=== PATIENT | male | born 1945 | race Caucasian/White ===

== ENCOUNTER 2016-06-27 02:49 | Inpatient (IN) ==
[2016-06-20 13:36] LABS: URINE MICRO REVIEW NEEDED? NO; URINE SOURCE CLEAN CATCH
[2016-06-20 13:40] LABS: MANUAL DIFF NEEDED? NO
[2016-06-20 13:48] LABS: BILIRUBIN URINE NEGATIVE (NEGATIVE); BLOOD URINE NEGATIVE (NEGATIVE); COLOR YELLOW; GLUCOSE URINE NEGATIVE (NEGATIVE); LEUKOCYTES URINE NEGATIVE (NEGATIVE); NITRITE URINE NEGATIVE (NEGATIVE); PROTEIN URINE NEGATIVE (NEGATIVE); SP GRAVITY URINE 1.008; TURBIDITY URINE CLEAR (CLEAR); UR EPITHELIAL CELLS <10 /HPF (<10); URINE BACTERIA NEGATIVE /HPF; URINE RBC <10 /HPF (<10); URINE WBC <10 /HPF (<10); UROBILINOGEN URINE NORMAL (NORMAL)
[2016-06-20 13:50] LABS: BASO% 0.4 % (0.0-0.8); EOS# 0.19 X1000 (0.0-0.7); EOS% 2.8 % (0.0-10.0); HEMATOCRIT 36.8 % (42.0-52.0); HEMOGLOBIN 12.2 g/dL (14.0-18.0); LYMPH# 1.73 X1000 (1.2-3.4); LYMPH% 25.7 % (20.5-51.1); MCH 31.7 PG (27-31); MCHC 33.2 g/dL (33-37); MCV 95.6 FL (81-99); MONO# 0.58 X1000 (0.11-0.59); MONO% 8.6 % (1.7-9.3); MPV 10.4 FL (7.4-10.4); NEUT% 62.5 % (42.2-75.2); PLT 164 X1000 (130-400); RBC 3.85 XMIL (4.7-6.1)
--- NOTE | 2016-06-20 13:54 | EKG Report ---
Test Performed on : 06/20/2016 1:25:03 PM Test Reason : PAT Blood Pressure : / mmHG Vent. Rate : 066 BPM Atrial Rate : 066 BPM P-R Int : 204 ms QRS Dur : 102 ms QT Int : 398 ms P-R-T Axes : 032 -24 012 degrees QTc Int : 417 ms Normal sinus rhythm. Normal ECG When compared with ECG of 07-MAR-2007 19:16, No significant change was found Confirmed by Vladimir BARR, Dain Frank ([id number]) on 06/22/2016 9:32:30 PM
[2016-06-20 14:02] LABS: INR 1.06; PROTIME 11.2 Seconds (9.2-11.7)
[2016-06-20 14:07] LABS: CALCIUM 9.2 mg/dL (8.8-10.2); POTASSIUM 4.9 mmol/L (3.5-5.1)
[2016-06-27] MEDS ORDERED: COLACE ONE (07:12)
[2016-06-27] MEDS ORDERED: PEPCID ONE (07:12)
[2016-06-27] MEDS ORDERED: REGLAN ONE (07:12)
[2016-06-27] MEDS ORDERED: CELEBREX ONE (07:13)
[2016-06-27] MEDS ORDERED: LR 1,000 ML ONE (07:13)
[2016-06-27] MEDS ORDERED: KEFZOL 2 GM/D5W 2 GM/50 ML IVPB ONE (07:14)
[2016-06-27] MEDS ORDERED: DIPRIVAN 1% 500 MG/50 ML BOTTLE ONE (07:27)
[2016-06-27] MEDS: LYRICA ONE ×2 (07:34→07:41)
--- NOTE | 2016-06-27 07:39 | HISTORY AND PHYSICAL ---
CHIEF COMPLAINT: Right knee pain. HISTORY OF PRESENT ILLNESS: Mr. Santiago is a 71-year-old, white male who has experienced progressive right knee pain for some time. His pain is worse with weightbearing and activity. Radiographic evaluation of the knee reveals findings consistent with advanced degenerative joint disease. Despite conservative therapy, he still has a significant reduction in his ability to conduct his normal daily activities, and he will be admitted at this time for right total knee arthroplasty. PRIMARY CARE PROVIDER: James Chen MD. ALLERGIES: No known drug allergies. PAST MEDICAL HISTORY: 1. Osteoarthritis. 2. Noninsulin-dependent diabetes mellitus. 3. Hypertension. 4. History of colon cancer. 5. Carotid artery disease. 6. Insomnia. 7. Peripheral neuropathy. PAST SURGICAL HISTORY: 1. Colon resection. 2. Appendectomy. 3. Bilateral carotid endarterectomies. 4. Vasectomy. 5. Right arm reconstruction secondary to trauma, 4 operations. SOCIAL HISTORY: The patient is . He is a remote smoker. CURRENT MEDICATIONS: 1. Aspirin, enteric coated 1 tablet by mouth daily. 2. Melatonin 3 mg 1 tablet by mouth at bedtime. 3. Fish oil 1000 mg daily. 4. Iron supplement 65 mg by mouth daily. 5. Vitamin B12 1000 mcg by mouth daily. 6. Multivitamin 1 tablet daily. 7. Lasix 40 mg by mouth daily. 8. Hytrin 5 mg by mouth in the morning. 9. Toprol-XL 100 mg by mouth twice daily. 10. Losartan 50 mg by mouth daily. 11. Glipizide/metformin combination 5/500, one tablet by mouth twice daily. REVIEW OF SYSTEMS: HEENT: The patient has a history of carotid artery disease having underwent bilateral carotid endarterectomies. He has no residual focal neurological deficits. Denies any recent interval health change. Cardiac: The patient has a longstanding history of hypertension. He reports a history of mitral valve prolapse. Denies any coronary artery disease or valvular heart disease. No chest pain, pressure, or other anginal equivalents. Pulmonary: The patient is a nonsmoker with no lung disease. Gastrointestinal: The patient has a history of colon cancer, status post resection. Denies any weight loss or weight gain. Genitourinary: No recent kidney or bladder infection or dysfunction. Neurological: He is treated for a peripheral neuropathy secondary to his diabetes. Musculoskeletal: He is here today for management of his osteoarthritic right knee. Other: He is treated for peripheral edema. PHYSICAL EXAMINATION: GENERAL: The patient is resting comfortably in bed. He is articulate. He has family at his bedside. He is able to answer all questions. HEENT: Head is normocephalic and atraumatic. Pupils are equal, round, react to light. Nares are patent. Throat without exudate. NECK: Supple. HEART: Regular rate and rhythm. No murmurs, gallops, or rubs. LUNGS: Clear to auscultation bilaterally. ABDOMEN: Round. Bowel sounds are present. It is nontender. GENITOURINARY: Not examined. NEUROLOGICAL: He discerns soft touch in the affected extremity. Motor function is grossly intact. MUSCULOSKELETAL: Right knee, no deformity or edema is noted. He has good peripheral pulse. IMPRESSION: Degenerative joint disease of the right knee. PLAN: Right total knee arthroplasty. The risks and benefits of surgery were explained to the patient including the risk of anesthesia, , bleeding, infection, damage to tendons, ligaments, nerves, blood vessels, the possibility of blood clots and other imponderables were discussed with the patient and he wishes to proceed with operative management at this time. Dictated by KHAI Barth for Pepe Rose MD cc: KHAI Barth MD
[2016-06-27] MEDS ORDERED: VANCOMYCIN ONE (08:07)
[2016-06-27] MEDS ORDERED: CYKLOKAPRON 1,000 MG/NS 1,000 MG/100 ML IVPB ONE ×2 (08:07→08:08)
[2016-06-27] MEDS ORDERED: MARCAINE 0.25% PF/EPI 1:200,000 ONE (08:07)
[2016-06-27] MEDS ORDERED: SODIUM CHLORIDE 0.9% ONE (08:07)
[2016-06-27] MEDS ORDERED: TORADOL ONE (08:07)
[2016-06-27] MEDS ORDERED: EXPAREL 1.3% ONE (08:08)
[2016-06-27] MEDS ORDERED: NEOSPORIN G.U. IRRIGANT ONE (08:08)
[2016-06-27] MEDS ORDERED: CLAVE SECONDARY SET 11953 ONE ×2 (08:08→12:59)
[2016-06-27] MEDS ORDERED: DURAMORPH ONE (08:44)
[2016-06-27] MEDS ORDERED: COZAAR PO SCH (09:00)
[2016-06-27] MEDS ORDERED: LASIX PO SCH (09:00)
[2016-06-27 09:50] LABS: URINE SOURCE CATH
[2016-06-27 10:10] LABS: BILIRUBIN URINE NEGATIVE (NEGATIVE); BLOOD URINE NEGATIVE (NEGATIVE); COLOR YELLOW; GLUCOSE URINE NEGATIVE (NEGATIVE); LEUKOCYTES URINE NEGATIVE (NEGATIVE); NITRITE URINE NEGATIVE (NEGATIVE); PROTEIN URINE TRACE mg/dL (NEGATIVE); SP GRAVITY URINE 1.018; TURBIDITY URINE CLEAR (CLEAR); UROBILINOGEN URINE NORMAL (NORMAL)
[2016-06-27 10:11] LABS: URINE MICRO REVIEW NEEDED? YES
[2016-06-27 10:15] LABS: UR EPITHELIAL CELLS <10 /HPF (<10); URINE BACTERIA NEGATIVE /HPF; URINE RBC <10 /HPF (<10); URINE WBC <10 /HPF (<10)
[2016-06-27 11:20] LABS: URINE CASTS NONE SEEN; URINE CRYSTALS NONE SEEN; URINE SMALL ROUND CELLS NONE SEEN
[2016-06-27] MEDS ORDERED: VERSED ONE (11:54)
[2016-06-27] MEDS ORDERED: FENTANYL ONE (11:54)
[2016-06-27] MEDS ORDERED: NS 1,000 ML ONE (12:08)
[2016-06-27] MEDS ORDERED: LR 3,000 ML ONE (12:59)
[2016-06-27] MEDS ORDERED: ANESTHESIA PB SET 88 IN 5742 ONE (12:59)
[2016-06-27] MEDS ORDERED: MORPHINE IV PRN (13:57)
[2016-06-27] MEDS ORDERED: MILK OF MAGNESIA PO PRN (14:00)
--- NOTE | 2016-06-27 15:43 | Diag Imaging Result Document ---
PROCEDURE NAME: KNEE 1-2 VIEWS-RIGHT - 06/27/2016 RIGHT KNEE 2 VIEWS: FINDINGS: There has been orthopaedic replacement of the right knee. There is good alignment to the femoral and tibial components. There are anterior skin akanksha with a superior surgical drain. No fracture. No dislocation. IMPRESSION: Recently orthopaedically replaced right knee.
[2016-06-27] MEDS: TOPROL XL PO SCH ×3 (15:50→20:30)
[2016-06-27] MEDS: HYTRIN PO SCH (15:51)
[2016-06-27] MEDS: GLUCOTROL PO SCH ×2 (15:51→20:23)
[2016-06-27] MEDS: FERROUS SULFATE PO SCH (15:52)
[2016-06-27] MEDS: NS 1,000 ML IV SCH (15:56)
[2016-06-27] MEDS: TYLENOL PO SCH ×2 (15:56→20:24)
--- NOTE | 2016-06-27 15:59 | OPERATIVE NOTE ---
PROCEDURE DATE: 06/27/2016 PREOPERATIVE DIAGNOSIS: Degenerative osteoarthritis of the right knee. POSTOPERATIVE DIAGNOSIS: Degenerative osteoarthritis of the right knee. PROCEDURES: Right total knee arthroplasty with a DePuy Attune size 9 posterior stabilized femur, a 10 mm tibial base plate, a 5 mm rotating platform tibial insert, and a 41 mm medialized anatomic patella. SURGEON: Pepe Rose MD. CIRCUS TRAINER: DANIELLA Rene. SECOND REFERENCE DATA EXPERT: Patricio Kennedy RN. ANESTHESIA: Spinal. IV FLUIDS: 2400 mL lactated Ringer. ESTIMATED BLOOD LOSS: 50 mL. TOURNIQUET TIME: 110 minutes at 350 mmHg. COMPLICATIONS: None. INDICATION: The patient is a pleasant 71-year-old male who has a long history of pain and discomfort of his right knee. Continues to have pain and discomfort despite appropriate nonoperative treatment. X-rays reveal significant degenerative arthritis and recommendation to proceed with right total knee arthroplasty was offered. Risks and benefits of surgery were explained, including the risks of anesthesia, , bleeding, infection, failure to relieve pain, postoperative stiffness, nerve injury, blood clots, and other imponderables. All questions answered. Patient and family wish to proceed with surgery. DETAILS OF THE OPERATION: The patient was taken to the operating room and placed supine on the operating table. Once adequate anesthesia was obtained, the patient's right lower extremity was subsequently prepped and draped in the usual sterile fashion. Esmarch was used to exsanguinate the right lower extremity. The tourniquet was inflated to 350 mmHg. A standard anterior incision was made with a skin knife. Medial and lateral skin envelopes were developed. Standard medial parapatellar arthrotomy was then performed. Patella fat pad was excised. Retractors were then placed. A starting reamer was then passed approximately 1 cm anterior to the PCL insertion. This was followed by an intramedullary guide with the distal femoral cutting block pinned in position. The distal femoral cut was then performed in standard fashion. A sizing block was placed and measured to size 6. The patient had some tightness with retraction of the patella. Therefore, resection of the patella was then conducted. A protective disk was then placed. Retractors were repositioned. A cutting block was placed on the distal femur. Anterior, posterior, and chamfer cuts were then made. Attention then turned the proximal tibia where further resection of the ACL and PCL was performed. Using the extramedullary guide, the proximal tibia was resected in standard fashion and good alignment confirmed with the alignment ciro. The medial and lateral meniscus was excised. A curved osteotome was used to remove the posterior osteophytes off the distal femur. A spacer block was placed and had good soft tissue balance in both flexion and extension. Attention was then turned to the proximal tibia where a size 10 appeared to be the correct size. The tibial baseplate was pinned in position. This was followed by a central reamer and a fin punch. A box cutting guide was then placed on the distal femur. A box cut was then performed. A size 9 posterior stabilized femur was placed in position. Two lug holes were drilled. A trial tibial insert was then placed and had good soft tissue balancing. The patella was everted and a size 41 appeared to be the correct size. Holes were drilled. A 41 mm medialized anatomic patella was then placed in had some mild translation; therefore, a lateral release was performed. Had good patellofemoral tracking at that point. The components were then removed. Copious irrigation then performed with antibiotic pulsatile lavage while vancomycin was mixed with cement on the back table. Sequential cementing was then performed, first with the tibial tray and excess cement removed with a [place], followed by the femoral component and excess cement was removed with a [place], followed by a trial tibial insert in full extension and axial loading was maintained while cement cured. The patella cemented in standard fashion. Patella clamp was placed. While the cement was curing, Exparel was placed in deep soft tissue as well as subcutaneous tissue. After the cement had finally cured, peripheral cement was removed with a small osteotome. A size 5 mm tibial insert good soft tissue balance in both flexion and extension. The trial component was then removed and Exparel was placed in the deep posterior capsule. The wound was copiously irrigated with antibiotic pulsatile lavage. A 5 mm rotating platform tibial insert was then placed. Had good soft tissue balance and good patellofemoral tracking and good range of motion. A 1/8 Hemovac drain was placed and was not sewn in. Copious irrigation was then performed once again with antibiotic pulsatile lavage. Number 1 Vicryl was used to repair the arthrotomy, followed by 2-0 Vicryl to repair the subcutaneous tissue, and skin akanksha. Adaptic, sterile 4 x 4, Webril, cryo unit, and Jakob wrap were applied to the left lower extremity. The patient tolerated the procedure well with no complications. Transferred to the recovery room in stable condition. cc: Pepe Rose MD MTDD
[2016-06-27] MEDS: OXY IR PO PRN ×3 (16:03→20:22)
[2016-06-27] MEDS: KEFZOL 2 GM/D5W 2 GM/50 ML IVPB IV SCH (17:51)
[2016-06-27] MEDS: PERIDEX MT SCH (20:22)
[2016-06-27] MEDS: COLACE PO SCH (20:22)
[2016-06-27] MEDS: MELATONIN PO SCH (20:25)
[2016-06-27] MEDS ORDERED: GLUCOPHAGE PO SCH (21:00)
[2016-06-28] MEDS: TYLENOL PO SCH ×4 (01:28→21:24)
[2016-06-28] MEDS: KEFZOL 2 GM/D5W 2 GM/50 ML IVPB IV SCH (01:28)
[2016-06-28] MEDS: NS 1,000 ML IV SCH ×3 (01:29→21:23)
[2016-06-28] MEDS: ZOFRAN PO PRN (02:52)
[2016-06-28 06:24] LABS: HEMATOCRIT 28.2 % (42.0-52.0)
[2016-06-28 06:35] LABS: CALCIUM 7.9 mg/dL (8.8-10.2); POTASSIUM 5.1 mmol/L (3.5-5.1)
[2016-06-28] MEDS: XARELTO PO SCH (07:04)
[2016-06-28] MEDS: OXY IR PO PRN ×4 (07:04→21:23)
[2016-06-28] MEDS ORDERED: DECADRON IV ONE (09:00)
[2016-06-28] MEDS: COLACE PO SCH ×2 (09:08→21:24)
[2016-06-28] MEDS: TOPROL XL PO SCH ×2 (09:09→21:23)
[2016-06-28] MEDS: FERROUS SULFATE PO SCH (09:09)
[2016-06-28] MEDS: HYTRIN PO SCH (09:09)
[2016-06-28] MEDS: GLUCOTROL PO SCH ×2 (09:09→21:23)
[2016-06-28] MEDS: PEPCID PO SCH (09:10)
[2016-06-28] MEDS: PERIDEX MT SCH ×2 (09:10→21:24)
[2016-06-28 10:47] LABS: UR CREAT RANDOM 211.8 mg/dL (14-26)
--- NOTE | 2016-06-28 11:23 | PROGRESS NOTE ---
DATE: 06/28/2016 SUBJECTIVE: The patient is a 71-year-old male, who is 1 day status post right total knee arthroplasty. The patient is currently resting comfortably. He has no complaints. OBJECTIVE: On physical exam, the patient's right knee has dressing intact. Calf is soft. Is able to plantar flex and dorsiflex his ankle. He is neurovascularly distally. LABORATORY DATA: His hemoglobin is 9.0 and hematocrit is 27. His creatinine is 3.3, up from 1.5. IMPRESSION: 1. Status post right total knee arthroplasty. 2. Acute blood loss anemia. 3. Acute on chronic renal insufficiency. PLAN: At this point, we will change his dressing and discontinue his drain. We will continue mobilize with physical therapy. The patient has been followed, seen, and treated per Dr. Villalobos and will discuss further with him with regards to his renal insufficiency. cc: Pepe Rose MD
--- NOTE | 2016-06-28 13:05 | Diag Imaging Result Document ---
PROCEDURE NAME: US RENAL 2 (RETROPER) COMPLETE - 06/28/2016 RENAL ULTRASOUND: COMPARISON: 05/23/2016. FINDINGS: There appears to be a miniscule right renal cyst measuring up to 1.3 cm. The kidneys are grossly normal in echotexture, otherwise. No discrete solid mass or hydronephrosis is identified. The right kidney measures 11 cm and the left kidney measures 12.2 cm in the greatest longitudinal axes. The right renal cortex measures up to 1 cm and the left renal cortex measures up to 1.1 cm in thickness. The urinary bladder is almost completely nondistended. It is grossly unremarkable, otherwise. IMPRESSION: Small right renal cyst. Essentially unremarkable, otherwise.
--- NOTE | 2016-06-28 15:57 | CONSULTATION ---
DATE OF CONSULTATION: 06/28/2016 REASON FOR ADMISSION: Right knee pain with a right total knee arthroplasty. REASON FOR CONSULT: Acute kidney injury on CKD, stage 3B. CONSULTING PHYSICIAN: Dr. Rose. HISTORY OF PRESENT ILLNESS: Mr. Santiago is a 71-year-old, white male who is actually known to our services, who was seen in our office on 06/05/2016 with a baseline creatinine of 1.87 up from 1.5 a year ago. Patient had a scheduled arthroplasty with Dr. Rose yesterday. Patient had been doing well status post surgery. He had IV fluids infusing during his hospitalization, but according to his , he had not hydrated well prior to his surgery. Patient had continued to take his metformin, his Lasix and his Cozaar prior to his hospitalization. Patient now has an elevated creatinine of 3.3, which is up from his baseline in our office approximately 3 weeks ago of 1.87. He is making adequate urine. He has just had his Fermin catheter removed. He denies chest pain. No increased work of breathing. No increased swelling except for this right knee, which is completely wrapped and trace. He denies any nausea, vomiting. No fever or chills. No diarrhea. PAST MEDICAL HISTORY: Positive for chronic kidney disease, stage 3B with a baseline creatinine of 1.87. Last seen in our office on 06/05. He has insulin-dependent diabetes mellitus type 2, hypertension, history of colon cancer. Carotid artery disease, insomnia, peripheral neuropathy and osteoarthritis. PAST SURGICAL HISTORY: Recent right total knee arthroplasty on 06/27/2016. Colon resection, appendectomy, bilateral carotid endarterectomy, vasectomy, right arm reconstruction secondary to trauma with 4 operations. SOCIAL HISTORY: He is . He is a previous smoker. He denies any tobacco , alcohol use. He has family who are attentive to his care. FAMILY HISTORY: Noncontributory. Positive for heart disease. No kidney disease. CURRENT ALLERGIES: Listed as no known drug allergies. HOME MEDICATIONS: Listed as aspirin, melatonin, fish oil, iron supplement, vitamin B12, multivitamins, Lasix, Hytrin, Toprol-XL, losartan, glipizide, metformin. REVIEW OF SYSTEMS: Times 10 with pertinent positives listed above in the HPI. His most recent vital signs are temperature 99.3, blood pressure 123/52, heart rate 84, respirations are 20. He remains on room air. Last recorded saturation 95%. He has had 6021 in. He has had 780 out per Fermin catheter, which has been removed and he is now voiding. LABS: This a.m., sodium 135, potassium 5.1, chloride 98, CO2 of 23, BUN 53, creatinine 3.3 with a glucose of 133. Anion gap 14, calcium 7.9. White count previously at 6.73 and a platelet count of 164. Hemoglobin today is 9 and a hematocrit of 28.2, which is down from 12.2 and 36.8. His ProTime prior to surgery was 11.2, with an INR of 1.06 and a PTT of 28.7. PHYSICAL EXAMINATION: General: This is a 71-year-old, white male. He is in no acute distress. Skin: Warm and dry. HEENT: Normocephalic, atraumatic. Conjunctiva is pink. He has ANGELA. Mucous membranes moist. Neck: Supple. Trachea midline. No JVD. Cardiovascular: Regular rate and rhythm. He is without murmur or gallop. Lungs: Clear to auscultation anteriorly. Equal excursion on room air. Abdomen: Round, soft, nontender. Positive bowel sounds. Genitourinary: Not inspected. Patient has Fermin catheter removed. He is currently voiding. Integumentary: No rashes or lesions noted. Extremities: He has a dressing to the entire right leg. He has ice circulating through this at this time. He has edema trace pretibial to the left. No clubbing or cyanosis. Neurological: Alert and oriented x3. ASSESSMENT AND PLAN: 1. Acute kidney injury on chronic kidney disease, stage 3B. The patient has an elevated creatinine secondary to possible dehydration and nephrotoxic medications. At this time, his metformin has been stopped. His Lasix has been stopped and his Cozaar has been stopped. We have checked a FENa score which is 0.22% indicating the patient is behind in his fluids. We have a renal ultrasound that is currently ordered and pending. We will change his IV fluids to normal saline at 100 mL an hour to be continuous. 2. Electrolytes, this is stable. 3. Acid-base balance, this is stable. 4. Anemia. This has dropped status post surgery with Dr. Rose following. I would like to thank you for allowing us to follow with this patient. Seen, data reviewed, discussed with Tita Torres on 06/28/16. I agree with the above assessment and plan of care. rg Dictated by DANIELLA Watson for Iglesia Villalobos MD cc: DANIELLA Watson MD [facility], MD [facility] MEDICAL CENTERJoselin
[2016-06-28] MEDS: MELATONIN PO SCH (21:23)
[2016-06-29] MEDS: TYLENOL PO SCH ×3 (01:08→14:18)
[2016-06-29] MEDS: OXY IR PO PRN ×2 (01:08→06:14)
[2016-06-29] MEDS: XARELTO PO SCH (05:21)
[2016-06-29] MEDS: NS 1,000 ML IV SCH (05:21)
[2016-06-29 06:11] LABS: HEMATOCRIT 27.1 % (42.0-52.0)
--- NOTE | 2016-06-29 06:37 | PROGRESS NOTE ---
DATE: 06/29/2016 SUBJECTIVE: The patient is a pleasant 71-year-old male who is two days status-post right total knee arthroplasty. The patient is currently resting comfortably. He has some expected discomfort with his right knee. He did sustain an acute kidney injury on chronic kidney disease with elevation of his creatinine to 3.[address] Villalobos was consulted and his IV fluids were adjusted to normal saline at 100 mL/hr. OBJECTIVE: On physical exam of the patient's right knee his wound looks good. There are no signs or symptoms of infection. His calf is soft. He is neurovascularly intact distally. He has active dorsiflexion and plantar flexion. His labs are pending. IMPRESSION: Postoperative day #2 status-post right total knee arthroplasty. PLAN: At this point we will await his lab work and recommendations from Dr. Villalobos. He will continue with his physical therapy with full weightbearing of the right lower extremity. Pathology Manager have been consulted for home physical therapy. cc: Pepe Rose MD
[2016-06-29 06:50] LABS: ALBUMIN 3.4 g/dL (3.5-5.0); POTASSIUM 5.4 mmol/L (3.5-5.1)
[2016-06-29] MEDS: COLACE PO SCH (09:09)
[2016-06-29] MEDS: HYTRIN PO SCH (09:09)
[2016-06-29] MEDS: GLUCOTROL PO SCH (09:10)
[2016-06-29] MEDS: PEPCID PO SCH (09:10)
[2016-06-29] MEDS: TOPROL XL PO SCH (09:11)
[2016-06-29] MEDS: PERIDEX MT SCH (09:11)
[2016-06-29] MEDS: FERROUS SULFATE PO SCH (09:11)
[2016-06-29] MEDS: ZOFRAN PO PRN (11:14)
[2016-06-29 15:45] VITALS: BP 135/64
--- NOTE | 2016-06-29 17:02 | DISCHARGE SUMMARY ---
ADMISSION DATE: 06/27/2016 DISCHARGE DATE: 06/29/2016 SUBJECTIVE: Patient is sitting up in a chair. He states that he has been ambulatory. He states he believes he will go home later on today. OBJECTIVE: Vital Signs: Temperature 98.4 degrees, pulse 70, respiratory rate 16, blood pressure 156/71. Intake 2.7 L. Output 1.5 L. PHYSICAL EXAMINATION: General: This is an elderly gentleman resting in a chair , in no acute distress. HEENT: Normocephalic, atraumatic. Oral mucosa is moist. Neck: Supple. No JVD. Cardiovascular: Regular rate and rhythm. Pulmonary: He has equal excursion, clear bilaterally. Abdomen: Soft, positive bowel sounds. Genitourinary: Not inspected. Extremities: He has akanksha noted to the right knee that are clean, dry and intact. Trace pretibial edema to the left. No clubbing or cyanosis. Integumentary: Skin is warm and dry otherwise. LAB DATA: Hemoglobin 9.0, sodium 130, potassium 5.4, CO2 21, BUN 56, creatinine 2.7, baseline creatinine 1.5-1.8. ASSESSMENT AND PLAN: 1. Acute on chronic kidney disease with improvement in his creatinine overnight after adding some fluids back. Patient is eating and drinking well. Urine output has picked up nicely. He has had some nausea secondary to pain medicine. We have stopped his IV fluids. If he is discharged today, he will need to have follow-up labs in our office next Saturday. Follow up from hospitalization 2 weeks after that. 2. Electrolytes, acid-base balance. These are acceptable. 3. Anemia. He did undergo arthroplasty. Expected. 4. Fluid volume. He does not appear overloaded. Seen, data reviewed, discussed with Nelda Horton on 06/29/16. I agree with the above assessment and plan of care. rg Dictated by DANIELLA Gautam for Iglesia Villalobos MD cc: MD Pepe Brandon MD MTDD
== END 2016-06-29 16:18 | disposition home health service (06) ==
LOC: SURHOLD 02:49 → 4N 10:41
PROVIDERS: ADMIT Orthopaedic Surgery Adult Reconstructive Orthopaedic Surgery; ATTEND Orthopaedic Surgery Adult Reconstructive Orthopaedic Surgery

== ENCOUNTER 2016-07-07 22:02 | Inpatient (IN) ==
--- NOTE | 2016-07-07 23:46 | PROVIDER DOCUMENTATION ---
This chart was entered by Gio Fink Scribe, acting as scribe for Syeda Ch PA. HPI-Musculoskeletal Pain/Inj - GENERAL Chief Complaint: Extremity Pain Stated Complaint: POST OP COMPLAINT Time Seen by Provider: 07/07/16 23:00 Source: patient - HX OF PRESENT ILLNESS-MUSKULOSKELTAL Nature of Presenting Problem: Pt is a 71 yom who presents to ER with CC of bilateral elbow pain and denies injury. Pt reports that he had R knee arthroplasty performed by Dr. Roe. Pt presents tonight with 24 hours of bilateral elbow pain, claiming that his R elbow was red/swollen earlier but has since resolved. Pt denies pain in shoulder , wrist, or digits and reports that he has been using a walker to reduce weight bearing on his RLE. Severity in ED: mild, moderate Onset/Duration: 24 hours ago Timing: still present Any recent injury?: Yes Locality of Occurance: Home Similar Symptoms Previously?: No Recently seen or treated by another doctor?: Yes - UPPER EXTREMITY PAIN/INJURY Extremities Pain Location: elbow: bilateral Context / Method of Injury: denies: assault, burn, direct blow, fell, incised, motor vehicle accident, sports injury, twisted Associated Symptoms: reports: other (painful/stiff). denies: muscle spasms, numbness in upper ext, sensory/motor loss, tingling in upper ext, weakness in upper ext Review of Systems - Adult - REVIEW OF SYSTEMS - ADULT Constitutional: denies: chills, fever, fatique, night sweats, weight gain, weight loss Eyes: reports: no symptoms reported Ears, Nose, Mouth & Throat: reports: no symptoms reported Cardiovascular: reports: no symptoms reported Respiratory: reports: no symptoms reported Gastrointestinal: denies: abdominal pain, hematemesis, constipation, diarrhea, difficulty swallowing, frequent heartburn, nausea, poor appetite, rectal bleeding, vomiting Genitourinary: reports: no symptoms reported Musculoskeletal: reports: joint pain, muscle aches. denies: bone pain, back pain, frequent leg cramps, joint swelling, muscle weakness, neck pain Integumentary: reports: no symptoms reported Neurological: reports: no symptoms reported Psychiatric: reports: no symptoms reported Endocrine: reports: no symptoms reported Hematologic/Lymphatic: reports: no symptoms reported Allergic/Immunologic: reports: no symptoms reported All Other Systems: Reviewed and Negative Past History - Adult - PAST MEDICAL HISTORY-ADULT Review of Records: reports: Nursing Assessment Review, Medications Reviewed Cardiovascular: reports: cardiac disease, HTN, heart valve problem Endocrine/Immune: reports: Diabetes - PRIOR SURGERIES/PROCEDURES Surgical/Procedure History: reports: bowel surgery, other (carotid endarectomy) - IMMUNIZATION STATUS Childhood Immunizations: See Nurse Assessment Flu Vaccine: See Nurse Assessment Physical Exam-Injury Related - Physical Exam-Injury Related Initial Vital Signs Reviewed: Yes General Appearance: appears well, alert, mild distress. negative: no apparent distress Eyes: PERRL/EOMI, pink conjunctivae, fundi clear, no AV nicking Head, Ears, Nose, Mouth & Throat: normocephalic/atraumatic, moist mucous membranes, normal ENT inspection, TMs normal, pharynx normal. negative: pharyngeal erythema, tonsillar exudate, TM abnormal Neck: non-tender, full range of motion, supple, normal inspection. negative: decresed ROM, ecchymosis, limited range of motion Respiratory: chest non-tender, lungs clear, normal breath sounds, no pleuratic chest pain, no respiratory distress, no accessory muscle use. negative: respiratory distress, wheezing Cardiovascular: normal peripheral pulses, regular rate, rhythm. negative: bradycardia, tachycardia, irregularly irregular Abdominal Exam: normal bowel sounds, non tender, soft, no organomegaly, no pulsatile mass. negative: abnormal bowel sounds, distended, tenderness Back Exam: normal inspection, no CVA tenderness, no vertebral tenderness. negative: CVA tenderness, decreased range of motion, ecchymosis, muscle spasm, swelling, vertebral tenderness Extremity: normal inspection, no pedal edema, no calf tenderness, normal capillary refill, tenderness (bilateral elbows), other (significant stiffness in R elbow; Equal motor strength bilaterally in upper extremities). negative: normal range of motion, non-tender, normal gait, deformity, erythema, inflammation, swelling Integumentary: normal color, warm/dry. negative: diaphoresis, ecchymosis, erythema, swelling, tenderness, warm, abrasion, contusion(s), laceration Neurologic: key carrier II-XII nml as tested, grossly normal, no motor/sensory deficits . negative: facial droop, focal weakness, motor weakness, sensory deficit Psych/Mental Status: normal mood/affect, normal thought content, normal thought process, oriented x 3 Progress - PLAN OF CARE/RESULTS Progress/Plan/Lab Results: Vital Signs - 8 hr 07/07/16 22:11 Temperature 98.9 F Pulse Rate 102 H Respiratory Rate 16 Blood Pressure 122/45 O2 Sat by Pulse Oximetry 94 L Laboratory Results - last 24 hr 07/07/16 07/07/16 07/07/16 23:51 23:51 23:51 WBC 12.15 H RBC 2.88 L Hgb 9.0 L Hct 27.9 L MCV 96.9 MCH 31.3 H MCHC 32.3 L RDW Std Deviation 12.8 Plt Count 261 MPV 10.0 Immature Gran % (Auto) 0.9 H Neut % (Auto) 80.7 H Lymph % (Auto) 9.1 L [place] % (Auto) 8.9 Eos % (Auto) 0.2 Baso % (Auto) 0.2 Immature Gran # (Auto) 0.11 H Neut # (Auto) 9.80 H Lymph # (Auto) 1.11 L [place] # (Auto) 1.08 H Eos # (Auto) 0.03 Baso # (Auto) 0.02 Sodium 136 Potassium 5.3 H Chloride 96 L Carbon Dioxide 25 Anion Gap 15 BUN 41 H Creatinine 2.0 H Estimated GFR/1.73 m2 33 BUN/Creatinine Ratio 21 Glucose 140 H Calculated Osmolality 284 Calcium 8.9 Total Bilirubin 0.63 AST 15 ALT 12 Alkaline Phosphatase 52 Total Protein 6.8 Albumin 3.2 L Globulin 3.6 Albumin/Globulin Ratio 0.9 Urine Source CLEAN CATCH Urine Color YELLOW Urine Turbidity CLEAR Urine pH 5.5 Ur Specific [place] 1.011 Urine Protein TRACE A Ur Glucose (Stick) NEGATIVE Ur Ketones (Stick) NEGATIVE Urine Blood NEGATIVE Urine Nitrite NEGATIVE Urine Bilirubin NEGATIVE Urobilinogen Dipstick NORMAL Urine Leukocytes NEGATIVE Urine WBC (Auto) <10 Urine RBC (Auto) <10 U Epithel Cells (Auto) <10 Urine Bacteria (Auto) NEGATIVE Orders Category Date Time Status Saline Loc NOW Care 07/07/16 23:24 Active CHEST-PORTABLE [RAD] Stat Exams 07/08/16 00:36 Taken BLOOD CULTURE [BLDCUL] Stat Lab 07/08/16 00:02 Results CBC WITH ELECTRONIC DIFF [HEME] Stat Lab 07/08/16 00:02 Completed COMPREHENSIVE METABOLIC PANEL [CHEM] Stat Lab 07/08/16 00:02 Completed UA NIMS W/REFLEX CULT [URINALYSIS] Stat Lab 07/08/16 00:02 Completed WOUND CULTURE INC GRAM STAIN [RM] Routine Lab 07/08/16 00:40 Ordered Lidocaine 1% Pf [Xylocaine-Mpf 1%] 5 ml Med 07/08/16 00:45 Discontinued .ROUTE As Directed Lidocaine 1% [Xylocaine 1%] Med 07/08/16 00:44 Discontinued 20 ml INJ NOW ONE Morphine Med 07/08/16 00:00 Discontinued 2 mg IV NOW ONE Ondansetron [Zofran] Med 07/08/16 00:00 Discontinued 4 mg IV NOW ONE Vancomycin 1 gm/Ns Med 07/08/16 00:51 Active 1 gm in [address] Clemons to bedside, septic Olecranon bursitis, start on Vancomycin with admission Result Diagrams: 07/07/16 23:51 07/07/16 23:51 - CONSULTS/PCP/HOSPITALIST Notification #1 *Consult/PCP/Hospitalist*: Dr. Morrissey, hospitalist Time Discussed: 00:59 Reason/Comments: setic olecranon bursitis of the right elbow Consult Disposition: Admit Procedures - ARTHROCENTESIS Right Elbow Time-Out Verification Completed?: Yes Prepped with: Kit Utilized Anesthetic: 1%, Lidocaine/Xylocaine Volume of Anesthetic (ml's): 2 Drained Volume Amount (ml's): 2 Fluid Description: Other (crystalline deposits, cloudy white) Procedure Comment: perfomred by Dr. Clemons Departure - Departure Time of Disposition Decision: 00:52 DIAGNOSIS: Septic olecranon bursitis of right elbow Gout Qualifiers: Gout site: elbow Gout etiology: unspecified cause Laterality: right Chronicity : acute Qualified Code(s): M10.9 - Gout, unspecified Disposition: ADMITTED INPATIENT 09 Certified Medical Emergency: Emergent Condition: Stable Referrals and Follow-Ups: James Chen MD [Primary Care Provider] - - Critical Care Note This patient required my direct personal management.: No Attestation - Physician/ RENETTA Attestation Patient care was provided by Advanced Practice Provider:: Yes Advanced Practice Provider:: Syeda Ch Advanced Practice Provider documentation review:: The Mid-level provider documentation, treatment plan and medical decision making was reviewed by the physician who agrees with all treatment and medical decision making by the MLP. The physician spent face to face time with patient:: Yes Advanced Practice Provider documentation review:: The physician spent face to face time with this patient and agrees with all MLP documentation, treatment, and medical decision making by the MLP. See provider notes for further information. This chart was documented by the indicated scribe, (Gio Fink Scribe) and accurately reflects the services I performed and decisions made by , Syeda Ch PA, as attested by the provider's signature.
[2016-07-08] MEDS ORDERED: ZOFRAN IV ONE
[2016-07-08] MEDS ORDERED: MORPHINE IV ONE
[2016-07-08 00:10] LABS: MANUAL DIFF NEEDED? NO; URINE CULTURE NEEDED? NO; URINE MICRO REVIEW NEEDED? NO; URINE SOURCE CLEAN CATCH
[2016-07-08 00:13] LABS: BASO% 0.2 % (0.0-0.8); EOS# 0.03 X1000 (0.0-0.7); EOS% 0.2 % (0.0-10.0); HEMATOCRIT 27.9 % (42.0-52.0); IMM GRAN# 0.11 X1000 (0.0-0.04); IMM GRAN% 0.9 % (0.0-0.5); LYMPH# 1.11 X1000 (1.2-3.4); LYMPH% 9.1 % (20.5-51.1); MCH 31.3 PG (27-31); MCHC 32.3 g/dL (33-37); MCV 96.9 FL (81-99); MONO# 1.08 X1000 (0.11-0.59); MONO% 8.9 % (1.7-9.3); NEUT% 80.7 % (42.2-75.2); PLT 261 X1000 (130-400); RBC 2.88 XMIL (4.7-6.1)
[2016-07-08 00:14] LABS: BILIRUBIN URINE NEGATIVE (NEGATIVE); BLOOD URINE NEGATIVE (NEGATIVE); COLOR YELLOW; GLUCOSE URINE NEGATIVE (NEGATIVE); LEUKOCYTES URINE NEGATIVE (NEGATIVE); NITRITE URINE NEGATIVE (NEGATIVE); PH URINE 5.5; PROTEIN URINE TRACE mg/dL (NEGATIVE); SP GRAVITY URINE 1.011; TURBIDITY URINE CLEAR (CLEAR); UR EPITHELIAL CELLS <10 /HPF (<10); URINE BACTERIA NEGATIVE /HPF; URINE RBC <10 /HPF (<10); URINE WBC <10 /HPF (<10); UROBILINOGEN URINE NORMAL (NORMAL)
[2016-07-08 00:39] LABS: ALBUMIN 3.2 g/dL (3.5-5.0); CALCIUM 8.9 mg/dL (8.8-10.2); POTASSIUM 5.3 mmol/L (3.5-5.1); TOTAL BILIRUBIN 0.63 mg/dL (0.20-1.00); TOTAL PROTEIN 6.8 g/dL (6.3-8.3)
[2016-07-08] MEDS ORDERED: XYLOCAINE 1% INJ ONE (00:44)
[2016-07-08] MEDS ORDERED: XYLOCAINE-MPF 1% 5 ML ONE (00:45)
[2016-07-08] MEDS ORDERED: VANCOMYCIN 1 GM/NS 1 GM/250 ML IVPB IV ONE (00:51)
--- NOTE | 2016-07-08 03:12 | HISTORY AND PHYSICAL ---
CHIEF COMPLAINT: Bilateral elbow swelling. HISTORY OF PRESENTING ILLNESS: A 71-year-old male with a history of hypertension, diabetes mellitus type 2, chronic kidney disease who underwent recently a right total knee replacement. Presented to the emergency department complaining of pain and swelling in bilateral elbows. The patient complained that the right elbow was actually more swollen than the other one but both seemed to hurt. He was evaluated by ER physician who did an I and D of the right elbow and it was suspicious for possible olecranon bursitis. Due to these presenting symptoms and the fact that the patient was febrile, it was thought that he would need hospitalization for further management. At the time of my examination, he had denied any headache, nausea, vomiting, diarrhea, chest pain, shortness of breath, hemoptysis, or any weight changes but complained of having fevers and unable to move his right elbow and states both elbows were painful. PAST MEDICAL HISTORY: Includes hypertension, diabetes mellitus type 2, anemia, chronic kidney disease, colon cancer. PAST SURGICAL HISTORY: Right total knee replacement, left arm surgery, bilateral carotid endarterectomy, and vasectomy. ALLERGIES: No known drug allergies. CURRENT MEDICATIONS: Listed in the MAR. SOCIAL HISTORY: He denies any history of smoking. Admits to social alcohol use in the past. Denies illicit drug use. FAMILY HISTORY: Positive for coronary disease. REVIEW OF SYSTEMS: Twelve point review of systems as listed as in the HPI. Other systems negative. PHYSICAL EXAMINATION: GENERAL: Cooperative, friendly male. He is resting comfortably now. VITAL SIGNS: Temperature 98.9 degrees, pulse 102, respirations 16, blood pressure 122/45. HEENT: Atraumatic, normocephalic. Extraocular movements intact. PERRLA. NECK: Supple. CHEST: Clear to auscultation. CARDIOVASCULAR: Regular rate and rhythm. ABDOMEN: Soft, obese, positive bowel sounds. EXTREMITIES: Right elbow swollen and tender. There is a moderate amount of warmth. : No bladder distention. SKIN: Warm and good pallor. LABORATORIES AND STUDIES: WBCs 12.15, hemoglobin 9, hematocrit 27.9, platelets 261,000. Sodium 136, potassium 5.3, chloride 96, CO2 is 25, BUN is 41, creatinine is 2, glucose 140. ASSESSMENT: A 71-year-old male with a history of hypertension, diabetes mellitus type 2, and chronic kidney disease who recently underwent a right total knee replacement, who presented to the emergency department with complaint of bilateral elbow pain, greater in his right elbow. He was evaluated in the emergency room and the right elbow was moderately tender. Apparently, this was drained by the emergency room physician. His symptoms are consistent with septic olecranon bursitis. He will need hospitalization for further management. 1. Septic olecranon bursitis, right elbow. 2. Diabetes mellitus type 2. 3. Hypertension. 4. Chronic kidney disease. PLAN: 1. We will admit patient to the medical floor with telemetry. 2. We will start patient on IV antibiotics. 3. We will monitor blood pressure closely. Resume antihypertensive agent. 4. We will put patient on sliding scale insulin regimen and monitor blood glucose. 5. We will monitor renal function. 6. We will continue patient on his DVT prophylaxis that he had post surgery. 7. We will continue to follow and reassess. cc: Neal Morrissey MD
[2016-07-08] MEDS ORDERED: VANCOMYCIN IV PER PHARMACY MISC SCH (03:38)
[2016-07-08] MEDS ORDERED: VANCOMYCIN 1,250 MG in NS 250 ML IV ONE (04:00)
[2016-07-08] MEDS: NS 1,000 ML IV SCH ×2 (04:20→23:23)
[2016-07-08] MEDS: ROCEPHIN 1 GM/NS 1 GM/50 ML IVPB IV SCH (04:21)
[2016-07-08] MEDS: MORPHINE IV PRN ×2 (05:42→09:33)
[2016-07-08] MEDS: HUMULIN R SUBQ SCH ×4 (06:10→23:25)
--- NOTE | 2016-07-08 08:02 | Diag Imaging Result Document ---
PROCEDURE NAME: CHEST-PORTABLE - 07/08/2016 PORTABLE CHEST: COMPARISON: Compared to 01/26/2010. FINDINGS: The lungs are expanded. The heart is mildly prominent. The vessels are not distended. No pneumonia. No pleural effusions identified. IMPRESSION: Cardiomegaly.
[2016-07-08] MEDS: VITAMIN B-12 PO SCH (08:35)
[2016-07-08] MEDS: VITAMIN C PO SCH ×2 (08:35→20:04)
[2016-07-08] MEDS: FISH OIL CONCENTRATE PO SCH (08:36)
[2016-07-08] MEDS: FERROUS SULFATE PO SCH (08:36)
[2016-07-08] MEDS: COZAAR PO SCH (08:36)
[2016-07-08] MEDS: TOPROL XL PO SCH ×2 (08:36→20:03)
[2016-07-08] MEDS: LYRICA PO SCH ×2 (08:36→20:03)
[2016-07-08] MEDS: HYTRIN PO SCH (08:36)
[2016-07-08] MEDS ORDERED: LASIX PO SCH (09:00)
--- NOTE | 2016-07-08 10:55 | Diag Imaging Result Document ---
PROCEDURE NAME: ELBOW COMPLETE LEFT - 07/08/2016 LEFT ELBOW THREE VIEWS: FINDINGS: The lateral view is not taken at 90 degrees. However, the anterior and posterior fat pads are slightly distended. Tiny olecranon bone spur. No dislocation. No fracture identified. IMPRESSION: Distended anterior and posterior fat pads which may indicate an occult fracture.
--- NOTE | 2016-07-08 10:57 | Diag Imaging Result Document ---
PROCEDURE NAME: ELBOW COMPLETE RIGHT - 07/08/2016 RIGHT ELBOW THREE VIEWS: FINDINGS: The lateral view is not taken at 90 degrees. There is bone spurring about the elbow. No dislocation. Questionable deformity to the radial head. IMPRESSION: No arthritic changes about the elbow with a questionable radial head fracture.
[2016-07-08] MEDS ORDERED: COLCRYS PO ONE (12:39)
--- NOTE | 2016-07-08 13:13 | PROGRESS NOTE ---
DATE: 07/08/2016 SUBJECTIVE: Mr. Santiago is 71-year-old male who was admitted yesterday because of pain and swelling to the left elbow associated with high temperatures at home. Of note, Mr. Santiago just had right knee surgery done just almost [address] Rose. OBJECTIVE: Vital signs: Blood pressure is 120/45, pulse of 83, respirations 20 , temperature 97.8 degrees. General: Mr. Santiago is a 71-year-old male. He was in bed, in mild painful distress. HEENT: Mucosa is pink and moist. Anicteric. Acyanotic. Neck: Supple. Chest: Clear. Cardiovascular: Regular rate and rhythm. No murmurs. No rubs. No gallops. Abdomen: Soft, distended, but nontender. Bowel sounds are present. Extremities: About 1+ pedal edema. Musculoskeletal: There is a fresh surgical scar on the right knee with surgical clips. Both elbows are minimally swollen; the right is more than the left. The right elbow also has some fluctuant material and it is slightly warm. LABORATORY DATA: From yesterday WBC was 12.15, hemoglobin is 9.0, platelet count of 261,000. Sodium is 136, potassium is 5.3, chloride is 96, bicarb is 26. Microbiology: Gram stain of the fluid from the right elbow shows 4+ white blood cells. ASSESSMENT: 1. Septic right olecranon bursitis. 2. Bilateral elbow arthralgia likely, to rule out underlying uric acid abnormality. We are still pending the fluid analysis from the right aspiration. 3. Hypertension, stable. 4. Diabetes mellitus, controlled. 5. Chronic kidney disease, noted. 6. Morbid obesity. 7. Recent right knee total arthroplasty. GENERAL PLAN: We are going to continue with the current antibiotics. I also did order cell counts on the fluid that was extracted in the ER since none was done. We will continue with the current antibiotics. Patient has already been evaluated by orthopedics and there is a plan to take him to the OR to open up the joint for drainage. cc: MD REINALDO Oro
[2016-07-08] MEDS: ZOFRAN IV PRN ×2 (13:44→20:03)
[2016-07-08] MEDS: DILAUDID IV PRN ×3 (13:44→20:03)
--- NOTE | 2016-07-08 16:17 | CONSULTATION ---
DATE OF CONSULTATION: 07/08/2016 CHIEF COMPLAINT: Bilateral elbow pain. HISTORY OF PRESENT ILLNESS: Kian Santiago is a 71-year-old male who underwent a total knee arthroplasty last Saturday, a week and half ago. He was doing well until this past Saturday when he began having elbow pain with swelling and erythema both his elbows, worse on the right. He presented to the ER last night, was diagnosed with infected olecranon bursa as well as possible septic elbows. His elbow was drained and then he was admitted with IV antibiotics and I was asked to see in orthopedic consultation. PAST MEDICAL HISTORY, PAST SURGICAL HISTORY, MEDICINES, ALLERGIES: See admission history and physical. PHYSICAL EXAMINATION: Reveals a well-developed, well-nourished male. He is alert, oriented, and cooperative exam. He has excruciating pain with any motion of his left elbow, his right elbow was painful with motion as well. He has obvious swollen olecranon bursa on the right. The left elbow looks fairly benign except for his excruciating pain. Both arms are neurovascular intact. LABORATORY VALUES: Reveal a white count of 12,000 with a left shift. Cultures are pending. His urinalysis is normal. His gram stain showed white cells but no bacteria were seen. IMPRESSION: Bilateral elbow pain with possible septic arthritis and a septic olecranon bursitis on the right. PLAN: Today after a long discussion with him concerning this, I think the best course of action is likely I and D of both elbows. I am concerned he may have actual septic elbow, we need to wash out his actual elbow joint. I have discussed with him the risks, benefits, and alternatives of this including but not limited to bleeding, nerve damage, infection, risk from anesthesia, continued elbow pain up to and including loss of limb, life, and other imponderables. He voices understanding. All questions were answered. No guarantees were given. He requested to proceed as planned. We will plan on doing that in the morning as he has already eaten today. cc: Michael Lr MD
[2016-07-08] MEDS: ASPIRIN EC PO SCH (20:03)
[2016-07-08] MEDS: MELATONIN PO SCH (20:04)
[2016-07-09] MEDS: ZOFRAN IV PRN ×2 (00:06→04:26)
[2016-07-09] MEDS: DILAUDID IV PRN ×2 (00:06→04:26)
[2016-07-09] MEDS: ROCEPHIN 1 GM/NS 1 GM/50 ML IVPB IV SCH (04:22)
[2016-07-09] MEDS: HUMULIN R SUBQ SCH ×4 (06:27→21:20)
[2016-07-09 06:31] LABS: MANUAL DIFF NEEDED? NO
[2016-07-09 06:43] LABS: BASO% 0.1 % (0.0-0.8); EOS# 0.01 X1000 (0.0-0.7); EOS% 0.1 % (0.0-10.0); HEMATOCRIT 24.8 % (42.0-52.0); IMM GRAN% 0.7 % (0.0-0.5); LYMPH# 1.63 X1000 (1.2-3.4); LYMPH% 11.7 % (20.5-51.1); MCHC 32.3 g/dL (33-37); MCV 96.1 FL (81-99); MONO# 1.45 X1000 (0.11-0.59); MONO% 10.4 % (1.7-9.3); PLT 278 X1000 (130-400); RBC 2.58 XMIL (4.7-6.1)
[2016-07-09 07:24] LABS: FERRITIN 536 ng/mL (30-400)
[2016-07-09 08:34] LABS: ALBUMIN 2.9 g/dL (3.5-5.0); CALCIUM 8.3 mg/dL (8.8-10.2); POTASSIUM 4.9 mmol/L (3.5-5.1); TOTAL BILIRUBIN 0.37 mg/dL (0.20-1.00); TOTAL PROTEIN 5.7 g/dL (6.3-8.3)
[2016-07-09] MEDS ORDERED: NEOSPORIN G.U. IRRIGANT ONE (10:53)
[2016-07-09] MEDS ORDERED: CLAVE SECONDARY SET 11953 ONE (10:53)
[2016-07-09] MEDS ORDERED: VANCOMYCIN 2,000 MG in NS 500 ML IV SCH (11:00)
[2016-07-09] MEDS ORDERED: NS 1,000 ML IV SCH (13:00)
[2016-07-09] MEDS: MORPHINE ONE ×5 (13:02→15:27)
[2016-07-09] MEDS ORDERED: XYLOCAINE-MPF 2% ONE (13:06)
[2016-07-09] MEDS ORDERED: EPHEDRINE ONE (13:06)
[2016-07-09] MEDS ORDERED: LR 1,000 ML ONE (13:07)
[2016-07-09] MEDS ORDERED: PIGGYBACK SET 7393 ONE (13:07)
[2016-07-09] MEDS ORDERED: ANESTHESIA PB SET 88 IN 5742 ONE (13:07)
[2016-07-09] MEDS ORDERED: EXTENSION SET 32 IN 4522 ONE (13:07)
[2016-07-09] MEDS ORDERED: MORPHINE PCA ONE (13:16)
[2016-07-09] MEDS ORDERED: FENTANYL ONE (13:34)
[2016-07-09] MEDS ORDERED: DIPRIVAN 1% ONE (13:34)
[2016-07-09] MEDS ORDERED: NARCAN 0.4 MG in LR 1,000 ML IV PRN (13:40)
[2016-07-09] MEDS ORDERED: ZOFRAN IV PRN (13:40)
[2016-07-09] MEDS ORDERED: NARCAN IV PRN (13:40)
[2016-07-09] MEDS: NS 1,000 ML IV SCH ×2 (14:50→18:27)
--- NOTE | 2016-07-09 14:56 | OPERATIVE NOTE ---
PROCEDURE DATE: 07/09/2016 PREOPERATIVE DIAGNOSIS: Bilateral elbow septic joints with right infected olecranon bursa. POSTOPERATIVE DIAGNOSIS: Bilateral elbow septic joints with right infected olecranon bursa. PROCEDURES PERFORMED: 1. Incision, drainage, and irrigation of bilateral elbows. 2. Incision, drainage, and debridement of right olecranon bursa as well as irrigation. SURGEON: Michael Lr MD DIRECTOR DIGITAL MARKETING: Jimi. ANESTHESIA: General. COMPLICATIONS: None. BLOOD LOSS: Minimal. DRAINS: Hemovac x2. DESCRIPTION OF PROCEDURE: The patient was brought to the operating suite and placed in supine position. After successful administration of general anesthesia, a well-padded tourniquet was placed on both proximal arms and both arms were prepped and draped in the usual sterile fashion. Beginning with the left elbow, which had significant effusion on the preoperative x-rays, an incision was made overlying the lateral broach to the elbow joints. It was dissected sharply through the skin and bluntly down to the joint. Purulent material was returned. This was sent for cultures. The joint was copiously irrigated with normal saline containing irrigant. A drain was placed into the joint and exiting distally. The fascia was closed with 0 Vicryl. The skin edge was approximated with interrupted nylon. A sterile dressing was applied. Attention was then directed to the right elbow. Similarly, the right elbow was aspirated as there was no significant fluid shown on x-ray; however, it was shown to be purulent material as well. This was sent to Pathology. A longitudinal incision was made and dissected bluntly down to the joint. The joint was copiously irrigated. A drain was placed in the joint, exiting distally, and then the fascia was closed with 0 Vicryl. The skin was closed with nylon. Attention was then directed to the olecranon bursa. A longitudinal incision was made overlying the bursa. It was dissected sharply. There was purulent material. This was sent for cultures. The bursa was resected. He had a chalky material in the bursa, consistent with gouty tophi. This was debrided back to clean tissue; however it involved the triceps tendon and we could not debride it completely without taking down the tendon. The wound was then copiously irrigated. The skin edges were approximated with interrupted nylon sutures. A sterile dressing was applied. The patient tolerated the procedure well without complication. At the end of the procedure, all counts were correct x2. The patient was transported to the recovery room in stable condition. cc: Michael Lr MD
--- NOTE | 2016-07-09 15:46 | PROGRESS NOTE ---
DATE: 07/09/2016 SUBJECTIVE: Today Mr. Santiago refers to be doing a little better. He was actually just waiting for his surgery to start. He said he has continued to have some pin in both elbows. OBJECTIVE: Vital signs: Blood pressure was 122/48, pulse of 73, respirations 18, temperature 99.5 degrees. General: Mr. Santiago is a 71-year-old male. He was in bed. Not seemingly distress. HEENT: Mucosa is pink and moist. Anicteric. Acyanotic. Neck: Supple. Chest: Clear. No crepitations. No rhonchi. Cardiovascular: Regular rate and rhythm. No murmurs. No rubs. No gallops. Abdomen: Soft, nontender. Distended. Bowel sounds were present. Extremities: There is 1+ pedal edema. Musculoskeletal: There is tenderness in both elbows, more on the right than the left. The right also has some fluctuation. The right knee has a fresh surgical scar with clips. LABORATORY DATA: WBC is 13.90, hemoglobin is 8.0, platelet count of 278,000. Chemistry is reviewed. Creatinine went up to 2.4. Total iron is 19%, saturation is 14, ferritin is 536. The fluid crystal is positive for monosodium urate gout as per pathologist. ASSESSMENT: 1. Septic right olecranon bursitis. 2. Bilateral elbow arthralgia. The fluid is consistent with gout so I think this is a gout flare with superimposed infection. 3. Hypertension, stable. 4. Diabetes mellitus. We will continue to control this. 5. Acute on chronic kidney disease. Will continue with gentle hydration and make sure that we avoid using any nephrotoxic drugs. 6. Recent right knee total arthroplasty, noted. PLAN: So in general Mr. aSntiago is pending surgery today. The pathology report on the fluid is positive for monosodium urate which is consistent with gout. Will continue with colchicine 0.6 mg b.i.d. Will continue with the current antibiotics and give further recommendations during the hospital course. cc: Travis Carvajal MD
[2016-07-09] MEDS: FISH OIL CONCENTRATE PO SCH (16:42)
[2016-07-09] MEDS: FERROUS SULFATE PO SCH (16:42)
[2016-07-09] MEDS: COZAAR PO SCH (16:42)
[2016-07-09] MEDS: LYRICA PO SCH ×2 (16:43→21:20)
[2016-07-09] MEDS: HYTRIN PO SCH (16:43)
[2016-07-09] MEDS: TOPROL XL PO SCH ×2 (16:44→21:23)
[2016-07-09] MEDS: VITAMIN C PO SCH ×2 (16:45→21:23)
[2016-07-09] MEDS: VITAMIN B-12 PO SCH (16:45)
[2016-07-09 17:36] LABS: UR CREAT RANDOM 99.4 mg/dL (14-26)
[2016-07-09] MEDS ORDERED: AYR NASAL SPRAY NAS PRN (17:41)
--- NOTE | 2016-07-09 18:53 | CONSULTATION ---
DATE OF CONSULTATION: 07/09/2016 CONCLUSION: The patient is status post surgery on both elbows. It appears that he may have gout involving both elbows and/or an associated infection. The whitish thick fluid from the elbows has in it crystals consistent with gout. RECOMMENDATIONS: I have discontinued vancomycin because the patient reports she has decreased hearing and I think it would be reasonable to leave him on Rocephin for now, and see what, if anything, grows from the cultures. Also, I think it would be better to stop the patient's vancomycin because his creatinine is elevated. DISCUSSION: The patient, approximately 4 days ago, had the sudden onset of bilateral elbow swelling, erythema, pain, and fever. He has had both elbows operated on by Dr. Lr and all he describes seeing purulent fluid, as well as some thick white fluid that may well be due to gout. Thus, all the Gram stain show white cells but no bacteria, and one of the cultures from the elbow is negative. The patient also has recently had a right total knee arthroplasty. The knee looks really good. The incision is intact. There is no erythema. LABORATORY VALUES: The patient's CBC shows a white count of 13,900, hemoglobin 8, and platelet count 278,000. Creatinine is 2.4. The GFR is 27. Uric acid level was 10. Liver function studies were normal. Urinalysis was negative for white cells and bacteria. The patient's fluid was reviewed by the pathologist who saw polarizable crystals with properties characteristic of gout. PAST MEDICAL HISTORY/REVIEW OF SYSTEMS: Eyes and Ears: The patient has decreased hearing, but his vision is good. Neck: No stiffness. Respiratory: No cough or shortness of breath. Cardiac: No chest pain or palpitations. Gastrointestinal: No nausea, vomiting , or diarrhea. Endocrine: Patient has diabetes but not thyroid disease. Bones, joints, and muscles: See present illness. Neurologic: No seizures. No motor sensory loss. Integument: No rashes. The remainder the patient's review of systems was completed and was negative. PREVIOUS HOSPITALIZATIONS/OPERATIONS: He has had a partial colectomy for colon cancer. Bilateral carotid endarterectomies. Recently a right total knee arthroplasty. He has also had a vasectomy and surgery on his left arm due to trauma. MEDICAL DISEASES: Positive for osteoarthritis, diabetes mellitus, hypertension , carotid artery disease, cancer, and now gout. INFECTIOUS DISEASE HISTORY: Negative for pneumonia and urinary tract infection. FAMILY HISTORY: Positive for diabetes mellitus, hypertension, and cancer. SOCIAL HISTORY[place] He stopped smoking cigarettes and drinking alcoholic beverages years ago. He is . He lives with his daughter. They have a cat as a pet. ALLERGIES: Patient's chart lists no known allergies. HOME MEDICATIONS: Includes the following: Hytrin, Lyrica, fish oil ill, minerals, vitamins, Toprol, melatonin, losartan, iron, glipizide/metformin, furosemide, vitamin B12 , aspirin, and ascorbic acid. PHYSICAL EXAMINATION: Vital Signs: Temperature is 100 degrees, pulse 93, respirations 14, blood pressure 137/69. General: This is an obese, elderly male who, is in no acute distress. He weighs 275 pounds. HEENT: He was missing many of his teeth and the teeth he did have appeared to have caries. He can hear my spoken words. He can see near objects. Neck: No meningismus. Thorax: The patient has an increased AP diameter of the chest. Lungs: Clear to auscultation. Cardiovascular: Regular heart rate. There was bilateral leg edema. Abdomen: Soft and nontender. Extremities: The patient has dressings around both elbows. The dressings are intact. The patient's right knee incision is intact. The akanksha are still present. There is no erythema or drainage. Neurologic: Patient is alert. He can move his extremities. There is no tremor. His sensation is intact to touch. His memory, as regarding his medical history , is slightly diminished. Thank you for the consult. cc: Brennan Dotson MD [facility]
[2016-07-09] MEDS ORDERED: BLISTEX MEDICATED BERRY LIP BALM TOP PRN (19:16)
[2016-07-09] MEDS ORDERED: COLCRYS PO SCH (21:00)
[2016-07-09] MEDS: ASPIRIN EC PO SCH (21:22)
[2016-07-09] MEDS: MELATONIN PO SCH (21:22)
[2016-07-09] MEDS: MORPHINE PCA IV PRN (23:17)
[2016-07-10] MEDS: ROCEPHIN 1 GM/NS 1 GM/50 ML IVPB IV SCH (04:25)
[2016-07-10] MEDS: HUMULIN R SUBQ SCH ×4 (06:40→23:44)
--- NOTE | 2016-07-10 08:35 | PROGRESS NOTE ---
DATE: 07/09/2016 SUBJECTIVE: Kian Santiago is a 71-year-old male who is postoperative day 1 from an irrigation and debridement of bilateral elbows and right olecranon bursa. He states his pain is much improved, although he still has pain with any motion of his elbows. He is complaining primarily of swelling of his hands. He has had no drainage from his drains. OBJECTIVE: He is a well-developed, well-nourished male. He is alert, oriented , and cooperative with the exam. His vital signs are stable. He is afebrile. His body fluid analysis revealed birefringent crystals consistent with gout. His cultures of his elbow and olecranon bursa are pending. His Gram stain showed white cells but no bacteria. ASSESSMENT: Postoperative day 1 from a bilateral elbow irrigation and debridement. PLAN: We will await the cultures. In the meantime, will continue on his prophylactic antibiotics. He will be continued to follow up by Dr. Dotson. Appreciate Dr. Dotson's input. I think he will likely need 6 weeks of antibiotics regardless since he has a fresh total knee arthroplasty. cc: Michael Lr MD [facility]
--- NOTE | 2016-07-10 09:24 | PROGRESS NOTE ---
DATE: 07/10/2016 PRESENT ILLNESS: The patient is status post surgery on his elbows for gout and possible infection. MEDICATIONS: The patient is receiving Rocephin. PHYSICAL EXAMINATION: Vital Signs: Temperature is 99.2 degrees, pulse 83, respirations 18, blood pressure 104/48. General: This is an obese, elderly male. He is in no acute distress. Extremities: He has dressings around both elbows. When I asked him to move his arms and try to bend his elbows, he was very limited what he could do but he did not seem to be in any great pain. Lungs: Clear to auscultation. Cardiovascular: Regular heart rate. Abdomen: Soft and nontender. LAB AND X-RAY: The exudate coming from the bursa has been identified as being due to gout by the presence of gouty crystals in the fluid. There is no other new laboratory data on the joints. The cultures taken from the joints and bursa are pending. ASSESSMENT AND PLAN: For right now, we are going to go ahead and add keep Rocephin going, pending culture results. Dr. Carvajal is following the patient and will be managing the patient's newest diagnosed gout. Dr. Carvajal will be treating the patient for gout. COMORBIDITIES: Include the following: The patient has osteoarthritis, diabetes mellitus, and now has been diagnosed as having gout. cc: Brennan Dotson MD
[2016-07-10] MEDS: NS 1,000 ML IV SCH ×2 (09:39→22:46)
[2016-07-10] MEDS: VITAMIN B-12 PO SCH (09:40)
[2016-07-10] MEDS: COLCRYS PO SCH (09:40)
[2016-07-10] MEDS: HYTRIN PO SCH (09:40)
[2016-07-10] MEDS: FERROUS SULFATE PO SCH (09:40)
[2016-07-10] MEDS: VITAMIN C PO SCH ×2 (09:40→20:46)
[2016-07-10] MEDS: FISH OIL CONCENTRATE PO SCH (09:40)
[2016-07-10] MEDS: TOPROL XL PO SCH ×2 (09:40→20:47)
[2016-07-10] MEDS: LYRICA PO SCH ×2 (09:40→20:50)
[2016-07-10] MEDS: COZAAR PO SCH (09:40)
[2016-07-10] MEDS: MORPHINE PCA IV PRN (15:58)
--- NOTE | 2016-07-10 16:55 | PROGRESS NOTE ---
DATE: 07/10/2016 SUBJECTIVE: Today Mr. Santiago refers to be doing a lot better. The right elbow feels a whole lot better. He is able to move them. The patient is status post bilateral elbow intervention by Dr. Lr. OBJECTIVE: Vital signs: Blood pressure is 110/48, pulse 89, respirations 20, temperature 99.4 degrees. General exam: Mr. Santiago is a 89-year-old, male. He was in bed and did not seem to be in any distress. HEENT: Mucosa is pink and moist. Anicteric. Acyanotic. Neck: Supple. Chest: Clear. Cardiovascular: Regular rate and rhythm. Abdomen: Soft. Extremities: 1+ pedal edema. Musculoskeletal: Both elbows have been wrapped up in sterile dressings. CONTRACTOR BROOMCORN THRESHING: Patient is alert and oriented x4. LABORATORY DATA: None for today. CULTURES: The cultures so far have all been no growth. ASSESSMENT: 1. Septic right olecranon bursitis. The patient is status post bilateral elbow exploration by Dr. Lr. 2. Bilateral elbow arthritis secondary to gout flare. The patient was initially dosed with therapeutic dose of colchicine. It is over 12 hours now. Will start him on prophylactic doses of colchicine for the gout. The patient is also on losartan, which is an antihypertensive with uricosuric property, and will also help with the control of the uric acid. 3. Hypertension is controlled on losartan. 4. Diabetes mellitus, stable. 5. Acute on chronic kidney disease. We will repeat the renal functions tomorrow and follow up on that. 6. Recent right knee total arthroplasty noted. Today Mr. Santiago continues to feel a little better. We are going to continue with the colchicine 0.6 mg daily for prophylaxis. He has already been given a therapeutic dose for the flare. Will continue with the current antibiotic as per Dr. Dotson. So far the cultures from the surgical site have been negative. We will repeat his lab work tomorrow . we anticipate Mr. Santiago being discharged pretty soon. cc: Travis Carvajal MD [facility]
[2016-07-10] MEDS: ASPIRIN EC PO SCH (20:46)
[2016-07-10] MEDS: MELATONIN PO SCH (20:47)
[2016-07-11] MEDS: ROCEPHIN 1 GM/NS 1 GM/50 ML IVPB IV SCH (03:49)
[2016-07-11] MEDS: HUMULIN R SUBQ SCH ×4 (06:21→21:40)
[2016-07-11 06:54] LABS: MANUAL DIFF NEEDED? NO
[2016-07-11 07:12] LABS: BASO% 0.2 % (0.0-0.8); CALCIUM 7.7 mg/dL (8.8-10.2); EOS% 1.1 % (0.0-10.0); HEMATOCRIT 23.2 % (42.0-52.0); IMM GRAN# 0.06 X1000 (0.0-0.04); IMM GRAN% 0.7 % (0.0-0.5); LYMPH# 1.42 X1000 (1.2-3.4); LYMPH% 16.1 % (20.5-51.1); MCH 29.8 PG (27-31); MCHC 30.2 g/dL (33-37); MCV 98.7 FL (81-99); MONO# 0.94 X1000 (0.11-0.59); MONO% 10.7 % (1.7-9.3); MPV 9.9 FL (7.4-10.4); NEUT% 71.2 % (42.2-75.2); PLT 271 X1000 (130-400); POTASSIUM 4.9 mmol/L (3.5-5.1); RBC 2.35 XMIL (4.7-6.1)
[2016-07-11] MEDS: VITAMIN B-12 PO SCH (09:31)
[2016-07-11] MEDS: LYRICA PO SCH ×2 (09:31→21:42)
[2016-07-11] MEDS: COLCRYS PO SCH (09:31)
[2016-07-11] MEDS: HYTRIN PO SCH ×2 (09:32→09:48)
[2016-07-11] MEDS: FISH OIL CONCENTRATE PO SCH (09:32)
[2016-07-11] MEDS: VITAMIN C PO SCH ×2 (09:32→21:42)
[2016-07-11] MEDS: COZAAR PO SCH ×2 (09:32→09:47)
[2016-07-11] MEDS: FERROUS SULFATE PO SCH (09:32)
[2016-07-11] MEDS: TOPROL XL PO SCH ×3 (09:32→21:42)
[2016-07-11] MEDS: MORPHINE PCA IV PRN (10:10)
--- NOTE | 2016-07-11 13:36 | PROGRESS NOTE ---
DATE: 07/11/2016 SUBJECTIVE: Kian Santiago is a 71-year-old male who is postoperative day 2 from I D of bilateral elbows and his right olecranon bursa. He states they are much improved today. He has a good range of motion with minimal pain of his right elbow. His left elbow is improving as well, although not as well as the right. OBJECTIVE: Vital signs: Stable. He is afebrile. Laboratory: His white count is Michael with normal. His cultures have failed to grow anything so far and the preliminary results are negative for all of his cultures. ASSESSMENT: Bilateral septic elbows and right septic olecranon bursa with gout as well. PLAN: I think we should continue to work on range of motion of his elbows and physical therapy. He may need to go to rehab for a while as he is not mobile yet. May also need to consider treatment of his gout with allopurinol or Uloric. We will continue his IV antibiotics. I have discussed this with Dr. Dotson. I think the best course of action even if the cultures are negative given the fact that he has had a recent total knee arthroplasty, is 6 weeks of IV antibiotics. Dr. Dotson is going to arrange that. cc: Michael Lr MD
[2016-07-11] MEDS: NORCO-5 PO PRN ×2 (15:48→23:09)
--- NOTE | 2016-07-11 16:10 | PROGRESS NOTE ---
DATE: 07/11/2016 SUBJECTIVE: Today, Mr. Santiago refers to be doing a lot better. He continues to have this pain in both elbows. OBJECTIVE: Vital Signs: Blood pressure is 113/58, pulse of 94, respirations 18, temperature is 98.9 degrees. General: Mr. Santiago is a 71-year-old male. He is in bed, not in any obvious distress. HEENT: Mucosa is pink and moist. Anicteric. Acyanotic. Neck is supple. Chest: Good air entry bilaterally. Few bibasilar crepitations. Cardiovascular: Regular rate and rhythm. No murmurs. No rubs. No gallops. Abdomen: Soft, nontender. Extremities: 1+ pedal edema. Patient does have significant tenderness to mobilization of the left elbow. The right elbow is fine. Both elbows are in sterile dressing. LABORATORY DATA: WBC is 8.80, hemoglobin is 7.0, platelet count is 271,000. Chemistry is reviewed. Creatinine is 2.4, BUN is 60. ASSESSMENT: 1. Septic right olecranon bursitis. 2. Bilateral elbow arthritis secondary to gout flare. 3. Hypertension, currently controlled on losartan. 4. Diabetes mellitus. 5. Dttue-vd-rtswlzk kidney disease. 6. Recent right knee total arthroplasty. I think for now Mr. Santiago continues to be gradually stable. We are going to continue the current antibiotics and follow further recommendations from orthopedics and ID. In terms of the patient's gout flare, we will continue using colchicine to control symptoms while we gradually introduce an antihyperuricemic agent into the regimen. For now, we will use a very low-dose allopurinol and the colchicine every other day. I think in the long run Mr. Santiago will probably need to go to rehab. We will be pending further recommendations from ID and Orthopedics. cc: Travis Carvajal MD
[2016-07-11] MEDS: NS 1,000 ML IV SCH (19:04)
[2016-07-11] MEDS: ASPIRIN EC PO SCH (21:42)
[2016-07-11] MEDS: MELATONIN PO SCH (21:42)
[2016-07-12] MEDS: HUMULIN R SUBQ SCH ×4 (06:49→20:39)
[2016-07-12 06:55] LABS: MANUAL DIFF NEEDED? NO
[2016-07-12 07:12] LABS: BASO% 0.3 % (0.0-0.8); EOS# 0.27 X1000 (0.0-0.7); EOS% 3.4 % (0.0-10.0); IMM GRAN# 0.05 X1000 (0.0-0.04); IMM GRAN% 0.6 % (0.0-0.5); LYMPH% 15.3 % (20.5-51.1); MCH 29.9 PG (27-31); MCHC 30.4 g/dL (33-37); MCV 98.3 FL (81-99); MONO# 0.88 X1000 (0.11-0.59); MONO% 11.2 % (1.7-9.3); MPV 10.1 FL (7.4-10.4); NEUT% 69.2 % (42.2-75.2); PLT 288 X1000 (130-400); RBC 2.34 XMIL (4.7-6.1)
[2016-07-12 07:24] LABS: CALCIUM 7.6 mg/dL (8.8-10.2); POTASSIUM 5.1 mmol/L (3.5-5.1)
[2016-07-12] MEDS: LYRICA PO SCH ×2 (10:03→20:38)
[2016-07-12] MEDS: TOPROL XL PO SCH ×2 (10:03→20:39)
[2016-07-12] MEDS: ZYLOPRIM PO SCH (10:03)
[2016-07-12] MEDS: HYTRIN PO SCH (10:03)
[2016-07-12] MEDS: COZAAR PO SCH (10:03)
[2016-07-12] MEDS: FERROUS SULFATE PO SCH (10:03)
[2016-07-12] MEDS: FISH OIL CONCENTRATE PO SCH (10:03)
[2016-07-12] MEDS: VITAMIN C PO SCH ×2 (10:03→20:39)
[2016-07-12] MEDS: CUBICIN (FOR INPATIENT USE) 750 MG in NS 100 ML IV SCH (10:04)
[2016-07-12] MEDS: VITAMIN B-12 PO SCH (10:04)
[2016-07-12] MEDS: NORCO-5 PO PRN ×3 (10:10→22:49)
[2016-07-12] MEDS: NS 1,000 ML IV SCH (10:10)
[2016-07-12] MEDS: ROCEPHIN 2 GM/NS 2 GM/50 ML IVPB IV SCH (10:23)
--- NOTE | 2016-07-12 13:32 | CONSULTATION ---
DATE OF CONSULTATION: 07/12/2016 REASON FOR CONSULTATION: Basilio catheter placement. HISTORY OF PRESENT ILLNESS: This is a 71-year-old male with bilateral olecranon infection requiring long-term antibiotics. This is felt to be due to gout. PAST MEDICAL HISTORY: Osteoarthritis, diabetes, hypertension, carotid artery disease, colon cancer. PAST SURGICAL HISTORY: Right knee replacement, bilateral carotid endarterectomies, partial colectomy for colon cancer, vasectomy, recent incision, drainage, and debridement of both elbows. ALLERGIES: No known drug allergies. CURRENT MEDICATIONS: [place], Zyloprim, vitamin C, aspirin, Rocephin, Colcrys, vitamin B12, daptomycin, ferrous sulfate, Cozaar, melatonin, Toprol, Zofran, Lyrica, Hytrin. FAMILY HISTORY: Reviewed and noncontributory. SOCIAL HISTORY: Negative for tobacco. He does drink alcohol socially. No illicit drug use. REVIEW OF SYSTEMS: Ten systems reviewed and negative except as noted above. PHYSICAL EXAMINATION: Vital Signs: Temperature 98.4 degrees, pulse 74, respirations 16, blood pressure 97/45, O2 saturation 90%. General: Well-developed, well-nourished male, in no distress, who looks his stated age. HEENT: Normocephalic, atraumatic. Extraocular muscles intact. Pupils equal, round, reactive to light. Sclerae anicteric. Neck: Supple. No thyromegaly. Bilateral carotid incisions are well healed. Skin: Warm and dry. No rash. Musculoskeletal: Moves all extremities but somewhat limited by the infections in his elbows and recent right knee replacement. CV: Regular rate and rhythm. Respiratory: Bilateral equal breath sounds. No work of breathing. Gastrointestinal: Soft, obese, nontender. No mass or hernia appreciated. LABORATORY: White blood cell count 7.8, hemoglobin 7, hematocrit 23, platelet count 288,000. BUN 62, creatinine 2.2, glucose 173, sodium 134. ASSESSMENT AND PLAN: This is a 71-year-old male with bilateral olecranon bursa infections requiring long-term antibiotics. He has acute on chronic kidney disease, diabetes, hypertension, among other medical comorbidities. We are planning placement of a tunneled Basilio catheter tomorrow. I discussed the risks and benefits with him including bleeding, infection, catheter malfunction, pneumothorax, and other imponderables. He understands and agrees to proceed. cc: Xavier Dong MD
[2016-07-12 15:09] LABS: ALBUMIN 2.5 g/dL (3.5-5.0); POTASSIUM 4.9 mmol/L (3.5-5.1); TOTAL BILIRUBIN 0.21 mg/dL (0.20-1.00)
--- NOTE | 2016-07-12 15:53 | PROGRESS NOTE ---
DATE: 07/12/2016 SUBJECTIVE: Today, Mr. Santiago refers to be doing a whole lot better. He was able to even raise up his hands in the air. OBJECTIVE: Vital Signs: Blood pressure is 99/47, pulse of 72, respirations 16, temperature 98.2 degrees. Patient is saturating about 93% on room air. General: Mr. Santiago is a 71-year-old male. He is in bed, not seemingly distressed. HEENT: Mucosa is pink and moist. Anicteric. Acyanotic. Neck is supple. Chest: Good air entry bilateral. There is a few bibasilar crepitations. Cardiovascular: Regular rate and rhythm. No murmurs. No rubs. No gallops. Abdomen is soft, distended, but nontender. Bowel sounds are present. Extremities: 2+ pedal edema. FURNITURE DUSTER: The patient is alert and oriented x4. Both elbows are in a sterile dressing, but the patient is now able to lift up his arms against gravity and able to even bend the elbows. LABORATORY DATA: CBC is reviewed. Hemoglobin is still 7.0. We will continue to hold off on any transfusion. Chemistry is reviewed. Sodium is 130, potassium is 4.9, chloride is 97, bicarb is 21. BUN is 58 and creatinine is down to 1.9 which is improving. ASSESSMENT: 1. Septic right olecranon bursitis. So far, cultures have been negative. The patient is going to be needing antibiotics for long time because he also has a knee arthroplasty. 2. Bilateral elbow arthritis secondary to gout flare. The patient is on colchicine for short- term and allopurinol for long-term prophylaxis. 3. Hypertension, controlled. 4. Diabetes mellitus. 5. Sgkgd-vy-twjgedi kidney disease. We will continue with the gentle hydration. The creatinine seems to be improving. 6. Recent right knee total arthroplasty noted. 7. Morbid obesity. So, in general, I think Mr. Santiago is doing a lot better. We are going to continue with gentle hydration. We will continue with good pain control. My understanding is that the patient will have a Basilio catheter for long-term antibiotic use. Hopefully, that will be done tomorrow by Dr. Dong, and then we will plan his discharge to a snf tomorrow. billet worker is also working on that. The patient's hemoglobin and hematocrit has been 7.0 two days in a row. We will hold off on transfusion until it is less than 7 or it is symptomatic or there is obvious bleeding. cc: Travis Carvajal MD [facility]
--- NOTE | 2016-07-12 16:17 | PROGRESS NOTE ---
DATE: 07/12/2016 PRESENT ILLNESS: The patient is status post surgery on his elbows for gout and possible septic arthritis. MEDICATIONS: Patient is receiving Rocephin. PHYSICAL EXAMINATION: Vital Signs: Temperature is 98.2 degrees, pulse 76, respirations 16, blood pressure 99/47. General: This is an obese, elderly male. He is in no acute distress. Lungs: Clear to auscultation. Cardiovascular: Regular heart rate. Abdomen: Soft and nontender. Extremities: Both arms have dressings around the elbow. The dressings are intact. LAB AND X-RAY: There is no new x-ray. The lab for today shows CBC with a white count of 7860, hemoglobin 7, platelet count 288,000. Creatinine is 1.9. GFR is 35. Liver function studies are normal. All cultures from the elbows are negative. ASSESSMENT AND PLAN: For now, I have switched the patient to the following antibiotics, daptomycin 750 mg IV every 48 hours and Rocephin 2 g IV every 24 hours. COMORBIDITY: He is elderly and he has osteoarthritis, diabetes mellitus and now gout. cc: Brennan Dotson MD
[2016-07-12] MEDS: ASPIRIN EC PO SCH (20:38)
[2016-07-12] MEDS: MELATONIN PO SCH (20:39)
[2016-07-13] MEDS: NS 1,000 ML IV SCH ×2 (01:21→21:58)
[2016-07-13 06:29] LABS: MANUAL DIFF NEEDED? NO
[2016-07-13 06:41] LABS: BASO% 0.5 % (0.0-0.8); EOS# 0.24 X1000 (0.0-0.7); EOS% 4.2 % (0.0-10.0); HEMATOCRIT 23.6 % (42.0-52.0); HEMOGLOBIN 7.3 g/dL (14.0-18.0); IMM GRAN# 0.04 X1000 (0.0-0.04); IMM GRAN% 0.7 % (0.0-0.5); LYMPH# 1.21 X1000 (1.2-3.4); MCH 30.3 PG (27-31); MCHC 30.9 g/dL (33-37); MCV 97.9 FL (81-99); MONO# 0.67 X1000 (0.11-0.59); MONO% 11.6 % (1.7-9.3); MPV 9.6 FL (7.4-10.4); PLT 273 X1000 (130-400); RBC 2.41 XMIL (4.7-6.1)
[2016-07-13] MEDS: HUMULIN R SUBQ SCH ×4 (06:50→22:02)
[2016-07-13 07:03] LABS: ALBUMIN 2.5 g/dL (3.5-5.0); TOTAL BILIRUBIN 0.22 mg/dL (0.20-1.00); TOTAL PROTEIN 5.7 g/dL (6.3-8.3)
[2016-07-13] MEDS: ROCEPHIN 2 GM/NS 2 GM/50 ML IVPB IV SCH (11:39)
[2016-07-13] MEDS: TOPROL XL PO SCH ×2 (11:39→22:01)
[2016-07-13] MEDS ORDERED: NS 250 ML ONE (13:43)
[2016-07-13] MEDS ORDERED: XYLOCAINE 1%/EPI 1:100,000 ONE (13:43)
[2016-07-13] MEDS ORDERED: SODIUM CHLORIDE 0.9% 10 ML ONE (13:43)
[2016-07-13] MEDS ORDERED: DIPRIVAN 1% ONE (15:31)
--- NOTE | 2016-07-13 15:42 | OPERATIVE NOTE ---
PROCEDURE DATE: 07/13/2016 DATE OF PROCEDURE: 07/13/2016. PREOPERATIVE DIAGNOSES: Bilateral olecranon bursa infections. POSTOPERATIVE DIAGNOSIS: Bilateral olecranon bursa infections. PROCEDURE: Insertion of tunneled central venous Basilio type catheter with fluoroscopic and ultrasound guidance. SURGEON: Xavier Dong MD. ANESTHESIA: General. ESTIMATED BLOOD LOSS: 5 mL. COMPLICATIONS: None apparent. FINDINGS: The right internal jugular vein was visualized with the Site-Rite ultrasound. It was compressible and patent. There was no thrombus. The wire and subsequently the catheter was found to be in the right atrium with fluoroscopy. The tip was positioned to the superior vena cava- right atrial junction. TECHNIQUE: He was brought to the operating room and placed supine on the table. General anesthesia was induced. He was prepped and draped in the usual sterile fashion. Total of 0.25% Marcaine with epinephrine was used to anesthetize our incisions. An incision was made over the right internal jugular vein which was visualized with the Site-Rite ultrasound. The vein was accessed with a needle with 1 stick under ultrasound guidance. The wire passed through the needle into the vein easily and was confirmed to be in the right atrium with fluoroscopy. An incision was made below the right clavicle and the catheter was tunneled subcutaneously from the lower incision out through the neck incision. The sheath and dilator were passed over the wire. The wire and dilator were removed. The catheter was passed into the sheath. The sheath was removed. The catheter was positioned to the appropriate junction with fluoroscopy. A 3-0 nylon was placed at the exit site and tied around the catheter. The neck incision was closed with a subcuticular 4- 0 Biosyn and Steri-Strips. There were no apparent complications. He was transferred to the recovery room in stable condition where a chest x-ray was ordered. cc: Xavier Dong MD
--- NOTE | 2016-07-13 16:04 | Diag Imaging Result Document ---
PROCEDURE NAME: CHEST-PORTABLE - 07/13/2016 PORTABLE CHEST AT 1525 HOURS: FINDINGS: Compared with 07/08/2016. There has been interval insertion of right internal jugular central venous catheter. The tip of the catheter is partially obscured by artifacts but appears to be located approximately at the cavoatrial junction. There is no evidence of pneumothorax. There is subsegmental atelectasis at the lung bases. There is stable mild cardiomegaly. IMPRESSION: 1. Tip of central venous catheter partially obscured by artifacts but apparently located at approximately the cavoatrial junction. 2. No pneumothorax. 3. Mild atelectasis at lung bases.
[2016-07-13] MEDS ORDERED: XYLOCAINE-MPF 2% ONE (16:06)
--- NOTE | 2016-07-13 17:22 | PROGRESS NOTE ---
DATE: 07/13/2016 PRESENT ILLNESS: The patient is status post debridement of both elbows and the olecranon bursa for gouty arthritis with superimposed septic arthritis. MEDICATIONS: The patient is receiving daptomycin and Rocephin. PHYSICAL EXAMINATION: Vital Signs: Temperature is 98 degrees, pulse 85, respirations 18, blood pressure 120/70. Generally: This is an obese, elderly male. He is in no acute distress. Lungs: Clear to auscultation. Cardiovascular: Regular heart rate. Extremities: Both elbows have large dressings on. The dressings are intact. Chest: The patient has a Basilio catheter in place on the right side. The Basilio site is not swollen or red. LAB AND X-RAY: The CBC today shows a white count of 5770, hemoglobin 7.3 and platelet count 273,000. All cultures from the elbows remain negative. Chest x-ray shows bibasilar atelectasis. The creatinine is down to 1.7 with a GFR of 40. ASSESSMENT AND PLAN: The patient has gouty arthritis with a septic arthritis. The plan now is to continue daptomycin and Rocephin. The only change I am going to make in the antibiotics is I am going to make daptomycin being given the 750 mg IV dose every 24 hours because of the patient's improvement in the creatinine. The Rocephin also will continue to be given every 24 hours. I requested that the patient see me in the office in 3 weeks. COMORBIDITIES: Include being elderly, osteoarthritis, diabetes mellitus and now gout. cc: Brennan Dotson MD [facility]
[2016-07-13] MEDS: FISH OIL CONCENTRATE PO SCH (17:33)
[2016-07-13] MEDS: HYTRIN PO SCH (17:33)
[2016-07-13] MEDS: COLCRYS PO SCH (17:34)
[2016-07-13] MEDS: VITAMIN B-12 PO SCH (17:34)
[2016-07-13] MEDS: FERROUS SULFATE PO SCH (17:34)
[2016-07-13] MEDS: VITAMIN C PO SCH ×2 (17:34→22:01)
[2016-07-13] MEDS: ZYLOPRIM PO SCH (17:34)
[2016-07-13] MEDS: COZAAR PO SCH (17:35)
[2016-07-13] MEDS: LYRICA PO SCH ×2 (17:35→22:01)
--- NOTE | 2016-07-13 17:36 | PROGRESS NOTE ---
DATE: 07/13/2016 PRESENT ILLNESS: The patient is being treated for bilateral septic elbows superimposed on gouty arthritis. MEDICATIONS: The patient is receiving a combination of daptomycin and Rocephin. PHYSICAL EXAMINATION: Vital Signs: Temperature is 98.0 degrees, pulse 85, respirations 18, blood pressure 120/70. Generally: This is an obese elderly male who is in no acute distress at this time. Lungs: Clear to auscultation. Cardiovascular: Regular heart rate. Chest: Patient has a Basilio catheter in place on the right side. The catheter site is not bleeding or swollen. Abdomen: Soft and nontender. Extremities: Both elbows have large dressings around them. The dressings are intact. LABORATORY: The patient's creatinine is 1.7, with a GFR of 40. And Rocephin. ASSESSMENT AND PLAN: Plan is to continue treatment of both septic elbows with the combination of Rocephin and daptomycin. Since the patient's creatinine is improving, I will increase the dose of daptomycin to every 24 hours. I am going to go ahead and order a CPK for Saturday to look for any muscle problem secondary to daptomycin. The patient is going to a rehab facility. I requested the patient to see me in the office in 3 weeks. COMORBIDITIES: Include the following: Osteoarthritis, diabetes mellitus, gout , and the patient is elderly. cc: Brennan Dotson MD [facility]
--- NOTE | 2016-07-13 17:58 | PROGRESS NOTE ---
DATE: 07/13/2016 SUBJECTIVE: Today, Mr. Santiago refers to be doing a whole lot better. He is just waiting to get the rehab bed. OBJECTIVE: Vital signs: Blood pressure is 124/76, pulse of 88, respiration is 18, temperature 97.7. General: Mr. Santiago is a 71-year-old male. He is in bed, no distress. HEENT: Mucosa is pink and moist. Anicteric. Acyanotic. Neck: Supple. Chest: Good air entry bilateral. No crepitations. No rhonchi. Cardiovascular: Regular rate and rhythm. Abdomen: Soft, nontender. Extremities: About 1 to 2+ pedal edema. FREIGHT MANAGER: Patient is alert and oriented x4. No focal neurological deficit. Musculoskeletal: Both elbows are wrapped up in sterile dressing. LABORATORY DATA: Hemoglobin is 7.3. The rest of the cell lines are normal. Chemistry normal except for creatinine which is 1.7, is down from 1.9. ASSESSMENT: 1. Septic right olecranon bursitis. Status post incision and drainage, cultures negative. 2. Bilateral elbow arthritis secondary to gouty flare. The pathology report actually is consistent with gout. Patient is on colchicine and on allopurinol. 3. Hypertension controlled on losartan. 4. Diabetes mellitus. 5. Acute on chronic kidney disease. Patient continues on gentle hydration. Creatinine continues to improve. 6. Recent right knee total arthroplasty noted. 7. Morbid obesity. So, Mr. Santiago today got his port late this afternoon. I spoke with Dr. Dotson. He now has patient on daptomycin and Rocephin. I spoke extensively with the social workers. Patient was accepted to [facility] rehab today. However, the antibiotics and all the necessary arrangements apparently have not been completed yet. Patient is still here in the hospital. Will be pending further recommendation from the social work to know when we can discharge the patient safely to the rehab. cc: Travis Carvajal MD
[2016-07-13] MEDS: CUBICIN (FOR INPATIENT USE) 750 MG in NS 100 ML IV SCH (21:58)
[2016-07-13] MEDS: ASPIRIN EC PO SCH (22:01)
[2016-07-13] MEDS: MELATONIN PO SCH (22:01)
[2016-07-13] MEDS: NORCO-5 PO PRN (22:01)
[2016-07-14] MEDS: NORCO-5 PO PRN ×3 (06:10→21:54)
[2016-07-14] MEDS: HUMULIN R SUBQ SCH ×4 (06:17→21:55)
[2016-07-14 06:33] LABS: MANUAL DIFF NEEDED? NO
[2016-07-14 06:41] LABS: BASO% 0.4 % (0.0-0.8); EOS# 0.24 X1000 (0.0-0.7); EOS% 3.5 % (0.0-10.0); HEMATOCRIT 24.8 % (42.0-52.0); HEMOGLOBIN 7.6 g/dL (14.0-18.0); IMM GRAN# 0.06 X1000 (0.0-0.04); IMM GRAN% 0.9 % (0.0-0.5); LYMPH# 1.36 X1000 (1.2-3.4); MCH 29.8 PG (27-31); MCHC 30.6 g/dL (33-37); MCV 97.3 FL (81-99); MONO# 0.69 X1000 (0.11-0.59); MONO% 10.2 % (1.7-9.3); MPV 9.4 FL (7.4-10.4); PLT 334 X1000 (130-400); RBC 2.55 XMIL (4.7-6.1)
[2016-07-14 07:04] LABS: CALCIUM 8.4 mg/dL (8.8-10.2); MAGNESIUM 1.9 mg/dL (1.5-2.7); POTASSIUM 5.1 mmol/L (3.5-5.1); URIC ACID 9.7 mg/dL (3.4-7.0)
[2016-07-14] MEDS: ROCEPHIN 2 GM/NS 2 GM/50 ML IVPB IV SCH (08:00)
[2016-07-14] MEDS: ZYLOPRIM PO SCH (08:40)
[2016-07-14] MEDS: CUBICIN (FOR INPATIENT USE) 750 MG in NS 100 ML IV SCH ×2 (08:40→18:15)
[2016-07-14] MEDS: COZAAR PO SCH (08:40)
[2016-07-14] MEDS: HYTRIN PO SCH (08:40)
[2016-07-14] MEDS: FERROUS SULFATE PO SCH (08:40)
[2016-07-14] MEDS: VITAMIN B-12 PO SCH (08:40)
[2016-07-14] MEDS: LYRICA PO SCH ×2 (08:40→21:55)
[2016-07-14] MEDS: VITAMIN C PO SCH ×2 (08:40→21:55)
[2016-07-14] MEDS: FISH OIL CONCENTRATE PO SCH (08:40)
[2016-07-14] MEDS: TOPROL XL PO SCH ×2 (08:40→21:55)
[2016-07-14] MEDS: NS 1,000 ML IV SCH ×2 (10:55→14:04)
--- NOTE | 2016-07-14 15:35 | PROGRESS NOTE ---
DATE: 07/14/2016 Today Mr. Santiago refers to be doing a whole lot better. The pains in the elbows have improved but he still has some puffiness of swelling in the upper extremities. GENERAL EXAM: Vitals: Blood pressure is 118/67, pulse of 72, respirations 20, temperature 97.9 degrees. General: Mr. Santiago is a 71-year-old male. He is in bed, not in any distress. HEENT: Mucosa is pink and moist. Anicteric. Acyanotic. Neck: Supple. Chest: Was clear. Cardiovascular: Regular rate and rhythm. There are no murmurs, no rubs, no gallops. Abdomen: Distended but nontender. Extremities: About 1 to 2+ pedal edema. BRICK OR BLOCK MAKER: Patient is alert and oriented x4. Musculoskeletal: Patient has both elbows wrapped up in sterile dressing. LABORATORY DATA: WBC 6.79, hemoglobin is 7.6, platelet count of 334,000. Chemistry is reviewed. Sodium is 142, potassium is 5.1, chloride is 108, bicarb is 23, creatinine is down to 1.3. BUN is 37. ASSESSMENT: 1. Septic right olecranon bursitis status post I and D. Cultures negative. 2. Bilateral elbow arthritis secondary to gout flare. The patient will continue with Colchicine and allopurinol. 3. Hypertension is controlled on losartan. 4. Diabetes mellitus controlled. 5. Acute on chronic kidney disease. Creatinine has improved. I think 1.3 is probably patient's baseline. We will therefore discontinue the IV fluids since he seems to have some fluid overload. 6. Recent right knee total arthroplasty noted. 7. Morbid obesity noted. So in general I think Mr. Santiago is doing a whole lot better. Antibiotic has been changed to Rocephin and daptomycin. We are still pending social services analyst arrangement for rehab for Mr. Santiago. We will discontinue the IV fluids. Encourage the patient to walk some more to get some of the excess fluid off. cc: Travis Carvajal MD
[2016-07-14] MEDS: ASPIRIN EC PO SCH (21:54)
[2016-07-14] MEDS: MELATONIN PO SCH (21:55)
[2016-07-15] MEDS: NS 1,000 ML IV SCH (00:20)
[2016-07-15] MEDS: HUMULIN R SUBQ SCH ×4 (06:29→21:45)
[2016-07-15 07:23] LABS: MANUAL DIFF NEEDED? NO
[2016-07-15 07:58] LABS: AGAP 7; BUN 27 mg/dL (8-22); CALCIUM 8.7 mg/dL (8.8-10.2); CHLORIDE 110 mmol/L (98-107); COSMO 290; POTASSIUM 5.1 mmol/L (3.5-5.1); SODIUM 142 mmol/L (136-145); TCO2 25 mmol/L (25-35)
[2016-07-15 08:04] LABS: BASO% 0.6 % (0.0-0.8); EOS# 0.25 X1000 (0.0-0.7); EOS% 3.7 % (0.0-10.0); HEMATOCRIT 25.5 % (42.0-52.0); HEMOGLOBIN 7.8 g/dL (14.0-18.0); IMM GRAN# 0.04 X1000 (0.0-0.04); IMM GRAN% 0.6 % (0.0-0.5); LYMPH# 1.54 X1000 (1.2-3.4); LYMPH% 22.6 % (20.5-51.1); MCH 29.9 PG (27-31); MCHC 30.6 g/dL (33-37); MCV 97.7 FL (81-99); MONO# 0.61 X1000 (0.11-0.59); MONO% 8.9 % (1.7-9.3); MPV 9.7 FL (7.4-10.4); NEUT% 63.6 % (42.2-75.2); PLT 338 X1000 (130-400); RBC 2.61 XMIL (4.7-6.1)
[2016-07-15] MEDS: VITAMIN B-12 PO SCH (10:07)
[2016-07-15] MEDS: TOPROL XL PO SCH ×2 (10:07→21:44)
[2016-07-15] MEDS: VITAMIN C PO SCH ×2 (10:07→21:44)
[2016-07-15] MEDS: COZAAR PO SCH (10:07)
[2016-07-15] MEDS: ZYLOPRIM PO SCH (10:07)
[2016-07-15] MEDS: FERROUS SULFATE PO SCH (10:07)
[2016-07-15] MEDS: ROCEPHIN 2 GM/NS 2 GM/50 ML IVPB IV SCH (10:07)
[2016-07-15] MEDS: LYRICA PO SCH ×2 (10:08→21:45)
[2016-07-15] MEDS: HYTRIN PO SCH (10:08)
[2016-07-15] MEDS: COLCRYS PO SCH (10:08)
[2016-07-15] MEDS: FISH OIL CONCENTRATE PO SCH (10:08)
[2016-07-15] MEDS: NORCO-5 PO PRN ×2 (10:10→21:44)
[2016-07-15] MEDS ORDERED: LASIX IV ONE (11:05)
--- NOTE | 2016-07-15 16:39 | PROGRESS NOTE ---
DATE: 07/15/2016 SUBJECTIVE: Today, Mr. Santiago refers to be doing a lot better. I actually saw him. He was coming from a PT session. OBJECTIVE: Vital signs: Blood pressure is 116/65, pulse of 81, respirations 20, temperature is 98.6 degrees. General Examination: Mr. Santiago is a 71-year-old male. He was sitting up in the chair, in no distress. HEENT: Mucosa is pink and moist. Anicteric. Acyanotic. Neck: Supple. Chest: Air entry is bilaterally reduced. There is diffuse posterior coarse crackling. Cardiovascular: Regular rate and rhythm. Abdomen: Soft, distended. No organomegaly. Extremities: About 2+ pedal edema. Both elbows were in sterile dressing. LABORATORY DATA: WBC 6.82, hemoglobin is 7.8 and platelet count is 338,000. Chemistry is reviewed. Creatinine is down to 1.0. Has normalized. Glucose is fine. ASSESSMENT: 1. Septic right olecranon bursitis, status post incision and drainage culture negative. 2. Bilateral elbow gout flare. The patient is on colchicine and on allopurinol, doing a lot better. 3. Hypertension, controlled on losartan. 4. Diabetes mellitus, controlled. 5. Acute on chronic kidney disease. Creatinine today is 1.0. 6. Fluid overload. Seems like the patient was over-hydrated. IV fluids have been discontinued. We will give him a dose of Lasix to help with some of the fluid to come off. 7. Recent right knee total arthroplasty. Sutures have been removed. 8. Morbid obesity. Noted. In general, Mr. Santiago is doing a whole lot better. I think he has fluid overload from over hydration. IV fluids has been discontinued. We will give him a dose of Lasix. We will continue with the current antibiotics. Hopefully, we will be able to discharge the patient to rehab tomorrow. cc: Travis Carvajal MD
[2016-07-15] MEDS: CUBICIN (FOR INPATIENT USE) 750 MG in NS 100 ML IV SCH (18:11)
[2016-07-15] MEDS: ASPIRIN EC PO SCH (21:45)
[2016-07-15] MEDS: MELATONIN PO SCH (21:45)
[2016-07-16] MEDS: HUMULIN R SUBQ SCH ×4 (06:00→21:48)
[2016-07-16 07:02] LABS: MANUAL DIFF NEEDED? NO
[2016-07-16 07:10] LABS: BASO% 0.6 % (0.0-0.8); EOS# 0.28 X1000 (0.0-0.7); EOS% 4.1 % (0.0-10.0); HEMATOCRIT 24.6 % (42.0-52.0); HEMOGLOBIN 7.6 g/dL (14.0-18.0); IMM GRAN# 0.04 X1000 (0.0-0.04); IMM GRAN% 0.6 % (0.0-0.5); LYMPH# 1.53 X1000 (1.2-3.4); LYMPH% 22.2 % (20.5-51.1); MCH 29.9 PG (27-31); MCHC 30.9 g/dL (33-37); MCV 96.9 FL (81-99); MONO# 0.62 X1000 (0.11-0.59); MPV 9.5 FL (7.4-10.4); NEUT% 63.5 % (42.2-75.2); PLT 327 X1000 (130-400); RBC 2.54 XMIL (4.7-6.1)
[2016-07-16 07:36] LABS: AGAP 9; ALBUMIN 2.7 g/dL (3.5-5.0); ALKALINE PHOSPHATASE 69 U/L (32-122); BUN 21 mg/dL (8-22); CALCIUM 8.6 mg/dL (8.8-10.2); CHLORIDE 107 mmol/L (98-107); COSMO 286; GOT 16 U/L (10-34); GPT 15 U/L (10-44); POTASSIUM 4.7 mmol/L (3.5-5.1); SODIUM 141 mmol/L (136-145); TCO2 25 mmol/L (25-35); TOTAL BILIRUBIN 0.31 mg/dL (0.20-1.00); TOTAL PROTEIN 5.9 g/dL (6.3-8.3)
[2016-07-16] MEDS: ZOFRAN IV PRN (08:24)
[2016-07-16] MEDS: VITAMIN B-12 PO SCH (09:27)
[2016-07-16] MEDS: TOPROL XL PO SCH ×2 (09:27→20:29)
[2016-07-16] MEDS: VITAMIN C PO SCH ×2 (09:27→20:28)
[2016-07-16] MEDS: LYRICA PO SCH ×2 (09:27→20:28)
[2016-07-16] MEDS: ZYLOPRIM PO SCH (09:27)
[2016-07-16] MEDS: FISH OIL CONCENTRATE PO SCH (09:29)
[2016-07-16] MEDS: FERROUS SULFATE PO SCH (09:29)
[2016-07-16] MEDS: HYTRIN PO SCH (09:29)
[2016-07-16] MEDS: ROCEPHIN 2 GM/NS 2 GM/50 ML IVPB IV SCH (09:29)
[2016-07-16] MEDS: COZAAR PO SCH (09:29)
[2016-07-16] MEDS: CUBICIN (FOR INPATIENT USE) 750 MG in NS 100 ML IV SCH (18:39)
[2016-07-16] MEDS: MELATONIN PO SCH (20:28)
[2016-07-16] MEDS: ASPIRIN EC PO SCH (20:28)
--- NOTE | 2016-07-16 20:30 | PROGRESS NOTE ---
DATE: 07/16/2016 PRESENT ILLNESS: The patient has gout. He also has a secondary infection to both elbows complicating the patient's gout. The is status post debridement of the elbows and olecranon bursa. MEDICATIONS: The patient is on a combination of daptomycin and Rocephin. PHYSICAL EXAMINATION: Vital Signs: Temperature is 98.2 degrees, pulse 78, respirations 19, blood pressure 124/74. General: This is an obese, elderly male. He is in no acute distress. Lungs: Clear to auscultation. Cardiovascular: Regular heart rate. Abdomen: Soft and nontender. Extremities: Both arms have dressings around them covering the elbows. Chest: The patient has a Basilio catheter in place. The Basilio site is not erythematous or draining. Neck: Patient has an internal jugular catheter in place. The site is not erythematous or swollen. LAB AND X-RAY: The CBC for today shows a white count of 6900, hemoglobin 7.6 and platelet count 327,000. Creatinine is 1.1. GFR is greater than 60. CPK is 26. All the cultures obtained at surgery remain negative. ASSESSMENT AND PLAN: The patient has septic elbow arthritis. The plan is to get the patient to a rehab and continue his antibiotics in the rehab and then continue his antibiotics at home after he is discharged from the rehab. Alternatively, he may just go home and do all of his rehab at home and get his antibiotics. COMORBIDITIES: Include being elderly, osteoarthritis, diabetes mellitus, gout and obesity. cc: Brennan Dotson MD
--- NOTE | 2016-07-16 21:24 | PROGRESS NOTE ---
DATE: 07/16/2016 SUBJECTIVE: Today Mr. Santiago refers to be doing a lot better. Pain in the elbows has improved. OBJECTIVE: Vital signs: Blood pressure is 124/74, pulse of 78, respirations 19, temperature 98.2. General: Mr. Santiago is a 71-year-old, male. He is in bed, in no distress. HEENT: Mucus is pink and moist. Anicteric. Acyanotic. Neck: Supple. Chest: Clear. Good air entry bilateral. Cardiovascular: Regular rate and rhythm. Abdomen: Soft, distended, but nontender. Extremities: 2+ pedal edema. Elbows were still in sterile dressing. LABORATORY DATA: WBC 6.9, hemoglobin 7.6, platelet count of 327,000. Chemistry is reviewed, completely unremarkable. ASSESSMENT: 1. Septic right olecranon bursitis status post incision and drainage. Cultures are negative. Patient is currently on Rocephin and daptomycin. 2. Bilateral elbow gout flare. Patient is on colchicine for about a week and will continue with allopurinol for prophylaxis. 3. Hypertension. This is controlled on losartan. 4. Diabetes mellitus controlled. 5. Acute on chronic kidney disease. Creatinine is now stabilized. 6. Fluid overload likely from overhydration. We will continue using Lasix for fluid control. 7. Recent right knee total arthroplasty. Sutures have been removed. 8. Morbid obesity noted. PLAN: In general, Mr. Santiago is stable. He has been in the hospital for 9 days. He initially presented because of elbow swelling and we thought he it was septic. Dr. Lr did I and D. Cultures have been negative. However the pathology report is consistent with gout flare. Patient is currently on colchicine which will be for just about 2 weeks and will continue with allopurinol for prophylaxis. We have been having some issues having adequate disposition for the patient. I spoke with the patient and the . The referred that it is going to be very hard for her to take care of him at home which is because of his weight. He would, therefore, need to be in some fci facility or rehabilitation at least for the time being. Monie from [facility] has evaluated the patient and we are pending further recommendations. I understand because patient is on daptomycin all the local rehabilitation centers herein in [place] will not take him. Once availability at [facility] is confirmed, patient can be discharged. cc: Travis Carvajal MD
[2016-07-17] MEDS: ZOFRAN IV PRN (01:51)
[2016-07-17] MEDS: HUMULIN R SUBQ SCH ×4 (06:28→21:52)
--- NOTE | 2016-07-17 08:28 | PROGRESS NOTE ---
DATE: 07/17/2016 SUBJECTIVE: Kian Santiago is a 71-year-old male who is postoperative day 8 from an I and D of his bilateral elbows and his right olecranon bursa. He states they are much improved today. He has good range of motion with minimal pain of his right and left elbow. OBJECTIVE: Vital Signs: Stable. He is afebrile. Laboratory: His white count is within normal limits. ASSESSMENT: Bilateral septic elbows and right septic olecranon bursa with gout. PLAN: We plan to continue working on range of motion of his elbows with physical therapy. He can be discharged to rehab whenever he is medically stable. Dictated by KHAI Diaz for Michael Lr MD cc: KHAI Diaz MD
[2016-07-17] MEDS: LYRICA PO SCH ×2 (09:10→20:24)
[2016-07-17] MEDS: VITAMIN B-12 PO SCH (09:10)
[2016-07-17] MEDS: COLCRYS PO SCH (09:10)
[2016-07-17] MEDS: ROCEPHIN 2 GM/NS 2 GM/50 ML IVPB IV SCH (09:10)
[2016-07-17] MEDS: COZAAR PO SCH (09:11)
[2016-07-17] MEDS: ZYLOPRIM PO SCH (09:11)
[2016-07-17] MEDS: VITAMIN C PO SCH ×2 (09:11→20:24)
[2016-07-17] MEDS: FERROUS SULFATE PO SCH (09:11)
[2016-07-17] MEDS: FISH OIL CONCENTRATE PO SCH (09:11)
[2016-07-17] MEDS: LASIX PO SCH (09:11)
[2016-07-17] MEDS: TOPROL XL PO SCH ×2 (09:11→20:24)
[2016-07-17] MEDS: HYTRIN PO SCH (09:11)
[2016-07-17] MEDS: NORCO-5 PO PRN ×2 (09:13→21:52)
--- NOTE | 2016-07-17 16:52 | PROGRESS NOTE ---
DATE: 07/17/2016 Mr. Santiago was admitted on 07/08/2016, bilateral elbow swelling in a 71-year-old with a history of hypertension, diabetes mellitus type 2, chronic kidney disease. He underwent recently a right total knee replacement. Presented to the emergency department complaining of pain, swelling of bilateral elbows. The patient was complaining the right elbow was actually more swollen than the other one but both seemed to hurt. Evaluated in emergency room, I and D of the right elbow and it was suspicious for possible olecranon bursitis due to presenting symptoms. He ended up having bilateral olecranon bursitis and treated aggressively with debridement and antibiotic. He is improving. He remains afebrile. It going to take several more weeks of antibiotic. Cultures were negative. He is currently on Rocephin and daptomycin. Bilateral elbow gout flare as well. The patient is on colchicine for about a week and then will continue allopurinol prophylaxis. Diabetes, blood sugars have been followed and controlled. History of chronic kidney disease. Fluid overload likely from over hydration and they did give him some Lasix to cut that down. He feels better. He is eating better. EXAM: Today temp 98.2 degrees, pulse 88, respirations 19. Blood pressure 130/73.HEENT: Pupils were equal and round. CVP less than 6 cm. Lungs: Clear in all lung gaston. Cardiovascular: Regular rhythm and rate without murmur or S3. Abdomen: Soft. Skin: Warm and dry. Urine output 2400 mL. LAB: White count 6900 from yesterday, hematocrit 24 and stable, platelet count 327,000. Blood sugar is 137, 155, 142. Chemistries from yesterday creatinine 1.1. Sodium 141, potassium 4.7, chloride 107, bicarb 25, BUN 21. ASSESSMENT AND PLAN: 1. Septic right olecranon bursitis status post incision and drainage. Cultures negative. Patient to continue Rocephin and daptomycin and treating the right side as well. 2. Bilateral elbow acute gouty flare. Continue colchicine and will continue on allopurinol for prophylaxis to keep his uric acid level. 3. Hypertension. Blood pressure controlled on losartan. 4. Diabetes mellitus type 2. Blood sugars under good control. 5. Acute on chronic kidney disease which has stabilized. 6. Fluid overload which is improved. 7. Status post right total knee arthroplasty, healing. 8. Morbid obesity. Aware. Any of these have had the patient in the hospital for 10 days. Initially presented with elbow swelling thought to be septic. Dr. Lr did an I and D. Cultures were negative however the pathology report consistent with gouty flare. Patient is currently on colchicine for about 2 weeks and then continue allopurinol for prophylaxis. Been having some issues, having adequate disposition for the patient. Trying to get into [facility] but he was denied by his insurance company and has requested I do a peer to peer review which I have agreed to do so we will see. He cannot lift his utensils to feed him. He is not ambulating well because of his recent total knee arthroplasty and I think he would benefit from rehab. He is also on antibiotics that are quite expensive so he is not eligible at some of the other rehab facilities. cc: Lonnie Encarnacion MD
--- NOTE | 2016-07-17 17:21 | PROGRESS NOTE ---
DATE: 07/17/2016 PRESENT ILLNESS: Patient has bilateral septic elbow arthritides superimposed on gout. Alternatively the gout could have been a complication of the septic arthritis in the elbows. MEDICATIONS: The patient is on a combination of daptomycin and Rocephin. PHYSICAL EXAMINATION: Vital Signs: Temperature is 98.2 degrees, pulse 88, respirations 18, blood pressure 130/73. General: This is an obese, elderly male. He is in no acute distress. Lungs: Clear to auscultation. Cardiovascular: Regular heart rate. Abdomen: Soft and nontender. Extremities: Both arms are swollen with edema. I was able to passively move the elbow without pain. There is no drainage coming from either incision. LAB AND X-RAY: There is no new lab or x-ray for today. ASSESSMENT AND PLAN: The patient has septic elbows. The plan is to continue daptomycin and Rocephin while he is in rehabilitation and then when he gets out, [employer] will coal picker his antibiotics. Our plan is to treat him for 6 weeks with both daptomycin and Rocephin. COMORBIDITIES: Being elderly, osteoarthritis, diabetes mellitus, obesity, and gout. cc: Brennan Dotson MD
[2016-07-17] MEDS: CUBICIN (FOR INPATIENT USE) 750 MG in NS 100 ML IV SCH (18:45)
[2016-07-17] MEDS: MELATONIN PO SCH (20:24)
[2016-07-17] MEDS: ASPIRIN EC PO SCH (20:24)
[2016-07-18] MEDS: HUMULIN R SUBQ SCH ×4 (06:08→22:13)
[2016-07-18] MEDS: VITAMIN C PO SCH ×2 (09:00→22:09)
[2016-07-18] MEDS: VITAMIN B-12 PO SCH (09:00)
[2016-07-18] MEDS: ZYLOPRIM PO SCH (09:00)
[2016-07-18] MEDS: HYTRIN PO SCH (09:01)
[2016-07-18] MEDS: TOPROL XL PO SCH ×2 (09:01→22:08)
[2016-07-18] MEDS: COZAAR PO SCH (09:01)
[2016-07-18] MEDS: FERROUS SULFATE PO SCH (09:01)
[2016-07-18] MEDS: ROCEPHIN 2 GM/NS 2 GM/50 ML IVPB IV SCH (09:01)
[2016-07-18] MEDS: LASIX PO SCH (09:01)
[2016-07-18] MEDS: FISH OIL CONCENTRATE PO SCH (09:01)
[2016-07-18] MEDS: LYRICA PO SCH ×2 (09:01→22:13)
--- NOTE | 2016-07-18 16:58 | PROGRESS NOTE ---
DATE: 07/18/2016 PRESENT ILLNESS: Patient has bilateral septic elbows and gouty bursitis. MEDICATIONS: The patient is on a combination of daptomycin and Rocephin. This is the fifth day of both daptomycin and Rocephin. PHYSICAL EXAMINATION: Vital Signs: Temperature is 98.3 degrees, pulse 80, respirations 18, blood pressure 134/58. General: This is an obese, elderly male. He is in no acute distress. Lungs: Clear to auscultation. Cardiovascular: Regular heart rate. Abdomen: Soft and nontender. Extremities: I examined both arms and they are edematous, but the incision on both elbows is intact and not draining. LAB AND X-RAY: There is no new lab or x-ray today. ASSESSMENT AND PLAN: Patient has septic elbow arthritis. The plan is to continue daptomycin and Rocephin for a total period of 6 weeks. The patient has already had 5 days of treatment with both the antibiotics. The patient will be treated for a total of 6 weeks with both the antibiotics. Thus far, he has had 5 days of treatment with both of them. COMORBIDITIES: The patient's comorbidities include being elderly, osteoarthritis, diabetes mellitus, obesity and gout. cc: Brennan Dotson MD
--- NOTE | 2016-07-18 18:02 | PROGRESS NOTE ---
DATE: 07/18/2016 SUBJECTIVE: Mr. Santiago is feeling better. His arms are doing a little better. I got a call for peer review for [employer] [facility] and they said he did not meet criteria, felt he was too functional and wanted us to choose some different antibiotics. At any rate, declined for him to go to [facility]. They wanted us to check on other healthcare facilities and see if we could change our antibiotics. I have had discussions with Dr. Dotson and we are going to continue for total 6 weeks of antibiotics using daptomycin. Will continue physical therapy and probably arrange for him to have home health. OBJECTIVE: Vital Signs: Temperature 98.7, pulse 76, respirations 20, blood pressure 138/90. Lungs: Are clear in all lung gaston. Cardiovascular: Exam regular rhythm and rate without murmur or S3. Abdomen: Soft. Skin: Warm and dry. : Urine output good, 1400 mL. LAB: White count 6900, hematocrit 24, platelet count 327,000. Chemistries: Blood sugar 164, 143, and 218. ASSESSMENT AND PLAN: Patient comorbidities include: 1. Bilateral septic elbows with gouty bursitis as well. Committed to 6 weeks of antibiotics using daptomycin and Rocephin. Cultures had been negative. 2. General nutrition. He is doing good with good p.o. intake. 3. He has recently had a right total knee arthroplasty and that is improving. Continue physical therapy. 4. Diabetes mellitus type 2. Blood sugars under good control. 5. Acute on chronic kidney disease. Renal functions improved. Aware of chronic kidney disease. Review of his orders. I do not see any changes on Hytrin. He has benign prostatic hypertrophy. He is on Hytrin 5 mg p.o. q.a.m., ceftriaxone 2 g IV q.24 hours. Lyrica 75 mg b.i.d., omega-3 fatty acids 1000 mg a day. Metoprolol succinate 100 mg b.i.d., melatonin 3 mg p.o. at bedtime, Cozaar 50 mg a day. Hydrocodone 5 mg q.6 hours, Lasix 40 mg a day. Ferrous sulfate 325 mg a day. Daptomycin 750 mg IV q.24 hours. Cyanocobalamin 1000 mcg p.o. daily, colchicine 0.6 mg q.48 hours, aspirin 162 mg at bedtime, ascorbic acid 500 mg b.i.d., Zyloprim 50 mg daily. cc: Lonnie Encarnacion MD
[2016-07-18] MEDS: CUBICIN (FOR INPATIENT USE) 750 MG in NS 100 ML IV SCH (19:01)
[2016-07-18] MEDS: ASPIRIN EC PO SCH (22:09)
[2016-07-18] MEDS: NORCO-5 PO PRN (22:09)
[2016-07-18] MEDS: MELATONIN PO SCH (22:10)
[2016-07-19] MEDS: HUMULIN R SUBQ SCH ×4 (07:08→21:22)
[2016-07-19] MEDS: NORCO-5 PO PRN ×2 (08:58→21:21)
[2016-07-19] MEDS: FERROUS SULFATE PO SCH (08:59)
[2016-07-19] MEDS: COZAAR PO SCH (08:59)
[2016-07-19] MEDS: VITAMIN C PO SCH ×2 (08:59→21:21)
[2016-07-19] MEDS: FISH OIL CONCENTRATE PO SCH (08:59)
[2016-07-19] MEDS: VITAMIN B-12 PO SCH (08:59)
[2016-07-19] MEDS: COLCRYS PO SCH (09:00)
[2016-07-19] MEDS: TOPROL XL PO SCH ×2 (09:00→21:21)
[2016-07-19] MEDS: ROCEPHIN 2 GM/NS 2 GM/50 ML IVPB IV SCH (09:00)
[2016-07-19] MEDS: HYTRIN PO SCH (09:00)
[2016-07-19] MEDS: LASIX PO SCH (09:00)
[2016-07-19] MEDS: ZYLOPRIM PO SCH (09:00)
[2016-07-19] MEDS: LYRICA PO SCH ×2 (09:11→21:21)
--- NOTE | 2016-07-19 13:26 | PROGRESS NOTE ---
DATE: 07/19/2016 SUBJECTIVE: Kian Santiago is a 71-year-old male, who is postoperative day 10 from an I and D of his bilateral elbows and his right olecranon bursa. He states they are very much improved. He has good range of motion of both elbows. OBJECTIVE: Vital Signs: Stable. He is afebrile. Incisions are clean, dry, and intact without sign of infection. ASSESSMENT: Bilateral septic elbows and right septic olecranon bursa with gout. PLAN: We will remove his sutures today, and he is able to go home with home health when he is discharged. We ask that he follow up with Dr. Lr in 2 weeks. Dictated by KHAI Diaz for Michael Lr MD cc: KHAI Diaz MD
--- NOTE | 2016-07-19 17:36 | PROGRESS NOTE ---
DATE: 07/19/2016 PRESENT ILLNESS: The patient has bilateral septic elbow arthritis. MEDICATIONS: The patient has received a week's worth of daptomycin and Rocephin. PHYSICAL EXAMINATION: Vital Signs: Temperature is 98.5 degrees, pulse 78, respiration is 18, blood pressure 122/61. General: The patient is elderly and obese. He is in no acute distress. Lungs: Clear to auscultation. Cardiovascular: Regular heart rate. Abdomen: Soft and nontender. Extremities: Both elbow incisions are intact. There is no drainage. Movement of the elbows does not cause the patient to have pain. The patient's right knee incision also is healing well. Chest: The patient has a Basilio catheter in place. The catheter site is not swollen or red. LAB AND X-RAY: The patient did not have any laboratory studies or radiographic studies done today. ASSESSMENT AND PLAN: The patient has bilateral septic elbow arthritis. I plan to continue daptomycin and Rocephin for 5 more weeks to complete a 6 week treatment course. I have requested that the patient see me in my office in 3 weeks. COMORBIDITIES: The patient's comorbidities include being elderly, osteoarthritis, diabetes mellitus, gout, and obesity. cc: Brennan Dotson MD
--- NOTE | 2016-07-19 17:46 | PROGRESS NOTE ---
DATE: 07/19/2016 SUBJECTIVE: Mr. Santiago is feeling better. More mobility in his arms. He is eating well. He is ambulating some with assistance. OBJECTIVE: Vital signs: Remains afebrile, temperature 98.5 degrees, pulse 78, respirations 18, blood pressure 122/61, CVP less than 6 cm. Lungs: Clear in all lung gaston. Cardiovascular: Regular rhythm and rate without murmur or S3. Good urine output. LABORATORY: Reviewed. White count 6900, hematocrit 24, platelet count 327,000, blood sugars 155, 173, 160. ASSESSMENT/PLAN: 1. Bilateral septic elbows, right septic olecranon bursa with gout. Continue present antibiotics. He will need a total of 6 weeks of antibiotics. 2. Gouty arthritis. Gouty bursitis as well. 3. Diabetes mellitus type 2. Sugars under good control. 4. Acute on chronic kidney disease. Renal function improving. We will check his basic metabolic profile again in the morning. 5. Anemia. Hematocrit 24, hemoglobin 7.6. 6. Review of orders: I do not know that I see anything to change. He does have benign prostatic hypertrophy as well. He is on ceftriaxone 2 g IV q.24 hours, he is on daptomycin 750 mg IV q.24 hours. He did not get approved by [facility] for going to [facility]. His antibiotics are too expensive for any of the rehab centers around here. We will see if we can set him up as an outpatient to come back and get his antibiotics, continue his rehab here. Social Service involved. cc: Lonnie Encarnacion MD
[2016-07-19] MEDS: CUBICIN (FOR INPATIENT USE) 750 MG in NS 100 ML IV SCH (18:28)
[2016-07-19] MEDS: ASPIRIN EC PO SCH (21:21)
[2016-07-19] MEDS: MELATONIN PO SCH (21:21)
[2016-07-20] MEDS: HUMULIN R SUBQ SCH ×2 (06:16→12:20)
[2016-07-20 07:40] LABS: HEMATOCRIT 24.6 % (42.0-52.0); HEMOGLOBIN 7.5 g/dL (14.0-18.0); MCH 30.2 PG (27-31); MCHC 30.5 g/dL (33-37); MCV 99.2 FL (81-99); MPV 9.9 FL (7.4-10.4); RBC 2.48 XMIL (4.7-6.1)
[2016-07-20 07:48] VITALS: BP 107/69
[2016-07-20 07:57] LABS: CALCIUM 8.5 mg/dL (8.8-10.2); MAGNESIUM 1.2 mg/dL (1.5-2.7); POTASSIUM 4.2 mmol/L (3.5-5.1)
[2016-07-20] MEDS: VITAMIN C PO SCH (08:41)
[2016-07-20] MEDS: VITAMIN B-12 PO SCH (08:42)
[2016-07-20] MEDS: FISH OIL CONCENTRATE PO SCH (08:42)
[2016-07-20] MEDS: TOPROL XL PO SCH (08:42)
[2016-07-20] MEDS: COZAAR PO SCH (08:42)
[2016-07-20] MEDS: ZYLOPRIM PO SCH (08:43)
[2016-07-20] MEDS: HYTRIN PO SCH (08:45)
[2016-07-20] MEDS: FERROUS SULFATE PO SCH (08:45)
[2016-07-20] MEDS: ROCEPHIN 2 GM/NS 2 GM/50 ML IVPB IV SCH (08:46)
[2016-07-20] MEDS: NORCO-5 PO PRN (09:15)
[2016-07-20] MEDS: LASIX PO SCH (09:15)
[2016-07-20] MEDS ORDERED: MAGNESIUM SULFATE 2 GM/S.W.I. 2 GM/50 ML IVPB IV ONE (10:57)
[2016-07-20] MEDS: LYRICA PO SCH (12:20)
--- NOTE | 2016-08-04 15:48 | DISCHARGE SUMMARY ---
ADMISSION DATE: 07/07/2016 DISCHARGE DATE: 07/20/2016 FINAL DISCHARGE DIAGNOSES: 1. Bilateral septic elbows. 2. Bilateral olecranon bursitis. 3. Gout flare. 4. Diabetes mellitus, type 2. 5. Morbid obesity. 6. Acute kidney injury on chronic kidney disease. 7. Anemia. CONSULTATIONS REQUESTED DURING THIS HOSPITAL STAY: 1. Orthopedic consultation with Dr. Lr. 2. General Surgery consultation with Dr. Garcia. 3. Infectious Disease consultation with Dr. Brennan Dotson. PROCEDURES PERFORMED DURING THIS HOSPITAL STAY: 1. Irrigation and drainage of bilateral elbows. 2. Incision, drainage, and debridement of the right olecranon bursa. 3. Insertion of a tunneled central venous Basilio catheter. HOSPITAL COURSE: Mr. Santiago is a 71-year-old male with a history of multiple medical problems, who presented to the ER with a chief complaint of bilateral elbow swelling and erythema. The patient was admitted to the hospitalist service. Cultures were obtained. Orthopedic Surgery was consulted. The patient was started on antibiotics and ID was consulted for further assistance. The patient was taken to the OR on 07/09/2016, at which time the patient underwent incision, drainage, and irrigation of both elbows. He also had incision, drainage, and debridement of the right olecranon bursa. Cultures from the wounds on both elbows ultimately were noted to be negative. It was also thought that the patient was suffering from gout, so treatment for gout was initiated. The patient was also noted to be in acute kidney injury. Fluids were initiated. The patient does have chronic kidney disease. Slowly, over the course of the hospitalization, the infection and the inflammation in the patient's elbows improved with antibiotic and gout therapy. It was then decided that the patient would benefit from a Basilio catheter placement for IV antibiotic administration and IV access in general. General Surgery was consulted. On 07/13/2016, a Basilio catheter was placed. Arrangements were made by Dr. Dotson for the patient to continue on IV antibiotics for 5 weeks, to complete a 6-week treatment course. The patient will also follow up with Dr. Dotson in 3 weeks' time. DISCHARGE MEDICATIONS: 1. Allopurinol 100 mg p.o. daily. 2. Rocephin 2 g IV daily x5 weeks. 3. Daptomycin 750 mg IV daily x5 weeks. 4. Dunmore 5/325, 1 tab oral every 6 hours p.r.n. for pain. 5. Colchicine 0.6 mg p.o. every 48 hours x5 days. 6. Fish oil 1000 mg p.o. daily. 7. Aspirin 162 mg p.o. at bedtime. 8. Vitamin C 2 tablets oral twice a day. 9. Hytrin 5 mg p.o. every morning. 10. Iron 65 mg p.o. daily. 11. Lasix 40 mg p.o. daily. 12. Metoprolol ER 100 mg p.o. twice a day. 13. Losartan 50 mg p.o. daily. 14. Glipizide/metformin 1 tab oral twice a day. 15. Lyrica 75 mg p.o. twice a day. DISCHARGE DIET: An 1800 ADA diet, low-sodium diet. ACTIVITY: As tolerated. FOLLOWUP INSTRUCTIONS: The patient will need to follow up with Dr. Brennan Dotson in 3 weeks. cc: Jhoana Harding MD
== END 2016-07-20 17:25 | disposition home health service (06) ==
LOC: ED 22:02 → SUATTDRO 22:03 → 3N 07-08 03:20 → SUATTDRO 07-08 03:20
PROVIDERS: ATTEND Internal Medicine

== ENCOUNTER 2016-07-31 13:10 | Inpatient (IN) ==
--- NOTE | 2016-07-31 14:25 | Diag Imaging Result Doc PS360 ---
EXAM: CHEST-1 VIEW HISTORY: SOB TECHNIQUE: Upright portable COMPARISON: 07/13/2016 FINDINGS: No change in the right jugular line. The heart remains enlarged. There are bilateral infiltrates or pulmonary edema which is more pronounced than on the prior exam. No pleural effusions identified. IMPRESSION: Interval worsening. Electronically signed by Skyler Anderson 07/31/2016 2:23 PM
[2016-07-31 14:45] LABS: MANUAL DIFF NEEDED? NO
[2016-07-31 15:01] LABS: BASO% 0.2 % (0.0-0.8); EOS# 0.25 X1000 (0.0-0.7); EOS% 2.3 % (0.0-10.0); HEMATOCRIT 23.5 % (42.0-52.0); HEMOGLOBIN 7.3 g/dL (14.0-18.0); IMM GRAN# 0.02 X1000 (0.0-0.04); IMM GRAN% 0.2 % (0.0-0.5); LYMPH# 1.17 X1000 (1.2-3.4); LYMPH% 10.9 % (20.5-51.1); MCH 29.6 PG (27-31); MCHC 31.1 g/dL (33-37); MCV 95.1 FL (81-99); MONO# 1.05 X1000 (0.11-0.59); MONO% 9.7 % (1.7-9.3); MPV 10.7 FL (7.4-10.4); NEUT% 76.7 % (42.2-75.2); PLT 156 X1000 (130-400); RBC 2.47 XMIL (4.7-6.1)
[2016-07-31 15:09] LABS: ALBUMIN 2.9 g/dL (3.5-5.0); CALCIUM 8.2 mg/dL (8.8-10.2); POTASSIUM 4.4 mmol/L (3.5-5.1); TOTAL BILIRUBIN 0.24 mg/dL (0.20-1.00); TOTAL PROTEIN 6.7 g/dL (6.3-8.3)
[2016-07-31] MEDS ORDERED: LOVENOX 1 MG/KG SUBQ ONE (15:21)
--- NOTE | 2016-07-31 15:30 | PROVIDER DOCUMENTATION ---
This chart was entered by An Sanchez Scribe, acting as scribe for Shiva Dixon MD. HPI-Respiratory General - General Chief Complaint: Shortness of Breath Stated Complaint: sob Time Seen by Provider: 07/31/16 13:46 Source: patient Allergies/Adverse Reactions: Patient Allergies Allergy/AdvReac Type Severity Reaction Status Date / Time No Known Allergies Allergy Verified 07/07/16 22:58 Home Medications: Home Medication List Medication Instructions Recorded Confirmed Last Taken Type Ascorbic Acid [Vitamin C] 2 tab PO BID 07/22/14 07/31/16 07/31/16 08:00 History Aspirin [Aspirin EC] 162 mg PO QHS 07/22/14 07/31/16 07/30/16 20:00 History [place]-3 Fatty Acids [Fish Oil] 1,000 mg PO DAILY 07/22/14 07/31/16 07/31/16 08: 00 History Terazosin [Hytrin] 5 mg PO QAM 07/22/14 07/31/16 07/31/16 08:00 History Cyanocobalamin (Vitamin B-12) 1,000 mcg PO DAILY 06/20/16 07/31/16 07/31/16 08: 00 History [Vitamin B-12] Furosemide 40 mg PO DAILY 06/20/16 07/31/16 07/31/16 08:00 History Glipizide/Metformin HCl 1 each PO BID 06/20/16 07/31/16 07/31/16 08:00 History [Glipizide-Metformin 5-500 mg] Iron 65 mg PO DAILY 06/20/16 07/31/16 07/31/16 08:00 History Losartan Potassium 50 mg PO DAILY 06/20/16 07/31/16 07/31/16 08:00 History Melatonin/Pyridoxine [Melatonin 3 1 each PO HS 06/20/16 07/31/16 07/30/16 20:00 History mg Tablet] Metoprolol Succinate E.r. [Toprol 100 mg PO BID 06/20/16 07/31/16 07/31/16 08: 00 History Xl] Multivit-Minerals/FA/Lycopene [One 1 each PO DAILY 06/20/16 07/31/16 07/31/16 08 :00 History Daily For Men Tablet] Pregabalin [Lyrica] 75 mg PO BID 06/27/16 07/31/16 07/31/16 08:00 History Allopurinol [Zyloprim] 100 mg PO DAILY #30 tablet 07/20/16 07/31/16 07/31/16 08: 00 Rx CefTRIAXONE 2 GM/NS [Rocephin 2 2 gm IV DAILY #1 ivpb 07/20/16 07/31/16 08:00 Rx gm/Ns] Colchicine [Colcrys] 0.6 mg PO Q48H tablet 07/20/16 07/31/16 Unknown Rx Daptomycin [Cubicin Rf] 750 mg IV DAILY #1 vial 07/20/16 07/31/16 07/31/16 08: 00 Rx Hydrocodone/APAP 5 mg/325 mg 1 each PO Q6H PRN PRN #0 tablet 07/20/16 07/31/16 Unknown Rx [[place]-5] - History of Present Illness-Resp Nature of Presenting Problem: PT is a 71 yom who came to the ED with a cc of SOB. Pt reports he had right knee surgery on June 27 and ever since has been sick in and out of the hospital. Pt reports he has been sob since Saturday and is coughing and has chest pain from coughing. Pt reports the SOB is worsened with movement. Quality of Pain: reports: tightness Severity in ED: reports: mild Onset/Duration: reports: 3 days ago Timing: reports: still present Exposure: reports: unknown cause Cough Quality/Degree: reports: mild Modifying Factors: improves with: exertion Associated Symptoms: reports: chest pain/soreness, shortness of breath Similar Symptoms Previously?: Yes Recently seen or treated by another doctor?: Yes Review of Systems - Adult - REVIEW OF SYSTEMS - ADULT Constitutional: denies: chills, fever Eyes: reports: no symptoms reported Ears, Nose, Mouth & Throat: reports: no symptoms reported Cardiovascular: denies: chest pain, heart murmur Respiratory: reports: cough, shortness of breath, wheezing. denies: dyspnea on exertion, hemoptysis, pleurisy Gastrointestinal: reports: no symptoms reported Genitourinary: reports: no symptoms reported Musculoskeletal: reports: no symptoms reported Integumentary: reports: no symptoms reported Neurological: reports: no symptoms reported Psychiatric: reports: no symptoms reported Endocrine: denies: increased hunger, increased thirst Hematologic/Lymphatic: reports: no symptoms reported Allergic/Immunologic: reports: no symptoms reported All Other Systems: Reviewed and Negative Past History - Adult - PAST MEDICAL HISTORY-ADULT Review of Records: reports: Medications Reviewed Major Childhood Illnesses: reports: denies history Cardiovascular: reports: cardiac disease, HTN, heart valve problem Respiratory: reports: denies history Gastrointestinal: reports: denies history Obstetrical/Gynecological: reports: denies history Genitourinary: reports: denies history Musculoskeletal: reports: denies history Neurological: reports: denies history Endocrine/Immune: reports: Diabetes Other Conditions: reports: denies history - PRIOR SURGERIES/PROCEDURES Surgical/Procedure History: reports: bowel surgery, other (carotid endarectomy) - IMMUNIZATION STATUS Childhood Immunizations: See Nurse Assessment Flu Vaccine: See Nurse Assessment - FAMILY HISTORY Family History: reviewed, not pertinent Physical Exam-General - PHYSICAL EXAM-ADULT Initial Vital Signs Reviewed: Yes - CONSTITUTIONAL General Appearance: appears well, alert, mild distress - EYES Eyes: PERRL/EOMI - HEAD, EARS, NOSE, MOUTH & THROAT HENMT: normocephalic/atraumatic - NECK Neck: non-tender - RESPIRATORY Respiratory: crackles - CARDIOVASCULAR Cardiovascular: normal peripheral pulses, regular rate, rhythm - GASTROINTESTINAL (ABDOMEN) Abdominal Exam: non tender, soft - MUSCULOSKELETAL Back Exam: normal inspection, no CVA tenderness Extremity: pedal edema (4+), other (right knee healing incision) - SKIN Integumentary: normal color, normal turgor - NEUROLOGIC Neurologic: grossly normal - PSYCHIATRIC Psych/Mental Status: normal mood/affect, normal thought content, normal thought process, oriented x 3 Progress - PLAN OF CARE/RESULTS Progress/Plan/Lab Results: Vital Signs - 8 hr 07/31/16 13:16 Temperature 98.1 F Pulse Rate 92 H Respiratory Rate 20 Blood Pressure 102/56 O2 Sat by Pulse Oximetry 88 L Laboratory Results - last 24 hr 07/31/16 07/31/16 07/31/16 14:31 14:31 14:31 WBC 10.77 RBC 2.47 L Hgb 7.3 L Hct 23.5 L MCV 95.1 MCH 29.6 MCHC 31.1 L RDW Std Deviation 14.3 Plt Count 156 MPV 10.7 H Immature Gran % (Auto) 0.2 Neut % (Auto) 76.7 H Lymph % (Auto) 10.9 L [place] % (Auto) 9.7 H Eos % (Auto) 2.3 Baso % (Auto) 0.2 Immature Gran # (Auto) 0.02 Neut # (Auto) 8.26 H Lymph # (Auto) 1.17 L [place] # (Auto) 1.05 H Eos # (Auto) 0.25 Baso # (Auto) 0.02 D-Dimer 3.49 H Sodium 134 L Potassium 4.4 Chloride 96 L Carbon Dioxide 24 L Anion Gap 14 BUN 42 H Creatinine 2.7 H Estimated GFR/1.73 m2 23 BUN/Creatinine Ratio 16 Glucose 137 H Calculated Osmolality 281 Calcium 8.2 L Total Bilirubin 0.24 AST 12 ALT 8 L Alkaline Phosphatase 56 Gyj-I-Xbthezfnrau Pept Total Protein 6.7 Albumin 2.9 L Globulin 3.8 Albumin/Globulin Ratio 0.8 07/31/16 14:31 WBC RBC Hgb Hct MCV MCH MCHC RDW Std Deviation Plt Count MPV Immature Gran % (Auto) Neut % (Auto) Lymph % (Auto) [place] % (Auto) Eos % (Auto) Baso % (Auto) Immature Gran # (Auto) Neut # (Auto) Lymph # (Auto) [place] # (Auto) Eos # (Auto) Baso # (Auto) D-Dimer Sodium Potassium Chloride Carbon Dioxide Anion Gap BUN Creatinine Estimated GFR/1.73 m2 BUN/Creatinine Ratio Glucose Calculated Osmolality Calcium Total Bilirubin AST ALT Alkaline Phosphatase Fcr-A-Npeeigflpqj Pept 2373 H Total Protein Albumin Globulin Albumin/Globulin Ratio Orders Category Date Time Status CHEST-1 VIEW [RAD] Stat Exams 07/31/16 14:08 Completed CBC WITH DIFF [HEME] Stat Lab 07/31/16 14:31 Completed COMPREHENSIVE METABOLIC PANEL [CHEM] Stat Lab 07/31/16 14:31 Completed D-DIMER [CHEM] Stat Lab 07/31/16 14:31 Completed PRO B-NATRIURETIC PEPTIDE Stat Lab 07/31/16 14:31 Completed Enoxaparin 1 mg/kg [Lovenox 1 mg/kg] Med 07/31/16 15:21 Once 1 each SUBQ NOW ONE EKG [EKG] Stat Ther 07/31/16 13:18 Ordered EKG [EKG] Stat Ther 07/31/16 14:08 Ordered Result Diagrams: 07/31/16 14:31 05/23/17 14:31 - EKG 1 Time of EKG reading by physician:: 13:24 EKG Read and Signed by:: Madison Herrera EKG Interpretation (*Must complete 3 of following elements*): Normal Rate: 88 Rhythm: NSR - XRAY 1 XRAY Study: Chest Impression: Abnormal XRAY Interpretation: interval worsening - CONSULTS/PCP/HOSPITALIST Notification #1 *Consult/PCP/Hospitalist*: Encarnacion Time Discussed: 15:24 Consult Disposition: Will see in ED, Admit Departure - Departure Time of Disposition Decision: 15:24 DIAGNOSIS: Chronic anemia, Elevated d-dimer Congestive cardiac failure Qualifiers: Congestive heart failure type: unspecified congestive heart failure type Congestive heart failure chronicity: unspecified congestive heart failure chronicity Qualified Code(s): I50.9 - Heart failure, unspecified Acute renal failure (ARF) Qualifiers: Acute renal failure type: unspecified Qualified Code(s): N17.9 - Acute kidney failure, unspecified Disposition: ADMITTED INPATIENT 09 Certified Medical Emergency: Emergent Condition: Fair Referrals and Follow-Ups: James Chen MD [Primary Care Provider] - - Critical Care Note This patient required my direct & personal management of CC.: No This chart was documented by the indicated scribe, (An Sanchez Scribe) and accurately reflects the services I performed and decisions made by me, Shiva Dixon MD, as attested by the provider's signature.
[2016-07-31] MEDS ORDERED: LOVENOX SUBQ ONE ×2 (15:45)
--- NOTE | 2016-07-31 16:47 | HISTORY AND PHYSICAL ---
HISTORY OF PRESENT ILLNESS: This is a 71-year-old who was discharged from the hospital on 07/20/2016. He was admitted last on 07/08/2016. On 07/08/2016 he presented with bilateral elbow swelling. He has a history of hypertension, diabetes mellitus type 2, chronic kidney disease. He underwent recent right total knee replacement. Presented to the emergency room complaining of pain and swelling in bilateral elbows. The patient complained the right elbow was actually more swollen than the left one. He ended up having debridement of both of them and put on some antibiotics. He was allowed to go home. After insurance declined paying for any rehab. He was on antibiotics and he has done fairly well. Then a couple days ago he started having a little more cough, a little bit of fever, and increased sputum, and O2 saturations went down, so he was sent to the emergency room. His primary care doctor is Dr. James Chen. PAST MEDICAL HISTORY: 1. Hypertension. 2. Diabetes mellitus type 2. 3. Anemia. 4. Chronic kidney disease. 5. Colon cancer. PAST SURGICAL HISTORY: Right total knee replacement, left arm surgery, bilateral carotid endarterectomy, vasectomy. He had his right total knee replacement only I think maybe going on six weeks ago, maybe a little longer. ALLERGIES: No known drug allergies. CURRENT MEDICATIONS: To review, he is on allopurinol 100 mg a day, ascorbic acid 2 tablets b.i.d., aspirin 162 mg at bedtime. He takes ceftriaxone 2 g IV daily, colchicine 0.4 mg q.48 hours, cyanocobalamin which is vitamin B12 1000 mcg daily, daptomycin 750 mg daily, furosemide 40 mg a day, glipizide metformin 1 b.i.d., [place] 5 mg q.6, iron 65 mg a day, losartan 50 mg a day, melatonin, pyridoxine 3 mg daily, metoprolol succinate ER 100 mg b.i.d., multivitamin 1 daily, omega-3 fatty acids 1000 mg daily, Lyrica 75 mg b.i.d., terazosin 5 mg p.o. at bedtime. SOCIAL HISTORY: Denies tobacco. He does drink social alcohol. No illicit drugs. FAMILY HISTORY: Positive for coronary artery disease. REVIEW OF SYSTEMS: He has been getting stronger. He is eating more. Breathing has been doing well. He remained afebrile until a couple of days ago. Bowels are moving. No gross hematuria or dysuria. PHYSICAL EXAMINATION: VITAL SIGNS: Temp is 98.1 degrees, pulse 94, respirations 17, blood pressure 115/51. Weight 255 pounds. O2 saturation is 94%. Height is 6 feet. HEENT: Pupils are equal and round. NECK: CVP less than 6 cm. LUNGS: Clear in all lung [place]. CARDIOVASCULAR: Regular rate without murmur or S3. ABDOMEN: Soft. SKIN: Warm and dry. EXTREMITIES: He has no significant pitting edema. Right anterior knee total arthroplasty surgical scar appears to be good. His elbows appear to be doing well. LAB: White count 10,770, hematocrit 23, platelet count 156,000. Sodium 134, potassium 4.4, chloride 96, bicarb 24, BUN 42, creatinine 2.7. Blood sugar 137. ProBNP was 2,373. D-dimer was 3.49. Chest x-ray: Interval worsening. No change in the right jugular line. There are bilateral infiltrates, pulmonary edema more pronounced than prior exam. No pleural effusions. ASSESSMENT AND PLAN: 1. Fever and increased dyspnea. Suspect bilateral basilar pneumonia. Will treat him and put him in the hospital. We are going to check noninvasive venous studies of his legs. The right was clear. The left 1 is pending at this time. His D-dimer was elevated but I do not see any evidence to suggest PTE at this point. 2. Bilateral elbow infection. He seems to be getting better from that standpoint. 3. Diabetes mellitus, aware. Will check pattern sugars. Put him on sliding scale. 4. Hypertension. 5. History of gouty arthritis. In part of his elbow the inflammation was gouty tophi. cc: Lonnie Encarnacion MD
[2016-07-31] MEDS: COLCRYS PO SCH (18:07)
[2016-07-31] MEDS: NS 1,000 ML IV SCH (18:07)
[2016-07-31] MEDS: LYRICA PO SCH (20:50)
[2016-07-31] MEDS: GLUCOTROL PO SCH (20:50)
[2016-07-31] MEDS: TOPROL XL PO SCH (20:50)
[2016-07-31] MEDS: VITAMIN C PO SCH (20:50)
[2016-07-31] MEDS: GLUCOPHAGE PO SCH (20:50)
[2016-07-31] MEDS: ASPIRIN EC PO SCH (20:50)
[2016-07-31] MEDS: MELATONIN PO SCH (20:50)
[2016-08-01] MEDS: NORCO-5 PO PRN ×2 (01:09→23:03)
[2016-08-01 04:57] LABS: MANUAL DIFF NEEDED? NO
[2016-08-01 05:24] LABS: ALBUMIN 2.7 g/dL (3.5-5.0); CALCIUM 8.3 mg/dL (8.8-10.2); POTASSIUM 4.2 mmol/L (3.5-5.1); TOTAL BILIRUBIN 0.3 mg/dL (0.20-1.00); TOTAL PROTEIN 6.5 g/dL (6.3-8.3)
[2016-08-01 05:27] LABS: BASO% 0.2 % (0.0-0.8); EOS# 0.38 X1000 (0.0-0.7); EOS% 4.2 % (0.0-10.0); HEMATOCRIT 21.9 % (42.0-52.0); HEMOGLOBIN 6.8 g/dL (14.0-18.0); IMM GRAN# 0.03 X1000 (0.0-0.04); IMM GRAN% 0.3 % (0.0-0.5); LYMPH# 1.17 X1000 (1.2-3.4); MCH 29.4 PG (27-31); MCHC 31.1 g/dL (33-37); MCV 94.8 FL (81-99); MONO# 0.97 X1000 (0.11-0.59); MONO% 10.8 % (1.7-9.3); MPV 10.6 FL (7.4-10.4); NEUT% 71.5 % (42.2-75.2); PLT 162 X1000 (130-400); RBC 2.31 XMIL (4.7-6.1)
--- NOTE | 2016-08-01 05:33 | EKG Report ---
Test Performed on : 07/31/2016 1:24:42 PM Test Reason : shortness of breath Blood Pressure : / mmHG Vent. Rate : 088 BPM Atrial Rate : 088 BPM P-R Int : 178 ms QRS Dur : 096 ms QT Int : 360 ms P-R-T Axes : 047 -06 000 degrees QTc Int : 435 ms Normal sinus rhythm. Normal ECG When compared with ECG of 20-JUN-2016 13:25, No significant change was found Unconfirmed Result
[2016-08-01] MEDS: NS 1,000 ML IV SCH ×2 (06:24→23:32)
--- NOTE | 2016-08-01 06:59 | PROGRESS NOTE ---
DATE: 08/01/2016 SUBJECTIVE: Sleeping comfortably, breathing comfortably. OBJECTIVE: Vital Signs: Temperature 98.2 degrees, pulse 80, respirations 14, blood pressure 111/76. HEENT: Pupils are equal, round. Neck: CVP less than 6 cm. Lungs: Clear in all lung gaston. Cardiovascular: Regular rhythm and rate, without murmur or S3. Abdomen: Soft. Skin: Warm and dry. LABORATORY STUDIES: Good urine output of 2200. Blood sugar 137, 121, 119, 139. Blood work from this morning: Sodium 139, potassium 4.2, chloride 101, bicarbonate 24, BUN 43, creatinine 2.3, which has come down from 2.7 yesterday. White count 9010, hematocrit 21, platelet count 162,000. ASSESSMENT AND PLAN: 1. Shortness of breath. Bilateral atelectasis is suggested on x-ray, possible infiltrate. This could be pulmonary edema. 2. Anemia, appears to be normocytic. I will give him 2 units of packed red blood cells. 3. Acute kidney injury. Creatinine has come down a little bit with some fluid. 4. Bilateral olecranon bursitis with cellulitis, status post debridement. He has been on long- term antibiotics with ceftriaxone 2 g IV q.24 hours and daptomycin 750 mg IV q.24 hours. We will continue this. 5. Diabetes mellitus type 2. Continue to follow sugars, which look good. 6. History of gouty arthritis. Gouty tophi involved in his olecranon bursa. 7. Left deep venous thrombosis, on Lovenox 1 mg/kg subcutaneous q.12 hours. I will give him 2 units of blood today. Review his orders. I do not see any change otherwise. cc: Lonnie Encarnacion MD
--- NOTE | 2016-08-01 07:29 | Diag Imaging Result Doc PS360 ---
EXAM: CHEST-PORTABLE INDICATION: Pneumonia TECHNIQUE: One view COMPARISON: 07/31/2016 FINDINGS: Bilateral infiltrates throughout both lungs with a mid and lower lung zone predominance likely representing edema +/- pneumonia are stable. No new consolidations are appreciated. Cardiac silhouette is stable. IMPRESSION: Stable chest. Electronically signed by Randall Nelson 08/01/2016 7:26 AM
[2016-08-01] MEDS: ROCEPHIN 2 GM/NS 2 GM/50 ML IVPB IV SCH (07:51)
[2016-08-01] MEDS: CUBICIN (FOR INPATIENT USE) 750 MG in NS 100 ML IV SCH (08:48)
[2016-08-01] MEDS ORDERED: CEFTRIAXONE IV SCH (09:00)
[2016-08-01] MEDS ORDERED: CUBICIN IV SCH (09:00)
[2016-08-01] MEDS ORDERED: NS IV SCH (09:00)
[2016-08-01] MEDS: FERROUS SULFATE PO SCH (09:43)
[2016-08-01] MEDS: LASIX PO SCH (09:43)
[2016-08-01] MEDS: THERA M PLUS PO SCH (09:44)
[2016-08-01] MEDS: VITAMIN B-12 PO SCH (09:44)
[2016-08-01] MEDS: VITAMIN C PO SCH ×2 (09:44→20:14)
[2016-08-01] MEDS: LYRICA PO SCH ×2 (09:44→20:13)
[2016-08-01] MEDS: FISH OIL CONCENTRATE PO SCH (09:44)
[2016-08-01] MEDS: ZYLOPRIM PO SCH (09:44)
[2016-08-01] MEDS: GLUCOPHAGE PO SCH ×2 (09:45→20:14)
[2016-08-01] MEDS: GLUCOTROL PO SCH ×2 (09:45→20:13)
[2016-08-01] MEDS: TYLENOL PO PRN ×2 (12:32→18:00)
[2016-08-01] MEDS: COZAAR PO SCH (16:44)
[2016-08-01] MEDS: HYTRIN PO SCH (16:44)
[2016-08-01] MEDS: TOPROL XL PO SCH ×2 (16:44→20:14)
[2016-08-01] MEDS: ALBUTEROL NEB INH PRN ×3 (18:09→22:24)
[2016-08-01] MEDS: ASPIRIN EC PO SCH (20:13)
[2016-08-01] MEDS: MELATONIN PO SCH (20:13)
[2016-08-02] MEDS: ALBUTEROL NEB INH PRN ×6 (03:55→23:12)
[2016-08-02] MEDS: ROCEPHIN 2 GM/NS 2 GM/50 ML IVPB IV SCH (07:48)
--- NOTE | 2016-08-02 07:58 | PROGRESS NOTE ---
DATE: 08/02/2016 SUBJECTIVE: Mr. Santiago feels much better. His breathing is better. He received 2 units of blood yesterday. Still has a little bit of cough. Says the breathing treatments are helping him. PHYSICAL EXAMINATION: Vital Signs: Temperature 98.6 degrees, pulse 96, respirations 28, blood pressure 145/46. CVP less than 6 cm. Lungs: Clear in all lung gaston. Cardiovascular Examination: Regular rhythm and rate without murmur or S3. Abdomen: Soft. Skin: Warm and dry. Is and Os: Good urine output, over 4 L. LAB: Reviewed lab from yesterday. We will check another CBC and electrolytes in the morning. Serum creatinine is 2.3. In looking back at his creatinines, I think his baseline is 1 so I still think we have some renal insufficiency. Hopefully, that is going to improve. Chest x-ray from yesterday, stable chest, bilateral infiltrates throughout both lungs with the mid and lower lung zone prominent, likely represents edema so I am going to give him some Lasix feel like he has got bilateral lower lobe pneumonia. ASSESSMENT AND PLAN: 1. Shortness of breath. Bilateral atelectasis, pulmonary edema, and probable infiltrates. Continue antibiotic. We will diurese him. Continue his present antibiotics. 2. Bilateral olecranon suppurative bursitis with debridement. His elbows have healed very nicely. 3. Acute kidney injury. Suspect creatinine will improve. 4. Anemia, normocytic. Got 2 units of blood. 5. Diabetes mellitus type 2. Sugar is under good control. 6. History gouty arthritis. 7. He had right knee total knee arthroplasty. The knee looks good. Will begin physical therapy. Note his bowels are moving well. See if we can get him up and get a little bit of strength. cc: Lonnie Encarnacion MD
[2016-08-02] MEDS: FISH OIL CONCENTRATE PO SCH (08:00)
[2016-08-02] MEDS: GLUCOPHAGE PO SCH ×2 (08:00→20:31)
[2016-08-02] MEDS: VITAMIN B-12 PO SCH (08:00)
[2016-08-02] MEDS: ZYLOPRIM PO SCH (08:01)
[2016-08-02] MEDS: TOPROL XL PO SCH ×2 (08:01→20:31)
[2016-08-02] MEDS: THERA M PLUS PO SCH (08:01)
[2016-08-02] MEDS: HYTRIN PO SCH (08:01)
[2016-08-02] MEDS: GLUCOTROL PO SCH ×2 (08:01→20:31)
[2016-08-02] MEDS: COZAAR PO SCH (08:02)
[2016-08-02] MEDS: VITAMIN C PO SCH ×2 (08:02→20:30)
[2016-08-02] MEDS: LASIX PO SCH (08:02)
[2016-08-02] MEDS: NS 1,000 ML IV SCH (08:03)
[2016-08-02] MEDS: FERROUS SULFATE PO SCH (08:03)
[2016-08-02] MEDS: LYRICA PO SCH ×2 (08:03→20:31)
[2016-08-02] MEDS: LASIX IV SCH ×2 (08:48→19:50)
[2016-08-02] MEDS: CUBICIN (FOR INPATIENT USE) 750 MG in NS 100 ML IV SCH (08:48)
[2016-08-02] MEDS: ADVAIR 250/50 DISKUS INH SCH ×2 (11:27→19:27)
[2016-08-02] MEDS: NORCO-5 PO PRN ×2 (12:11→23:35)
[2016-08-02] MEDS: COLCRYS PO SCH (16:52)
[2016-08-02] MEDS ORDERED: LASIX IV ONE (17:47)
[2016-08-02 18:06] LABS: ALLEN TEST YES; BE -3.1 mmoll (-3.0-3.0); BLOOD TYPE ARTERIAL; DRAW SITE R RADIAL; O2(CT) 11.7 mL/dL (15.0-23.0); PCO2(98.6) 43 mmHg (35-45); PO2(98.6) 55 mmHg (60-100); SAMPLE BLOOD; SAO2 92.4 % (95.0-100.0); THB 9.3 g/dL (11.5-17.4); pH(98.6) 7.33 (7.35-7.45)
[2016-08-02 18:09] LABS: MODALITY CANNULA
--- NOTE | 2016-08-02 20:07 | Extremity Venous Study ---
PROCEDURE NAME: Venous U/S Bilateral Legs - 07/31/2016 TEST: Lower extremity venous duplex study. REFERRING PHYSICIAN: Lnonie Encarnacion MD READING PHYSICIAN: Xavier Dong MD SUSTAINABLE LANDSCAPE ARCHITECT: Hernando INDICATION: Leg pain and swelling as well as elevated D-dimer and shortness of breath. FINDINGS: The right common femoral, deep femoral, superficial femoral, greater saphenous, popliteal, posterior tibial, and peroneal veins were imaged 1st. They are compressible and patent with forward flow. No thrombus is appreciated. The left common femoral, deep femoral, superficial femoral, greater saphenous, popliteal, and posterior tibial veins were imaged next. All are compressible with forward flow. No thrombus is appreciated. However, there is incompressibility and thrombus in the left peroneal vein. INTERPRETATION: Acute deep vein thrombosis of the left peroneal vein. cc: Xavier Dong MD
[2016-08-02] MEDS: ASPIRIN EC PO SCH (20:30)
[2016-08-02] MEDS: MELATONIN PO SCH (20:37)
--- NOTE | 2016-08-02 21:31 | Diag Imaging Result Doc PS360 ---
EXAM: CHEST-PORTABLE - 08/02/2016 HISTORY: shortness of breath TECHNIQUE: Portable chest 1815 COMPARISON: 08/01/2016 FINDINGS: There are bilateral infiltrates which appear stable on the right and mildly increased on the left. There is no pneumothorax identified. There is stable mild cardiomegaly. Central venous catheter remains in place. IMPRESSION: Bilateral infiltrates which appears stable on the right and mildly increased on the left. These may relate to pulmonary edema and/or pneumonia. Electronically signed by Dave Madison 08/02/2016 9:29 PM
--- NOTE | 2016-08-03 05:12 | EKG Report ---
Test Performed on : 08/02/2016 6:30:32 PM Test Reason : shortness of breath Blood Pressure : / mmHG Vent. Rate : 114 BPM Atrial Rate : 114 BPM P-R Int : 178 ms QRS Dur : 090 ms QT Int : 322 ms P-R-T Axes : 040 007 -04 degrees QTc Int : 443 ms Sinus tachycardia. Inferior infarct , age undetermined Abnormal ECG When compared with ECG of 31-JUL-2016 13:24, No significant change was found Confirmed by Jesse Fajardo MD ([id number]) on 08/03/2016 7:58:21 AM
[2016-08-03 05:18] LABS: MANUAL DIFF NEEDED? NO
[2016-08-03 05:35] LABS: BASO% 0.3 % (0.0-0.8); EOS# 0.19 X1000 (0.0-0.7); EOS% 1.8 % (0.0-10.0); HEMATOCRIT 26.7 % (42.0-52.0); HEMOGLOBIN 8.5 g/dL (14.0-18.0); IMM GRAN# 0.04 X1000 (0.0-0.04); IMM GRAN% 0.4 % (0.0-0.5); LYMPH# 0.79 X1000 (1.2-3.4); LYMPH% 7.3 % (20.5-51.1); MCH 29.8 PG (27-31); MCHC 31.8 g/dL (33-37); MCV 93.7 FL (81-99); MONO# 0.99 X1000 (0.11-0.59); MONO% 9.1 % (1.7-9.3); MPV 10.9 FL (7.4-10.4); NEUT% 81.1 % (42.2-75.2); PLT 184 X1000 (130-400); RBC 2.85 XMIL (4.7-6.1)
[2016-08-03] MEDS: NS 1,000 ML IV SCH (06:03)
[2016-08-03] MEDS: LASIX IV SCH ×2 (06:03→17:14)
[2016-08-03] MEDS: ALBUTEROL NEB INH PRN ×6 (06:05→23:35)
[2016-08-03 06:07] LABS: MAGNESIUM 1.3 mg/dL (1.5-2.7); POTASSIUM 4.9 mmol/L (3.5-5.1)
[2016-08-03] MEDS: ADVAIR 250/50 DISKUS INH SCH ×2 (07:20→19:32)
[2016-08-03] MEDS: ROCEPHIN 2 GM/NS 2 GM/50 ML IVPB IV SCH (08:44)
[2016-08-03] MEDS ORDERED: NS 1,000 ML IV SCH (08:55)
[2016-08-03] MEDS: VITAMIN B-12 PO SCH (09:38)
[2016-08-03] MEDS: VITAMIN C PO SCH ×2 (09:38→21:04)
[2016-08-03] MEDS: NORCO-5 PO PRN ×2 (09:39→17:14)
[2016-08-03] MEDS: HYTRIN PO SCH (09:39)
[2016-08-03] MEDS: GLUCOPHAGE PO SCH ×2 (09:40→21:04)
[2016-08-03] MEDS: LYRICA PO SCH ×2 (09:40→21:04)
[2016-08-03] MEDS: ZYLOPRIM PO SCH (09:40)
[2016-08-03] MEDS: FISH OIL CONCENTRATE PO SCH (09:40)
[2016-08-03] MEDS: COZAAR PO SCH (09:40)
[2016-08-03] MEDS: TOPROL XL PO SCH ×2 (09:41→21:04)
[2016-08-03] MEDS: THERA M PLUS PO SCH (09:41)
[2016-08-03] MEDS: FERROUS SULFATE PO SCH (09:41)
[2016-08-03] MEDS: GLUCOTROL PO SCH ×2 (09:42→21:04)
[2016-08-03] MEDS: CUBICIN (FOR INPATIENT USE) 750 MG in NS 100 ML IV SCH (09:42)
--- NOTE | 2016-08-03 09:43 | PROGRESS NOTE ---
DATE: 08/03/2016 SUBJECTIVE: He had more trouble breathing yesterday afternoon. We de give him some Lasix and increased his breathing treatment. He feels little better this morning, but still a little harder to breathe, a little more dyspnea even at rest. OBJECTIVE: Vital Signs: Temperature 98 degrees, pulse 107, respirations 20, blood pressure 121/54. The pupils are equal, round. Weight 260 pounds. Lungs: Clear in all lung gaston. Cardiovascular: Regular rhythm and rate without murmur or S3. Abdomen: Soft. Skin: Warm and dry. Genitourinary: Urine output 3 L. DIAGNOSTIC DATA: White count 10,840, hematocrit 26, platelet count a 184,000. Sodium 140, potassium 4.9, chloride 100, BUN 41, creatinine 1.8. Blood sugars 146, 151, 161. Serum creatinine is coming down. We do need to diurese him. Tomorrow, we will turn down the fluids and I will go up on his Lasix 80 mg IV q.12 hours. ASSESSMENT AND PLAN: 1. Shortness of breath. 2. Bilateral atelectasis. 3. Pulmonary edema. We will increase his Lasix and turn down the fluid. We will continue antibiotic. His chest x-ray from yesterday, bilateral infiltrates which appears stable on the right. Mildly increased on the left. Probably related to pulmonary edema. 4. Bilateral olecranon suppurative bursitis status post debridement. This is healing well. 5. Acute kidney injury. Suspect most prerenal. Appears to be improving. 6. Anemia. Normocytic, stable. 7. Diabetes mellitus type 2. Looks good. 8. History of gouty arthritis. 9. History of right knee total angioplasty. Continue physical therapy. 10. Reviewed orders. I am going to decrease the fluids and keep vein open and increase the Lasix to 80 mg q.12 hours. cc: Lonnie Encarnacion MD
[2016-08-03] MEDS: MELATONIN PO SCH (21:04)
[2016-08-03] MEDS: ASPIRIN EC PO SCH (21:04)
[2016-08-03] MEDS: TYLENOL PO PRN (23:26)
[2016-08-04 05:23] LABS: CALCIUM 7.1 mg/dL (8.8-10.2); MAGNESIUM 1.2 mg/dL (1.5-2.7); POTASSIUM 4.2 mmol/L (3.5-5.1)
[2016-08-04] MEDS: LASIX IV SCH ×2 (05:52→17:29)
--- NOTE | 2016-08-04 07:12 | Diag Imaging Result Doc PS360 ---
CHEST-PORTABLE - 08/04/2016 INDICATION: pulmonary edema TECHNIQUE: COMPARISON: 08/02/2016 FINDINGS: Stable right central line. Stable diffuse bilateral mixed infiltrates. Stable cardiomegaly. IMPRESSION: No significant change from prior. Electronically signed by Luis Eduardo Villalta 08/04/2016 7:09 AM
[2016-08-04] MEDS: ALBUTEROL NEB INH PRN ×5 (07:20→23:05)
[2016-08-04] MEDS: ADVAIR 250/50 DISKUS INH SCH ×2 (07:20→19:17)
[2016-08-04] MEDS: GLUCOPHAGE PO SCH ×2 (08:46→21:03)
[2016-08-04] MEDS: VITAMIN B-12 PO SCH (08:46)
[2016-08-04] MEDS: THERA M PLUS PO SCH (08:46)
[2016-08-04] MEDS: FERROUS SULFATE PO SCH (08:46)
[2016-08-04] MEDS: GLUCOTROL PO SCH ×2 (08:46→21:03)
[2016-08-04] MEDS: ZYLOPRIM PO SCH (08:46)
[2016-08-04] MEDS: FISH OIL CONCENTRATE PO SCH (08:46)
[2016-08-04] MEDS: HYTRIN PO SCH (08:46)
[2016-08-04] MEDS: LYRICA PO SCH ×2 (08:46→21:03)
[2016-08-04] MEDS: COZAAR PO SCH (08:46)
[2016-08-04] MEDS: VITAMIN C PO SCH ×2 (08:46→21:03)
[2016-08-04] MEDS: ROCEPHIN 2 GM/NS 2 GM/50 ML IVPB IV SCH (08:46)
[2016-08-04] MEDS: TOPROL XL PO SCH ×2 (08:47→21:03)
--- NOTE | 2016-08-04 08:47 | PROGRESS NOTE ---
DATE: 08/04/2016 SUBJECTIVE: He did not have a good night. About 9 o'clock, he got a little more restless and sat up in the chair. He states that he thinks his breathing is a little better. He does not look labored breathing. OBJECTIVE: Vital signs: Temp 98.3. He did have more fever, though. I think his temp got up to 102.3, 101.4. Pulse in the 90s, respirations 20, blood pressure 108/65. Neck: CVP was less than 6 cm. Lungs: Clear anterolateral. Cardiovascular: Regular rate and rhythm without murmur or S3. Abdomen: Soft. No increased edema. STUDIES: We did a chest x-ray this morning. No significant change, stable. Right central line, stable diffuse bilateral mixed infiltrates. ASSESSMENT: 1. I think we have bilateral atelectasis, bilateral basilar pneumonia. Continue to treat. I am going to add an antibiotic. He is already on ceftriaxone and daptomycin 750 mg daily and ceftriaxone is 2 g daily. I am going to add Zosyn to the regimen to cover more gram-negative and anaerobic coverage. Encouraged deep breathing, incentive spirometry. Continue his bronchodilators. We are also going to continue to diurese him, and he is on Lasix 80 mg q.12 h. We will make sure he is getting Lovenox 1 mg/kg subcutaneous q.12 h. because of his left deep venous thrombosis. 2. Left deep venous thrombosis. Make sure he on Lovenox. 3. Diabetes mellitus type 2. Continue to watch patterned sugars. Sugars are running between 156 and 224, so fairly good range. 4. Magnesium was 1.2, so we will supplement that. Overall, I think we are making progress, and continue physical therapy, continue to try to get him on the chair. cc: Lonnie Ecnarnacion MD
[2016-08-04] MEDS ORDERED: MAGNESIUM SULFATE 2 GM/S.W.I. 2 GM/50 ML IVPB IV ONE (09:00)
[2016-08-04] MEDS: LOVENOX SUBQ SCH ×2 (09:05→21:03)
[2016-08-04] MEDS: CUBICIN (FOR INPATIENT USE) 750 MG in NS 100 ML IV SCH (09:06)
[2016-08-04] MEDS: MAG-OX PO SCH ×2 (09:10→21:03)
[2016-08-04] MEDS: ZOSYN 3.375 GM/NS 3.375 GM/50 ML IVPB IV SCH ×3 (09:11→21:03)
[2016-08-04] MEDS: COLCRYS PO SCH (17:29)
[2016-08-04] MEDS: MELATONIN PO SCH (21:03)
[2016-08-04] MEDS: ASPIRIN EC PO SCH (21:03)
[2016-08-04] MEDS: NORCO-5 PO PRN (21:04)
[2016-08-05] MEDS: ZOSYN 3.375 GM/NS 3.375 GM/50 ML IVPB IV SCH ×2 (03:44→09:53)
[2016-08-05] MEDS: ALBUTEROL NEB INH PRN ×6 (04:06→22:51)
[2016-08-05 04:46] LABS: MANUAL DIFF NEEDED? NO
[2016-08-05 04:54] LABS: BASO% 0.4 % (0.0-0.8); EOS# 0.19 X1000 (0.0-0.7); EOS% 1.8 % (0.0-10.0); HEMATOCRIT 26.3 % (42.0-52.0); HEMOGLOBIN 8.1 g/dL (14.0-18.0); IMM GRAN# 0.08 X1000 (0.0-0.04); IMM GRAN% 0.8 % (0.0-0.5); LYMPH# 0.83 X1000 (1.2-3.4); LYMPH% 7.8 % (20.5-51.1); MCH 28.6 PG (27-31); MCHC 30.8 g/dL (33-37); MCV 92.9 FL (81-99); MONO# 0.76 X1000 (0.11-0.59); MONO% 7.2 % (1.7-9.3); MPV 10.8 FL (7.4-10.4); PLT 242 X1000 (130-400); RBC 2.83 XMIL (4.7-6.1)
[2016-08-05 05:10] LABS: CALCIUM 8.6 mg/dL (8.8-10.2); POTASSIUM 4.7 mmol/L (3.5-5.1)
[2016-08-05] MEDS: LASIX IV SCH (05:48)
--- NOTE | 2016-08-05 06:30 | Diag Imaging Result Doc PS360 ---
EXAM: CHEST-PORTABLE HISTORY: pneumonia TECHNIQUE: Portable AP COMPARISON: 08/04/2016 FINDINGS: No change in the right-sided catheter. Poor inspiratory effort. There are dense bilateral infiltrates. These appear slightly more pronounced in the mid right lung demonstrated on the prior study. Questionable small effusions. IMPRESSION: Mild interval worsening Electronically signed by Skyler Anderson 08/05/2016 6:27 AM
[2016-08-05] MEDS: ADVAIR 250/50 DISKUS INH SCH ×2 (07:50→18:59)
--- NOTE | 2016-08-05 09:08 | PROGRESS NOTE ---
DATE: 08/05/2016 HISTORY: I had put him on some BiPAP last night. He feels like his breathing is worse. When we take him off the BiPAP, even for a for short time, his O2 saturations drop. PHYSICAL EXAMINATION: Vital Signs: He is afebrile. Temperature 98.4 degrees, pulse 96, respirations 20, blood pressure 127/45. HEENT: Pupils are equal and round. Lungs: Clear anterolateral to auscultation. abdomen: Is soft. Skin: Is warm and dry. Extremities: Trace pitting edema. His elbow is unremarkable. No redness or inflammation. Is and Os: Urine output was about 900 mL. LAB: From this morning, white count 10,580, hematocrit 26, platelet count 242,000. Chemistry: Sodium 139, potassium 4.7, chloride 99, bicarb 27, BUN 68, creatinine 2.4. Blood sugars 189, 196, 154, 171. Chest x-ray from this morning, mild interval worsening. No change in the right catheter. Had poor inspiratory effort. There are dense bilateral infiltrates, appear slightly more pronounced in the mid right lung, demonstrated prior study. Questionable small effusions. ASSESSMENT AND PLAN: 1. Bilateral atelectasis, bilateral infiltrates seem to be getting worse, bibasilar pneumonia and some pleural fluid as well. As renal creatinine has gone up, I think we are going to have to go back up on fluids. I am going to ask pulmonary and cardiology to help get involved at present time. I had added antibiotic yesterday, Zosyn. Presently, he is on ceftriaxone 2 g intravenous every 24 hours. He is on daptomycin. I added Zosyn. I am going to ask pulmonary and cardiology to help. He is on BiPAP. His breathing seems to be getting worse. 2. Acute kidney injury. Serum creatinine is going up. I think we need to go back up on his fluids. The problem is, I am worried about some pulmonary edema as well. 3. He is status post bilateral olecranon bursitis with debridement and being treated with 6 weeks of antibiotics, daptomycin and ceftriaxone. 4. Diabetes mellitus type 2. Sugar is under good control. 5. Hypertension. 6. Gouty arthritis. 7. He had a deep venous thrombosis found in the left leg and he is on Lovenox. He is on 1 mg/kg subcutaneous every 12 hours. cc: Lonnie Encarnacion MD
[2016-08-05] MEDS: NS 1,000 ML IV SCH (09:53)
[2016-08-05] MEDS: LOVENOX SUBQ SCH (09:53)
[2016-08-05] MEDS: ROCEPHIN 2 GM/NS 2 GM/50 ML IVPB IV SCH (09:53)
--- NOTE | 2016-08-05 10:04 | Diag Imaging Result Doc PS360 ---
EXAM: CT THORAX W/O CONTRAST HISTORY: pneumonia TECHNIQUE: Dose reduction protocol COMPARISON: None. FINDINGS: Trace pleural fluid bilaterally. The heart is enlarged. Moderate atherosclerotic calcifications. No aneurysmal dilatation to the aorta. There are small mediastinal lymph nodes. Multifocal dense bilateral infiltrates are present within the lungs. Small calcified pleural plaques bilaterally. There is a calcified granuloma anteriorly in the right lung and laterally. IMPRESSION: 1.Multifocal dense bilateral infiltrates 2.Mild cardiomegaly 3.Small calcified pleural plaques which may be due to prior asbestos exposure Electronically signed by Skyler Anderson 08/05/2016 10:02 AM
[2016-08-05] MEDS: CUBICIN (FOR INPATIENT USE) 750 MG in NS 100 ML IV SCH (11:00)
[2016-08-05] MEDS: AZACTAM 1 GM in NS 50 ML IV SCH ×2 (14:59→22:30)
[2016-08-05] MEDS: COZAAR PO SCH ×2 (14:59→15:52)
[2016-08-05] MEDS: VITAMIN B-12 PO SCH (15:00)
[2016-08-05] MEDS: ZYLOPRIM PO SCH (15:00)
[2016-08-05] MEDS: VITAMIN C PO SCH ×2 (15:00→20:27)
[2016-08-05] MEDS: THERA M PLUS PO SCH (15:01)
[2016-08-05] MEDS: FISH OIL CONCENTRATE PO SCH (15:01)
[2016-08-05] MEDS: GLUCOPHAGE PO SCH ×3 (15:01→20:26)
[2016-08-05] MEDS: FERROUS SULFATE PO SCH (15:01)
[2016-08-05] MEDS: LYRICA PO SCH ×2 (15:02→20:27)
[2016-08-05] MEDS: MAG-OX PO SCH ×2 (15:02→20:27)
--- NOTE | 2016-08-05 15:12 | PROGRESS NOTE ---
DATE: 08/05/2016 PRESENT ILLNESS: The patient was receiving IV antibiotics at home for bilateral septic elbow arthritis. He is admitted to the hospital now. He appears to have a bilateral pneumonia as well. MEDICATIONS: The patient is on a combination of daptomycin and Rocephin. The patient has already had 24 days of treatment for his septic elbow arthritis. PHYSICAL EXAMINATION: Vital Signs: Temperature is 98.2 degrees, pulse 90, respirations 22, blood pressure 131/52. General: This is an ill-appearing, elderly male. He appears to be slightly dyspneic even at rest. Lungs: Bibasilar rales. Cardiovascular: Heart rate was regular. Abdomen: Soft and nontender. Extremities: Both elbows have healed very well. There is no erythema. The incisions are all intact. There is no drainage and there is no swelling. Also movement of the elbows does not cause the patient to have pain. The patient recently had his right knee replaced and that incision also looks good. Thorax: Patient has a Basilio catheter in place. LAB AND X-RAY: The patient's CT scan of the chest shows bilateral infiltrates. CBC shows a white count of 10,580, hemoglobin 8.1, and platelet count 242,000. Creatinine is 2.4. GFR is 27. ASSESSMENT AND PLAN: The patient has bilateral septic elbow arthritis. He will need 18 more days of treatment with antibiotics. I have switched the patient from daptomycin and Rocephin to ceftaroline and aztreonam. I also discontinued the Zosyn that Dr. Encarnacion ordered earlier. The patient's comorbidities include he is elderly, he has osteoarthritis, diabetes mellitus, gout, obesity, and possibly a component of congestive heart failure. cc: Brennan Dotson MD
[2016-08-05] MEDS: TEFLARO 600 MG in NS 250 ML IV SCH (15:50)
[2016-08-05] MEDS: HYTRIN PO SCH (15:51)
[2016-08-05] MEDS: GLUCOTROL PO SCH ×2 (15:51→20:27)
[2016-08-05] MEDS: TOPROL XL PO SCH ×2 (15:54→20:27)
--- NOTE | 2016-08-05 18:25 | CONSULTATION ---
DATE OF CONSULTATION: 08/05/2016 IMPRESSION: 1. Progressive prerenal azotemia. In reviewing recent intake and output, it does not appear that much diuresis took place. There is some suggestion of elevated central venous pressure and the patient appears to likely have obstructive sleep apnea. Consider the possibility of volume overload and acute right heart failure with prerenal azotemia on the basis of reduced right ventricular performance. 2. Respiratory failure, probably multifactorial. Suspect underlying obstructive sleep apnea. Bibasilar infiltrates demonstrated felt to either represent dense atelectasis or possible bilateral pneumonia. 3. Chronic kidney disease, with acute deterioration. 4. Recent bilateral olecranon bursitis probably related to gout, but possible infection suspected as well. This has improved. 5. Status post right knee replacement last month. 6. Deep venous thrombosis. Patient on anticoagulation with Lovenox. 7. Hypertension. 8. Type 2 diabetes mellitus. RECOMMENDATIONS: 1. Continue BiPAP support. 2. Review echo and if indeed the findings are compatible with acute right heart failure, initiate diuresis. 3. Dose Lovenox according to renal function. Probably need to reduce dose to once daily pending further improvement in renal function. HISTORY: This is a 71-year-old, white male with past history of obesity, hypertension, type 2 diabetes mellitus and chronic kidney disease who is status post right knee replacement about a month ago and had subsequent bilateral olecranon bursitis probably due to gout, was admitted with fatigue, low-grade temperature elevation and dyspnea symptoms. There is no chest pain. His daughter indicates that at times when he has been in the hospital, he would not be taking very deep breaths and oxygen saturation would reduce, but then improved if he was encouraged to take deep breaths. He has history of prominent snoring and suspected obstructive sleep apnea, although this diagnosis has never been made. He is edematous. Since admission efforts to diurese were made with parenteral Lasix, however, he does not appear to have diuresed very much when input and output was reviewed. He developed worsening edema and decline in renal function as evidenced by further elevation in BUN and creatinine. He has had no chest pain. PAST MEDICAL HISTORY: 1. Hypertension. 2. Type 2 diabetes mellitus. 3. Atherosclerotic vascular disease with bilateral carotid endarterectomies. 4. Anemia. 5. Chronic kidney disease. 6. History of colon cancer. 7. History of bilateral olecranon bursitis due to gout. Infectious etiology not suspected, but apparently not confirmed. PAST SURGICAL HISTORY: Right total knee replacement left arm surgery, bilateral carotid endarterectomy, and vasectomy. ALLERGIES: No known drug allergies. MEDICATIONS: Prior to admission as listed. SOCIAL HISTORY: He does not smoke or use alcohol. FAMILY HISTORY: Positive for coronary artery disease. REVIEW OF SYSTEMS: Pulmonary: Noteworthy for recent dyspnea symptoms and tendency for prominent snoring. Gastrointestinal: Negative. Constitutional: Noteworthy for fatigue, but otherwise negative. The remainder of review of systems negative/noncontributory with 14 total systems reviewed. PHYSICAL EXAMINATION: General: Reveals an obese, older, white male on BiPAP in no distress, but with increased respiratory rate. Vital Signs: As recorded include blood pressure 131/52, heart rate 90 and regular. Respiratory rate 22. Oxygen saturation 95% on BiPAP with 50% oxygen. HEENT: Extraocular movements intact. Mucous membranes are moist. Neck: Supple. There appears to be elevated central venous pressure with jugular venous pressure at least 12. There is an external jugular vein on the right side that is sclerosed due to previous IV. Chest: Auscultation of the chest reveals diminished breath sounds at bases bilaterally. Cardiac: Reveals a regular rate and rhythm without appreciable murmur or gallop. Abdomen: Soft, nontender. Extremities: Demonstrate 2+ pretibial edema. Neurologic: Neurologic exam reveals him to be alert, fully oriented. Speech is fluent. Moves all 4 extremities equally well. Skin: Warm and dry. Psychiatric: Reveals mood to be appropriate. DIAGNOSTICS: ECG demonstrates sinus tachycardia. cc: Braulio Dillard MD
[2016-08-05] MEDS: MELATONIN PO SCH (20:27)
[2016-08-05] MEDS: ASPIRIN EC PO SCH (20:27)
[2016-08-05] MEDS: NORCO-5 PO PRN (22:30)
[2016-08-06] MEDS: NS 1,000 ML IV SCH ×2 (02:52→17:45)
[2016-08-06] MEDS: TEFLARO 600 MG in NS 250 ML IV SCH ×2 (02:52→15:07)
[2016-08-06] MEDS: ALBUTEROL NEB INH PRN (03:52)
[2016-08-06] MEDS: AZACTAM 1 GM in NS 50 ML IV SCH ×4 (05:18→21:19)
[2016-08-06 05:39] LABS: MANUAL DIFF NEEDED? NO
[2016-08-06] MEDS ORDERED: NS NEB INH SCH (05:45)
[2016-08-06 05:48] LABS: BASO% 0.2 % (0.0-0.8); EOS# 0.23 X1000 (0.0-0.7); HEMATOCRIT 26.1 % (42.0-52.0); HEMOGLOBIN 8.1 g/dL (14.0-18.0); IMM GRAN# 0.14 X1000 (0.0-0.04); IMM GRAN% 1.2 % (0.0-0.5); LYMPH# 0.67 X1000 (1.2-3.4); LYMPH% 5.7 % (20.5-51.1); MCH 28.8 PG (27-31); MCV 92.9 FL (81-99); MONO# 0.82 X1000 (0.11-0.59); NEUT% 83.9 % (42.2-75.2); PLT 257 X1000 (130-400); RBC 2.81 XMIL (4.7-6.1)
[2016-08-06 06:02] LABS: IRON SATURATION 12 %; TIBC 85 ug/dL; TOTAL IRON 10 ug/dL (53-167); UNBOUND IRON 75 ug/dL (112-346)
[2016-08-06 06:28] LABS: FERRITIN 1123 ng/mL (30-400)
--- NOTE | 2016-08-06 06:46 | PROGRESS NOTE ---
DATE: 08/06/2016 PRESENT ILLNESS: The patient is being treated for septic elbow arthritis. He also has a bilateral pneumonia. MEDICATIONS: The patient had been on daptomycin and Rocephin. I went ahead yesterday and changed him to ceftaroline and aztreonam in order to cover not only his elbow arthritis, but pneumonia as well. The patient has had now 25 days of treatment for his septic elbow arthritis. I plan to treat him for a total of 6 weeks, which would be 42 days. He already he now has 25, so therefore, he will have 17 days left of treatment. PHYSICAL EXAMINATION: Vital Signs: Temperature is 98.6 degrees, pulse 94, respirations 18, blood pressure 117/44. General: This is an ill-appearing elderly male. He is in no acute distress. He is sleeping in a recliner and has his BiPAP mask on. Lungs: Clear to auscultation. Cardiovascular: Irregular heart rate. Chest: The patient has a Basilio catheter in place. The site is not erythematous or swollen. Abdomen: Soft and nontender. Bones/Joints/Muscles: The incisions over both elbows and the right knee incision are all intact. There is no swelling or erythema. LABORATORY AND X-RAY: There is no new x-ray. The blood culture is negative. Sputum grew normal juana. The patient's CBC shows a white count of 11,700, hemoglobin 8.1, and platelet count 257,000. Creatinine is 2.4. GFR is 27. ASSESSMENT AND PLAN: I plan to continue the patient's antibiotics as mentioned above for 17 more days to complete treatment for his elbow arthritis and also for his pneumonia. COMORBIDITIES: Include osteoarthritis, diabetes mellitus, gout, and being elderly, as well as congestive heart failure. cc: Brennan Dotson MD
[2016-08-06 07:10] LABS: CALCIUM 8.2 mg/dL (8.8-10.2); MAGNESIUM 2.2 mg/dL (1.5-2.7); POTASSIUM 4.8 mmol/L (3.5-5.1)
[2016-08-06 07:22] LABS: ALBUMIN 2.3 g/dL (3.5-5.0)
[2016-08-06] MEDS: ADVAIR 250/50 DISKUS INH SCH ×2 (07:40→19:43)
[2016-08-06] MEDS: XOPENEX NEB INH SCH ×5 (07:40→23:40)
--- NOTE | 2016-08-06 09:02 | PROGRESS NOTE ---
DATE: 08/06/2016 SUBJECTIVE: Mr. Santiago is maybe breathing a little better. Feels like he has got a little better air exchange. OBJECTIVE: Vital Signs: He has remained afebrile. Temperature 98.3 degrees, pulse 99, respirations 20, blood pressure 123/42. General: He is sleeping in the lounge chair, has his BiPAP on. BiPAP with 60% FiO2. Lungs are clear anterolateral. Can hear lung sounds in the lower lungs. Cardiovascular: Regular rhythm and rate without murmur or S3. Abdomen: Soft. Skin is warm and dry. Urine output is 2100 mL. LABORATORY DATA: Lab reviewed from yesterday is unremarkable. ASSESSMENT AND PLAN: 1. Bilateral basilar pneumonia. I have changed up his antibiotics. I appreciated all the help. He will continue his bronchodilators. We have changed his antibiotics so that he is on ceftaroline 600 mg intravenously every 12 hours, and aztreonam 1 gram every 8 hours. 2. Both elbows look good. He has bilateral olecranon bursitis that had debridement several weeks ago, and on long-term antibiotics for that as well. 3. Diabetes mellitus type 2. Sugar is under good control. 4. Recent right total knee arthroplasty is healing well. Will restart his physical therapy when he is able. 5. Left deep venous thrombosis. He is on Lovenox 1 mg/kg subcutaneously every 12 hours. We are giving him fluids at 75 mL an hour. Note, his creatinine had bumped up. I am going to check it again tomorrow. I have restarted his fluids and stopped his Lasix. I think this is mainly a problem with pneumonia. cc: Lonnie Encarnacion MD
[2016-08-06] MEDS: THERA M PLUS PO SCH (09:37)
[2016-08-06] MEDS: FERROUS SULFATE PO SCH (09:37)
[2016-08-06] MEDS: FISH OIL CONCENTRATE PO SCH (09:37)
[2016-08-06] MEDS: NORCO-5 PO PRN (09:38)
[2016-08-06] MEDS: GLUCOTROL PO SCH ×2 (09:38→20:45)
[2016-08-06] MEDS: ZYLOPRIM PO SCH (09:38)
[2016-08-06] MEDS: HYTRIN PO SCH (09:39)
[2016-08-06] MEDS: TOPROL XL PO SCH ×2 (09:39→20:45)
[2016-08-06] MEDS: LYRICA PO SCH ×2 (09:39→20:45)
[2016-08-06] MEDS: MAG-OX PO SCH ×2 (09:40→20:46)
[2016-08-06] MEDS: VITAMIN C PO SCH ×2 (09:40→20:46)
[2016-08-06] MEDS: LOVENOX SUBQ SCH (09:41)
--- NOTE | 2016-08-06 10:21 | ECHO REPORT ---
ORDER DATE: 08/05/2016 MEASUREMENTS: Left ventricular end-diastolic diameter 5.1, end-systolic diameter 3.2, posterior wall thickness 1.3, septal thickness 1.4, left atrium 4.1, aortic root 3.3. SUMMARY: 1. Fair quality study. 2. Aortic valve is trileaflet and sclerotic with adequate aortic valve opening evident on 2- dimensional images. Peak gradient across the aortic valve is 22 mmHg, with a mean gradient of 12 mmHg, suggesting minimal aortic stenosis. Pfrg-[id number] mitral annular calcification is demonstrated. There is mild mitral regurgitation. Tricuspid and pulmonic valves are without structural abnormality, with mild tricuspid regurgitation and trace pulmonic insufficiency. The estimated systolic PA pressure by Doppler is 60 to 65 mmHg. The aortic root is normal in size. 3. Normal left ventricular chamber size with mild concentric left hypertrophy suggested. Estimated left ventricular ejection fraction is approximately 65%. No regional wall motion abnormalities are evident. Doppler suggests grade 1 left ventricular diastolic dysfunction. Left atrium is borderline enlarged. Right ventricle appears mildly enlarged, with borderline reduced right ventricular systolic function. Right atrium is normal in size. 4. No pericardial effusion. 5. Appearance of inferior vena cava suggests elevated central venous pressure. CONCLUSIONS: 1. Minimal aortic stenosis. 2. Zwhg-su-lafpaaro mitral annular calcification with mild mitral regurgitation. 3. Mild tricuspid regurgitation with [id number] pulmonary hypertension by Doppler. 4. Mild concentric left ventricular hypertrophy with estimated left ventricular ejection fraction of 65%. 5. Mild right ventricular enlargement with borderline reduced right ventricular systolic function. 6. Elevated central venous pressure is suggested. cc: MD Lonnie Honeycutt MD
[2016-08-06] MEDS ORDERED: LASIX IV ONE ×3 (13:14→20:00)
[2016-08-06] MEDS ORDERED: LASIX IV SCH (13:15)
--- NOTE | 2016-08-06 13:57 | PROGRESS NOTE ---
DATE: 08/06/2016 SUBJECTIVE: The patient continues on BiPAP. He denies chest discomfort or dyspnea. OBJECTIVE: Vital Signs: Blood pressure 102/50, heart rate 74 and regular. Neck: Jugular venous distention appears to be present. Chest: Auscultation of the chest reveals diminished breath sounds at the bases bilaterally. Cardiac: Exam reveals distant heart sounds and regular rate and rhythm without appreciable murmur or gallop. Extremities: There is mild lower extremity edema. DIAGNOSTIC DATA: Echocardiography indicates normal left ventricular systolic function. There is mild mitral regurgitation. There is mild tricuspid regurgitation with moderate to severe pulmonary hypertension evident. Inferior vena cava's appearance suggests elevated central venous pressure. The right ventricle is mildly enlarged with borderline reduced right ventricular systolic function. IMPRESSION: 1. Acute on chronic right-sided congestive heart failure. 2. I strongly suspect obstructive sleep apnea and hypoventilation tendency. 3. Acute renal dysfunction. I suspect this is related to lower cardiac performance in setting of exacerbation of chronic right heart failure. 4. Type 2 diabetes mellitus. 5. Hypertension. RECOMMENDATION: 1. Diurese with intravenous Lasix. 2. Continue BiPAP. cc: Braulio Dillard MD
[2016-08-06] MEDS: ASPIRIN EC PO SCH (20:44)
[2016-08-06] MEDS: LASIX IV SCH (20:45)
[2016-08-06] MEDS: MELATONIN PO SCH (20:45)
[2016-08-07] MEDS: XOPENEX NEB INH SCH ×6 (03:41→22:51)
[2016-08-07] MEDS: TEFLARO 600 MG in NS 250 ML IV SCH ×2 (03:52→15:11)
[2016-08-07] MEDS: NORCO-5 PO PRN ×2 (04:53→22:03)
[2016-08-07 05:23] LABS: MANUAL DIFF NEEDED? NO
[2016-08-07 05:55] LABS: BASO% 0.1 % (0.0-0.8); EOS# 0.28 X1000 (0.0-0.7); EOS% 2.5 % (0.0-10.0); HEMATOCRIT 26.1 % (42.0-52.0); IMM GRAN# 0.12 X1000 (0.0-0.04); IMM GRAN% 1.1 % (0.0-0.5); LYMPH# 0.65 X1000 (1.2-3.4); LYMPH% 5.8 % (20.5-51.1); MCH 28.5 PG (27-31); MCHC 30.7 g/dL (33-37); MCV 92.9 FL (81-99); MONO# 0.67 X1000 (0.11-0.59); MPV 11.2 FL (7.4-10.4); NEUT% 84.5 % (42.2-75.2); PLT 262 X1000 (130-400); RBC 2.81 XMIL (4.7-6.1)
[2016-08-07 06:12] LABS: ALBUMIN 2.2 g/dL (3.5-5.0); CALCIUM 8.1 mg/dL (8.8-10.2); POTASSIUM 5.1 mmol/L (3.5-5.1)
--- NOTE | 2016-08-07 06:27 | PROGRESS NOTE ---
DATE: 08/07/2016 PRESENT ILLNESS: The patient currently is being treated for bilateral septic elbow arthritis, as well as a bilateral pneumonia. MEDICATIONS: The patient is currently on a combination of ceftaroline and aztreonam. This was started on the 05 of August. Therefore, the patient has 2 days of antibiotic treatment with it. In addition, the patient has 26 days of treatment for his bilateral septic elbow arthritis. PHYSICAL EXAMINATION: Vital Signs: Temperature is 98.5 degrees, pulse 87, respirations 21, blood pressure 122/44. General: This is a slightly lethargic obese elderly male. He is in no acute distress at this time. Cardiovascular: Heart rate is regular. Lungs: There were a few scattered rhonchi bilaterally. Abdomen: Soft and nontender. The patient's incisions over the right knee and both elbows are closed and not red or draining. Chest: There is an increased AP diameter. In addition, in the right side of the chest, the patient has a Basilio catheter, which is not swollen or erythematous. LABORATORY STUDIES AND X-RAYS: The patient's sputum is growing normal juana. Blood cultures are negative. Echocardiogram showed no vegetation. As of yet today, there is no lab for today that is back now. There also is no new x-ray for today. ASSESSMENT AND PLAN: The plan is to continue with the patient's antibiotics, namely ceftaroline and aztreonam. This is day 2 of using the antibiotics for the pneumonia, and also for the patient's septic joints. The patient's comorbidities include he is elderly. He also has osteoarthritis, diabetes mellitus, gout, and possibly a component of congestive heart failure. cc: Brennan Dotson MD
[2016-08-07] MEDS: AZACTAM 1 GM in NS 50 ML IV SCH ×3 (06:34→23:07)
--- NOTE | 2016-08-07 07:11 | PROGRESS NOTE ---
DATE: 08/07/2016 ADDENDUM: X-RAYS AND LABORATORY: The patient's laboratory studies are back now[place] [address], hemoglobin 8 and platelet count 262,000. The patient's creatinine is 3.5, the GFR is 17. The glucose is 163. cc: Brennan Dotson MD
--- NOTE | 2016-08-07 07:25 | Diag Imaging Result Doc PS360 ---
EXAM: CHEST-PORTABLE HISTORY: dyspnea TECHNIQUE: AP portable erect dated 08/07/2016 at 0600 COMMENT: There is alveolar opacity bilaterally. This may be slightly improved particularly over the left base since the previous study of 08/05/2016. IMPRESSION: Slightly improved pulmonary edema and/or pneumonia. Electronically signed by Mynor Freedman 08/07/2016 7:22 AM
[2016-08-07] MEDS: ADVAIR 250/50 DISKUS INH SCH (07:54)
[2016-08-07] MEDS ORDERED: ZAROXOLYN PO ONE (08:35)
[2016-08-07] MEDS: LASIX IV SCH ×3 (08:38→16:46)
[2016-08-07] MEDS: LOVENOX SUBQ SCH ×2 (08:39→11:45)
[2016-08-07] MEDS: TOPROL XL PO SCH ×2 (08:39→22:03)
[2016-08-07] MEDS: ZYLOPRIM PO SCH (08:39)
[2016-08-07] MEDS: HYTRIN PO SCH (08:39)
[2016-08-07] MEDS: LYRICA PO SCH ×2 (08:39→22:05)
[2016-08-07] MEDS: GLUCOTROL PO SCH (08:39)
--- NOTE | 2016-08-07 08:53 | PROGRESS NOTE ---
DATE: 08/07/2016 CARDIOLOGY FOLLOWUP NOTE/SUBJECTIVE: The patient continues on BiPAP and denies dyspnea or chest discomfort. Despite intravenous Lasix over the last 24 hours, he has not diuresed at all. OBJECTIVE: Vital Signs: Blood pressure 101/44, heart rate 84, oxygen saturation 96% on BiPAP. Neck: Jugular distention is evident. Chest: Auscultation of the chest reveals diminished breath sounds at the bases. Cardiac Exam: Reveals a regular rate and rhythm without appreciable murmur or gallop. Extremities: Demonstrate 2+ pretibial edema. LAB DATA: BUN 101 and creatinine 3.5, both which have increased. IMPRESSION: 1. Acute on chronic right-sided congestive heart failure. 2. Strongly suspect significant obstructive sleep apnea and hypoventilation tendency. 3. Acute renal dysfunction. This is very likely in large part due to lower cardiac performance in setting of exacerbation of chronic right heart failure. 4. Type 2 diabetes mellitus. 5. Obesity. 6. Hypertension. RECOMMENDATIONS: 1. Augment intravenous Lasix dose. 2. Give dose of metolazone. 3. Continue BiPAP. 4. Fermin catheter. cc: Braulio Dillard MD
[2016-08-07] MEDS: FERROUS SULFATE PO SCH (09:09)
[2016-08-07] MEDS: FISH OIL CONCENTRATE PO SCH (09:09)
[2016-08-07] MEDS: VITAMIN C PO SCH ×2 (09:10→22:55)
[2016-08-07] MEDS: MAG-OX PO SCH ×2 (09:10→22:03)
[2016-08-07] MEDS: THERA M PLUS PO SCH (09:10)
[2016-08-07 11:51] LABS: URINE CULTURE NEEDED? NO; URINE SOURCE CATH
[2016-08-07 11:53] LABS: BILIRUBIN URINE NEGATIVE (NEGATIVE); BLOOD URINE NEGATIVE (NEGATIVE); COLOR YELLOW; GLUCOSE URINE NEGATIVE (NEGATIVE); LEUKOCYTES URINE NEGATIVE (NEGATIVE); NITRITE URINE NEGATIVE (NEGATIVE); PROTEIN URINE TRACE mg/dL (NEGATIVE); SP GRAVITY URINE 1.017; TURBIDITY URINE CLEAR (CLEAR); UROBILINOGEN URINE NORMAL (NORMAL)
[2016-08-07 11:55] LABS: URINE MICRO REVIEW NEEDED? YES
[2016-08-07 12:05] LABS: UR EPITHELIAL CELLS <10 /HPF (<10); URINE BACTERIA NEGATIVE /HPF; URINE RBC <10 /HPF (<10); URINE WBC <10 /HPF (<10)
[2016-08-07 12:19] LABS: URINE CASTS NONE SEEN; URINE CRYSTALS NONE SEEN; URINE SMALL ROUND CELLS NONE SEEN
--- NOTE | 2016-08-07 13:59 | PROGRESS NOTE ---
DATE: 08/07/2016 SUBJECTIVE: Today Mr. Santiago refers to be doing just slightly better. Continues to have some significant shortness of breath, and the patient is actually on BiPAP. OBJECTIVE: Vital signs: Blood pressure is 101/44, pulse of 85, respiration is 28, and temperature is 98.7. The patient was saturating over 90% on the BiPAP. General: Mr. aSntiago is a 71-year-old male. He is in bed. He was actually in a recliner under the BiPAP. HEENT: Mucosa was pink and moist. Anicteric. Acyanotic. Neck: Supple. Chest: Air entry is bilaterally reduced. There is diffuse bilateral coarse crepitations in both lung gaston. Cardiovascular: Regular rate and rhythm. Abdomen: Soft, nontender. Extremities: About 2+ pedal edema bilaterally. The right side is worse than the left. LABORATORY DATA: WBC is 11.26, hemoglobin is 8.0, platelet count of 262. Chemistry is reviewed. Significant creatinine is up to 3.1. BUN is up to 101. DIAGNOSTIC DATA: 1. A chest x-ray this morning shows slightly improved pulmonary edema and/or pneumonia. 2. Echocardiogram which was done on the shows ejection fraction of 60% with mild right ventricular enlargement and reduced right ventricular systolic function. ASSESSMENT: 1. Acute hypoxemic respiratory failure. 2. Multifocal pneumonia. 3. Mild diastolic dysfunction. 4. Concentric cardiomyopathy. 5. Sleep apnea. 6. Obesity hypoventilation syndrome. 7. Right heart failure (cor pulmonale likely due to underlying lung disease). 8. Sleep apnea, obstructive hypoventilation syndrome, which has been exacerbated by the acute pneumonia. 9. Worsening renal function. PLAN: I think patient has been getting too much of the Lasix. The creatinine is getting worse in the face of excessive diuresis. Patient depends a lot on the preload because he has a right heart failure, and I think by giving him doses of Lasix we actually are compromising the cardiac output. I do not see a lot of pulmonary edema or massive pleural effusions even on the CT scan that was done on 08/05/2016. So, I would be extremely cautious with the use of the diuretic and even now that is compromising the renal function. Cardiology is on board and will defer any recommendations with regards to them. If by tomorrow patient's creatinine continues to worsen, I would have a conversation with cardiology so that we can discontinue the diuretics. For now I will continue with the antibiotics, the BiPAP and have a low threshold to transfer the patient to the unit if he continues to have significant hypoxemia. cc: Travis Carvajal MD [facility]
[2016-08-07] MEDS: MELATONIN PO SCH (22:04)
[2016-08-07] MEDS: ASPIRIN EC PO SCH (22:05)
[2016-08-08] MEDS: LASIX IV SCH (01:03)
[2016-08-08] MEDS: XOPENEX NEB INH SCH ×2 (02:51→07:50)
[2016-08-08] MEDS: TEFLARO 600 MG in NS 250 ML IV SCH (03:23)
[2016-08-08] MEDS: ADVAIR 250/50 DISKUS INH SCH ×3 (03:50→19:15)
[2016-08-08 05:05] LABS: MANUAL DIFF NEEDED? NO
[2016-08-08 05:24] LABS: BASO% 0.2 % (0.0-0.8); EOS# 0.27 X1000 (0.0-0.7); EOS% 2.2 % (0.0-10.0); HEMATOCRIT 26.5 % (42.0-52.0); HEMOGLOBIN 8.4 g/dL (14.0-18.0); IMM GRAN# 0.14 X1000 (0.0-0.04); IMM GRAN% 1.2 % (0.0-0.5); LYMPH# 0.64 X1000 (1.2-3.4); LYMPH% 5.3 % (20.5-51.1); MCH 29.2 PG (27-31); MCHC 31.7 g/dL (33-37); MONO# 0.74 X1000 (0.11-0.59); MONO% 6.1 % (1.7-9.3); MPV 11.4 FL (7.4-10.4); PLT 265 X1000 (130-400); RBC 2.88 XMIL (4.7-6.1)
[2016-08-08] MEDS: AZACTAM 1 GM in NS 50 ML IV SCH (05:33)
[2016-08-08 05:59] LABS: ALBUMIN 2.1 g/dL (3.5-5.0); CALCIUM 7.9 mg/dL (8.8-10.2); POTASSIUM 5.3 mmol/L (3.5-5.1)
--- NOTE | 2016-08-08 06:25 | Diag Imaging Result Doc PS360 ---
EXAM: CHEST-PORTABLE HISTORY: dyspnea TECHNIQUE: Portable AP COMPARISON: 08/07/2016 FINDINGS: There are dense bilateral infiltrates. The heart remains enlarged. There are small pleural effusions. No change in the right-sided catheter. IMPRESSION: No interval improvement. Electronically signed by Skyler Anderson 08/08/2016 6:23 AM
--- NOTE | 2016-08-08 07:06 | PROGRESS NOTE ---
DATE: 08/08/2016 PRESENT ILLNESS: The patient has a bilateral pneumonia as well as having congestive heart failure with bilateral pulmonary venous congestion and small effusions. The patient has bilateral elbow septic arthritis. Both incisions are intact and the elbows are not swollen. The patient recently had a right total knee arthroplasty. That incision is intact and there is less swelling and no erythema of the knee. MEDICATIONS: This is day 3 of treatment. We are treating the patient with a combination of intravenous ceftaroline and aztreonam. The patient altogether now has had 27 days of treatment for his septic elbow arthritis. PHYSICAL EXAM: See dictation done later this morning. LAB AND X-RAY: The patient's CBC shows a white count of 12,120, hemoglobin 8.4 and platelet count 265,000. Creatinine is 3.8, GFR is 16. Blood cultures thus far are sterile. Sputum grew normal juana. Chest x-ray shows bilateral infiltrates with effusions. ASSESSMENT AND PLAN: I am going to continue the patient's current antibiotics, namely ceftaroline and aztreonam for the patient's pneumonia of the bilateral lung infiltrates. As regard to the septic elbow, the patient has 28 days of treatment for his septic elbow arthritis; therefore, he has 14 days left which would be 2 weeks. COMORBIDITIES: Include he is elderly. He has diabetes mellitus and congestive heart failure. The patient also has osteoarthritis. cc: Brennan Dotson MD [facility]
[2016-08-08] MEDS: FERROUS SULFATE PO SCH (08:33)
[2016-08-08] MEDS: HYTRIN PO SCH (08:33)
[2016-08-08] MEDS: LYRICA PO SCH ×2 (08:33→21:09)
[2016-08-08] MEDS: ZYLOPRIM PO SCH (08:33)
[2016-08-08] MEDS: TOPROL XL PO SCH ×2 (08:34→21:09)
[2016-08-08] MEDS: FISH OIL CONCENTRATE PO SCH (08:34)
[2016-08-08] MEDS: NORCO-5 PO PRN (08:34)
[2016-08-08] MEDS: VITAMIN C PO SCH (08:35)
[2016-08-08] MEDS: THERA M PLUS PO SCH (08:35)
[2016-08-08] MEDS: MAG-OX PO SCH (08:35)
--- NOTE | 2016-08-08 08:35 | PROGRESS NOTE ---
DATE: 08/08/2016 ADDENDUM: PHYSICAL EXAMINATION: Vital Signs: Temperature is 97.6 degrees, pulse 78, respirations 22, blood pressure 117/45. Patient's weight is listed as 260 pounds. General: This is an obese, elderly male. He is sitting in a recliner chair and he has a BiPAP mask on intermittently. During the exam, he coughed. Lungs: Clear to auscultation. Cardiovascular: Heart rate was regular. Abdomen: Soft and nontender. Thorax: Patient has a Basilio catheter on the right side. The site is not erythematous or swollen. Bones/Joints/Muscles: Both elbow incisions and incision on the patient's right knee are intact. There is no erythema or swelling. Neurologic: The patient was slightly lethargic. He answered questions. He moved his extremities to request but he was very weak. cc: Brennan Dotson MD
[2016-08-08] MEDS ORDERED: NS 500 ML ONE (10:45)
[2016-08-08 11:01] LABS: ALLEN TEST YES; BE -5.6 mmoll (-3.0-3.0); BLOOD TYPE ARTERIAL; DRAW SITE R RADIAL; METHB 0.7 % (0.0-1.5); O2(CT) 14.9 mL/dL (15.0-23.0); PCO2(98.6) 48 mmHg (35-45); PO2(98.6) 71 mmHg (60-100); SAMPLE BLOOD; SRATE 10 BPM; THB 11.3 g/dL (11.5-17.4); pH(98.6) 7.26 (7.35-7.45)
[2016-08-08 11:03] LABS: MODALITY BI PAP
--- NOTE | 2016-08-08 11:16 | PROGRESS NOTE ---
DATE: 08/08/2016 SUBJECTIVE: Patient somewhat weaker today. He denies shortness of breath or chest pain. OBJECTIVE: Vital Signs: Blood pressure 114/41, heart rate 98 and regular. Oxygen saturation 92% on BiPAP at 80%. Is and Os reflect modest diuresis overnight. Neck: Neck veins difficult to assess but appear distended. Chest: Auscultation of the chest reveals diminished breath sounds at the bases bilaterally. Cardiac Examination: Reveals distant heart sounds and a regular rate and rhythm without appreciable murmur or gallop. Extremities: Demonstrate 1 to 2+ pretibial edema. Laboratory Data: BUN 117, creatinine 3.8, potassium 5.3. Hematocrit. 26.5, white blood cell count 12.2. Review of chest x-ray reveals dense bilateral infiltrates and small pleural effusions. IMPRESSION: 1. Respiratory failure. 2. Bilateral pneumonia. 3. Acute on chronic right-sided congestive heart failure. 4. Acute renal dysfunction. Suspect this may be in part due to prerenal/cardiorenal cause due to exacerbation of chronic right heart failure. 5. Type 2 diabetes mellitus. 6. Obesity. 7. Hypertension. 8. Likely obstructive sleep apnea. RECOMMENDATIONS: 1. Given progressive decline, favor moving patient to intensive care unit for close observation and aggressive care. 2. Check CVP while in intensive care unit and pursue diuresis as indicated. 3. Pulmonary medicine consult. 4. Continue BiPAP. 5. Consider renal consult. cc: Braulio Dillard MD
--- NOTE | 2016-08-08 11:54 | PROGRESS NOTE ---
DATE: 08/08/2016 SUBJECTIVE: The patient is having difficulty breathing and will transfer to the unit this morning. He is on BiPAP. He feels better and answers questions appropriately. Family was kept up to date. No fever. No chills. No nausea, vomiting, or diarrhea. OBJECTIVE: Vital signs: Blood pressure 115/47, pulse of 79, respirations 25, temperature 97.3 degrees, sat of 94% on BiPAP 100% FiO2. General appearance: Obese white male, in moderate distress. HEENT: Poor dentition and anicteric. Clear conjunctivae. Neck: Is supple. No JVD. No bruit. Cardiovascular: S1, S2. Normal rate and rhythm. No murmur, rubs, or gallops. Pulmonary: Mild crackles bilaterally. GI: Soft, nontender, nondistended. Normoactive bowel sounds. Musculoskeletal: About 1+ pitting edema. LABORATORY: His sodium 143, potassium 5.3, chloride 101, bicarb 21, BUN 117, creatinine 3.8, glucose of 150. ASSESSMENT AND PLAN: This is a 71-year-old white male, admitted to the hospital for cellulitis and acute respiratory failure secondary to multifocal pneumonia. 1. Acute respiratory failure secondary to pneumonia and hypoxemia. Transfer the patient to the ICU. Put him on a BiPAP. ABG was checked, pH: 7.26. Oxygen is better than what it was. The patient appears to be comfortable. We will get Pulmonology to see the patient but we will not intubate at this time. 2. Acute renal failure. Multifactorial. We will hold his Lasix. Will probably change early given change of fluid back. We will recheck his renal function tomorrow. 3. Questionable congestive heart failure. The patient has an EF of 65%. No mention of diastolic dysfunction. 4. History of gout. Keep the patient on allopurinol. 5. We will adjust his antibiotics for renal dosing, 6. Hypomagnesemia. Will continue magnesium oxide. 7. Peripheral neuropathy due to diabetes. Continue Lyrica. 8. Benign prostatic hypertrophy. Continue Hytrin. Critical care in this patient 35 minutes.
[2016-08-08] MEDS ORDERED: DIPRIVAN 1% 1,000 MG/100 ML BOTTLE ONE (12:13)
[2016-08-08] MEDS ORDERED: QUELICIN ONE (12:14)
[2016-08-08] MEDS: 1/2 NS 1,000 ML IV ONE ×2 (12:51→12:57)
[2016-08-08] MEDS: AZACTAM 0.5 GM in NS 50 ML IV SCH ×2 (12:51→21:05)
[2016-08-08] MEDS: ATIVAN IV PRN (12:52)
[2016-08-08] MEDS: LOVENOX SUBQ SCH (12:54)
[2016-08-08] MEDS: PROTONIX IV SCH (12:54)
[2016-08-08] MEDS: SODIUM CHLORIDE 0.9% INJ SCH (12:54)
[2016-08-08] MEDS ORDERED: 1/2 NS 1,000 ML IV ONE (13:00)
[2016-08-08] MEDS ORDERED: THIAMINE 100 MG, FOLIC ACID 1 MG, M.V.I.-12 10 ML, MAGNESIUM SULFATE 1 GM, POTASSIUM CH... IV SCH ×6 (13:00)
--- NOTE | 2016-08-08 13:06 | Diag Imaging Result Doc PS360 ---
EXAM: CHEST-PORTABLE HISTORY: ett placement and ng placement TECHNIQUE: Supine portable COMPARISON: Compared to study performed earlier FINDINGS: Interval placement of an endotracheal tube. This is in good position with tip located 4 cm above the heena. Interval placement of a nasogastric tube which overlies the esophagus and dominant. Dense bilateral infiltrates remain. IMPRESSION: Endotracheal and nasogastric tubes in good position Electronically signed by Skyler Anderson 08/08/2016 1:04 PM
[2016-08-08] MEDS: FENTANYL IV PRN (13:07)
[2016-08-08] MEDS: FENTANYL 1,000 MICROGM in NS 80 ML IV SCH (13:39)
[2016-08-08] MEDS: NIMBEX 80 MG in NS 160 ML IV SCH ×2 (13:39→18:38)
[2016-08-08] MEDS: DUONEB (A & A) INH SCH ×3 (15:42→23:10)
[2016-08-08] MEDS: TEFLARO 300 MG in NS 250 ML IV SCH (16:39)
[2016-08-08] MEDS: NEO-SYNEPHRINE 50 MG in NS 250 ML IV SCH ×3 (16:39→21:33)
[2016-08-08] MEDS: DOPAMINE 400 MG/D5W 400 MG/500 ML IV.SOLN IV SCH ×2 (16:50→22:40)
[2016-08-08] MEDS ORDERED: MISC. PHARMACY COMMUNICATION SCH (18:15)
[2016-08-08] MEDS ORDERED: VANCOMYCIN 1 GM/NS 1 GM/250 ML IVPB IV ONE (18:22)
[2016-08-08] MEDS: SOLU-CORTEF IV SCH (18:27)
[2016-08-08] MEDS: VITAMIN C IV SCH (18:30)
[2016-08-08] MEDS: THIAMINE 200 MG in NS 50 ML IV SCH (18:30)
[2016-08-08] MEDS: NS IV SCH (18:30)
[2016-08-08] MEDS: ASPIRIN EC PO SCH (21:08)
[2016-08-08] MEDS: MELATONIN PO SCH (21:09)
[2016-08-08] MEDS: HUMALOG SUBQ SCH (22:40)
[2016-08-09] MEDS: NEO-SYNEPHRINE 50 MG in NS 250 ML IV SCH ×2 (00:03→02:29)
[2016-08-09] MEDS: SOLU-CORTEF IV SCH ×4 (00:05→17:28)
[2016-08-09] MEDS: NS IV SCH ×4 (00:06→18:42)
[2016-08-09] MEDS: VITAMIN C IV SCH ×4 (00:06→18:42)
--- NOTE | 2016-08-09 00:56 | CONSULTATION ---
DATE OF CONSULTATION: 08/08/2016 REQUESTING PHYSICIAN: Dr. Dillard. REASON FOR CONSULTATION: Respiratory failure. HISTORY OF PRESENT ILLNESS: Mr. Santiago is a 71-year-old white male with prior tobacco history (nonsmoker since 1986), diabetes mellitus, peripheral vascular disease, chronic renal insufficiency, who underwent a right total knee replacement 06/27/2016. This was complicated by mild [id number] renal insufficiency, but he recovered. The patient was admitted to the hospital 07/07/2016 with inflammation in both olecranons. The patient was diagnosed with possible olecranon bursitis, and underwent. Incision and drainage and irrigation of both elbows, along with incision, drainage, and debridement of the right olecranon bursa. Purulent material was identified, along with chalky material in the bursa, consistent with a gouty tophi. 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 All cultures from the right and left elbow were negative, and Gram stain revealed no significant bacteria. The patient was treated for possible concomitant gout and septic arthritis by Dr. Brennan Dotson, and was discharged, following a Basilio catheter placement, on Rocephin and daptomycin. The patient returned to the emergency room 07/31/2016 with new or more prominent bilateral infiltrates, predominantly in the bases. He was initiated on diuretics, without improvement in infiltrates. CT scan of the thorax was performed 08/05/2016, which revealed mild cardiomegaly, small calcified plaques, possibly related to prior asbestos exposure, with multifocal dense bilateral infiltrates. Echocardiogram was performed, which revealed mild LVH, with an excellent ejection fraction, moderate pulmonary hypertension, with a PA pressure of 60. Venous Doppler was also performed 07/31/2016, which revealed deep vein thrombosis in the left peroneal vein, but all the remaining deep veins were patent. The patient's pulmonary status continued to decline, and he has been on BiPAP since 08/04/2016. The patient was not maintained oxygen saturation on BiPAP today, and was transferred to the intensive care unit. Pulmonary consultation was requested. The patient was failing BiPAP, and therefore the patient was intubated by Anesthesia at my request. He has continued to be difficult oxygenate, and is now on a sedative and a paralytic. His blood pressure remains low, despite volume resuscitation. He is currently on dopamine and Zhang-Synephrine. PAST MEDICAL HISTORY: 1. Recent right total knee arthroplasty, as per above. 2. Status post bilateral irrigation of both elbows, with resection of the right olecranon bursa for gout, as per above. 3. Treatment for possible septic arthritis, as per above. All cultures and Gram stains were negative. 4. Chronic renal insufficiency. 5. Diabetes mellitus. 6. Peripheral vascular disease, status post carotid endarterectomy. 7. History of left forearm fracture, requiring 4 separate surgeries. 8. Remote history of colon cancer. 9. Remote history of stroke, without deficits. 10. History of peptic ulcer disease. 11. Obesity. 12. Status post vasectomy. SOCIAL HISTORY: Prior tobacco use. Alcohol use not known. FAMILY HISTORY: Noncontributory to current presentation. REVIEW OF SYSTEMS: Cannot be performed. PHYSICAL EXAMINATION: General: Reveals an obese white male, currently on mechanical ventilation, vasopressors, and sedation. Vital Signs: Oxygen saturation 91%. Blood pressure 88/47. Respiratory rate 18. Oxygen saturation 90. HEENT: Pupils are equal. No icteric sclera. Oropharynx is dry. Neck: Supple. Chest: Reveals diffuse bilateral crackles. Cardiac: Distant heart sounds. Normal S1, normal S2. Abdomen: Soft, with diminished bowel sounds. Extremities: Slightly cold to the touch. Neurologic: Cannot be performed while on paralytic. LABORATORY STUDIES: Chest x-ray reveals endotracheal tube and nasogastric tube in good position. He has diffuse bilateral infiltrates. White blood count this morning 12.12, hemoglobin 8.4, platelet count 265,000. Chemistries: Sodium 143, potassium 5.3, chloride 101, bicarbonate 21, BUN 117, creatinine 3.8, glucose 204. Albumin 2.1. Arterial blood gas prior to intubation: pH 7.26, pCO2 of 48, PO2 of 71. IMPRESSION: A 71-year-old white Male, with multiple medical problems, with recent admission to the hospital, with a gout flare in the elbows, with possible septic arthritis. The patient developed progressive pulmonary infiltrates, despite outpatient antibiotics. He has had continued decline in his respiratory status, and now is on mechanical ventilation for acute hypoxemic and hypercapnic respiratory failure. The patient has [id number] renal failure. The patient has shock, most likely due to sepsis or significant volume dehydration, on the background of pulmonary hypertension. Etiology for patient's bilateral infiltrates is not clear. This may represent an aspiration pneumonia, a drug-induced pneumonitis (daptomycin?), and alveolar hemorrhage may be a component of this process, although he does not have gross blood emanating from his endotracheal tube following intubation. RECOMMENDATIONS: 1. Intubation and initiation of mechanical ventilation. (This has been completed.) 2. Initiation of paralytic and fentanyl drip for inability to oxygenate, and to protect patient against additional lung injury associated with patient ventilator desynchrony. 3. Continue broad-spectrum antibiotics. 4. Culture sputum and blood. 5. Volume resuscitation. However, this would be limited, given his marginal oxygenation status. 6. Initiate steroids for possible drug-induced pneumonitis. 7. Decrease Lovenox dose. The patient does have a deep vein thrombosis on venous studies earlier this admission, but it was in a calf vein, and he only had limited burden. With the bilateral pulmonary infiltrates and the acute renal failure, I would like to reduce the dose of Lovenox until renal function improves. 8. Additional recommendations pending hospital course. His prognosis is guarded, and will worsen if he does not improve over the next 24 hours, despite maximum assistance with mechanical ventilation. cc: Ghanshyam Wheatley MD
[2016-08-09] MEDS: NIMBEX 80 MG in NS 160 ML IV SCH ×4 (01:04→23:30)
[2016-08-09] MEDS: DUONEB (A & A) INH SCH ×6 (03:35→23:10)
[2016-08-09] MEDS: TEFLARO 300 MG in NS 250 ML IV SCH (03:56)
[2016-08-09 04:50] LABS: ALLEN TEST YES; BE -12.9 mmoll (-3.0-3.0); BLOOD TYPE ARTERIAL; DRAW SITE R RADIAL; METHB 1.5 % (0.0-1.5); PO2(98.6) 124 mmHg (60-100); SAMPLE BLOOD; SAO2 98.7 % (95.0-100.0); SRATE 15 BPM; THB 10.2 g/dL (11.5-17.4); TVOL 500 mL
[2016-08-09 04:51] LABS: MODALITY VENTILATOR; PCO2(98.6) 66 mmHg (35-45); pH(98.6) 7.04 (7.35-7.45)
[2016-08-09] MEDS: AZACTAM 0.5 GM in NS 50 ML IV SCH ×3 (04:53→21:57)
[2016-08-09] MEDS: NEO-SYNEPHRINE 100 MG in NS 500 ML IV SCH ×3 (04:54→15:24)
[2016-08-09] MEDS: THIAMINE 200 MG in NS 50 ML IV SCH ×2 (06:10→17:28)
[2016-08-09 06:14] LABS: HEMATOCRIT 31.5 % (42.0-52.0); HEMOGLOBIN 9.4 g/dL (14.0-18.0); MCH 28.7 PG (27-31); MCHC 29.8 g/dL (33-37); MCV 96.3 FL (81-99); MPV 11.4 FL (7.4-10.4); PLT 558 X1000 (130-400); RBC 3.27 XMIL (4.7-6.1)
[2016-08-09 06:15] LABS: MAGNESIUM 3.1 mg/dL (1.5-2.7)
[2016-08-09] MEDS: HUMALOG SUBQ SCH ×4 (06:19→21:57)
[2016-08-09 06:28] LABS: BANDS 8 % (0-1); LYMPHS 4 % (21-51); MONO 6 % (1-9); POLYCHROM OCCASIONAL
--- NOTE | 2016-08-09 07:01 | Diag Imaging Result Doc PS360 ---
EXAM: CHEST-PORTABLE HISTORY: respiratory failure TECHNIQUE: AP portable erect chest at 0510 COMMENT: There is an endotracheal tube with tip just below the thoracic inlet. There is an NG tube which passes below the diaphragm. There is diffuse alveolar and interstitial opacity bilaterally. There may be slight improvement since 08/07/2016. The right upper lobe is slightly clearer than on 08/08/2016. IMPRESSION: Slightly improved pulmonary edema. Electronically signed by Mynor Freedman 08/09/2016 6:58 AM
[2016-08-09] MEDS: HYTRIN PO SCH (08:19)
[2016-08-09] MEDS: LYRICA PO SCH ×2 (08:19→21:58)
[2016-08-09] MEDS: FISH OIL CONCENTRATE PO SCH (08:19)
[2016-08-09] MEDS: FERROUS SULFATE PO SCH (08:19)
[2016-08-09] MEDS: THERA M PLUS PO SCH (08:19)
[2016-08-09] MEDS: TOPROL XL PO SCH ×2 (08:20→21:58)
[2016-08-09] MEDS: ZYLOPRIM PO SCH (08:20)
[2016-08-09 08:39] LABS: CALCIUM 7.6 mg/dL (8.8-10.2); TOTAL BILIRUBIN 0.27 mg/dL (0.20-1.00); TOTAL PROTEIN 6.5 g/dL (6.3-8.3)
[2016-08-09] MEDS ORDERED: KAYEXALATE PO ONE (08:50)
[2016-08-09] MEDS ORDERED: SODIUM BICARBONATE 8.4% IV PUSH ONE ×2 (08:57→11:33)
--- NOTE | 2016-08-09 09:39 | PROGRESS NOTE ---
DATE: 08/09/2016 PRESENT ILLNESS: The patient was being treated for bilateral pneumonia. He already has bilateral septic elbow arthritis. He also has an incision over his right knee where he had a total knee arthroplasty. Last night he developed respiratory failure and currently is intubated and sedated. MEDICATIONS: This is day 4 of treatment with intravenous ceftaroline and aztreonam. The patient as of now has 28 days of treatment for his septic elbow arthritis. PHYSICAL EXAMINATION: Vital Signs: Temperature is 97.4 degrees, pulse 72, respirations 22, blood pressure 104/47. General: This is an ill-appearing elderly male. He is in no acute distress. Head, Eyes, Ears, Nose, and Throat: The patient is intubated. There is no drainage from the nose or ears. Neck: No meningismus. Lungs: There were bilateral rhonchi. Cardiovascular: The patient's heart rate was regular. Abdomen: Soft and nontender. Thorax: The patient has a Basilio catheter on the right side. There is no erythema or drainage coming from the site. Bones, Joints, Muscles: Both elbows and the patient's right knee are not swollen, and the incisions are intact. Neurologic: As mentioned above, the patient is sedated. LABORATORY AND X-RAYS: The CBC shows a white count of 30,470, hemoglobin 9.4, and platelet count 558,000. Blood gases show a pH of 7.04, PO2 of 124, pCO2 of 66. The patient's creatinine is 4.7. GFR is 12. Blood and sputum cultures are pending. Chest x-ray showed improvement in the patient's pulmonary edema. ASSESSMENT AND PLAN: The patient has respiratory failure. I think there is a component of pneumonia and possibly pulmonary edema involved in it. My plan is to continue with the patient's 2 current antibiotics, namely aztreonam and ceftaroline pending culture results. COMORBIDITY: The patient's comorbidities include being elderly, diabetes mellitus, and congestive heart failure. The patient also has osteoarthritis. cc: Brennan Dotson MD [facility]
--- NOTE | 2016-08-09 09:53 | PROGRESS NOTE ---
DATE: 08/09/2016 SUBJECTIVE: The patient continues sedated on ventilator. OBJECTIVE: Vital Signs: Blood pressure 104/47, heart rate 74, oxygen saturation 95% with FiO2 of 100% and PEEP of 12.5. CVP reported to be anywhere from 18 to 14. Neck: Jugular distention cannot be appreciated. Auscultation of the chest is significant for better aeration than yesterday prior to intubation. There are a few rhonchi. Cardiac exam reveals a regular rate and rhythm without appreciable murmur or gallop. IMAGING: Repeat limited echocardiography yesterday reviewed. Right ventricle appears enlarged and significantly hypokinetic compared to previous study. There is some septal flattening consistent with right ventricular pressure volume overload. IMPRESSION: 1. Respiratory failure. 2. Bilateral pneumonia. 3. Acute on chronic right-sided heart failure. 4. Acute renal failure. 5. Type 2 diabetes mellitus. 6. Obesity. 7. Hypertension. 8. Likely obstructive sleep apnea. RECOMMENDATIONS: 1. Given further decline in renal function and hyperkalemia, consideration may need to be given to at least short-term hemodialysis to continue aggressive supportive care. 2. Appreciate Dr. Wheatley's help. cc: Braulio Dillard MD
[2016-08-09] MEDS ORDERED: LOVENOX SUBQ SCH (10:00)
[2016-08-09] MEDS: FENTANYL 1,000 MICROGM in NS 80 ML IV SCH (10:16)
[2016-08-09] MEDS: ADVAIR 250/50 DISKUS INH SCH ×2 (10:23→19:30)
[2016-08-09 10:36] LABS: ALLEN TEST YES; BLOOD TYPE ARTERIAL; DRAW SITE R RADIAL; METHB 1.5 % (0.0-1.5); O2(CT) 12.1 mL/dL (15.0-23.0); PO2(98.6) 74 mmHg (60-100); SAMPLE BLOOD; SAO2 96.6 % (95.0-100.0); SRATE 24 BPM; THB 9.1 g/dL (11.5-17.4); TVOL 500 mL
[2016-08-09 10:38] LABS: MODALITY VENTILATOR; PCO2(98.6) 69 mmHg (35-45); pH(98.6) 7.09 (7.35-7.45)
--- NOTE | 2016-08-09 10:59 | ECHO REPORT ---
ORDER DATE: 08/08/2016 INDICATION: This is a limited study to follow up the RV dysfunction. FINDINGS: 1. The right atrium is moderately enlarged at 5.6 cm. 2. No color Doppler evaluation was done of the tricuspid valve, but there does appear to be significant elevation in RV systolic pressure with the measurement of 64 mmHg. The IVC was assessed as well and measured 1.4 cm. It did not appear that sniff was assessed. 3. The right ventricle does appear mildly enlarged with mild reduction in RV systolic function. 4. No mitral valve prolapse. Some mild mitral annular calcification was noted. No color Doppler evaluation of the mitral valve was performed. 5. The left ventricle appears to have normal to hyperdynamic systolic function. The estimated EF on some views appears to be greater than 70% with no obvious segmental abnormalities. 6. The aortic valve appears to open well. There is some calcification but does not appear to be significantly stenotic. No Doppler evaluation was performed of the aortic valve. 7. No pericardial effusion was identified. cc: MD Braulio Ramsay MD [facility]
[2016-08-09] MEDS: PROTONIX IV SCH (11:04)
[2016-08-09] MEDS: SODIUM CHLORIDE 0.9% INJ SCH (11:04)
[2016-08-09 11:24] LABS: POTASSIUM 6.8 mmol/L (3.5-5.1)
[2016-08-09 11:26] LABS: CALCIUM 7.5 mg/dL (8.8-10.2)
[2016-08-09] MEDS ORDERED: D50W SYRINGE IV ONE (11:39)
[2016-08-09] MEDS ORDERED: ALBUTEROL 0.5% INH CONC FOR HYPERKALEMIA INH ONE (11:39)
[2016-08-09] MEDS ORDERED: HUMULIN R IV ONE (11:39)
[2016-08-09] MEDS ORDERED: D50W SYRINGE ONE (11:57)
[2016-08-09] MEDS ORDERED: NS 1,000 ML IV SCH (13:18)
--- NOTE | 2016-08-09 13:22 | PROGRESS NOTE ---
DATE: 08/09/2016 SUBJECTIVE: The patient was intubated overnight for declining and respiratory function. OBJECTIVE: His vital signs show blood pressure 103/45, pulse 77, respirations 24, temperature 97.4 degrees, sat of 92% on 100% FiO2.General Appearance: A morbidly obese white male intubated. HEENT: Anicteric sclerae. Clear conjunctivae. Neck: Supple. No JVD. No bruit. Cardiovascular: S1, S2. Normal rate and rhythm. No murmur, rubs, or gallops. Pulmonary: Crackles bilaterally. GI: Soft, nontender, and nondistended. Normoactive bowel sounds. Musculoskeletal: No clubbing, cyanosis or edema. LABORATORY: White count 17764, hemoglobin 9.4, hematocrit 31.5 and platelets of 558,000. Chemistries: Sodium 134, potassium 6.8, chloride 97, bicarb 18, BUN 136, creatinine 4.8, and glucose of 211. His ABG as noted. ASSESSMENT AND PLAN: This is a 71-year-old white male and admitted to the hospital for acute respiratory failure. 1. Acute respiratory failure probably secondary to pneumonia. The patient with diuresis and then he went into acute kidney injury probably a combination of systemic affects of his infection and on top of the diuretics. Diuretics were stopped yesterday. We will start the patient back on IV fluid. 2. Acute kidney injury with hyperkalemia. We will give him the name of 10 units of insulin and and an amp of D10. Give Kayexalate. 3. Acute renal failure. We will consult nephrology and Dr. Villalobos. We will consult him. 4. Septic shock. We will continue dopamine drip for now. Keep the patient on aztreonam and Toprol. CODE STATUS: The patient is a full code. Keep the family up to date. The patient is in critical condition. High risk of mortality and morbidity. TIME SPENT: Total critical care time is 35 minutes. [facility]
[2016-08-09 13:56] LABS: URINE SOURCE CATH
[2016-08-09] MEDS ORDERED: CALCIUM CHLORIDE 1 GM in NS 100 ML IV ONE (14:00)
[2016-08-09 14:11] LABS: BILIRUBIN URINE NEGATIVE (NEGATIVE); BLOOD URINE LARGE (NEGATIVE); COLOR YELLOW; GLUCOSE URINE NEGATIVE (NEGATIVE); LEUKOCYTES URINE TRACE (NEGATIVE); NITRITE URINE NEGATIVE (NEGATIVE); PROTEIN URINE 200 mg/dL (NEGATIVE); SP GRAVITY URINE 1.023; TURBIDITY URINE TURBID (CLEAR); UROBILINOGEN URINE NORMAL (NORMAL)
[2016-08-09 14:15] LABS: UR EPITHELIAL CELLS >10 /HPF (<10); URINE BACTERIA NEGATIVE /HPF; URINE CULTURE NEEDED? YES; URINE MICRO REVIEW NEEDED? YES; URINE RBC TNTC /HPF (<10); URINE WBC TNTC /HPF (<10)
[2016-08-09 14:23] LABS: UR PROT RANDOM 166.7 mg/dL
[2016-08-09 14:28] LABS: URINE CASTS NONE SEEN; URINE CRYSTALS NONE SEEN; URINE SMALL ROUND CELLS NONE SEEN
[2016-08-09] MEDS: TEFLARO 200 MG in NS 250 ML IV SCH (14:34)
[2016-08-09 14:44] LABS: UR CREAT RANDOM 113.6 mg/dL (14-26)
[2016-08-09 14:44] LABS: CALCIUM 7.2 mg/dL (8.8-10.2); POTASSIUM 5.9 mmol/L (3.5-5.1)
--- NOTE | 2016-08-09 15:44 | Diag Imaging Result Doc PS360 ---
US RENAL 2 (RETROPER) COMPLETE - 08/09/2016 INDICATION: elevated creatinine TECHNIQUE: COMPARISON: 06/28/2016 FINDINGS: The exam is challenging due to the patient's body size and poor condition. The kidneys remain normal with no evidence of hydronephrosis. No mass or large cyst. There is a Fermin catheter in the urinary bladder which is otherwise normal. IMPRESSION: No acute disease or change from prior. Electronically signed by Luis Eduardo Villalta 08/09/2016 3:42 PM
--- NOTE | 2016-08-09 16:00 | CONSULTATION ---
DATE OF CONSULTATION: 08/09/2016 REASON FOR ADMISSION: Pain to bilateral elbows. REASON FOR CONSULT: Acute kidney injury on chronic kidney disease, stage 3. HISTORY OF PRESENT ILLNESS: Mr. Santiago is a 71-year-old white male who we had seen previously in the hospital on 06/27/2016 for acute kidney injury secondary to dehydration and his medication of metformin, Cozaar, and vancomycin. Patient was seen post hospitalization with recovery to a creatinine of 1.5 on 07/04/2016. Subsequently during that period of time, he had had a right knee arthroplasty and had recovered from that. This was complicated with renal insufficiency with acute on chronic kidney disease. On 07/07/2016, the patient developed inflammation of both olecranons. He was diagnosed with possible olecranon bursitis. He had undergone incision and drainage with irrigation of both elbows with a debridement. It was found to have purulent material and identified with chalky material as bursa consistent with a gouty tophi. Patient subsequently has been placed on multiple antibiotics during his hospitalization. The cultures on his elbows bilateral were negative. Gram stains revealed no significant bacteria. His WBCs continued to elevate and subsequently he was treated for possible combinations of gout and septic arthritis, followed by Dr. Dotson. Patient has had a Basilio catheter placed to the right chest wall. He has been on Rocephin and daptomycin. Again, the patient returned then to the emergency room on 07/31/2016 with more prominent bilateral infiltrates and increased work of breathing. He was initially placed on large doses of diuretics. He was without improvement of these infiltrates. CT scan showed thorax with mild cardiomegaly and small calcific plaques with bilateral infiltrates. Patient continued to deteriorate over the last several days. They were unable to maintain his oxygenation saturation with BiPAP on the floor. He was transferred on 08/08/2016 to ICU, at which time he was in respiratory failure and was intubated. Patient is currently on 100% FiO2. He is not being oxygenated well on 100% FiO2 at this time. He has had volume resuscitation, at which time his blood pressure does remain low. He is on dopamine and Zhang- Synephrine, though they were able to take the dopamine off temporarily this a.m. He developed hyperkalemia this a.m. He was treated for severe acidosis and was given several amps of sodium bicarbonate IV push. He was given insulin and D50 this a.m. his potassium continued at 7, repeat at 6.8. This was repeated along with an albuterol high-dose nebulizer treatment with current potassium level at 5.9. The patient is currently sedated on fentanyl. He is on a train nerve stimulator for dosing. He has had no urine output in the last 24 hours, though he had 359 out yesterday. It does appear that he is 8 L positive in the past 72 hours. CVP was performed per his Basilio catheter and it is noted that it is at 14. He has positive JVD. PAST MEDICAL HISTORY: Right total knee arthroplasty. Status post bilateral irrigation of both elbows with resection of olecranon bursa for gout. Treatment for septic arthritis per Basilio catheter with Gram stains negative, per Dr. Dotson. Chronic renal insufficiency , last noted in our office at 1.5 on 07/04/2016. Diabetes mellitus, type 2. Peripheral vascular disease with post carotid endarterectomies. History of left forearm fracture requiring 4 separate surgeries. Remote history of colon cancer. Previous CVA without deficits. History peptic ulcer disease, obesity, and status post vasectomy. SOCIAL HISTORY: He does live alone. His family is attentive to his care. Prior tobacco use, alcohol use, or illicit drug use not known. FAMILY HISTORY: Noncontributory. REVIEW OF SYSTEMS: Unable to obtain. Most information obtained per the nurse, per Dr. Wheatley, and per chart. PHYSICAL EXAMINATION: Vital Signs: Afebrile. Blood pressure is 110/44, heart rate 88, respirations 24, CVP 14. He is on 100% FiO2 and his saturation is at 88% to 91% . General: This is a 71-year-old white male. He is currently intubated. He is in no acute distress. He appears chronically ill. Skin: Warm and dry. HEENT: Normocephalic, atraumatic. Conjunctivae pale. Mucous membranes are dry. Neck: Supple. Trachea midline. Positive JVD. Cardiovascular: Distant heart sounds. He has sinus rhythm on the monitor. Occasional PVC noted. No murmur or gallop appreciated. Lungs: He has scattered rhonchi. Remains on 100% FiO2. Abdomen: Soft. Diminished bowel sounds. Extremities: Cool to touch. Slightly mottled. Neurologic: Patient is on a paralytic with train effect for stimulator for evaluation. Integumentary: No rashes or lesions noted. LABORATORY DATA: Sodium 134, potassium 6.8 ,chloride 97, CO2 of 18, BUN 136, creatinine 4.8, glucose 211. Anion gap has been in the 20s. His last calcium was 7.5, phosphorus 12.4, albumin 2, and magnesium 3.1. He has a lactate of 1. On his ABGs, pH 7.09, CO2 of 69, PO2 of 74, bicarbonate 17.9. Patient has negative blood cultures, negative Gram stains. Chest x-ray this a.m. shows pulmonary edema. We have ordered urine electrolytes studies with a renal ultrasound. Fermin catheter remains in place. The patient continues on Zhang-Synephrine drip. He has a banana bag infusing, along with thiamine and vitamin C. He has a fentanyl drip to train effect. He remains on Azactam and Teflaro. ASSESSMENT AND PLAN: 1. Acute kidney injury on chronic kidney disease stage 3B. Patient remains anuric. His creatinine is elevated. We have ordered urine studies and a renal ultrasound to be performed at the bedside. Secondary to a repeat of treatment for his hyperkalemia, he has indications for hemodialysis for bridging over this critical time. This has been explained to the family. 2. Electrolytes and acid-base balance. Patient has hyperkalemia. He has been treated prophylactically per medications with sodium bicarbonate, high-dose albuterol nebulizer, along with D50 and insulin IV push. He has had a slow response, now with correction on dialysis. 3. Acidosis. Patient is in severe respiratory acidosis. Again, he has been re- treated with sodium bicarbonate. Again, we will plan for correction on dialysis. 4. Anemia. This remains low, but stable. 5. Leukocytosis. Patient is in septic shock. He remains on Zhang-Synephrine drip for support. Dr. Dotson is following. He has a Basilio catheter to the right chest wall. These are all renally dosed. 6. Respiratory failure. Patient is on steroids for possible pneumonitis. He is being followed by Dr. Wheatley. We will plan to assist with his respiratory status with dialysis this evening and see if there is any improvement. I agree with all of the above. He meets criteria to begin dialysis. I discussed this with his family including access needs and goals of therapy. They understand and are interested in moving forward. I spoke with Dr. Duckworth who will place a vascath. HD this evening then daily SLED. rg I would like to thank you for allowing us to follow with this patient. Seen, data reviewed, discussed with Tita Torres on 08/09/16. I agree with the above assessment and plan of care. rg Dictated by DANIELLA Watson for Iglesia Villalobos MD cc: DANIELLA Watson MD [facility]
[2016-08-09] MEDS: SODIUM BICARBONATE 8.4% IV PUSH SCH ×2 (16:45→21:57)
--- NOTE | 2016-08-09 18:01 | OPERATIVE NOTE ---
PROCEDURE DATE: 08/09/2016 PREOPERATIVE DIAGNOSES: 1. End-stage renal disease. 2. Volume overload with metabolic derangements. PROCEDURE PERFORMED: Ultrasound-guided right femoral vein Vas-Cath. FINDINGS: Ultrasound examination right groin showed normal vascular anatomy. The vein was compressible with forward flow. No evidence of thrombus. OPERATIVE INDICATIONS: A 71-year-old male with multiple medical problems. He presents with sepsis and worsening renal dysfunction. Had respiratory then was intubated. He is now hyperkalemia, metabolically acidotic and volume overloaded. Dr. Villalobos plans to start dialysis today. Vas-Cath was indicated. OPERATIVE NOTE: Risks, benefits, alternatives discussed with the family as the patient is intubated and she consented to the procedure. Surgical site was confirmed. His groin was prepped with chlorhexidine solution and draped. A focused ultrasound was performed with above findings. After this, the pink introducer needle was used under direct ultrasound guidance to access the femoral vein. Dark nonpulsatile venous blood was noted. The wire was threaded and a skin wai was made after removal of the needle, we dilated tract serially with serial dilators, using Seldinger technique and pre-flush triple-lumen trials as catheter was advanced. Wire was removed. All ports withdrew blood and flushed easily. We secured this in nylon suture and placed a sterile dressing. Tolerated it well with no identified complications. We did examine with the ultrasound prior to dilating the tract that the wire coursed directly into the vein and did not traverse artery, it did not. cc: Ann Duckworth MD
[2016-08-09] MEDS: ASPIRIN EC PO SCH (21:58)
[2016-08-10] MEDS: NEO-SYNEPHRINE 100 MG in NS 500 ML IV SCH ×2 (00:11→09:18)
[2016-08-10] MEDS: VITAMIN C IV SCH ×4 (00:11→18:23)
[2016-08-10] MEDS: NS IV SCH ×4 (00:11→18:23)
[2016-08-10] MEDS: SOLU-CORTEF IV SCH ×4 (00:11→18:16)
[2016-08-10] MEDS: TEFLARO 200 MG in NS 250 ML IV SCH ×2 (02:46→16:53)
[2016-08-10] MEDS: DUONEB (A & A) INH SCH ×6 (03:05→23:00)
[2016-08-10 04:54] LABS: ALLEN TEST YES; BE -4.4 mmoll (-3.0-3.0); BLOOD TYPE ARTERIAL; DRAW SITE R RADIAL; METHB 0.1 % (0.0-1.5); O2(CT) 10.9 mL/dL (15.0-23.0); PO2(98.6) 91 mmHg (60-100); SAMPLE BLOOD; SAO2 100.8 % (95.0-100.0); SRATE 24 BPM; THB 7.9 g/dL (11.5-17.4); TVOL 500 mL
[2016-08-10 04:55] LABS: MODALITY VENTILATOR; PCO2(98.6) 73 mmHg (35-45); pH(98.6) 7.14 (7.35-7.45)
[2016-08-10] MEDS: SODIUM BICARBONATE 8.4% IV PUSH SCH (04:59)
[2016-08-10] MEDS: AZACTAM 0.5 GM in NS 50 ML IV SCH ×2 (05:04→16:19)
[2016-08-10] MEDS: THIAMINE 200 MG in NS 50 ML IV SCH ×2 (05:53→18:16)
[2016-08-10] MEDS: NIMBEX 80 MG in NS 160 ML IV SCH ×3 (05:59→22:09)
[2016-08-10 06:10] LABS: ALBUMIN 2.3 g/dL (3.5-5.0); CALCIUM 7.4 mg/dL (8.8-10.2); POTASSIUM 5.6 mmol/L (3.5-5.1); TOTAL BILIRUBIN 0.22 mg/dL (0.20-1.00); TOTAL PROTEIN 5.8 g/dL (6.3-8.3)
[2016-08-10] MEDS: SODIUM CHLORIDE 0.9% INJ SCH (06:28)
[2016-08-10] MEDS: HUMALOG SUBQ SCH ×4 (06:28→20:50)
[2016-08-10] MEDS ORDERED: NS 2,000 ML ONE (07:08)
[2016-08-10] MEDS ORDERED: HEPARIN ONE (07:08)
--- NOTE | 2016-08-10 07:20 | Diag Imaging Result Doc PS360 ---
EXAM: CHEST-PORTABLE HISTORY: respiratory failure TECHNIQUE: AP portable at 0500 COMMENT: Compared to 08/09/2016, there has been no appreciable change in the pulmonary edema seen bilaterally. The heart size remains enlarged. There is been no appreciable change since 08/07/2016. The endotracheal and NG tubes remain in place. IMPRESSION: Pulmonary edema. Electronically signed by Mynor Freedman 08/10/2016 7:18 AM
[2016-08-10] MEDS: NS 1,000 ML IV SCH ×2 (09:20→22:11)
[2016-08-10] MEDS: FENTANYL 1,000 MICROGM in NS 80 ML IV SCH ×2 (09:21→14:40)
[2016-08-10] MEDS: LYRICA PO SCH ×2 (09:38→20:49)
[2016-08-10] MEDS: HYTRIN PO SCH (09:38)
[2016-08-10] MEDS: ZYLOPRIM PO SCH (09:38)
[2016-08-10] MEDS: TOPROL XL PO SCH ×2 (09:38→20:20)
--- NOTE | 2016-08-10 09:59 | PROGRESS NOTE ---
DATE: 08/10/2016 SUBJECTIVE: The patient remains intubated and is now on dialysis. He is still on a pressor. OBJECTIVE: Vital Signs: Blood pressure 115/53, pulse of 86, respirations 24, temperature 98.1 degrees, saturation of 96% on 100% FiO2. General Appearance: An obese white male, intubated. HEENT: Anicteric. Clear conjunctivae. Neck: Supple. No JVD. No bruit. Cardiovascular: S1 and S2. Normal rate and rhythm. No murmur, rubs, or gallops. Pulmonary: Clear to auscultation bilaterally. Gastrointestinal: Soft, nontender, nondistended. Normoactive bowel sounds. Musculoskeletal: No clubbing, cyanosis, or edema. LABORATORY DATA: Sodium 139, potassium 5.6, chloride 98, bicarbonate 23, BUN 100, creatinine of 4.2, glucose 190. ASSESSMENT AND PLAN: This is a 71-year-old white male, admitted to the hospital for pneumonia. 1. Bilateral pneumonia, the cause of his acute respiratory failure. The patient is on aztreonam and Teflaro. Infectious Disease is following. Pulmonology is following. He remains intubated. Pulmonary is managing his ventilator. 2. Acute renal failure with hyperkalemia and uremia. The patient is getting his dialysis today. We have held all of his diuretics, and we also started him on intravenous fluids yesterday, but we may have to cut down now that the patient is on dialysis. 3. Septic shock. He is on a dopamine drips secondary to pneumonia as above. CODE STATUS: The patient is still a full code. We will keep the family up-to-date. TIME SPENT: Total critical care time spent on this patient is 35 minutes.
--- NOTE | 2016-08-10 11:06 | PROGRESS NOTE ---
DATE: 08/10/2016 SUBJECTIVE: Mr. Santiago is resting quietly in bed. He has an improved blood pressure. His saturations have improved secondary to dialysis with removal of 4 L yesterday evening and ventilatory support. He remains on Levophed. This continues to be weaned down. He remains intubated and sedated. OBJECTIVE: His most recent vital signs, last temperature 97.2 degrees, blood pressure 141/59, heart rate is 88, and respirations 24. His last CVP recorded is 16. This is post dialysis. He has had 4622 in, he has had 4430 out with 4 L on dialysis. He continues to be approximately 8 L positive in the last 72 hours. LABORATORY DATA: This a.m. sodium 139, potassium 5.6, chloride 98, CO2 23, BUN 100, creatinine 4.2, glucose 190, calcium is 7.4, albumin is 2.3. His CPK yesterday was only 82. Patient had a hemoglobin of 9.4, with a 30 WBC yesterday. He is followed by Dr. Brennan Dotson. He has a CBC ordered, this is not resulted. ABGs this a.m., pH 7.14, CO2 73, PO2 91, bicarb 21.5. His lactate is slowly elevating at 1.6. He remains on 100% FiO2. His chest x-ray this a.m. continues to show pulmonary edema. No appreciable changes since the . PHYSICAL EXAM: General: This is a 71-year-old elderly white male. He remains sedated. He is in no acute distress. Skin: Warm and dry. HEENT: Atraumatic, normocephalic. His pupils are equal and reactive to light though slow and sluggish in response. Mucous membranes are dry. Neck: Supple. Trachea midline. Positive JVD. Cardiovascular: He appears in irregular rate and rhythm. He does have a soft systolic murmur. No gallop appreciated. Lungs: Continues with diminished breath sounds with faint inspiratory rhonchi. Continues on 100% FiO2. Equal excursion. Abdomen: Soft. No tenderness noted. Hypo bowel sounds. Extremities: He continues with 2+ edema to both lower and upper extremities up into the mid abdominal area. Extremities are cool to touch. Diminished pulses. Neurological: As mentioned above. ASSESSMENT AND PLAN: 1. Acute kidney injury. Patient was dialyzed yesterday evening to assist with his ventilatory support and fluid volume status. We will plan for dialysis again today. We will place him on SLED. He is to dialyze for [address] him on a 4 K bath, 27 bicarbonate. Again patient's blood pressure is doing well. We will attempt to pull 6-10 L of ultrafiltration as tolerated. Again, with blood pressure support of Levophed. We will also plan again for dialysis in the a.m. 2. Electrolytes and acid-base balance. Patient continues with hyperkalemia with correction on dialysis. Acidosis has slowly improved. He continues with slight elevated lactate. We will continue to monitor. 3. Anemia. This is improved. Patient was given 2 units of packed red blood cells. 4. Respiratory failure. Dr. Wheatley continues to monitor and follow. We will continue to assist with dialysis for fluid volume overload. 5. Leukocytosis. Patient is in septic shock. He continues on Zhang-Synephrine support. He is on renal dosed antibiotics with no indications for changes. I would to thank you for allowing us to follow with this patient. Seen, data reviewed, discussed with Tita Torres on 08/09/16. I agree with the above assessment and plan of care. rg Dictated by DANIELLA Watson for Iglesia Villalobos MD cc: DANIELLA Watson MD [facility]
[2016-08-10] MEDS ORDERED: STERILE WATER INJ. ONE (11:14)
[2016-08-10] MEDS ORDERED: NS 500 ML ONE (11:22)
[2016-08-10] MEDS: PROTONIX IV SCH (11:39)
--- NOTE | 2016-08-10 11:39 | PROGRESS NOTE ---
DATE: 08/10/2016 SUBJECTIVE: Patient continues on ventilator, sedated. Hemodialysis has been initiated. OBJECTIVE: Vital Signs: Blood pressure 115/53, heart rate 86 and regular with ECG monitor showing sinus rhythm. Oxygen saturation 96%. FiO2 on ventilator is 100% with a PEEP of 12.5. Chest: Auscultation of the chest reveals coarse breath sounds anteriorly. Cardiac Exam: Reveals a regular rate and rhythm without appreciable murmur or gallop. There is very mild edema. LABORATORY DATA: Includes BUN 100, creatinine 4.2. Recent limited follow-up echocardiography noteworthy for right-sided chamber enlargement with depressed right ventricular systolic function. Left ventricular systolic function is normal. IMPRESSIONS: 1. Respiratory failure. 2. Bilateral pneumonia. 3. Acute on chronic right-sided heart failure. 4. Acute renal failure on chronic renal failure. 5. Type 2 diabetes mellitus. 6. Obesity. 7. Hypertension. RECOMMENDATIONS: Agree with initiation of hemodialysis. Hopefully some significant volume can be removed which may improve his RV performance. cc: Braulio Dillard MD
--- NOTE | 2016-08-10 16:44 | PROGRESS NOTE ---
DATE: 08/10/2016 PRESENT ILLNESS: The patient is being treated for bilateral pneumonia. Yesterday he had a very high white count to 30,000. MEDICATIONS: This is day 5 of treatment with the combination of ceftaroline and aztreonam. The patient now has been treated for 29 days for his bilateral septic elbow arthritis. PHYSICAL EXAMINATION: Vital Signs: Temperature is 97.7, pulse 98, respirations 24, blood pressure 130/68. General: This is an ill-appearing, elderly male. He is in no acute distress. He is intubated and sedated. Lungs: Bilateral rhonchi. Cardiovascular: Heart rate is regular. Abdomen: Soft and nontender. Thorax: Patient has a Basilio catheter on the right side, and in the right groin he has a dialysis catheter. Both sites are not swollen or erythematous. LAB AND X-RAY: Chest x-ray shows findings compatible with pulmonary edema. Patient's blood gases show a pH of 7.14, a PO2 of 93, a pCO2 of 73. Creatinine 4.2. GFR is 14. Blood, urine and sputum cultures are negative. ASSESSMENT AND PLAN: The patient has respiratory failure. I think it is a combination of pulmonary venous congestion and pneumonia. The exact cause of his marked jump in his white count is uncertain to me at this time. My plan is to continue his current antibiotics and see if the patient's cultures show any infection. I plan to obtain a CBC and BMP tomorrow. COMORBIDITIES: The patient's comorbidities include being elderly, being a diabetic, and having congestive heart failure. cc: Brennan Dotson MD
[2016-08-10] MEDS: ADVAIR 250/50 DISKUS INH SCH (19:10)
[2016-08-11] MEDS: SODIUM CHLORIDE 0.9% INJ SCH (00:40)
[2016-08-11] MEDS: AZACTAM 0.5 GM in NS 50 ML IV SCH ×4 (00:40→23:44)
[2016-08-11] MEDS: SOLU-CORTEF IV SCH ×5 (00:40→23:44)
[2016-08-11] MEDS: VITAMIN C IV SCH ×4 (00:41→17:56)
[2016-08-11] MEDS: NS IV SCH ×4 (00:41→17:56)
[2016-08-11] MEDS: TEFLARO 200 MG in NS 250 ML IV SCH ×2 (03:20→15:44)
[2016-08-11] MEDS: DUONEB (A & A) INH SCH ×6 (03:30→22:57)
[2016-08-11 05:05] LABS: ALLEN TEST YES; BE -6.8 mmoll (-3.0-3.0); BLOOD TYPE ARTERIAL; DRAW SITE R RADIAL; METHB 0.7 % (0.0-1.5); O2(CT) 13.1 mL/dL (15.0-23.0); PO2(98.6) 156 mmHg (60-100); SAMPLE BLOOD; SRATE 24 BPM; THB 9.3 g/dL (11.5-17.4); TVOL 500 mL
[2016-08-11 05:07] LABS: pH(98.6) 7.18 (7.35-7.45)
[2016-08-11 05:08] LABS: MODALITY VENTILATOR; PCO2(98.6) 58 mmHg (35-45)
[2016-08-11] MEDS: THIAMINE 200 MG in NS 50 ML IV SCH ×2 (05:38→17:56)
[2016-08-11] MEDS: NIMBEX 80 MG in NS 160 ML IV SCH ×3 (05:55→21:10)
[2016-08-11] MEDS: NEO-SYNEPHRINE 100 MG in NS 500 ML IV SCH ×3 (06:05→23:21)
[2016-08-11] MEDS: ASPIRIN EC PO SCH ×2 (06:32→21:21)
[2016-08-11 06:40] LABS: ALBUMIN 2.3 g/dL (3.5-5.0); CALCIUM 7.6 mg/dL (8.8-10.2); POTASSIUM 5.8 mmol/L (3.5-5.1); TOTAL BILIRUBIN 0.22 mg/dL (0.20-1.00)
[2016-08-11 06:44] LABS: BASO% 0.1 % (0.0-0.8); EOS# 0.01 X1000 (0.0-0.7); EOS% 0.1 % (0.0-10.0); HEMATOCRIT 30.3 % (42.0-52.0); HEMOGLOBIN 8.7 g/dL (14.0-18.0); IMM GRAN# 0.24 X1000 (0.0-0.04); IMM GRAN% 1.6 % (0.0-0.5); LYMPH# 1.03 X1000 (1.2-3.4); LYMPH% 6.9 % (20.5-51.1); MANUAL DIFF NEEDED? NO; MCH 28.2 PG (27-31); MCHC 28.7 g/dL (33-37); MCV 98.1 FL (81-99); MONO# 1.18 X1000 (0.11-0.59); MONO% 7.9 % (1.7-9.3); MPV 11.9 FL (7.4-10.4); NEUT% 83.4 % (42.2-75.2); PLT 272 X1000 (130-400); RBC 3.09 XMIL (4.7-6.1)
[2016-08-11] MEDS ORDERED: NS 2,000 ML ONE (07:04)
[2016-08-11] MEDS ORDERED: HEPARIN ONE (07:04)
[2016-08-11] MEDS: HUMALOG SUBQ SCH ×4 (07:33→21:20)
[2016-08-11] MEDS: ADVAIR 250/50 DISKUS INH SCH ×2 (08:21→19:18)
[2016-08-11] MEDS: ZYLOPRIM PO SCH (08:48)
[2016-08-11] MEDS: LYRICA PO SCH ×2 (08:48→21:21)
[2016-08-11] MEDS: HYTRIN PO SCH (08:54)
[2016-08-11] MEDS: NS 1,000 ML IV SCH (08:55)
[2016-08-11] MEDS: TOPROL XL PO SCH (08:55)
--- NOTE | 2016-08-11 08:55 | Diag Imaging Result Doc PS360 ---
EXAM: CHEST-PORTABLE INDICATION: respiratory failure TECHNIQUE: One view COMPARISON: 08/10/2016 FINDINGS: ET tube and right central line are in stable position. NG tube projects below the diaphragm and out of the [id number]. Bilateral infiltrates most compatible with edema are stable. No new consolidations are appreciated. Cardiac silhouette is stable. IMPRESSION: Stable chest. Electronically signed by Randall Nelson 08/11/2016 8:53 AM
--- NOTE | 2016-08-11 10:20 | PROGRESS NOTE ---
DATE: 08/11/2016 SUBJECTIVE: The patient remained intubated. No acute event reported by the overnight staff. Still on 100% FiO2 and PEEP of 12, mechanical assist control. OBJECTIVE: Vital signs: Blood pressure is 95/38, pulse of 96, respirations 24, temperature of 97.8 degrees, saturation of 96% on 100% FiO2. General appearance: Obese white male intubated. HEENT: Anicteric sclerae. Clear conjunctivae. Neck: Supple. No JVD. No bruit. Cardiovascular: S1, S2. Normal rate and rhythm. No murmur, rubs, or gallops. Pulmonary: Clear to auscultation bilaterally. GI: Soft, nontender, nondistended. Normoactive bowel sounds. Musculoskeletal: No clubbing, cyanosis. There is 1+ pitting edema. Thrill. LABORATORY: White count today 14.89, hemoglobin 8.7, hematocrit of 30.3 ,platelets 272. Chemistry: Sodium 138, potassium 5.8, chloride 99, bicarbonate 22, BUN 63, creatinine 3.4, glucose of 188. ASSESSMENT AND PLAN: This is a 71-year-old admitted to the hospital for bilateral pneumonia: 1. Bilateral pneumonia. Acute respiratory failure. The patient is on broad-spectrum antibiotics with Teflaro and aztreonam. Tolerated the medication well. He is still on a pressure. 2. Acute renal failure. The patient is getting dialysis for the second day for volume overload. There was removal of about 3 L yesterday, and hopefully they can remove more fluid today. The patient is still very edematous. 3. History of gout. The patient is still on allopurinol. 4. Septic shock probably secondary to pneumonia. 5. Volume overload and heart failure. Cardiology is following. Probably acute systolic heart failure. We will continue with dialysis and hopefully we can remove volumes. The patient's kidney function is not functioning well. 6. Gastrointestinal prophylaxis. We will keep the patient on Protonix. 7. Diabetes type 2. Continue sliding scale insulin. 8. Deep vein thrombosis prophylaxis. Put the patient on sequential compression devices for now. Put the patient on Lovenox renal dose. CRITICAL CARE TIME: 35 minutes.
[2016-08-11] MEDS: LOVENOX SUBQ SCH (10:36)
--- NOTE | 2016-08-11 10:36 | PROGRESS NOTE ---
DATE: 08/11/2016 TIME SEEN: 0730 hours. SUBJECTIVE: Mr. Santiago is resting in bed. He remains sedated on ventilator dependence. He is currently being placed on dialysis for SLED. OBJECTIVE: His most recent vital signs: Last temperature 97.8 degrees, blood pressure 102/42, heart rate 93 respirations 24. He continues on 100% FiO2. His last recorded saturation is 93%. He has had 3480 in; he has had 8305 out with 8.3 L on dialysis. LABS: Sodium 138, potassium 5.8, chloride 99, CO2 22, BUN 63, creatinine 3.4, glucose 188, anion gap 17, calcium 7.6 albumin 2.3. White count 14.89, hemoglobin 8.7, hematocrit 30.3 with a platelet count of 272. ABGs: A pH 7.18, CO2 58, PO2 156, bicarbonate 19.7 with a lactate of 1.5. X-RAYS: Patient has had a chest x-ray this a.m. showing stable chest. Continues with bilateral infiltrates with edema. PHYSICAL EXAMINATION: General: This is a 71-year-old white male. He remains sedated. He is in no acute distress. He is ventilator dependent. Skin: Warm and dry. HEENT: Atraumatic, normocephalic. Pupils are equal and reactive to light. He remains sluggish in response. Mucous membranes are dry. Neck: Supple. Trachea midline. He continues with positive JVD. Cardiovascular: Slightly irregular rhythm. He continues with a soft systolic murmur. No gallop. Lungs: Diminished breath sounds posterior bases. Scattered rhonchi that does clear with suctioning. Continues on 100% FiO2. Equal excursion. NG tube remains intact and clamped. Abdomen: Has hypo bowel sounds as noted. Extremities: Continues with 2+ edema to both lower and upper extremities, all the way up from the lower into the mid abdominal region. Extremities lower continue cool to touch with diminished pulses. Neurological: As mentioned above. ASSESSMENT AND PLAN: 1. Acute kidney injury. Patient has had 2 dialysis treatments with an 8.3 L pulled yesterday. He remains 2 L positive as of today. We will plan for slow low efficiency dialysis. We will place him on a 3 K bath. He is to dialyze for 8 hours. We will attempt to pull 8 L of ultrafiltration as tolerated with Levophed support. We will then have him rest tomorrow and will plan to restart dialysis in the morning. 2. Electrolytes and acid-base balance. He continues with mild hyperkalemia. We will have placed him on a 3 K during his slow low efficiency dialysis treatment today. Will re-evaluate his labs in the morning. 3. Acidosis. His lactate level has improved. Anion gap is slowly closing, again with correction on dialysis. 4. Anemia. Patient was given 2 units of packed red blood cells. His hemoglobin is at 8.7. 5. Respiratory failure. This continues to be followed by Dr. Wheatley. We have noted that patient is taking in approximately 3.5-3.8 L in 24 hours. We will stop his normal saline which is keep vent open for his intravenous antibiotics. We have requested the nurses to check with pharmacy on any concentrations that we can make to decrease his intake. We will continue to support patient on dialysis and will attempt 8 L today. 6. Leukocytosis. Patient remains in shock with Zhang-Synephrine support. Patient continues on renal-dosed antibiotics. I would like to thank you for allowing us to follow with this patient. Dictated by DANIELLA Watson for Iglesia Villalobos MD cc: DANIELLA Watson MD [facility]
--- NOTE | 2016-08-11 12:16 | PROGRESS NOTE ---
DATE: 08/11/2016 SUBJECTIVE: Mr. Santiago is not responsive today. Currently, he is on sedation as well as paralytic medications. He is currently on the ventilator. PHYSICAL EXAMINATION: Vital signs: He is afebrile. His heart rates are in the 80s to 90s. Presently, he is in sinus rhythm in the 90s. Blood pressure 95/38 most recently. General: He is in no acute distress. Again, he is on paralytics. Cardiovascular: He sounds to be in a regular rate and rhythm. No obvious murmur. Somewhat distant heart sounds. Chest: Exam sounds relatively clear. Mechanical breath sounds are heard throughout. No lower extremity edema. Abdomen: Soft, nontender, nondistended. No obvious organomegaly. Skin: Exam is warm and dry throughout. PERTINENT DATA: White count 14.9, hematocrit is 30, platelet count is 272. His ABG shows a pH of 7.18, pCO2 of 58, pO2 of 156--that is on an FiO2 of 100%. His A-a gradient is 485, which is down from 531 yesterday. Sodium 138, potassium 5.8, BUN 63, creatinine 3.4. He is currently on hemodialysis. ASSESSMENT: 1. Respiratory failure 2. Bilateral pneumonia. 3. Right-sided heart failure. 4. Acute renal failure. PLAN: Agree with dialysis. He continues to get fluid drawn off. He continues on antibiotics. I have no acute cardiovascular recommendations. His last echocardiogram was a limited study performed on the that demonstrated a normal LV function with mild dilatation of the right ventricle and mild reduction in RV systolic function, although his IVC appeared to be normal in size. Collapse was not assessed on that study. No pericardial effusion was identified. cc: Ernesto Sorto MD
[2016-08-11] MEDS: PROTONIX IV SCH (12:22)
[2016-08-11] MEDS: FENTANYL 1,000 MICROGM in NS 80 ML IV SCH (14:49)
[2016-08-11] MEDS ORDERED: NS 500 ML ONE (17:51)
[2016-08-11] MEDS: SODIUM BICARBONATE 8.4% IV PUSH SCH ×2 (17:56→23:44)
[2016-08-11] MEDS ORDERED: STERILE WATER INJ. ONE (23:25)
[2016-08-12] MEDS: ADVAIR 250/50 DISKUS INH SCH ×2 (00:08→07:17)
[2016-08-12] MEDS: VITAMIN C IV SCH ×2 (00:32→05:01)
[2016-08-12] MEDS: NS IV SCH ×2 (00:32→05:01)
[2016-08-12] MEDS: TEFLARO 200 MG in NS 250 ML IV SCH ×2 (03:05→16:10)
[2016-08-12] MEDS: DUONEB (A & A) INH SCH ×6 (03:39→23:14)
[2016-08-12] MEDS: SODIUM BICARBONATE 8.4% IV PUSH SCH ×5 (04:00→23:54)
[2016-08-12 04:24] LABS: ALLEN TEST YES; BLOOD TYPE ARTERIAL; DRAW SITE R RADIAL; METHB 0.7 % (0.0-1.5); O2(CT) 14.8 mL/dL (15.0-23.0); PO2(98.6) 86 mmHg (60-100); SAMPLE BLOOD; SAO2 97.9 % (95.0-100.0); SRATE 24 BPM; THB 10.9 g/dL (11.5-17.4); TVOL 500 mL
[2016-08-12 04:26] LABS: MODALITY VENTILATOR
[2016-08-12 04:27] LABS: PCO2(98.6) 78 mmHg (35-45); pH(98.6) 7.09 (7.35-7.45)
[2016-08-12 04:28] LABS: HEMATOCRIT 33.8 % (42.0-52.0); HEMOGLOBIN 9.7 g/dL (14.0-18.0); MCH 28.4 PG (27-31); MCHC 28.7 g/dL (33-37); MCV 98.8 FL (81-99); MPV 11.5 FL (7.4-10.4); RBC 3.42 XMIL (4.7-6.1)
[2016-08-12 04:41] LABS: IRON SATURATION 64 %; TIBC 154 ug/dL; TOTAL IRON 99 ug/dL (53-167); UNBOUND IRON 55 ug/dL (112-346)
[2016-08-12 04:58] LABS: ALBUMIN 2.5 g/dL (3.5-5.0); CALCIUM 7.7 mg/dL (8.8-10.2); POTASSIUM 5.3 mmol/L (3.5-5.1); TOTAL BILIRUBIN 0.27 mg/dL (0.20-1.00); TOTAL PROTEIN 6.3 g/dL (6.3-8.3)
[2016-08-12] MEDS: NIMBEX 80 MG in NS 160 ML IV SCH ×3 (05:01→18:22)
[2016-08-12] MEDS: THIAMINE 200 MG in NS 50 ML IV SCH (05:41)
[2016-08-12] MEDS: SOLU-CORTEF IV SCH ×4 (05:42→17:58)
[2016-08-12 05:50] LABS: FERRITIN 2507 ng/mL (30-400)
[2016-08-12] MEDS: NEO-SYNEPHRINE 100 MG in NS 500 ML IV SCH ×3 (06:20→19:44)
[2016-08-12] MEDS: HUMALOG SUBQ SCH ×4 (06:21→20:44)
[2016-08-12] MEDS: AZACTAM 0.5 GM in NS 50 ML IV SCH ×3 (07:26→23:54)
[2016-08-12] MEDS: LYRICA PO SCH ×2 (08:05→20:44)
[2016-08-12] MEDS: ZYLOPRIM PO SCH (08:06)
--- NOTE | 2016-08-12 08:25 | Diag Imaging Result Doc PS360 ---
EXAM: CHEST-PORTABLE INDICATION: respiratory failure TECHNIQUE: One view COMPARISON: 08/11/2016 FINDINGS: ET tube and right central line are in stable position. The NG tube projects below the diaphragm and out of the [id number]. Diffuse bilateral infiltrates are essentially stable. No new consolidation is appreciated. The cardiac silhouette is stable. IMPRESSION: Essentially stable chest. Electronically signed by Randall Nelson 08/12/2016 8:23 AM
[2016-08-12] MEDS: HYTRIN PO SCH (09:01)
[2016-08-12] MEDS: LOVENOX SUBQ SCH (10:23)
[2016-08-12] MEDS ORDERED: VANCOMYCIN 1 GM/NS 1 GM/250 ML IVPB IV ONE (11:36)
--- NOTE | 2016-08-12 11:38 | PROGRESS NOTE ---
DATE: 08/12/2016 SUBJECTIVE: The patient is sedated. Remains intubated and ventilated. OBJECTIVE: Vital Signs: Temperature 98.9 degrees, pulse 108, respiratory rate 24, blood pressure 114/47. He remains on Zhang-Synephrine. Intake 4.9 L, output 8 L. He has a total of about 20 L off with SLED over the last 3 days. Physical Examination: General: Elderly gentleman resting in bed. Currently sedated and mechanically ventilated. HEENT: Normocephalic, atraumatic. Orally intubated. Pupils are equal and reactive. Neck: Supple. Trachea midline. He continues to have JVD. Cardiovascular: Irregular rhythm. Systolic murmur. Remains on pressor support. Pulmonary: Mechanically ventilated. He has decreased breath sounds to the bases. He has some rhonchi bilaterally. There is no overt wheeze. He is on 90% FiO2. Abdomen: Soft, with positive bowel sounds. : Not inspected. Minimal void. Extremities: There is 2+ pretibial edema bilaterally of lower extremities that extends to the waist area. Integumentary: Skin is pale, warm, and dry. Dialysis insertion site clean, dry, and intact. Lab Data: WBC of 24.7, hemoglobin 9.7. Sodium 139, potassium 5.3, CO2 23, BUN 48, creatinine 3. ASSESSMENT AND PLAN: 1. Acute kidney injury requiring dialysis for fluid volume removal. We have ran the patient on SLED for the last 3 days. We are holding dialysis today. We will plan to restart in the morning. 2. Electrolytes, acid-base balance. These have been acceptable. 3. Anemia, stable. 4. Acidosis. This is respiratory. CO2 metabolically is target. 5. Respiratory failure. Followed by pulmonology. We will continue to support the patient on SLED in an effort to advance his chances for successful extubation. 6. Leukocytosis. Remains in shock. He is on appropriately dosed antibiotics. Dictated by DANIELLA Gautam for Iglesia Villalobos MD cc: Iglesia Villalobos MD
[2016-08-12] MEDS: NS 1,000 ML IV SCH (12:03)
[2016-08-12] MEDS: PROTONIX IV SCH (12:03)
--- NOTE | 2016-08-12 13:49 | PROGRESS NOTE ---
DATE: 08/12/2016 SUBJECTIVE: The patient continues to be sedated, intubated and paralyzed. PHYSICAL EXAMINATION: Vital signs: He is febrile as high as 100.6 most recently at 12:45. His heart rates are somewhat elevated in the 100s to 110s. This appears to be sinus based on the monitor. His blood pressures have been in the 90s to 110 systolic over 40s diastolic. General: No acute distress. Again, he is sedated and paralyzed. Cardiovascular: He is in a mildly tachycardic but regular rhythm. No obvious murmurs. He has no S3. Chest Exam: Has coarse breath sounds with mechanical breath sounds heard throughout. Abdomen: Soft, nontender, nondistended. PERTINENT DATA: White count is 24.7 which has climbed, his hematocrit is 33.8, platelet count is 418,000. His ABG shows a pH of 7.09 pCO2 of 78. He has a lactate level 1.7. Sodium 139, potassium 5.3, BUN 48, creatinine 3.0. ASSESSMENT: 1. Respiratory failure. 2. Renal failure. 3. Volume overload. PLAN: Patient continues to deteriorate. He is not currently receiving dialysis on Zhang- Synephrine. I do not have any acute recommendations from a cardiovascular standpoint. cc: Ernesto Sorto MD
--- NOTE | 2016-08-12 14:11 | PROGRESS NOTE ---
DATE: 08/12/2016 SUBJECTIVE: The patient remains intubated. His daughter was at the bedside. All questions were invited and entertained. No acute event reported. The patient is still on the pressor. OBJECTIVE: Vital signs: Blood pressure 95/42, pulse 114, respirations 24, temperature 99.4 degrees, saturations of 92% on 90% FiO2 assist control. General appearance: Obese white male intubated. HEENT: Has OG tube in place. Anicteric, clear conjunctivae. Neck: Supple. No JVD. No bruit. Cardiovascular: S1, S2. Normal rate and rhythm. No murmurs, rubs, or gallop. Pulmonary: Crackle bilaterally. GI: Soft, obese, nontender, nondistended. Normoactive bowel sounds. Musculoskeletal: No clubbing, cyanosis or edema. LABORATORY: White count today 24.71, hemoglobin 9.7, hematocrit 33.8, platelets of 418,000. Chemistry, sodium 139, potassium 5.3, chloride 100, bicarb 25, BUN 48, creatinine 3.0. ASSESSMENT AND PLAN: This is a 71-year-old white male admitted to the hospital for pneumonia. 1. Bilateral pneumonia and sepsis. The patient is on pressor currently and also on and aztreonam. ID is following. Pulmonology is following. Chest x-ray today did not showed any interval worsening, is stable. 2. Acute renal failure. The patient received dialysis Saturday and Saturday and he may need dialysis again tomorrow but will monitor and nephrology is following. 3. Multiorgan system failure. He carries high mortality risk. Family was kept informed. 4. Prophylaxis. The patient on Lovenox. 5. Gastrointestinal prophylaxis. The patient is on Protonix. 6. Benign prostatic hypertrophy. Continue Hytrin. CODE STATUS: The patient is a full.
[2016-08-12] MEDS: ATIVAN IV PRN (16:19)
[2016-08-12] MEDS: FENTANYL 1,000 MICROGM in NS 80 ML IV SCH (16:33)
[2016-08-12] MEDS: TYLENOL PO PRN (17:48)
[2016-08-12] MEDS: ASPIRIN EC PO SCH (20:43)
[2016-08-13] MEDS: NIMBEX 80 MG in NS 160 ML IV SCH ×4 (00:26→19:15)
[2016-08-13] MEDS: NEO-SYNEPHRINE 100 MG in NS 500 ML IV SCH ×3 (00:27→16:29)
[2016-08-13] MEDS: DUONEB (A & A) INH SCH ×6 (02:50→23:14)
[2016-08-13] MEDS: TEFLARO 200 MG in NS 250 ML IV SCH (03:09)
[2016-08-13] MEDS ORDERED: HEPARIN ONE (07:32)
[2016-08-13] MEDS ORDERED: NS 2,000 ML ONE (07:32)
--- NOTE | 2016-08-13 07:33 | EKG Report ---
Test Performed on : 08/12/2016 04:30:29 AM Test Reason : RHYTHM CHANGE Blood Pressure : / mmHG Vent. Rate : 141 BPM Atrial Rate : 141 BPM P-R Int : 000 ms QRS Dur : 114 ms QT Int : 326 ms P-R-T Axes : 000 019 -21 degrees QTc Int : 499 ms Supraventricular tachycardia. Right bundle branch block Inferior infarct (cited on or before 02-AUG-2016) Abnormal ECG When compared with ECG of 02-AUG-2016 18:30, Right bundle branch block is now present Confirmed by Andres BARR, Arsh Ordaz ([id number]) on 08/14/2016 6:20:23 PM
[2016-08-13] MEDS: ADVAIR 250/50 DISKUS INH SCH ×2 (07:34→09:17)
[2016-08-13 07:51] LABS: HEMATOCRIT 32.4 % (42.0-52.0); HEMOGLOBIN 9.4 g/dL (14.0-18.0); MCH 29.3 PG (27-31); MCV 100.9 FL (81-99); MPV 12.7 FL (7.4-10.4); RBC 3.21 XMIL (4.7-6.1)
--- NOTE | 2016-08-13 08:05 | Diag Imaging Result Doc PS360 ---
CHEST-PORTABLE - 08/13/2016 INDICATION: respiratory failure TECHNIQUE: COMPARISON: 08/12/2016 FINDINGS: Support lines and tubes are stable. Stable cardiomegaly. Stable diffuse infiltrate throughout the lungs bilaterally compatible with pulmonary edema. There are probably pleural effusions stable from prior. IMPRESSION: No change from prior. Electronically signed by Luis Eduardo Villalta 08/13/2016 8:02 AM
[2016-08-13 08:06] LABS: ALLEN TEST YES; BE -1.5 mmoll (-3.0-3.0); BLOOD TYPE ARTERIAL; DRAW SITE R RADIAL; METHB 0.9 % (0.0-1.5); O2(CT) 13.2 mL/dL (15.0-23.0); PO2(98.6) 97 mmHg (60-100); SAMPLE BLOOD; SRATE 28 BPM; THB 9.6 g/dL (11.5-17.4); TVOL 500 mL
[2016-08-13 08:14] LABS: ALBUMIN 2.5 g/dL (3.5-5.0); CALCIUM 7.7 mg/dL (8.8-10.2); POTASSIUM 5.1 mmol/L (3.5-5.1); TOTAL BILIRUBIN 0.27 mg/dL (0.20-1.00)
[2016-08-13] MEDS: SOLU-CORTEF IV SCH ×2 (09:18→18:18)
[2016-08-13] MEDS: HUMALOG SUBQ SCH ×4 (09:20→20:31)
[2016-08-13] MEDS: AZACTAM 0.5 GM in NS 50 ML IV SCH (09:20)
[2016-08-13] MEDS: HYTRIN PO SCH (09:21)
--- NOTE | 2016-08-13 09:25 | PROGRESS NOTE ---
DATE: 08/13/2016 SUBJECTIVE: Mr. Santiago is intubated he is about to get hemodialysis. He is on a little bit of Levophed. Blood pressure looks good. OBJECTIVE: Vital Signs: Remains afebrile. Temperature 98.6, pulse 98, respirations 20, blood pressure 116/55. Eyes: Pupils were equal and round. Neck: CVP less than 6 cm. Lungs: Clear in all lung gaston. Cardiovascular: Regular rhythm and rate without murmur or S3. Urine output from yesterday, over 4 L. LAB: From this morning, white count elevated 29,140, hematocrit 32, platelet count 332,000. Chemistry: Sodium 146, potassium 5.1, chloride 103, BUN 78, creatinine 4.3, blood sugars 235, 176, 234. Albumin is 2.5. Chest x-ray. No change. Support lines and tubes are stable. Stable cardiomegaly. Stable diffuse infiltrates throughout the lungs, bilateral compatible with pulmonary edema. Probable pleural effusions which were stable. ASSESSMENT AND PLAN: 1. Respiratory failure on ventilator. Continued renal failure complicating. Will need to try and dialyze some fluid off. Blood pressure has been good with a small amount of Levophed. 2. Acute kidney injury on top of chronic kidney disease. Suspect acute tubular necrosis. Will need to have the help of hemodialysis. 3. Volume overload. 4. Bilateral pneumonia, continue present antibiotics. 5. Recent right total knee arthroplasty and bilateral olecranon bursitis infections, that have been managed. Review again of lab. Creatinine 4.3, blood sugars have been fairly well controlled. Review of orders. Is on ceftaroline 200 mg IV q.12, aztreonam 0.5 g IV q.8, hydrocortisone 50 mg IV q.12. Vancomycin has been discontinued. cc: Lonnie Encarnacion MD
[2016-08-13] MEDS: LOVENOX SUBQ SCH (09:26)
[2016-08-13] MEDS: ZYLOPRIM PO SCH (09:27)
[2016-08-13] MEDS: LYRICA PO SCH ×2 (09:27→20:22)
[2016-08-13] MEDS: NS 1,000 ML IV SCH (09:29)
[2016-08-13 09:39] LABS: MODALITY VENTILATOR
--- NOTE | 2016-08-13 10:26 | PROGRESS NOTE ---
DATE: 08/13/2016 TIME SEEN: 0700. SUBJECTIVE: Mr. Santiago remains ventilator dependent with sedation. OBJECTIVE: His most recent vital signs: Last temperature 96.6 degrees, blood pressure 142/59, heart rate 98, respirations 28. He is on 90% FiO2. Last recorded saturation 94 %. His CVP this a.m. is 14. He has had 4559 In. He has had 0 recorded out. LABORATORY DATA: Sodium 146, potassium 5.1, chloride 103, CO2 of 25. BUN 78, creatinine 4.3, glucose 176. Anion gap of 18, calcium 7.7, albumin 2.5. White count 29.14, hemoglobin 9.4, hematocrit 32.4, platelet count 332,000. ABGs: pH 7.13, CO2 of 87, PO2 of 97, bicarb 23.8, with a lactate of 1.1. His most recent chest x-ray this a.m. shows no change from prior. Continues with diffuse infiltrates throughout lungs bilateral with pulmonary edema. Pleural effusions stable. PHYSICAL EXAMINATION: General: This is a 71-year-old white male. He remains ventilator dependent. He is in no acute distress. He remains sedated. Skin is warm and dry. HEENT: Atraumatic, normocephalic. Conjunctivae pale. ANGELA. Mucous membranes are moist. NG tube orally with tube feedings. Neck is supple. Trachea midline. Continues with positive JVD. Cardiovascular: He has a regular pattern today. Continues with soft systolic murmur. No gallop. Lungs are clear to auscultation bilateral with scattered rhonchi posterior. Remains ventilator dependent. Equal excursion. NG tube remains intact. It now is attached to tube feedings of Nepro at 30 mL an hour. Abdomen is round, soft. No tenderness noted. Hypo- bowel sounds continue. Genitourinary: Fermin catheter is in place. No urine out. Extremities: Has continued 2+ edema up into the mid thigh/lower abdominal cavity area. Cool to touch. Diminished pulses. He has some edema to the elbows and to the upper extremities. Neurologic: As mentioned above. ASSESSMENT AND PLAN: 1. Acute kidney injury. The patient remains in need of dialysis. No urine out. He is in fluid volume overload. We will place him on sustained low-efficiency dialysis today. He is to be on a 4 K bath. We will dialyze him for 8 hours. We will attempt to pull 8 L. We will also plan for dialysis in the morning to assist with his fluid volume overload and possible assistance with his respiratory status. 2. Electrolytes and acid-base balance. Patient remains stable. Continue with dialysis intervention. 3. Anemia. This remains stable at 9.4. 4. Leukocytosis. Patient remains in septic shock. He continues on Hzang- Synephrine support. He is on renal dosed antibiotics. He remains on pressor and ventilatory support. No indications for any changes. I would to thank you for allowing us to follow with this patient. Dictated by DANIELLA Watson for Iglesia Villalboos MD cc: DANIELLA Watson MD [facility]
--- NOTE | 2016-08-13 13:02 | PROGRESS NOTE ---
DATE: 08/13/2016 SUBJECTIVE: Patient continues on ventilator and is sedated. He continues to receive hemodialysis. He is on intravenous Zhang-Synephrine for blood pressure support. OBJECTIVE: Vital Signs: Blood pressure 112/47, heart rate 99 and regular with ECG monitor showing sinus rhythm. CVP 14. Oxygen saturation 92% on FiO2 of 90%. Chest: Auscultation of chest reveals coarse breath sounds bilaterally. Cardiac Exam: Reveals a regular rate and rhythm without appreciable murmur or gallop. 2+ edema is present. IMPRESSION: 1. Respiratory failure. 2. Bilateral pneumonitis. 3. Acute renal failure on chronic kidney disease. 4. Acute on chronic right heart failure. RECOMMENDATIONS: Continue efforts to remove volume with hemodialysis. Consider use of Levophed over Zhang-Synephrine to potentially gain some ionotropic effect. cc: Braulio Dillard MD
[2016-08-13 13:33] LABS: HEPATITIS PROFILE ACUTE SEE COMMENTS
[2016-08-13] MEDS: ATIVAN IV PRN (14:44)
--- NOTE | 2016-08-13 14:55 | PROGRESS NOTE ---
DATE: 08/13/2016 PRESENT ILLNESS: The patient is seen. He has a very high white count. He has bilateral pulmonary infiltrates that could be due to pulmonary edema, but I also think pneumonia is a possibility. MEDICATIONS: This is the 8th day of treatment with a combination of ceftaroline and aztreonam. This is day 32 of treatment for the patient's bilateral septic elbow arthritis. PHYSICAL EXAMINATION: Vital Signs: Temperature is 98.4 degrees, pulse 137, respirations 28, blood pressure 132/65. Generally: This is a is a very ill-appearing, elderly male. He is intubated and sedated. Neck: No meningismus. Thorax: Patient has a Basilio catheter on the right side. The site is not erythematous or swollen. Lungs: Clear to auscultation. Cardiovascular: Regular heart rate. Abdomen: Soft and nontender. In the right groin there is an IV catheter for hemodialysis. The groin site is not erythematous or purulent. LABORATORY AND X-RAY: Patient's CBC today shows a white count of 29,140, hemoglobin 9.4, and platelet count 332,000. Blood gases show a pH of 7.13, a PO2 and pCO2 of 87. Creatinine is 4.3. GFR is 14. Blood, urine and sputum cultures are negative. Chest x-ray is read as compatible with pulmonary edema. ASSESSMENT AND PLAN: 1. The patient has sepsis. I have switched him to a combination of vancomycin and meropenem, the doses of which have been modified because of the patient's renal failure. 2. Comorbidities in this patient include being elderly, having diabetes mellitus and congestive heart failure. cc: Brennan Dotson MD
[2016-08-13] MEDS: SODIUM CHLORIDE 0.9% INJ SCH (15:22)
[2016-08-13] MEDS: PROTONIX IV SCH (15:22)
[2016-08-13] MEDS: MERREM 1 GM in NS 50 ML IV SCH (15:24)
[2016-08-13] MEDS ORDERED: LANOXIN IV ONE ×2 (15:29→23:40)
[2016-08-13] MEDS: LEVOPHED 8 MG in D5 1/2 NS 250 ML IV SCH ×2 (15:58→20:09)
[2016-08-13] MEDS: VANCOMYCIN 1 GM/NS 1 GM/250 ML IVPB IV SCH (16:05)
[2016-08-13] MEDS: FENTANYL 1,000 MICROGM in NS 80 ML IV SCH (17:00)
[2016-08-13] MEDS ORDERED: NS 500 ML ONE (17:56)
[2016-08-13] MEDS: LACRI-LUBE OPH OINT OPH PRN (18:15)
[2016-08-13] MEDS: TYLENOL PO PRN (20:22)
[2016-08-13] MEDS: ASPIRIN EC PO SCH (20:22)
[2016-08-13 20:28] LABS: PCO2(98.6) 87 mmHg (35-45); pH(98.6) 7.13 (7.35-7.45)
[2016-08-14] MEDS: NIMBEX 80 MG in NS 160 ML IV SCH ×5 (00:46→21:48)
[2016-08-14] MEDS: ATIVAN IV PRN ×2 (00:47→12:22)
[2016-08-14] MEDS: LEVOPHED 8 MG in D5 1/2 NS 250 ML IV SCH (00:47)
[2016-08-14] MEDS: MERREM 1 GM in NS 50 ML IV SCH ×2 (02:10→15:09)
[2016-08-14] MEDS: LACRI-LUBE OPH OINT OPH PRN ×2 (02:13→11:48)
[2016-08-14] MEDS: DUONEB (A & A) INH SCH ×6 (03:14→23:19)
[2016-08-14] MEDS: ADVAIR 250/50 DISKUS INH SCH ×2 (03:14→07:53)
[2016-08-14 04:37] LABS: ALLEN TEST YES; BE -9.3 mmoll (-3.0-3.0); BLOOD TYPE ARTERIAL; DRAW SITE R RADIAL; O2(CT) 17.5 mL/dL (15.0-23.0); PO2(98.6) 74 mmHg (60-100); SAMPLE BLOOD; SAO2 98.1 % (95.0-100.0); SRATE 28 BPM; THB 13.2 g/dL (11.5-17.4); TVOL 500 mL
[2016-08-14 04:38] LABS: MODALITY VENTILATOR; PCO2(98.6) 74 mmHg (35-45); pH(98.6) 7.08 (7.35-7.45)
[2016-08-14] MEDS: LEVOPHED 16 MG in D5 1/2 NS 500 ML IV SCH ×2 (05:34→17:02)
[2016-08-14] MEDS: SODIUM CHLORIDE 0.9% INJ SCH ×3 (05:35→15:07)
[2016-08-14] MEDS: SOLU-CORTEF IV SCH ×2 (05:35→18:05)
[2016-08-14] MEDS: HUMALOG SUBQ SCH ×4 (06:12→20:59)
[2016-08-14 06:32] LABS: HEMATOCRIT 32.8 % (42.0-52.0); HEMOGLOBIN 9.3 g/dL (14.0-18.0); MCH 28.9 PG (27-31); MCHC 28.4 g/dL (33-37); MCV 101.9 FL (81-99); MPV 12.8 FL (7.4-10.4); RBC 3.22 XMIL (4.7-6.1)
[2016-08-14 06:43] LABS: ALBUMIN 2.6 g/dL (3.5-5.0); CALCIUM 7.8 mg/dL (8.8-10.2); TOTAL BILIRUBIN 0.3 mg/dL (0.20-1.00); TOTAL PROTEIN 5.9 g/dL (6.3-8.3)
[2016-08-14 06:47] LABS: POTASSIUM 6.4 mmol/L (3.5-5.1)
[2016-08-14] MEDS ORDERED: HEPARIN ONE (07:25)
[2016-08-14] MEDS ORDERED: NS 2,000 ML ONE (07:26)
--- NOTE | 2016-08-14 07:55 | Diag Imaging Result Doc PS360 ---
EXAM: CHEST-PORTABLE - 08/14/2016 HISTORY: respiratory failure TECHNIQUE: Portable chest 0500 COMPARISON: 08/13/2016 FINDINGS: There is an endotracheal tube with its tip approximately 5.6 cm above the heena. There is a nasogastric tube which appears to extend to the stomach. There is a possible electrical device with its tip in the distal esophagus. Central venous catheter remains in place. There is stable mild cardiomegaly. There is stable mild prominence of vascular markings and mild basilar subsegmental atelectasis. There are no acute changes identified. IMPRESSION: Stable exam compared to prior. Mild prominence of vascular markings and mild basilar subsegmental atelectasis. Electronically signed by Dave Madison 08/14/2016 7:52 AM
[2016-08-14] MEDS: LYRICA PO SCH ×2 (09:27→20:58)
[2016-08-14] MEDS: HYTRIN PO SCH (09:27)
[2016-08-14] MEDS: ZYLOPRIM PO SCH (09:27)
[2016-08-14] MEDS: NS 1,000 ML IV SCH (09:29)
[2016-08-14] MEDS: LOVENOX SUBQ SCH (09:30)
--- NOTE | 2016-08-14 10:03 | PROGRESS NOTE ---
DATE: 08/14/2016 PRESENT ILLNESS: The patient is critically ill. His white count is going higher. He has bilateral pulmonary infiltrates that could be due to pulmonary edema, pneumonia, or a combination of both. MEDICATIONS: This is day 1 of treatment with meropenem and vancomycin. This is day 33 of total treatment for the patient's bilateral septic elbow arthritis. PHYSICAL EXAMINATION: Vital Signs: Temperature is 98.8 degrees, pulse 123, respirations 28, blood pressure 104/40. General: This is a very ill-appearing, elderly male. He is intubated and sedated. Lungs: There was bilateral rhonchi. Cardiovascular: Regular heart rate. Abdomen: Soft and nontender. In the right groin, the patient has an IV dialysis catheter. The site is not swollen or apparently tender. Thorax: The patient has a Basilio catheter in place on the right side. The site is not erythematous or draining. LAB AND X-RAY: The patient's CBC today shows that the white count is increased to 32,540, hemoglobin 9.3, and platelet count 271,000. Blood gases show a pH of 7.08, a PO2 of 74, a pCO2 of 74. Creatinine is 3.4. The GFR is 18. ASSESSMENT AND PLAN: Patient is in septic shock. I plan to continue vancomycin and meropenem. Today, I have added micafungin. COMORBIDITIES: Include being elderly, being diabetic, and having congestive heart failure. The patient also now has developed multiple system failure including renal failure and pulmonary failure. cc: Brennan Dotson MD
--- NOTE | 2016-08-14 11:34 | PROGRESS NOTE ---
DATE: 08/14/2016 SUBJECTIVE: Patient continues critically ill. He is sedated and remains on a ventilator with significant support to enhance oxygenation. He is also on intravenous Levophed for blood pressure support. He is receiving dialysis today. Nursing staff reports dark NG aspirate. OBJECTIVE: Vital Signs: Blood pressure 104/40, heart rate 120, with ECG monitor showing sinus tachycardia. He reportedly had some SVT overnight. Oxygen saturation 99% on an FiO2 of 90% with a PEEP of 12.5. Neck: There is no significant jugular venous distention. Chest: Auscultation of chest reveals coarse breath sounds bilaterally. Cardiac Examination: Reveals a regular rate and rhythm without appreciable murmur or gallop. Abdomen: Soft. Extremities: Demonstrate mild edema. Laboratory Data: Noteworthy for a white blood cell count of 32.5, hematocrit 32.8. PH 7.08 with a pCO2 of 74 and a PO2 of 74. Bicarb 17.6, BUN 55, creatinine 3.4. AST 43 and ALT 24. IMPRESSION: 1. Respiratory failure. 2. Bilateral pneumonia. 3. Acute renal failure on chronic kidney disease. 4. Acute on chronic right heart failure. RECOMMENDATIONS: 1. Continue to remove volume via hemodialysis as tolerated. 2. Continue Levophed for pressor support. 3. Add Pepcid for ulcer prophylaxis in addition to proton pump inhibitor. 4. Minimize IV fluids as best possible. cc: Braulio Dillard MD
--- NOTE | 2016-08-14 14:17 | PROGRESS NOTE ---
DATE: 08/14/2016 SUBJECTIVE: He is about to get dialyzed again. He is on the ventilator. OBJECTIVE: Temperature is 98.8, pulse 123, respirations 20, blood pressure 104/40. Pupils are equal and round. Lungs are clear in all lung gaston. Cardiovascular: Regular rhythm and rate without murmur or S3. Abdomen: Soft. Skin: Warm and dry. He is on max Levophed. Blood pressure is staying in the 90s and 100s. DIAGNOSTIC DATA: White count is 32,540, hematocrit 32, platelet count 271,000. Chemistry shows sodium 137, potassium 6.4, chloride 100, bicarb 22, BUN is 65, creatinine 3.4, blood sugar is 151, 89 and 216. Chest x-ray, stable exam, mild prominence of vascular markings, mild basilar segmental atelectasis. ASSESSMENT AND PLAN: 1. Very high white count, bilateral pulmonary infiltrates, due to pulmonary edema. I also think that pneumonia is prominent, though. We will continue combination ceftaroline and aztreonam. is the second day of treatment for the patient's septic elbow on left side. Continue present antibiotics. 2. Respiratory failure, on ventilator and large response in volume overload as well. 3. Volume overload, pulmonary edema with renal insufficiency, acute kidney injury. Continue dialysis. We will use a low potassium bath because of hyperkalemia. 4. Hypotension. On Levophed. Continue present regimen he is on. His vancomycin after dialysis is 1 g, Hytrin 5 mg q.a.m., Lyrica 75 mg b.i.d., Protonix 40 mg IV daily, meropenem 1 g q.12, hydrocortisone 50 mg IV q.12, fluticasone 1 puff b.i.d., he is on fentanyl IV 50 mcg q.1 hour p.r.n. cc: Lonnie Encarnacion MD
[2016-08-14] MEDS: PEPCID IV SCH (15:04)
[2016-08-14] MEDS: PROTONIX IV SCH (15:07)
--- NOTE | 2016-08-14 15:07 | PROGRESS NOTE ---
DATE: 08/14/2016 TIME SEEN: 07:30. SUBJECTIVE: Mr. Santiago is resting quietly in bed. He remains sedated with ventilator dependence. OBJECTIVE: His most recent vital signs: Temperature is 98.8 degrees, blood pressure 110/50, heart rate 126, respiration is 28. Patient has had 2654 in, he has had 6975 out per dialysis. He has had a CVP this a.m. of 11. LABORATORY DATA: Sodium 137, potassium 6.4, chloride 100, CO2 22, BUN 55, creatinine 3.4, glucose 216. Anion gap 15, calcium 7.8, albumin 2.6. White count 32.5, hemoglobin 9.3 , hematocrit 32.8, with a platelet count 271,000. He has a PTT of 32.4. ABGs; pH 7.08, CO2 74, PO2 74, bicarb 17.6. Patient remains on 90% FiO2. Patient is 91% saturations. His lactate is 1.5 today. Blood cultures are essentially negative. PHYSICAL EXAMINATION: General: This is a 71-year-old white male. He is in no acute distress. He remains ventilator dependent. Skin: Warm and dry. HEENT: Normocephalic, atraumatic. Conjunctivae pale. He has ANGELA. Mucous membranes are dry. Neck: Supple. Trachea midline. No JVD. Cardiovascular: Regular rate and rhythm. He has a soft systolic murmur. No gallop is appreciated. Lungs: Clear to auscultation anterior with scattered rhonchi posterior. Clears after suctioning. Remains ventilator dependent, 90% FiO2 with PEEP. Abdomen: Large, round, soft, nontender. Hypo bowel sounds. NG tube remains intact with tube feedings of Nepro at 30 mL an hour. Genitourinary: Patient has Fermin catheter in place. No urine out is noted. Extremities: He continues with 2+ edema going up to 3+ into the mid abdominal sacral area. He also has 1+ to 2+ edema to his upper extremities. His lower extremities are cool to touch. No clubbing or cyanosis present. Neurological: As mentioned above, sedated and on the ventilator. ASSESSMENT AND PLAN: 1. Acute kidney injury. Patient continues to require dialysis. We will place him on SLED today secondary to his potassium being elevated. We will put him on a 2 K bath for 2 hours. We will then convert him to a 3 K bath for the remaining 6 hours on dialysis, and we will attempt to pull 3- 4 L of ultrafiltration as tolerated to try to pull the patient even secondary to hypotension. 2. Electrolytes. Again, patient has hyperkalemia with correction on dialysis with a 2 K the first 2 hours and then switch over to a 3 K. 3. Acid-base balance. This does remain stable. 4. Anemia. This does remain stable with no indications for intervention after having received packed red blood cells on dialysis. 5. Leukocytosis. The patient is now on vancomycin and meropenem per Dr. Dotson. He is requiring Levophed for septic shock. I would like to thank you for allowing us to follow with this patient. Dictated by DANIELLA Watson for Iglesia Villalobos MD cc: DANIELLA Watson MD [facility]
[2016-08-14] MEDS: VANCOMYCIN 1 GM/NS 1 GM/250 ML IVPB IV SCH (15:44)
[2016-08-14] MEDS: MYCAMINE 100 MG in NS 100 ML IV SCH (16:54)
[2016-08-14] MEDS: FENTANYL 1,000 MICROGM in NS 80 ML IV SCH (17:00)
[2016-08-14] MEDS: ASPIRIN EC PO SCH (20:58)
[2016-08-15] MEDS: PEPCID IV SCH ×2 (03:03→14:57)
[2016-08-15] MEDS: SODIUM CHLORIDE 0.9% INJ SCH ×4 (03:03→17:02)
[2016-08-15] MEDS: MERREM 1 GM in NS 50 ML IV SCH ×2 (03:03→14:57)
[2016-08-15] MEDS: NIMBEX 80 MG in NS 160 ML IV SCH ×4 (03:14→20:07)
[2016-08-15] MEDS: DUONEB (A & A) INH SCH ×6 (03:49→23:25)
[2016-08-15 04:40] LABS: ALLEN TEST YES; BE -8.3 mmoll (-3.0-3.0); BLOOD TYPE ARTERIAL; DRAW SITE R RADIAL; METHB 1.2 % (0.0-1.5); O2(CT) 17.3 mL/dL (15.0-23.0); PO2(98.6) 66 mmHg (60-100); SAMPLE BLOOD; SAO2 93.8 % (95.0-100.0); SRATE 28 BPM; THB 13.6 g/dL (11.5-17.4); TVOL 500 mL
[2016-08-15 04:41] LABS: MODALITY VENTILATOR; PCO2(98.6) 68 mmHg (35-45); pH(98.6) 7.12 (7.35-7.45)
[2016-08-15] MEDS: SOLU-CORTEF IV SCH ×2 (05:07→17:01)
[2016-08-15] MEDS: HUMALOG SUBQ SCH ×4 (06:02→20:03)
[2016-08-15 06:35] LABS: HEMATOCRIT 31.7 % (42.0-52.0); HEMOGLOBIN 9.3 g/dL (14.0-18.0); MCH 29.5 PG (27-31); MCHC 29.3 g/dL (33-37); MCV 100.6 FL (81-99); MPV 12.5 FL (7.4-10.4); RBC 3.15 XMIL (4.7-6.1)
[2016-08-15 06:38] LABS: ALBUMIN 2.6 g/dL (3.5-5.0); CALCIUM 7.9 mg/dL (8.8-10.2); POTASSIUM 5.4 mmol/L (3.5-5.1); TOTAL BILIRUBIN 0.34 mg/dL (0.20-1.00); TOTAL PROTEIN 5.6 g/dL (6.3-8.3)
[2016-08-15] MEDS ORDERED: NS 2,000 ML ONE (06:44)
[2016-08-15] MEDS ORDERED: HEPARIN ONE (06:44)
--- NOTE | 2016-08-15 07:17 | Diag Imaging Result Doc PS360 ---
CHEST-PORTABLE - 08/15/2016 INDICATION: respiratory failure TECHNIQUE: COMPARISON: 08/14/2016 FINDINGS: Support lines and tubes are stable. Stable cardiomegaly. Stable diffuse bilateral mixed infiltrates compatible with pulmonary edema. There are probably small pleural effusions. IMPRESSION: No change from prior. Electronically signed by Luis Eduardo Villalta 08/15/2016 7:15 AM
[2016-08-15] MEDS: ADVAIR 250/50 DISKUS INH SCH (07:41)
--- NOTE | 2016-08-15 08:51 | PROGRESS NOTE ---
DATE: 08/15/2016 SUBJECTIVE: Mr. Santiago is doing a little better. Getting some volume off. Blood pressure doing a little better. We have been able to decrease the Levophed. PHYSICAL EXAMINATION: Vital Signs: Temperature 97.5 degrees, pulse 110, respirations 28, blood pressure 106/49. HEENT: Pupils are equal. Lungs: Clear in all lung gaston. Cardiovascular Examination: Regular rhythm and rate without murmur or S3. Abdomen: Soft. Skin: Warm and dry. Is and Os: Urine output with dialysis appears to be 12 L from yesterday. LABORATORY DATA: This morning, white count 35,880, hematocrit is 31, platelet count 235,000. Chemistry: Sodium 136, potassium 5.4, chloride 101, bicarb 21, BUN 43, creatinine 2.7, blood sugar 212, 152, 180, 186. ProBNP was 35,000. Chest x-ray, no change from prior. Support lines and tubes are stable. Stable cardiomegaly. Stable diffuse bilateral mixed infiltrates compatible with pulmonary edema. ASSESSMENT AND PLAN: 1. Acute kidney injury. Continues to require dialysis, volume overload, dialyzed again this morning. 2. Electrolytes, stable. 3. Acid-base balance, stable. 4. Anemia, stable. 5. Leukocytosis, persistent. 6. Bilateral pulmonary infiltrates but treating for probable pneumonia as well. Continue present antibiotics. cc: Lonnie Encarnacion MD
[2016-08-15] MEDS: HYTRIN PO SCH (09:09)
[2016-08-15] MEDS: LYRICA PO SCH ×2 (09:15→20:03)
[2016-08-15] MEDS: LOVENOX SUBQ SCH (09:15)
[2016-08-15] MEDS: ZYLOPRIM PO SCH (09:15)
[2016-08-15] MEDS: LEVOPHED 16 MG in D5 1/2 NS 500 ML IV SCH (09:23)
--- NOTE | 2016-08-15 11:43 | PROGRESS NOTE ---
DATE: 08/15/2016 SUBJECTIVE: Patient continues on ventilator and sedated. He is still on Levophed for blood pressure support. OBJECTIVE: Vital Signs: Blood pressure 124/59, heart rate 110 with ECG monitor showing sinus tachycardia. Oxygen saturation 95% with FiO2 of 60% and PEEP of 13. There is no significant jugular venous distention evident. Auscultation of the chest reveals coarse breath sounds bilaterally. Cardiac exam reveals a regular rate and rhythm without appreciable murmur or gallop. LABORATORY DATA: Includes a white count of 35.88. BUN 43, creatinine 2.7. IMPRESSION: 1. Respiratory failure. 2. Bilateral pneumonitis. 3. Acute renal failure. 4. Acute on chronic right-sided congestive heart failure. RECOMMENDATIONS: 1. Continue supportive care and antibiotic treatment per Dr. Dotson. 2. Consider reducing PEEP as next ventilator setting reduction, which might improve RV performance. 3. Continue Levophed as required. cc: Braulio Dillard MD
--- NOTE | 2016-08-15 12:39 | PROGRESS NOTE ---
DATE: 08/15/2016 TIME SEEN: 0800. SUBJECTIVE: Mr. Santiago is resting quietly in bed. He remains sedated on ventilator dependence. OBJECTIVE: Vital Signs: His most recent vital signs: His temperature is 97.5 degrees, blood pressure 97/47, heart rate 111, and respirations are 24. He remains intubated on 60% FiO2. His last recorded saturation was 91%. He has had 2731 in. He has had 6225 out, 6 L or greater on dialysis. CVP of 7 this am. Physical Exam: General: This is a 71-year-old white male. He appears chronically ill. He is in no acute distress. Skin: Warm and dry. HEENT: Normocephalic, atraumatic. Conjunctivae pale. He has ANGELA. Mucous membranes are moist. Neck: Supple. Trachea midline. Trace JVD. Cardiovascular: He has regular rate and rhythm. He remains tachycardic on the monitor. He does have an occasional PVC noted. He has a soft systolic murmur. No gallop. Lungs : Clear to auscultation anterior. These are much improved from yesterday. He is now in a negative fluid balance of 3.2 L. Abdomen: Soft. No tenderness noted. He has an NG tube to oral with tube feedings that continue at 30 mL an hour. Integumentary: No rashes or lesions evident. Extremities: He continues with 2+ to 3+ edema from the lower and upper extremities into the sacral/mid abdominal area. Neurologic: As mentioned above, with sedation on ventilator. LABORATORIES: Sodium 136, potassium 5.4, chloride 101, CO2 of 21, BUN 43, creatinine 2.7, glucose 152. His anion gap is 14, calcium 7.9, albumin 2.6. White count 35.88, hemoglobin 9.3, hematocrit 31.7 with a platelet count of 235,000. Patient's plasma lactate is 1.4. He has ABGs with pH 7.12, CO2 of 68, PO2 of 66, and bicarbonate 18.3 on 60% with PEEP. ASSESSMENT AND PLAN: 1. Acute kidney injury. Patient continues to require dialysis for fluid volume overload. This is the 1st day that we have achieved a negative fluid balance. We will place him on SLED again today. We will place him on a 3 K bath. He is to dialyze for 8 hours. We will attempt to pull 6 L. He does have Levophed support. He has not had to have any Zhang addition. We will continue to monitor with daily dialysis. 2. Respiratory failure. Patient is in fluid volume overload. This is the 1st day that we have been in negative fluid balance. Patient has had his FiO2 decreased to 60% in the last 3 days. We will attempt dialysis again tomorrow to manage fluid volume per SLED with +1L above intake. 3. Electrolytes. Patient has mild hyperkalemia with correction on dialysis. 4. Acid-base balance. His anion gap continues to close with dialysis. No indications for further intervention. 5. Anemia. This remains low, but stable. 6. Leukocytosis. Patient does continue on vancomycin and meropenem to renal dosing per Dr. Dotson. I would to thank you for allowing us to follow with this patient. Dictated by DANIELLA Watson for Iglesia Villalobos MD cc: DANIELLA Watson MD [facility]
[2016-08-15] MEDS: PROTONIX IV SCH (14:57)
[2016-08-15] MEDS: ATIVAN IV PRN (15:58)
[2016-08-15] MEDS: MYCAMINE 100 MG in NS 100 ML IV SCH (16:01)
[2016-08-15] MEDS: FENTANYL 1,000 MICROGM in NS 80 ML IV SCH (16:46)
[2016-08-15] MEDS ORDERED: NS 500 ML ONE (16:55)
--- NOTE | 2016-08-15 16:56 | PROGRESS NOTE ---
DATE: 08/15/2016 PRESENT ILLNESS: The patient is critically ill. He is intubated and sedated. He has an increasing leukocytosis, the cause of which I am uncertain. He has bilateral pulmonary infiltrates that in part or all could be due to infection such as pneumonia. MEDICATIONS: This is day 2 of treatment with meropenem, vancomycin, and micafungin. Overall this is day 34 of treatment of the patient's bilateral septic elbow arthritis. PHYSICAL EXAMINATION: Vital Signs: Temperature is 99.3 degrees, pulse 122, respiration 28, blood pressure 147/64. General: This is an ill-appearing, elderly male. He is intubated and sedated. He has anasarca. Lungs: Clear to auscultation. Cardiovascular: Regular and rapid heart rate. Abdomen: Soft and nontender. Extremities: There was edema in all 4 extremities. Both elbow incisions are intact, as is the right knee incision. Integument: The patient has a dialysis catheter in the right groin and the site is not erythematous or purulent. He also has a right- sided Basilio catheter and that site also is not erythematous or purulent. LAB AND X-RAY: Chest x-ray shows bilateral infiltrates. CBC shows a white count of 35,880, hemoglobin 9.3, and platelet count 235,000. Blood gases show a pH of 7.12, a PO2 of 66, a pCO2 of 68. Liver function studies are normal. Blood, urine and sputum cultures are negative. ASSESSMENT AND PLAN: Patient is critically ill, appears to be in septic shock. My plan is to continue with vancomycin, meropenem, and micafungin. COMORBIDITIES: Include: Being elderly. He also is a diabetic and has congestive heart failure. He has developed multiple systems organ failure. cc: Brennan Dotson MD
[2016-08-15] MEDS: VANCOMYCIN 1 GM/NS 1 GM/250 ML IVPB IV SCH (16:59)
[2016-08-15] MEDS: ASPIRIN EC PO SCH (20:03)
[2016-08-16] MEDS: LEVOPHED 16 MG in D5 1/2 NS 500 ML IV SCH ×2 (00:19→15:22)
[2016-08-16] MEDS: NIMBEX 80 MG in NS 160 ML IV SCH ×4 (02:59→20:09)
[2016-08-16] MEDS: PEPCID IV SCH ×2 (03:02→15:16)
[2016-08-16] MEDS: MERREM 1 GM in NS 50 ML IV SCH ×2 (03:02→15:16)
[2016-08-16] MEDS: DUONEB (A & A) INH SCH ×6 (03:36→22:32)
[2016-08-16 04:20] LABS: ALLEN TEST YES; BE -7.3 mmoll (-3.0-3.0); BLOOD TYPE ARTERIAL; DRAW SITE R RADIAL; METHB 1.1 % (0.0-1.5); O2(CT) 11.4 mL/dL (15.0-23.0); PO2(98.6) 62 mmHg (60-100); SAMPLE BLOOD; SAO2 93.5 % (95.0-100.0); SRATE 28 BPM; THB 8.9 g/dL (11.5-17.4); TVOL 500 mL
[2016-08-16 04:22] LABS: MODALITY VENTILATOR
[2016-08-16 04:23] LABS: PCO2(98.6) 66 mmHg (35-45); pH(98.6) 7.13 (7.35-7.45)
[2016-08-16] MEDS: SOLU-CORTEF IV SCH ×2 (05:29→17:06)
--- NOTE | 2016-08-16 05:30 | EKG Report ---
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 Rate : 112 BPM Atrial Rate : 112 BPM P-R Int : 160 ms QRS Dur : 110 ms QT Int : 294 ms P-R-T Axes : 052 -31 -10 degrees QTc Int : 401 ms Sinus tachycardia. Left axis deviation Nonspecific T wave abnormality Abnormal ECG When compared with ECG of 16-AUG-2016 02:15, (Unconfirmed) Nonspecific T wave abnormality, worse in Lateral leads Confirmed by Andres BARR, Arsh Ordaz ([id number]) on 08/19/2016 12:37:44 PM
[2016-08-16 05:42] LABS: HEMATOCRIT 33.7 % (42.0-52.0); HEMOGLOBIN 9.8 g/dL (14.0-18.0); MCHC 29.1 g/dL (33-37); MCV 99.7 FL (81-99); MPV 12.4 FL (7.4-10.4); RBC 3.38 XMIL (4.7-6.1)
[2016-08-16 06:03] LABS: TOTAL BILIRUBIN 0.46 mg/dL (0.20-1.00)
[2016-08-16] MEDS: HUMALOG SUBQ SCH ×4 (06:04→20:17)
--- NOTE | 2016-08-16 06:12 | EKG Report ---
Test Performed on : 08/16/2016 05:37:27 AM Test Reason : No Order in [employer] Blood Pressure : / mmHG Vent. Rate : 130 BPM Atrial Rate : 130 BPM P-R Int : 000 ms QRS Dur : 110 ms QT Int : 420 ms P-R-T Axes : 000 -24 071 degrees QTc Int : 618 ms Accelerated Junctional rhythm. Inferior infarct , age undetermined Abnormal ECG When compared with ECG of 16-AUG-2016 02:15, (Unconfirmed) Junctional rhythm. has replaced Sinus rhythm. Confirmed by Andres BARR, Arsh Ordaz ([id number]) on 08/19/2016 12:37:48 PM
[2016-08-16] MEDS ORDERED: HEPARIN ONE (06:45)
[2016-08-16] MEDS ORDERED: NS 2,000 ML ONE (06:45)
--- NOTE | 2016-08-16 07:18 | Diag Imaging Result Doc PS360 ---
EXAM: CHEST-PORTABLE INDICATION: respiratory failure TECHNIQUE: One view COMPARISON: 08/15/2016 FINDINGS: Right central line is stable. ET tube is stable. The NG tube projects below the diaphragm and out of the [id number]. Diffuse bilateral mixed infiltrates most compatible with edema are essentially stable. There are probably small effusions that are unchanged. There are no new consolidations. Cardiac silhouette is stable. IMPRESSION: Essentially stable chest. Electronically signed by Randall Nelson 08/16/2016 7:15 AM
[2016-08-16] MEDS: ADVAIR 250/50 DISKUS INH SCH (07:31)
[2016-08-16] MEDS: HYTRIN PO SCH (08:09)
[2016-08-16] MEDS: ZYLOPRIM PO SCH (08:17)
[2016-08-16] MEDS: LYRICA PO SCH ×2 (08:17→20:17)
--- NOTE | 2016-08-16 09:20 | PROGRESS NOTE ---
DATE: 08/16/2016 SUBJECTIVE: We have been able to get out 5 or 6 L every day, making improvement and decrease his FiO2. He is sedated on the ventilator. OBJECTIVE: He is afebrile. Temperature 97.3 degrees, pulse 105, respirations 28, blood pressure 146/60. CVP appears less than 8 cm. Lungs are clear anterolateral. Cardiovascular: Regular rate without murmur or S3. Abdomen soft. Skin is warm and dry. Urine output 6 L. LABORATORY DATA: White count 42,140. Hematocrit is 33, platelet count 267,000. Sodium 136, potassium 5.0, chloride 99. BUN 41, creatinine 2.6. Blood sugars 156, 176, 188. Chest x-ray: Essentially stable chest. Right central line stable. ET tube stable. NG tube projects below the diaphragm and out of the first field of view. Diffuse bilateral mixed infiltrates most compatible with edema essentially stable. Small effusions that are unchanged. ASSESSMENT AND PLAN: 1. Respiratory failure. Patient intubated. We were able to decrease his FiO2. Treating him for pneumonia and pulmonary edema. He has increasing leukocytosis; I am uncertain why that is. Bilateral pulmonary infiltrates. This is day 3 of meropenem, vancomycin, and Micafungin. Overall, he has had 34 days of treatment for bilateral septic elbow arthritis. His elbow look well healed. 2. Acute kidney injury. Acute tubular necrosis. Continue dialysis. Continues sustained low- efficiency dialysis. Continue to try and get 4-5 L off which we have been successful so far. 3. Congestive heart failure. Left ventricular dysfunction. Aware. Continue to try and give volume down. He has [id number] right-sided congestive heart failure. I reviewed orders. No change at this time. cc: Lonnie Encarnacion MD
[2016-08-16] MEDS: LOVENOX SUBQ SCH (09:35)
[2016-08-16] MEDS ORDERED: D50W 250 ML, AMINOSYN 15% 500 ML, LIPOSYN 20% 250 ML MISC SCH ×3 (11:30)
[2016-08-16] MEDS: VANCOMYCIN 1 GM/NS 1 GM/250 ML IVPB IV SCH (14:01)
--- NOTE | 2016-08-16 14:13 | PROGRESS NOTE ---
DATE: 08/16/2016 SUBJECTIVE: Patient continues sedated on ventilator. OBJECTIVE: Vital Signs: Blood pressure 124/56, heart rate 110 and regular, with ECG monitor showing sinus rhythm. Oxygen saturation 93% with FiO2 of 45% and PEEP of 12. Lungs: Auscultation of the chest reveals coarse breath sounds bilaterally. Cardiac: Exam reveals a regular rate and rhythm, without appreciable murmur or gallop. Extremities: There is no evidence of peripheral edema. LABORATORY DATA: Remarkable for white blood cell count of 42.1. BUN 41, creatinine 2.6. Hematocrit 33.7. IMPRESSIONS: 1. Respiratory failure. 2. Bilateral pneumonia and sepsis. 3. Acute renal failure. 4. Acute on chronic right-sided heart failure. 5. Type 2 diabetes mellitus. 6. Obesity. 7. Hypertension. RECOMMENDATIONS: 1. Continue pressor support as needed. 2. Once the pulmonary situation will allow, consider reduction in PEEP, which may enhance right- sided cardiac performance. cc: Braulio Dillard MD
[2016-08-16] MEDS: PROTONIX IV SCH (15:16)
[2016-08-16] MEDS: SODIUM CHLORIDE 0.9% INJ SCH ×3 (15:16→17:06)
--- NOTE | 2016-08-16 16:00 | PROGRESS NOTE ---
DATE: 08/16/2016 SUBJECTIVE: Mr. Santiago is resting quietly in bed. He remains sedated with ventilator dependence. OBJECTIVE: Vital Signs: Temperature 97.3 degrees, blood pressure 146/60, heart rate 105, respirations 28. He has a CVP of 8 this a.m. He is on 45% FiO2. His last recorded saturation is 93%. He has had 2328 in. He has had 5.8 L removed off of dialysis with 70 mL per his NG tube. LABS: Sodium 136, potassium 5, chloride 99, CO2 21, BUN 41, creatinine 2.6, glucose 176. Anion gap 16. Calcium 8, albumin 3. His white count is up to 42.14, hemoglobin 9.8, hematocrit 33.7, with a platelet count of 267,000. He has a PTT of 31.7. His ABGs this a.m., pH 7.13, CO2 66, PO2 62, bicarb 19.1, and this is on 93%. PHYSICAL EXAM: This is a 71-year-old white male. He is currently resting in bed. He is in no acute distress. He remains sedated with ventilator dependence.Skin: Warm and dry. HEENT: Normocephalic, atraumatic. Conjunctivae pale. He has ANGELA. Mucous membranes are dry. Neck: Supple. Trachea midline. No JVD. Cardiovascular: He remains tachycardic. He is regular rate and rhythm. He continues with a soft murmur noted today. No gallop. Lungs: Clear anteriorly. They continue to improve from yesterday. He remains in a negative fluid balance. He remains on ventilatory support though his FiO2 is now down to 45%. Abdomen: Large, distended. Positive bowel sounds. Hypoactive. He has an NG tube that is clamped. He has had residual. Once attached to the intermittent suction he was draining dark black material. His tube feedings have currently been stopped in the last 24 hours. He is now getting no nutrition. ASSESSMENT AND PLAN: 1. Acute kidney injury on CKD stage 3. He is going to be on SLED again today. We will place him on a 3 K bath for 5 hours with 27 bicarb. We will attempt to pull him to his last dry weight from yesterday plus 1 extra L and continue to drop his dry weight daily for fluid in and fluid out and attempt to get this patient dry. He is in a negative fluid balance today. 2. Electrolytes. Patient has mild hyperkalemia again with correction on dialysis. 3. Acidosis. He continues with metabolic and anion gap acidosis. This continues to narrow while on dialysis daily. 4. Anemia. This remains stable. 5. Leukocytosis. The patient has a severe cellulitis, questionable sepsis. He continues on Levophed for support. He is on renal dosed antibiotics. This is followed by the primary care team. 6. Respiratory failure. Again, we are attempting to assist with fluid volume overload. Patient in the last 4 days has had dialysis daily. His FiO2 is now down to 45%. I would to thank you for allowing us to follow with this patient. Dictated by DANIELLA Watson for Iglesia Villalobos MD cc: DANIELLA Watson MD [facility]
[2016-08-16] MEDS: MYCAMINE 100 MG in NS 100 ML IV SCH (17:06)
[2016-08-16] MEDS ORDERED: NS 500 ML ONE (17:15)
--- NOTE | 2016-08-16 19:08 | PROGRESS NOTE ---
DATE: 08/16/2016 PRESENT ILLNESS: The patient is critically ill. He is intubated. He has multiple organ system failure. He has a marked leukocytosis and I am uncertain as to its etiology. He certainly could have pneumonia. MEDICATIONS: This is day 3 of treatment with a combination of meropenem, vancomycin, and micafungin. This is over all day 35 of treatment of the patient's bilateral septic elbows. PHYSICAL EXAMINATION: Vital Signs: Temperature is 97.9 degrees, pulse 115, respirations 28, blood pressure 112/52. General: This is an ill-appearing, elderly male. He is intubated and sedated. He has anasarca. He is in no acute distress. Lungs: There were bilateral rhonchi. Cardiovascular: Heart rate was rapid and regular. Abdomen: Soft and nontender. Lungs: Ere clear to auscultation. LAB AND X-RAY: Chest x-ray shows bilateral infiltrates that could be congestive heart failure, pneumonia, or a combination. Blood urine and sputum cultures are negative. CBC shows a white count that now is up to 42,140, hemoglobin 9.8, and platelet count 267,000. Blood gases show a pH of 7.13, a PO2 of 62, and a pCO2 of 66. Creatinine is 2.6. GFR is 24. ASSESSMENT AND PLAN: The patient is critically ill. He has a rising white count. For now I am going to continue with vancomycin, meropenem, and micafungin. The patient's comorbidities include diabetes mellitus, congestive heart failure, multiple organ systems failure, and the patient is elderly. cc: Brennan Dotson MD
[2016-08-16] MEDS: ASPIRIN EC PO SCH (21:58)
[2016-08-17] MEDS: NIMBEX 80 MG in NS 160 ML IV SCH ×2 (02:29→07:53)
[2016-08-17] MEDS: PEPCID IV SCH ×2 (02:37→15:46)
[2016-08-17] MEDS: MERREM 1 GM in NS 50 ML IV SCH ×2 (02:37→15:45)
[2016-08-17] MEDS: DUONEB (A & A) INH SCH ×6 (02:54→22:39)
[2016-08-17 04:05] LABS: ALLEN TEST YES; BE -9.3 mmoll (-3.0-3.0); BLOOD TYPE ARTERIAL; DRAW SITE R RADIAL; METHB 1.2 % (0.0-1.5); O2(CT) 18.8 mL/dL (15.0-23.0); PO2(98.6) 72 mmHg (60-100); SAMPLE BLOOD; SAO2 95.6 % (95.0-100.0); SRATE 28 BPM; THB 14.5 g/dL (11.5-17.4); TVOL 500 mL
[2016-08-17 04:07] LABS: MODALITY VENTILATOR; PCO2(98.6) 70 mmHg (35-45)
[2016-08-17] MEDS: SOLU-CORTEF IV SCH ×2 (05:00→17:13)
[2016-08-17 05:42] LABS: HEMOGLOBIN 9.7 g/dL (14.0-18.0); MCH 29.1 PG (27-31); MCHC 29.4 g/dL (33-37); MCV 99.1 FL (81-99); MPV 12.7 FL (7.4-10.4); RBC 3.33 XMIL (4.7-6.1)
[2016-08-17 05:47] LABS: ALBUMIN 2.8 g/dL (3.5-5.0); POTASSIUM 5.2 mmol/L (3.5-5.1); TOTAL BILIRUBIN 0.5 mg/dL (0.20-1.00); TOTAL PROTEIN 5.8 g/dL (6.3-8.3)
[2016-08-17] MEDS: HUMALOG SUBQ SCH ×4 (06:05→21:25)
[2016-08-17] MEDS: FENTANYL 1,000 MICROGM in NS 80 ML IV SCH (06:30)
[2016-08-17] MEDS ORDERED: HEPARIN ONE (07:01)
[2016-08-17] MEDS ORDERED: NS 2,000 ML ONE (07:01)
--- NOTE | 2016-08-17 07:15 | Diag Imaging Result Doc PS360 ---
CHEST-PORTABLE - 08/17/2016 INDICATION: respiratory failure TECHNIQUE: COMPARISON: 08/16/2016 FINDINGS: Support lines and tubes are stable. Stable cardiomegaly and pulmonary vascular congestion. Stable hazy atelectasis at the lung bases. No new or significant infiltrates. IMPRESSION: No change from prior. Electronically signed by Luis Eduardo Villalta 08/17/2016 7:13 AM
[2016-08-17] MEDS: ADVAIR 250/50 DISKUS INH SCH (07:23)
[2016-08-17] MEDS: LEVOPHED 16 MG in D5 1/2 NS 500 ML IV SCH (07:53)
--- NOTE | 2016-08-17 08:37 | PROGRESS NOTE ---
DATE: 08/17/2016 SUBJECTIVE: We have been able to diuresed quite a bit of fluid off. He looks much better. Blood pressure improved. Still on modest amount of Levophed. Still vent dependent. Have been able to decrease the FiO2. OBJECTIVE: Vital Signs: Today, temp 98.9 degrees, pulse 100, respirations 28, blood pressure 121/52. Weight 245 pounds. Urine output 3500 mL. Eyes: Pupils are equal, round. Lungs: Clear in all lung gaston. Cardiovascular: Regular rate without murmur or S3. Abdomen: Soft. Skin: Warm and dry. DIAGNOSTIC DATA: White count 42,390, hematocrit 33, platelet count 233,000. Sodium 134, potassium 5.2, chloride 99, BUN 44, creatinine 2.7. Blood sugar is 146, 205, 160. Chest x-ray from this morning. No change from prior. Support lines and tubes are stable. Stable cardiomegaly and pulmonary vascular congestion. Stable hazy atelectasis in the lung bases. ASSESSMENT AND PLAN: 1. Rising white count. Continue present antibiotics. He is on vancomycin, meropenem the micafungin. 2. Volume overload. Continue pulmonary venous hypertension. Continue to make progress with diuresis. 3. Blood pressure has improved. Still on Levophed. 4. Respiratory failure. Continue vent support. 5. Plan is to continue dialysis. 6. He does have a history of left ventricular dysfunction. 7. Review of his orders: I do not see any change at this point. cc: Lonnie Encarnacion MD
[2016-08-17] MEDS: LOVENOX SUBQ SCH (09:09)
[2016-08-17] MEDS: LYRICA PO SCH ×2 (09:09→21:24)
[2016-08-17] MEDS: HYTRIN PO SCH (09:09)
[2016-08-17] MEDS: ZYLOPRIM PO SCH (09:09)
[2016-08-17] MEDS: D50W 250 ML, AMINOSYN 10% 500 ML, LIPOSYN 20% 250 ML MISC SCH ×6 (10:09→15:44)
--- NOTE | 2016-08-17 10:10 | PROGRESS NOTE ---
DATE: 08/17/2016 SUBJECTIVE: Patient remains mechanically ventilated. He remains sedated. He is currently undergoing SLED. OBJECTIVE: Vital Signs: Temperature 98.2 degrees, pulse 98, respiratory rate 20, blood pressure 103/46. Intake 2 L, output 5.8 L. PHYSICAL EXAMINATION: General: This is an acutely ill-appearing gentleman resting in bed. He is currently undergoing SLED dialysis. HEENT: Normocephalic, atraumatic. Orally intubated. Conjunctivae pale. ANGELA, sluggish. Neck: Supple. Trachea midline. Cardiovascular: Tachycardic. Regular rhythm with a soft systolic murmur. Pulmonary: Decreased breath sounds. He is clear bilaterally. Remains mechanically ventilated. Abdomen: Remains mildly distended. It is round, soft, positive bowel sounds. Hypoactive. G-tube clamped. : Fermin catheter, scant urine. Extremities: He has 1 to 2+ pretibial edema. He continues to have some dependent edema to the backs of the thighs, although he has wrinkles noted on bilateral lower extremities from where his edema has been improving. Upper extremities with decreased edema from previous. Integumentary: Skin is warm and dry. LABORATORY DATA: WBC of 42.3, hemoglobin 9.7, hematocrit 33.0, platelet count of 233,000, sodium 134, potassium 5.2, chloride 99, CO2 21, BUN 44, creatinine 2.7, calcium 8.0. ASSESSMENT AND PLAN: 1. Acute on chronic kidney disease stage 3. Will continue to run him on SLED on a 5 hour treatment on a 3 K bath, 27 bicarb with a UF removal of the last 24 hour total +1 to 2 L as tolerated. 2. Electrolytes, acid-base balance. These are acceptable. Continue to treat with dialysis. 3. Anemia stable. 4. Leukocytosis on appropriately dosed antibiotics. Followed by primary. 5. Respiratory failure. Continue to manage fluid volumes with SLED in an attempt to assist with extubation. 6. Nutrition. Issues with tolerating tube feeds. We will continue IDPN on dialysis MWF schedule. Dictated by DANIELLA Gautam for Iglesia Villalobos MD cc: Iglesia Villalobos MD [facility]
[2016-08-17] MEDS: PROTONIX IV SCH (15:46)
[2016-08-17] MEDS: MYCAMINE 100 MG in NS 100 ML IV SCH (17:13)
[2016-08-17] MEDS: VANCOMYCIN 1 GM/NS 1 GM/250 ML IVPB IV SCH (20:22)
[2016-08-17] MEDS: ASPIRIN EC PO SCH (21:24)
[2016-08-18] MEDS: DUONEB (A & A) INH SCH ×6 (03:05→23:00)
[2016-08-18] MEDS: PEPCID IV SCH ×2 (03:09→16:32)
[2016-08-18] MEDS: MERREM 1 GM in NS 50 ML IV SCH ×2 (03:09→16:31)
[2016-08-18] MEDS: SODIUM CHLORIDE 0.9% INJ SCH ×2 (03:09→05:26)
[2016-08-18 04:02] LABS: ALLEN TEST YES; BE -6.8 mmoll (-3.0-3.0); BLOOD TYPE ARTERIAL; DRAW SITE R RADIAL; METHB 0.6 % (0.0-1.5); O2(CT) 14.3 mL/dL (15.0-23.0); PO2(98.6) 91 mmHg (60-100); SAMPLE BLOOD; SAO2 99.8 % (95.0-100.0); SRATE 28 BPM; THB 10.4 g/dL (11.5-17.4); TVOL 550 mL; pH(98.6) 7.22 (7.35-7.45)
[2016-08-18 04:04] LABS: MODALITY VENTILATOR; PCO2(98.6) 51 mmHg (35-45)
[2016-08-18] MEDS: SOLU-CORTEF IV SCH ×2 (05:26→18:03)
[2016-08-18 05:29] LABS: HEMATOCRIT 31.1 % (42.0-52.0); HEMOGLOBIN 9.5 g/dL (14.0-18.0); MCH 29.4 PG (27-31); MCHC 30.5 g/dL (33-37); MCV 96.3 FL (81-99); MPV 11.5 FL (7.4-10.4); RBC 3.23 XMIL (4.7-6.1)
[2016-08-18 05:51] LABS: ALBUMIN 2.7 g/dL (3.5-5.0); POTASSIUM 4.8 mmol/L (3.5-5.1); TOTAL BILIRUBIN 0.46 mg/dL (0.20-1.00); TOTAL PROTEIN 5.7 g/dL (6.3-8.3)
--- NOTE | 2016-08-18 06:05 | Diag Imaging Result Doc PS360 ---
EXAM: CHEST-PORTABLE HISTORY: respiratory failure TECHNIQUE: Portable COMPARISON: 08/17/2016 FINDINGS: No change in the endotracheal tube or the nasogastric tube. No change in the right jugular line. No pneumothorax. Heart is not enlarged. Mild increased interstitial markings are similar to the prior exam. No consolidation. No pleural effusions identified. IMPRESSION: Stable chest. Electronically signed by Skyler Anderson 08/18/2016 6:02 AM
[2016-08-18] MEDS: HUMALOG SUBQ SCH ×4 (06:18→21:40)
[2016-08-18] MEDS: ADVAIR 250/50 DISKUS INH SCH ×2 (07:25→19:14)
[2016-08-18] MEDS: HYTRIN PO SCH (08:44)
[2016-08-18] MEDS: LOVENOX SUBQ SCH (09:00)
[2016-08-18] MEDS: ZYLOPRIM PO SCH (09:00)
[2016-08-18] MEDS ORDERED: TIGHT: 0.2 ML/HR MISC PRN (09:12)
[2016-08-18] MEDS ORDERED: NS 2,000 ML MISC PRN (09:12)
[2016-08-18] MEDS ORDERED: HEPARIN IV PRN (09:12)
[2016-08-18] MEDS: FENTANYL 1,000 MICROGM in NS 80 ML IV SCH (09:29)
[2016-08-18] MEDS ORDERED: HEPARIN ONE (09:37)
[2016-08-18] MEDS ORDERED: NS 2,000 ML ONE (09:37)
--- NOTE | 2016-08-18 09:54 | PROGRESS NOTE ---
DATE: 08/18/2016 SUBJECTIVE: Mr. Santiago on the ventilator. He is still sedated. We have gotten a good deal of volume off. OBJECTIVE: Vital Signs: Temperature 97.7, pulse 80, respirations 28, blood pressure 92/39. Neck: CVP less than 6 cm. Lungs: Clear in all lung gaston. Cardiovascular: Exam regular rhythm and rate without murmur or S3. Abdomen: Soft. Skin: Warm and dry. DIAGNOSTIC STUDIES: Urine output, dialyzed almost 4 L yesterday. This morning, white count elevated at 35,150, hematocrit 31, platelet count 178,000. Sodium 133, potassium 4.8, chloride 97, BUN 63, creatinine 3.5. Blood sugars 159, 387, 173. Chest x-ray from this morning stable chest. No change in endotracheal tube or nasogastric tube. No change in the right jugular line. ASSESSMENT AND PLAN: 1. Acute on chronic kidney disease stage 3. Continue on SLED. I think they are going to do hemodialysis today. We have gotten a good amount of volume off. 2. Electrolytes, acid base, looks good. 3. Anemia stable. 4. Leukocytosis, which may be dropping, which is encouraging. 5. Respiratory failure on the vent. Continue to try to get volume off and wean as able. 6. Nutrition issues with tolerating tube feeding. Continue IDPN on dialysis Saturday, Wednesdays, and Fridays. I am going to see if we can re-initiate tube feedings if it helps. 7. Last, he does have a history of left ventricular dysfunction. Aware. Review of his orders. I do not see anything to change at this point. He is on vancomycin 1 g after dialysis, Hytrin 5 mg p.o. q.a.m., Protonix 40 mg IV q.24 hours. Micafungin 100 mg IV q.24 hours. Meropenem 1 g q.12 hours, Ativan 1 mg IV q.4 hours. Solu-Cortef 50 mg IV q.12 hours. Fluticasone 1 puff b.i.d. He is getting fentanyl IV as needed 50 mcg IV q.1 hour p.r.n., Pepcid 20 mg IV q.12, Lovenox 30 mg subcutaneously q.24 hours. cc: Lonnie Encarnacion MD
[2016-08-18] MEDS: D50W 250 ML, AMINOSYN 10% 500 ML, LIPOSYN 20% 250 ML MISC SCH ×6 (10:13→11:44)
--- NOTE | 2016-08-18 10:35 | PROGRESS NOTE ---
DATE: 08/18/2016 SUBJECTIVE: Patient remains ventilated and sedated. OBJECTIVE: Vital Signs: Temperature 97.7 degrees, pulse 80, respiratory rate 20 , blood pressure 92/39. Intake 1.3 L. Output 3.6 L. PHYSICAL EXAMINATION: General: This is an elderly, acutely ill-appearing gentleman resting in bed. He is sedated and mechanically ventilated. HEENT is normocephalic, atraumatic. He remains orally intubated. Cardiovascular reveals a regular rate and rhythm. A soft systolic murmur noted. Pulmonary: He has equal excursion. He maintains mechanically ventilated. No overt wheeze or rhonchi noted. Abdomen soft, positive bowel sounds. Hypoactive. : Fermin catheter with scant urine. Extremities: 1 to 2+ pretibial edema. He continues to have some dependent edema to the backs of the thighs, although he has significantly improved edema to the lower extremities and upper extremities. Integumentary: Skin is warm and dry otherwise. ASSESSMENT AND PLAN: 1. [id number] kidney disease. We have gotten a significant amount of fluid off over the last several days with sustained low-efficiency dialysis. Today's goal for fluid removal is 2.5 L. We will attempt to run him on regular dialysis to remove that today. Plan on a 2 K bath again/2.5 UF/4-hour treatment. 2. Electrolytes, acid-base balance, anemia. These are stable. Continue with dialysis as noted. 3. Leukocytosis followed by primary. 4. Respiratory failure. We will continue to remove fluid based on previous studies plus additional fluid each day. It appears we are getting close to having him dry. 5. Nutritional issues. We will continue IDPN on dialysis. Dictated by DANIELLA Gautam for Iglesia Villalobos MD cc: Iglesia Villalobos MD [facility]
--- NOTE | 2016-08-18 12:57 | Diag Imaging Result Doc PS360 ---
EXAM: CHEST/ABD TUBE PLACEMENT HISTORY: NG tube placement TECHNIQUE: Semiupright AP chest abdomen COMPARISON: Compared to portable chest taken earlier FINDINGS: A nasogastric tube overlies the esophagus and stomach. No other interval change. IMPRESSION: Nasogastric tube overlies this stomach. Electronically signed by Skyler Anderson 08/18/2016 12:55 PM
[2016-08-18] MEDS: VANCOMYCIN 1 GM/NS 1 GM/250 ML IVPB IV SCH (14:32)
[2016-08-18] MEDS: MYCAMINE 100 MG in NS 100 ML IV SCH (16:31)
[2016-08-18] MEDS: PROTONIX IV SCH (16:31)
--- NOTE | 2016-08-18 17:59 | PROGRESS NOTE ---
DATE: 08/18/2016 PRESENT ILLNESS: The patient remains critically ill. He is intubated and has multiple organ system failure. His leukocytosis however has improved. MEDICATIONS: This is day 5 of treatment with meropenem and day 4 of treatment with micafungin. Overall this is day 37 of treatment for the patient's bilateral septic elbows. PHYSICAL EXAMINATION: Vital Signs: Temperature is 98 degrees, pulse 102, respirations 28, blood pressure 87/43. General: This is an ill-appearing, elderly male. He is in no acute distress. As mentioned above, the patient is intubated and sedated. Lungs: Scattered rhonchi bilaterally. Cardiovascular: The patient's heart rate is irregular. Abdomen: Soft and nontender. Both elbows are not swollen or draining. LAB AND X-RAY: Chest x-ray shows no consolidation. Liver function studies are normal except for an AST of 54. [place] [address], hemoglobin 9.5, and platelet count 178,000. Creatinine is 3.5. GFR is 17. ASSESSMENT AND PLAN: Patient remains critically ill. His white count however is coming down. For now I would like to continue with his current antibiotics although I am not exactly sure what is causing him to have a leukocytosis. COMORBIDITIES: Include diabetes mellitus, congestive heart failure, multiple organ system failure and patient is elderly. cc: Brennan Dotson MD
[2016-08-18] MEDS: ASPIRIN EC PO SCH (21:40)
[2016-08-19] MEDS: LEVOPHED 16 MG in D5 1/2 NS 500 ML IV SCH (00:25)
[2016-08-19 00:44] LABS: BASO% 0.1 % (0.0-0.8); EOS# 0.94 X1000 (0.0-0.7); EOS% 3.2 % (0.0-10.0); HEMATOCRIT 31.5 % (42.0-52.0); HEMOGLOBIN 9.8 g/dL (14.0-18.0); IMM GRAN# 0.42 X1000 (0.0-0.04); IMM GRAN% 1.4 % (0.0-0.5); LYMPH# 1.68 X1000 (1.2-3.4); LYMPH% 5.7 % (20.5-51.1); MANUAL DIFF NEEDED? YES; MCH 28.9 PG (27-31); MCHC 31.1 g/dL (33-37); MCV 92.9 FL (81-99); MONO# 3.06 X1000 (0.11-0.59); MONO% 10.4 % (1.7-9.3); MPV 11.2 FL (7.4-10.4); NEUT% 79.2 % (42.2-75.2); PLT 170 X1000 (130-400); RBC 3.39 XMIL (4.7-6.1)
[2016-08-19 01:08] LABS: EOS 2 % (1-10); LYMPHS 6 % (21-51); MONO 2 % (1-9); NRBC 1 % (0-0)
[2016-08-19 01:19] LABS: ALBUMIN 2.9 g/dL (3.5-5.0); CALCIUM 7.9 mg/dL (8.8-10.2); MAGNESIUM 1.9 mg/dL (1.5-2.7); POTASSIUM 3.6 mmol/L (3.5-5.1); TOTAL BILIRUBIN 0.72 mg/dL (0.20-1.00); TOTAL PROTEIN 5.3 g/dL (6.3-8.3)
[2016-08-19 01:57] LABS: CK INDEX 1.9 (0.0-2.5); CK-MB 8.39 ng/mL (0.0-5.0)
[2016-08-19] MEDS: MERREM 1 GM in NS 50 ML IV SCH ×2 (02:35→15:32)
[2016-08-19] MEDS: SODIUM CHLORIDE 0.9% INJ SCH ×2 (02:36→05:10)
[2016-08-19] MEDS: PEPCID IV SCH ×2 (02:36→15:31)
[2016-08-19] MEDS: DUONEB (A & A) INH SCH ×6 (03:14→23:18)
[2016-08-19 04:27] LABS: ALLEN TEST YES; BE -0.5 mmoll (-3.0-3.0); BLOOD TYPE ARTERIAL; DRAW SITE R RADIAL; METHB 0.9 % (0.0-1.5); PCO2(98.6) 43 mmHg (35-45); PO2(98.6) 89 mmHg (60-100); SAMPLE BLOOD; SAO2 98.4 % (95.0-100.0); SRATE 8 BPM; THB 10.3 g/dL (11.5-17.4); TVOL 550 mL; pH(98.6) 7.37 (7.35-7.45)
[2016-08-19 04:28] LABS: MODALITY VENTILATOR
[2016-08-19] MEDS: SOLU-CORTEF IV SCH ×2 (05:10→17:52)
[2016-08-19 05:56] LABS: HEMATOCRIT 31.5 % (42.0-52.0); HEMOGLOBIN 9.7 g/dL (14.0-18.0); MCH 29.2 PG (27-31); MCHC 30.8 g/dL (33-37); MCV 94.9 FL (81-99); RBC 3.32 XMIL (4.7-6.1)
[2016-08-19 06:18] LABS: ALBUMIN 2.9 g/dL (3.5-5.0); CALCIUM 7.9 mg/dL (8.8-10.2); POTASSIUM 3.9 mmol/L (3.5-5.1); TOTAL BILIRUBIN 0.8 mg/dL (0.20-1.00); TOTAL PROTEIN 5.6 g/dL (6.3-8.3)
[2016-08-19] MEDS: HUMALOG SUBQ SCH ×4 (06:32→21:27)
--- NOTE | 2016-08-19 07:05 | Diag Imaging Result Doc PS360 ---
EXAM: CHEST-PORTABLE HISTORY: respiratory failure TECHNIQUE: Portable AP COMPARISON: 08/18/2016 FINDINGS: The endotracheal and nasogastric tubes remain in good position. Mild increased interstitial markings in the lower lungs. Questionable tiny left pleural effusion. No consolidation. No change in the right jugular line. No pneumothorax. IMPRESSION: No interval improvement Electronically signed by Skyler Anderson 08/19/2016 7:03 AM
[2016-08-19] MEDS: HYTRIN PO SCH (08:11)
[2016-08-19] MEDS: ZYLOPRIM PO SCH (09:23)
[2016-08-19] MEDS: LOVENOX SUBQ SCH (09:23)
[2016-08-19] MEDS: ADVAIR 250/50 DISKUS INH SCH ×2 (10:52→19:40)
--- NOTE | 2016-08-19 11:14 | PROGRESS NOTE ---
DATE: 08/19/2016 SUBJECTIVE: Mr. Santiago had a rough night. He had supraventricular tachycardia, rate into 150s and dipped down to the 50s. His O2 saturation has remained pretty stable. He does have some grimacing in response to pain when off sedation. Attempted weaning trial only lasted about 30 seconds yesterday. OBJECTIVE: Vital Signs: Afebrile, temperature 97.5 degrees, pulse 80, respirations 20, blood pressure 121/68, pulse 90. Lungs: Clear anterolateral. Cardiovascular: Regular rhythm and rate without murmur or S3. Abdomen: Soft. Skin: Warm and dry. LABORATORY STUDIES: White count 27,100, hematocrit 31, platelet count 178,000. Sodium 139, potassium 3.9, chloride 104, bicarb 25, BUN 53, creatinine 3.1, blood sugar 186 and 176. Chest x- ray from this morning: No interval improvement. ASSESSMENT AND PLAN: 1. The patient remains critically ill. White count, however, is coming down. For now I would like to continue with his current antibiotics. I am not exactly sure what is causing the leukocytosis. Dr. Dotson is following his multiple organ system failure. He is on combination of Meropenem and vancomycin and Micafungin. Overall he has had 38 days of treatment for his bilateral septic elbows. 2. Acute renal failure. Acute tubular necrosis. We will continue the dialysis. We have made progress on his volume. 3. He had some supraventricular tachycardia, a little bradycardia. Troponins elevated. Likely he has some underlying coronary ischemia going on. Cardiology is following. 4. Continue nutrition, on dialysis for now. He did not tolerate tube feeding. We may need to try to initiate that again. Review of lab from this morning of note, troponin was 0.610. Review of orders, I do not see any change at this point. cc: Lonnie Encarnacion MD
[2016-08-19] MEDS: PROTONIX IV SCH (15:31)
--- NOTE | 2016-08-19 17:30 | PROGRESS NOTE ---
DATE: 08/19/2016 TIME SEEN: 0130. SUBJECTIVE: Mr. Santiago is resting in bed. He is ventilator dependent. He remains sedated. OBJECTIVE: Vital signs: His most recent vital signs, temperature 98.4 degrees, blood pressure 124/55, heart rate 91, respirations are 20. He remains on 45% FiO2. Last recorded saturation is 93%. He has had 1109 in, 2590 out. Labs: Sodium 139, potassium 3.9, chloride 101, CO2 25, BUN 53, creatinine 3.1, glucose 176. His anion gap is 13, calcium 7.9. No phosphorus at this time. Albumin 2.9. His white count 27.1, hemoglobin 9.7, hematocrit 31.5, with a platelet count of 178,000. ABGs, pH 7.37, CO2 43, PO2 89, bicarb 24.5; this remains on 45% FiO2. Lactate 1.5. PHYSICAL EXAMINATION: General: This is a 71-year-old white male. He is currently resting in bed. He is in no acute distress. He appears critically ill. He remains sedated. He is mechanically ventilated. HEENT: Normocephalic, atraumatic. Orally intubated. Conjunctivae pale. He has ANGELA. These remain stable secondary to sedation. Cardiovascular: He has regular rate and rhythm. He is tachycardic on the monitor. He has a soft systolic murmur. No gallop appreciated. Lungs: He has coarse breath sounds bilateral. Mechanical ventilation continues. No wheezes or rhonchi noted. Abdomen: Round, soft, nontender. Positive bowel sounds. Hypoactive. NG tube remains clamped. Genitourinary: Fermin catheter is in place. Scant urine out. Extremities: Have 1 to 2+ pretibial edema to the lower extremities. He has 2 to 3+ in the upper extremities, mostly in the upper arms and elbows. He continues with dependent edema up into the sacral, hip, abdominal area. Integumentary: Warm and dry. Neurological: As mentioned above. ASSESSMENT AND PLAN: 1. Acute on chronic kidney disease. Patient continues to have had SLED with slow flow dialysis every day last week. He is now in a 10 L fluid negative balance. We will plan for dialysis in the a.m. 2. Electrolytes and acid-base balance. These remain stable. 3. Anemia. This remains low but stable. 4. Respiratory failure. He remains intubated. His FiO2 remains at 45% since Saturday. 5. Fluid volume overload. We continue to assist with dialysis intervention. 6. Leukocytosis. This has slowly responded. He continues on Zosyn and Mycamine and Merrem renally dosed per Dr. Dotson. 7. Nutritional status. Patient is now on IV PN. I would like to thank you for allowing us to follow with this patient. Dictated by DANIELLA Watson for Iglesia Villalobos MD cc: DANIELLA Watson MD
[2016-08-19] MEDS: MYCAMINE 100 MG in NS 100 ML IV SCH (17:50)
[2016-08-19] MEDS: ASPIRIN EC PO SCH (21:27)
[2016-08-19] MEDS: FENTANYL 1,000 MICROGM in NS 80 ML IV SCH (21:57)
[2016-08-20] MEDS: ATIVAN IV PRN ×4 (01:35→20:25)
[2016-08-20] MEDS: DUONEB (A & A) INH SCH ×6 (03:22→22:57)
[2016-08-20] MEDS: PEPCID IV SCH ×2 (03:25→15:13)
[2016-08-20] MEDS: SODIUM CHLORIDE 0.9% INJ SCH ×2 (03:25→05:06)
[2016-08-20] MEDS: MERREM 1 GM in NS 50 ML IV SCH ×3 (03:25→17:42)
[2016-08-20 04:33] LABS: ALLEN TEST YES; BE -3.9 mmoll (-3.0-3.0); BLOOD TYPE ARTERIAL; DRAW SITE R RADIAL; METHB 1.7 % (0.0-1.5); O2(CT) 12.2 mL/dL (15.0-23.0); PCO2(98.6) 40 mmHg (35-45); PO2(98.6) 89 mmHg (60-100); SAMPLE BLOOD; SAO2 98.8 % (95.0-100.0); SRATE 28 BPM; TVOL 550 mL; pH(98.6) 7.34 (7.35-7.45)
[2016-08-20 04:35] LABS: MODALITY VENTILATOR
[2016-08-20] MEDS: SOLU-CORTEF IV SCH ×2 (05:05→17:51)
--- NOTE | 2016-08-20 05:44 | EKG Report ---
Test Performed on : 08/18/2016 3:27:44 PM Test Reason : No Order in ipsy Blood Pressure : / mmHG Vent. Rate : 104 BPM Atrial Rate : 104 BPM P-R Int : 172 ms QRS Dur : 102 ms QT Int : 340 ms P-R-T Axes : 059 -53 -42 degrees QTc Int : 447 ms Sinus tachycardia. Left anterior fascicular block Cannot rule out Inferior infarct (cited on or before 16-AUG-2016) ST \T\ T wave abnormality, consider anterolateral ischemia Abnormal ECG When compared with ECG of 16-AUG-2016 05:37, Left anterior fascicular block is now present T wave inversion now evident in Inferior leads T wave inversion now evident in Anterolateral leads Confirmed by Andres BARR, Arsh Ordaz ([id number]) on 08/21/2016 8:32:52 AM
--- NOTE | 2016-08-20 05:44 | EKG Report ---
Test Performed on : 08/19/2016 05:38:56 AM Test Reason : RHYTHM Blood Pressure : / mmHG Vent. Rate : 105 BPM Atrial Rate : 105 BPM P-R Int : 184 ms QRS Dur : 104 ms QT Int : 496 ms P-R-T Axes : 057 -34 014 degrees QTc Int : 655 ms Sinus tachycardia. with premature supraventricular complexes. and with frequent premature ventricula r complexes. Left axis deviation Prolonged QT Abnormal ECG When compared with ECG of 18-AUG-2016 23:45, (Unconfirmed) Sinus rhythm. has replaced Junctional rhythm. Nonspecific T wave abnormality has replaced inverted T waves in Inferior leads Nonspecific T wave abnormality no longer evident in Anterior leads QT has lengthened Confirmed by Andres BARR, Arsh Ordaz ([id number]) on 08/21/2016 8:33:18 AM
--- NOTE | 2016-08-20 05:44 | EKG Report ---
Test Performed on : 08/18/2016 11:42:20 PM Test Reason : No Order in [employer] Blood Pressure : / mmHG Vent. Rate : 135 BPM Atrial Rate : 156 BPM P-R Int : 000 ms QRS Dur : 100 ms QT Int : 394 ms P-R-T Axes : 000 -47 -42 degrees QTc Int : 591 ms Supraventricular tachycardia. Left anterior fascicular block Cannot rule out Inferior infarct (cited on or before 16-AUG-2016) Abnormal ECG When compared with ECG of 18-AUG-2016 15:27, (Unconfirmed) premature supraventricular complexes. are no longer present T wave inversion no longer evident in Anterolateral leads Confirmed by Andres BARR, Arsh Ordaz ([id number]) on 08/21/2016 8:33:13 AM
[2016-08-20 05:47] LABS: HEMATOCRIT 27.9 % (42.0-52.0); HEMOGLOBIN 8.7 g/dL (14.0-18.0); MCH 29.4 PG (27-31); MCHC 31.2 g/dL (33-37); MCV 94.3 FL (81-99); MPV 11.3 FL (7.4-10.4); RBC 2.96 XMIL (4.7-6.1)
[2016-08-20 06:13] LABS: ALBUMIN 2.7 g/dL (3.5-5.0); CALCIUM 8.1 mg/dL (8.8-10.2); POTASSIUM 4.1 mmol/L (3.5-5.1); TOTAL BILIRUBIN 0.89 mg/dL (0.20-1.00); TOTAL PROTEIN 5.1 g/dL (6.3-8.3)
[2016-08-20] MEDS: HUMALOG SUBQ SCH ×4 (06:35→20:25)
--- NOTE | 2016-08-20 07:01 | Diag Imaging Result Doc PS360 ---
EXAM: CHEST-PORTABLE HISTORY: respiratory failure TECHNIQUE: Erect AP portable at 0505 COMMENT: There is an endotracheal tube with its tip at the thoracic inlet and an NG tube with its tip below the diaphragm. The inspiration is suboptimal. There is alveolar opacity bilaterally particularly in the lingula and left lower lobe. This is slightly worse than on the previous study of 08/19/2016, however some of this difference in appearance is probably due to less optimal inspiration on the current study. IMPRESSION: Pulmonary edema plus minus pneumonia. Electronically signed by Mynor Freedman 08/20/2016 6:59 AM
[2016-08-20] MEDS: ADVAIR 250/50 DISKUS INH SCH ×2 (07:35→19:18)
[2016-08-20] MEDS: ZYLOPRIM PO SCH (08:54)
[2016-08-20] MEDS: LOVENOX SUBQ SCH (08:54)
[2016-08-20] MEDS: HYTRIN PO SCH (08:55)
--- NOTE | 2016-08-20 09:19 | PROGRESS NOTE ---
DATE: 08/20/2016 SUBJECTIVE: Sher seems to be unresponsive, on the ventilator. Appears comfortable. PHYSICAL EXAMINATION: Vital Signs: Temperature 98.6 degrees, pulse 78, respirations 20, blood pressure 120/54. Lungs: Were clear anterolateral. Cardiovascular Examination: Regular rhythm and rate without murmur or S3. Abdomen: Soft. Extremities: He has pitting edema throughout and anasarca. Pitting edema of his arms as well. Is and Os: Urine output looks like it was about 200-300 mL. LAB: From this morning, white count 17,840, hematocrit 27, platelet count 121,000. Sodium 138, potassium 4.1, chloride 100, BUN 75, creatinine 4.3, blood sugars 219, 182, 165, 189. Chest x-ray from this morning, pulmonary edema plus/minus pneumonia. There is an endotracheal tube with the tip thoracic and an NG tube with the tip below the diaphragm. Inspiration suboptimal. Alveoloplasty bilateral between the lingula and left lower lobe. ASSESSMENT AND PLAN: 1. The patient remains critically ill. Still on the ventilator. Hope to be able to wean him off of the ventilator this week. Continue present antibiotics. Combination of meropenem, vancomycin, and micafungin. 2. Acute renal failure. Suspect acute tubular necrosis. Continue dialysis. Continue to try remove volume off. 3. Supraventricular tachycardia and then at times bradycardia. Troponins were elevated. Suspect he may have some underlying coronary ischemia. 4. Nasogastric tube in place. We are going to try resume some nutrition. 5. Review of his orders. I do not see any change at this point. 6. He has underlying gout. He is on allopurinol 100 mg daily. cc: Lonnie Encarnacion MD
[2016-08-20] MEDS ORDERED: NS 2,000 ML ONE (09:33)
--- NOTE | 2016-08-20 10:13 | PROGRESS NOTE ---
DATE: 08/20/2016 SUBJECTIVE: Patient continues sedated, on ventilator. He continues to require hemodialysis. OBJECTIVE: Vital Signs: Blood pressure 128/54, heart rate 78 and regular with ECG monitor showing sinus rhythm, oxygen saturation 100% on FiO2 of 45% and PEEP of 8. Chest: Auscultating the chest reveals clear chest anteriorly. Cardiac: Reveals a regular rate and rhythm without appreciable murmur or gallop. There is no evidence of edema. LAB DATA: Remarkable for a white blood cell count of 17.84, hematocrit 27.9. BUN 75, creatinine 4.3, potassium 4.1. Troponin last night 0.61. IMPRESSIONS: 1. Respiratory failure. 2. Bilateral pneumonitis. 3. Acute renal failure on chronic kidney disease. 4. Acute on chronic right-sided heart failure. 5. Mildly elevated troponin. This is likely a secondary phenomenon. RECOMMENDATIONS: 1. Continue efforts to remove volume via hemodialysis as tolerated. 2. Continue supportive care. cc: Braulio Dillard MD
--- NOTE | 2016-08-20 11:06 | PROGRESS NOTE ---
DATE: 08/20/2016 SUBJECTIVE: Mr. Santiago remains ventilator dependent. He is sedated. OBJECTIVE: His most recent vital signs: Temperature 98.6 degrees, blood pressure 120/54 heart rate 78, respirations 28. He remains on 45% FiO2. His last recorded saturation is 100%. He has had 531 in, he has had 300 out; 250 per his NG tube, 50 per his Fermin catheter. MOST RECENT LABS: Sodium 138, potassium 4.1, chloride 100, CO2 22, BUN 75, creatinine 4.3, glucose 165. His anion gap is 16, calcium 8.1, albumin 2.7. White count 17.84 , hemoglobin 8.7, hematocrit 27.9, platelet count 121,000. ABGs pH 7.34, CO2 40, PO2 89, bicarb 21.9. PHYSICAL EXAMINATION: General: This is a 71-year-old white male. He is currently resting in bed. He is in no acute distress. Skin: Warm and dry. HEENT: Normocephalic, atraumatic. He is orally intubated. Conjunctiva is pale. He has ANGELA. Mucous membranes are dry. Neck: Supple. Trachea midline. No JVD. Cardiovascular: He is regular rate and rhythm. He is tachycardic on the monitor. He has a soft systolic murmur. No gallop. Lungs: Coarse breath sounds bilateral. He is without crackles or wheezes. Equal excursion on vent. Abdomen: Round, soft, nontender. Positive bowel sounds. Patient continues with hypoactive bowel sounds with NG tube to low intermittent suction. Bile green with a occasional coffee ground material. Genitourinary: Fermin catheter is in place. Scant urine out. Extremities: He continues with edema up into the upper sacral abdominal area. Trace pretibial edema. He has 3 to 4+ upper arm edema into the hands. Integumentary: Warm and dry. No rashes or lesions. Neurological: As mentioned above. ASSESSMENT AND PLAN: 1. Acute on chronic kidney disease. Patient continues with SLED today. We will place him on a 4 K bath. He is to be on a 27 bicarbonate. We will plan 5-6 L of ultrafiltration as tolerated over 8 hours. 2. Electrolytes are stable. 3. Acid-base balance. This has been improving. We will continue with dialysis. 4. Anemia. This remains low but stable. 5. Fluid volume overload. Again, with assistance with dialysis. 6. Leukocytosis. Patient continues on renal dosed antibiotics. Followed by Dr. Dotson. 7. Nutritional status. Patient has been receiving IVPN. We will talk with the primary care about possibly starting a TPN with lipids. I would to thank you for allowing us to follow with this patient. Seen, data reviewed, discussed with Tita Torres on 08/20/16. I agree with the above assessment and plan of care. rg Dictated by DANIELLA Watson for Iglesia Villalobos MD cc: DANIELLA Watson MD [facility]
[2016-08-20] MEDS: D50W 250 ML, AMINOSYN 10% 500 ML, LIPOSYN 20% 250 ML MISC SCH ×3 (13:14)
[2016-08-20] MEDS: PROTONIX IV SCH (15:13)
--- NOTE | 2016-08-20 17:34 | PROGRESS NOTE ---
DATE: 08/20/2016 PRESENT ILLNESS: The patient remains critically ill. He is intubated and sedated. He has multiple organ system failure. His white count has improved, however. MEDICATIONS: This is the 7th day of treatment with a combination of micafungin, meropenem, and vancomycin. PHYSICAL EXAMINATION: Vital Signs: Temperature is 98.6, pulse 116, respirations 30, blood pressure 88/58. General: This is an ill-appearing, elderly male who is intubated and sedated. He is in no acute distress. Lungs: There were scattered rhonchi bilaterally. Cardiovascular: Heart rate was regular and rapid. Abdomen: Soft and nontender. Legs were edematous. The patient's arms showed that his elbow incisions have healed thoroughly and the elbows are not swollen. LAB AND X-RAY: Chest x-ray shows bilateral pneumonia and/or pulmonary edema. Blood gases show a pH of 7.34, PO2 of 89, a pCO2 of 40. Creatinine is 4.3. The GFR is 14. Sputum Gram stain shows yeast. ASSESSMENT AND PLAN: The patient remains critically ill. For now I am going to continue with his current antibiotics in view of the fact that the white count did come down today. The patient's comorbidities include diabetes mellitus, congestive heart failure, multiple organ system failure including renal failure and now the patient is on dialysis. cc: Brennan Dotson MD
[2016-08-20] MEDS: MYCAMINE 100 MG in NS 100 ML IV SCH (17:41)
[2016-08-20] MEDS: VANCOMYCIN 1 GM/NS 1 GM/250 ML IVPB IV SCH (17:42)
[2016-08-20] MEDS ORDERED: STERILE WATER INJ. ONE (17:51)
[2016-08-20] MEDS: ASPIRIN EC PO SCH (20:24)
[2016-08-21] MEDS: DUONEB (A & A) INH SCH ×6 (03:08→22:58)
[2016-08-21] MEDS: PEPCID IV SCH ×2 (03:23→15:25)
[2016-08-21 04:36] LABS: ALLEN TEST YES; BE -3.6 mmoll (-3.0-3.0); BLOOD TYPE ARTERIAL; DRAW SITE R RADIAL; METHB 1.4 % (0.0-1.5); O2(CT) 14.1 mL/dL (15.0-23.0); PCO2(98.6) 48 mmHg (35-45); PO2(98.6) 113 mmHg (60-100); SAMPLE BLOOD; SAO2 99.4 % (95.0-100.0); SRATE 28 BPM; THB 10.3 g/dL (11.5-17.4); TVOL 500 mL; pH(98.6) 7.29 (7.35-7.45)
[2016-08-21 04:37] LABS: MODALITY VENTILATOR
[2016-08-21 05:40] LABS: HEMATOCRIT 31.9 % (42.0-52.0); HEMOGLOBIN 9.7 g/dL (14.0-18.0); MCH 29.2 PG (27-31); MCHC 30.4 g/dL (33-37); MCV 96.1 FL (81-99); MPV 12.6 FL (7.4-10.4); RBC 3.32 XMIL (4.7-6.1)
[2016-08-21 05:51] LABS: ALBUMIN 2.9 g/dL (3.5-5.0); CALCIUM 7.9 mg/dL (8.8-10.2); POTASSIUM 4.8 mmol/L (3.5-5.1); TOTAL BILIRUBIN 1.46 mg/dL (0.20-1.00); TOTAL PROTEIN 5.7 g/dL (6.3-8.3)
[2016-08-21] MEDS: SOLU-CORTEF IV SCH ×2 (06:13→17:08)
[2016-08-21] MEDS: LEVOPHED 8 MG in D5 1/2 NS 250 ML IV SCH ×2 (06:21→20:25)
[2016-08-21] MEDS: MERREM 1 GM in NS 50 ML IV SCH ×2 (06:25→17:09)
[2016-08-21] MEDS: HUMALOG SUBQ SCH ×4 (07:13→20:18)
--- NOTE | 2016-08-21 07:25 | Diag Imaging Result Doc PS360 ---
EXAM: CHEST-PORTABLE INDICATION: respiratory failure TECHNIQUE: One view COMPARISON: 08/20/2016 FINDINGS: The ET tube and right central line are in stable positions. An NG tube projects below the diaphragm and out of the [id number]. Inspiration is marginally better than the prior study. Airspace opacity bilaterally appears to have marginally improved, probably technical due to better inspiration. There are no new consolidations. Cardiac silhouette is stable. IMPRESSION: Slightly better inspiration and perhaps marginal improvement of airspace opacities as compared to the previous study. Electronically signed by Randall Nelson 08/21/2016 7:23 AM
[2016-08-21] MEDS: ADVAIR 250/50 DISKUS INH SCH ×2 (07:35→19:03)
[2016-08-21] MEDS ORDERED: NS 2,000 ML ONE (08:17)
[2016-08-21] MEDS ORDERED: HEPARIN ONE (08:17)
--- NOTE | 2016-08-21 08:37 | PROGRESS NOTE ---
DATE: 08/21/2016 SUBJECTIVE: Patient continues sedated on the ventilator. He continues with very low urine output and continues to receive dialysis. OBJECTIVE: Vital Signs: Blood pressure 133/61, heart rate 82 and regular. Oxygen saturation 100% on FiO2 of 45% and PEEP of 9. Chest: Auscultation of the chest reveals coarse breath sounds bilaterally. Cardiac Examination: Reveals a regular rate and rhythm without appreciable murmur or gallop. There is no evidence of edema. Laboratory Data: Includes a white blood cell count of 20.08. BUN 37, creatinine 2.6. IMPRESSION: 1. Respiratory failure. 2. Bilateral pneumonitis. 3. Acute on chronic right-sided heart failure. 4. Acute renal failure on chronic kidney disease. RECOMMENDATIONS: 1. Continue current supportive care. 2. Anticipate prolonged course related primarily to significant lung injury and acute renal failure. cc: Braulio Dillard MD
[2016-08-21] MEDS: HYTRIN PO SCH (09:19)
[2016-08-21] MEDS: SODIUM BICARBONATE 8.4% IV PUSH SCH ×3 (09:23→20:21)
[2016-08-21] MEDS: LOVENOX SUBQ SCH (09:23)
[2016-08-21] MEDS: ZYLOPRIM PO SCH (09:23)
--- NOTE | 2016-08-21 10:06 | PROGRESS NOTE ---
DATE: 08/21/2016 SUBJECTIVE: He remains sedated, on the ventilator. OBJECTIVE: Vital Signs: Blood pressure 133/61, heart rate 82, respirations 28, afebrile. Intake and output: Intake 1 L. Output 5.7 L. General: No acute distress. Skin: Warm and dry. He has an eschar on his forehead and extensive eschar and violaceous discoloration on the posterior aspect of his legs. Both elbows are dressed. HEENT: Conjunctivae are pink. Neck: Neck veins are not appreciated. Trachea is midline. Heart: Regular without gallops. Lungs: Have equal breath sounds. No crackles. Abdomen: Soft, nontender. Bowel sounds present. Extremities: Have trace to 1+ edema. No clubbing or cyanosis. LABORATORY DATA: Sodium 137, potassium 4.8, chloride 102, bicarbonate 20, BUN 37, creatinine 2.6. Hemoglobin 9.7. IMPRESSIONS: 1. Acute kidney injury. No change. He will have SLED again today with a target of 3 L ultrafiltration. Our goal from this point will be to maintain even fluid balance. 2. Electrolytes, in target. 3. Acid base, in target. cc: Iglesia Villalobos MD
[2016-08-21] MEDS: FENTANYL IV PRN ×3 (11:21→20:17)
[2016-08-21] MEDS: ATIVAN IV PRN ×2 (11:22→15:18)
--- NOTE | 2016-08-21 12:33 | PROGRESS NOTE ---
DATE: 08/21/2016 SUBJECTIVE: Mr. Santiago is awake. He did respond to my voice and touch. He is still intubated. It seems the fluid is going down. He still has some pitting edema in his arms and pitting edema in his legs. OBJECTIVE: Vital signs: He remains afebrile. Temperature 97.5 degrees, pulse 107, respirations 28, blood pressure 117/40. Pupils are equal, round, lungs are clear in all lung gaston. Cardiovascular: Regular rhythm and rate without murmur or S3. Abdomen: Soft. Skin is warm and dry. Urine output over 5 L. Blood sugar 203,179,196. LABORATORY DATA: White count 20,80. Hematocrit is 31, platelet count 116,000. Chemistries: Sodium 135, potassium 4.8, chloride 102, bicarb 20. BUN 37, creatinine 2.6. Blood sugar is 200, 182, 179, 196. Liver functions: AST was 107. ALT 45. ASSESSMENT AND PLAN: 1. Acute kidney injury. No change. Continue sustained low-efficiency dialysis. Target 3 L ultrafiltration. Electrolytes and acid base appear to be on target. 2. Respiratory failure. Bilateral pneumoniae. [id number] right-sided heart failure combined with acute renal failure. Continue to try and remove fluid. Chest x-ray from this morning - there is slightly better inspiration perhaps marginal improvement in airspace opacities compared to previous study. 3. Multiple organ system failure. This is the 8th day of combination micafungin, meropenem and vancomycin. Continue his antibiotics. Nasogastric tube in place. It started back as some feeding. 4. Diabetes mellitus, type 2. Continue to follow sugars. We will advance the Nepro feeding as we can. We tried before with fairly high residual. cc: Lonnie Encarnacion MD
[2016-08-21] MEDS: D50W 250 ML, AMINOSYN 10% 500 ML, LIPOSYN 20% 250 ML MISC SCH ×3 (13:12)
[2016-08-21] MEDS: SODIUM CHLORIDE 0.9% INJ SCH ×2 (15:18→15:25)
[2016-08-21] MEDS: PROTONIX IV SCH (15:18)
[2016-08-21] MEDS ORDERED: STERILE WATER INJ. ONE (16:44)
[2016-08-21] MEDS: MYCAMINE 100 MG in NS 100 ML IV SCH (16:47)
--- NOTE | 2016-08-21 17:34 | PROGRESS NOTE ---
DATE: 08/21/2016 PRESENT ILLNESS: The patient continues to be very ill. He is intubated and sedated. MEDICATIONS: This is the 8th day of treatment with a combination of micafungin, meropenem and vancomycin. PHYSICAL EXAMINATION: Vital Signs: Temperature is 97.7 degrees, pulse 116, respirations 38, blood pressure 86/55. General: This is a very ill-appearing, elderly male. He is intubated and sedated. He appears to be in no acute distress. Lungs: There were scattered rhonchi bilaterally. Cardiovascular: Heart rate was regular and rapid. Abdomen: Soft and nontender. Neurologic: Patient is obtunded. Bones, joints, muscles: There is slight erosion on the right elbow secondary the fact that the patient continually lies on his arms, especially the elbows. The left elbow does not show any erosion and both elbows incisions are intact as is the incision on the patient's right knee. LAB AND X-RAY: CBC today shows white count of 20,080, hemoglobin 9.7, and platelet count 116,000. Blood gases show a pH of 7.29, a PO2 of 113, pCO2 of 48. Creatinine is 2.6. GFR is 24. Chest x- ray shows slight improvement in the patient's infiltrates. ASSESSMENT AND PLAN: The patient remains critically. I am going to continue his current antimicrobial regimen. I have ordered sputum for AFB and fungal cultures and I have also ordered a QuantiFERON test for TB as well. COMORBIDITIES: Include diabetes mellitus, congestive heart failure, multiple organ systems failure, including renal failure and dialysis. cc: Brennan Dotson MD
[2016-08-21] MEDS: VANCOMYCIN 1 GM/NS 1 GM/250 ML IVPB IV SCH (17:37)
[2016-08-21] MEDS: ASPIRIN EC PO SCH (20:18)
[2016-08-22] MEDS: PEPCID IV SCH ×2 (02:08→14:20)
[2016-08-22] MEDS: DUONEB (A & A) INH SCH ×6 (02:57→22:47)
[2016-08-22 04:18] LABS: BLOOD TYPE ARTERIAL; SAMPLE BLOOD; pH(98.6) 7.31 (7.35-7.45)
[2016-08-22 04:19] LABS: ALLEN TEST YES; BE -0.2 mmoll (-3.0-3.0); DRAW SITE R RADIAL; METHB 1.1 % (0.0-1.5); O2(CT) 15.8 mL/dL (15.0-23.0); PO2(98.6) 139 mmHg (60-100); SAO2 99.7 % (95.0-100.0); SRATE 28 BPM; THB 11.5 g/dL (11.5-17.4); TVOL 500 mL
[2016-08-22 04:20] LABS: MODALITY VENTILATOR; PCO2(98.6) 53 mmHg (35-45)
[2016-08-22] MEDS: SOLU-CORTEF IV SCH ×2 (05:26→17:12)
[2016-08-22] MEDS: MERREM 1 GM in NS 50 ML IV SCH ×2 (05:26→15:59)
[2016-08-22 05:52] LABS: HEMATOCRIT 33.2 % (42.0-52.0); HEMOGLOBIN 10.1 g/dL (14.0-18.0); MCH 29.5 PG (27-31); MCHC 30.4 g/dL (33-37); MCV 97.1 FL (81-99); MPV 12.4 FL (7.4-10.4); RBC 3.42 XMIL (4.7-6.1)
[2016-08-22 06:11] LABS: ALBUMIN 2.8 g/dL (3.5-5.0); CALCIUM 8.1 mg/dL (8.8-10.2); POTASSIUM 4.9 mmol/L (3.5-5.1); TOTAL BILIRUBIN 1.19 mg/dL (0.20-1.00); TOTAL PROTEIN 5.8 g/dL (6.3-8.3)
[2016-08-22] MEDS: HUMALOG SUBQ SCH ×4 (06:24→20:29)
--- NOTE | 2016-08-22 07:19 | Diag Imaging Result Doc PS360 ---
EXAM: CHEST-PORTABLE INDICATION: respiratory failure TECHNIQUE: One view COMPARISON: 08/21/2016 FINDINGS: Right central line and ET tube are in stable position. An NG tube projects below the diaphragm and out of the [id number]. Mild airspace opacities continue to improve bilaterally. There is no new consolidation. Cardiac silhouette is stable. IMPRESSION: Continued improvement of the mild opacities bilaterally. Electronically signed by Randall Nelson 08/22/2016 7:16 AM
[2016-08-22] MEDS ORDERED: HEPARIN ONE (07:20)
[2016-08-22] MEDS ORDERED: NS 2,000 ML ONE (07:20)
[2016-08-22] MEDS: ATIVAN IV PRN ×2 (08:29→20:10)
[2016-08-22] MEDS: ZYLOPRIM PO SCH (08:29)
[2016-08-22] MEDS: HYTRIN PO SCH (08:29)
[2016-08-22] MEDS: LOVENOX SUBQ SCH (09:45)
--- NOTE | 2016-08-22 09:59 | PROGRESS NOTE ---
DATE: 08/22/2016 TIME SEEN: 0745. SUBJECTIVE: Mr. Santiago is resting in bed. He is off sedation. His eyes open randomly. He is able to turn his head to verbal command, though it is unclear if he is following with his eyes. He does remains ventilator dependent at this time. OBJECTIVE: Vital Signs: His most recent vital signs are temperature 98.1 degrees, blood pressure 149/58, heart rate 86, respirations 29. He remains on 45% FiO2. His last recorded saturation is 100%. He has had 1440 in. He has had 3080 out, 3 L on dialysis yesterday. Patient remains in a negative fluid balance of 9.8 L in the last 72 hours. Laboratory Data: Sodium 137, potassium 4.9, chloride is 102, CO2 22, BUN 38, creatinine 2.2, glucose 207, anion gap 13, calcium 8.1, phosphorus 3.2, albumin 2.8, magnesium 2. White count 20.38, hemoglobin 10.1, hematocrit 33.2, with a platelet count of 93,000. ABGs , pH 7.31, CO2 53, PO2 139, bicarb 24.8, lactate 1.3 on 45% FiO2. Physical Examination: General: This is a 71-year-old, white male. He is resting quietly in bed. He is in no acute distress. Skin: Warm and dry. HEENT: Normocephalic, atraumatic. Conjunctivae are pink. He has ANGELA. Mucous membranes are dry. Neck: Supple. Trachea midline. No evidence of JVD today. Cardiovascular: He is regular rate and rhythm. He is without murmur or gallop. Lungs: Basically clear to posterior bases, clear anterior. Faint expiratory wheeze. Remains ventilator dependent. Equal excursion. Abdomen: Large, round, soft, nontender. Positive bowel sounds. NG tube remains in place, now with Nepro tube feedings. Patient is tolerating this at this time. Genitourinary: Minimal urine out with requirement of dialysis. Extremities: Have trace edema to the lower extremities. Otherwise, he continues to have 1 to 2+ to his upper arms and continues with pitting edema to his abdominal/sacral area. Integumentary: Patient now has a long excoriated bruise noted to the left lower extremity. He has some tissue bruising noted to his forehead. No rashes or lesions. Neurological: Patient is awake. He is turning his head to verbal, though no indications that he is following you with his eyes. ASSESSMENT AND PLAN: 1. Acute kidney injury. There has been no change. Patient is in approximate 10 L negative fluid balance. We will hold on dialysis today secondary to patient going hypotensive with tachycardia yesterday. We have requested that they start checking a CVP every shift. 2. Electrolytes, acid-base balance. These remain stable. 3. Anemia. This remains low but stable. 4. Respiratory failure. Patient has remained stable on 45% FiO2. Followed by pulmonology. 5. Malnutrition. Patient has been receiving IDPN on dialysis. He is now receiving tube feedings per NG tube. He is tolerating this at this time. This is followed by the primary care team. I would to thank you for allowing us to follow with this patient. Seen, data reviewed, discussed with Tita Torres on 08/22/16. I agree with the above assessment and plan of care. rg Dictated by DANIELLA Watson for Iglesia Villalobos MD cc: DANIELLA Watson MD [facility]
--- NOTE | 2016-08-22 10:16 | PROGRESS NOTE ---
DATE: 08/22/2016 SUBJECTIVE: Mr. Santiago appears comfortable. He is intubated, calm, not responsive to touch or voice but he appears to be moving all extremities when decrease sedation. He remains afebrile. PHYSICAL EXAMINATION: Vital Signs: Temperature 98.3 degrees, pulse 84, respirations 28, blood pressure 149/58. HEENT: Pupils are equal and round. Lungs: Are clear in all lung gaston. Cardiovascular Examination: Regular rhythm and rate without murmur or S3. Abdomen: Soft. Skin: Warm and dry. Is and Os: Urine output 2700 mL. LABORATORY DATA: Blood sugar 179, 229, 222. Chest x-ray, continued improvement with mild opacities bilaterally. ASSESSMENT AND PLAN: 1. Multisystem dysfunction. This is the 9th day of combination micafungin, meropenem, and vancomycin. Treating for pneumonia. Bilateral pneumonia suspected. 2. Respiratory failure, bilateral pneumonia, and pulmonary edema with pulmonary venous hypertension. We are trying to get fluid off and making good headway. Radiographically improved. Hopefully, can wean off ventilator sometime in the near future. 3. Renal dysfunction, acute kidney injury. Suspect acute atubular necrosis on top of chronic kidney disease. Continue to diurese fluid off. Making progress. 4. Diabetes mellitus type 2. Sugars under good control. 5. Right ventricular dysfunction, right heart failure. 6. He has had bilateral elbow infection and this appears to have resolved. 7. We are going to continue SLED therapy, trying to get 3 L off a day if the blood pressure allows. Cardiology, infectious disease, nephrology, and pulmonary all following. cc: Lonnie Encarnacion MD
[2016-08-22] MEDS: ADVAIR 250/50 DISKUS INH SCH ×2 (11:00→19:20)
[2016-08-22] MEDS: SODIUM BICARBONATE 8.4% IV PUSH SCH ×3 (12:35→21:46)
[2016-08-22] MEDS: PROTONIX IV SCH (14:20)
[2016-08-22] MEDS: SODIUM CHLORIDE 0.9% INJ SCH (14:20)
[2016-08-22] MEDS ORDERED: NS 1,000 ML ONE (14:32)
[2016-08-22] MEDS: MYCAMINE 100 MG in NS 100 ML IV SCH (15:59)
[2016-08-22] MEDS: FENTANYL IV PRN ×2 (19:35→21:08)
--- NOTE | 2016-08-22 19:37 | PROGRESS NOTE ---
DATE: 08/22/2016 PRESENT ILLNESS: The patient continues to be very ill, however, for 2 days in a row his chest x- ray has shown improvement. MEDICATIONS: This is the 9th day of treatment with a combination of micafungin, meropenem and vancomycin. PHYSICAL EXAMINATION: Vital Signs: Temperature is 97.5 degrees, pulse 103, respirations 28. Blood pressure 128/55. General: This is an ill-appearing, elderly male. He is intubated and sedated. Lungs: There were scattered rhonchi bilaterally. Cardiovascular: Heart rate was regular. Abdomen: Soft and nontender. In the right groin there is a dialysis catheter present. The site there also is not erythematous or purulent or tender. Chest: The patient has a Basilio catheter present on the right side. The site is not erythematous or purulent. LABORATORY AND X-RAY: Chest x-ray shows improvement in the bilateral opacities. The patient's laboratory studies show a CBC with a white count of 20,380, hemoglobin 10.1, and platelet count 93,000. Patient's blood gases show a pH of 7.31, a PO2 of 139, pCO2 of 53. The patient's creatinine is 2.2. The GFR is 30. ASSESSMENT AND PLAN: 1. The patient is very ill, among other things, I think he has pneumonia. My plan now will be to continue with his current antibiotics as he appears to be improving. The tests of the sputum for AFB and fungi and the QuantiFERON test are pending. 2. The patient's comorbidities include diabetes mellitus, congestive heart failure, multiple organ system failure, including renal failure with dialysis. cc: Brennan Dotson MD
[2016-08-22] MEDS: ASPIRIN EC PO SCH (20:27)
[2016-08-23] MEDS: DUONEB (A & A) INH SCH ×6 (02:47→23:23)
[2016-08-23] MEDS: PEPCID IV SCH ×2 (04:00→16:59)
[2016-08-23 04:16] LABS: ALLEN TEST YES; BE 2.7 mmoll (-3.0-3.0); BLOOD TYPE ARTERIAL; DRAW SITE R RADIAL; METHB 1.3 % (0.0-1.5); O2(CT) 13.8 mL/dL (15.0-23.0); PCO2(98.6) 45 mmHg (35-45); PO2(98.6) 141 mmHg (60-100); SAMPLE BLOOD; SAO2 99.6 % (95.0-100.0); SRATE 28 BPM; TVOL 500 mL
[2016-08-23 04:17] LABS: MODALITY VENTILATOR
[2016-08-23] MEDS: MERREM 1 GM in NS 50 ML IV SCH ×2 (05:30→16:55)
[2016-08-23] MEDS: SOLU-CORTEF IV SCH ×2 (05:31→16:56)
[2016-08-23] MEDS: HUMALOG SUBQ SCH ×4 (05:45→20:49)
[2016-08-23 06:06] LABS: HEMATOCRIT 31.1 % (42.0-52.0); HEMOGLOBIN 9.4 g/dL (14.0-18.0); MCH 29.3 PG (27-31); MCHC 30.2 g/dL (33-37); MCV 96.9 FL (81-99); MPV 12.4 FL (7.4-10.4); RBC 3.21 XMIL (4.7-6.1)
[2016-08-23 06:48] LABS: ALBUMIN 2.7 g/dL (3.5-5.0); CALCIUM 8.6 mg/dL (8.8-10.2); POTASSIUM 4.3 mmol/L (3.5-5.1); TOTAL BILIRUBIN 0.93 mg/dL (0.20-1.00); TOTAL PROTEIN 5.3 g/dL (6.3-8.3)
[2016-08-23] MEDS ORDERED: HEPARIN ONE (07:07)
[2016-08-23] MEDS ORDERED: NS 1,000 ML ONE (07:23)
--- NOTE | 2016-08-23 07:32 | Diag Imaging Result Doc PS360 ---
EXAM: CHEST-PORTABLE HISTORY: respiratory failure TECHNIQUE: AP portable chest at 0500 COMMENT: There is an endotracheal tube with its tip of the thoracic inlet and an NG tube with its tip below the diaphragm. There is a right internal jugular central venous catheter with its tip in superior vena cava. There is ill-defined interstitial opacity in the lower lung gaston consistent with pulmonary edema. This has not changed appreciably since 08/22/2016. IMPRESSION: Mild pulmonary edema. Electronically signed by Mynor Freedman 08/23/2016 7:30 AM
[2016-08-23] MEDS: ADVAIR 250/50 DISKUS INH SCH ×2 (08:00→19:18)
--- NOTE | 2016-08-23 09:16 | PROGRESS NOTE ---
DATE: 08/23/2016 TIME SEEN: 0705. SUBJECTIVE: Mr. Santiago remains ventilator dependent. He is not sedated. He does open his eyes slightly to verbal stimuli though there is no eye contact or following of command. OBJECTIVE: His most recent vital signs: His last temperature was 96 degrees, blood pressure 160/69, heart rate 88, respirations 22. He remains on 40% FiO2. Last recorded saturation is 98%. Patient has had 873 In. He has had 0 out. He is approximately 1 L positive. LABORATORY DATA: Sodium 143, potassium 4.3, chloride 102, CO2 of 26. BUN 66, creatinine 3.5, glucose 149. Anion gap is 15. Calcium is 8.6, albumin is 2.7. White count 13.16, hemoglobin 9.4, hematocrit 31.1 with a platelet count of 84. ABGs: pH 7.4, CO2 of 45, PO2 141, bicarb 27. His lactate is 1.3. This remains on 40% FiO2. PHYSICAL EXAMINATION: General: This is a 71-year-old elderly white male. He is in no acute distress. He remains ventilator dependent without sedation. Skin: Warm and dry. HEENT: Normocephalic, atraumatic. Conjunctivae pink. He has ANGELA. Mucous membranes dry. Neck: Supple. Trachea midline. No JVD. Cardiovascular: He has regular rate and rhythm today. He is without murmur or gallop. Lungs: Clear to auscultation anteriorly. Equal excursion. No wheeze auscultated today. Remains ventilator dependent. Abdomen: Large, round, soft , nontender. Positive bowel sounds. NG tube remains in place. Continues with Nepro tube feedings. Positive bowel sounds noted. Genitourinary: Minimal urine out per Fermin catheter. Extremities: The patient continues with swelling, 1 to 2+, in his trunk and upper arms. Pitting edema to the abdominal sacral area. Lower Extremities: No edema present. He does have good pulses. Integumentary: The patient has an excoriated bruised looking area to the left lower extremity calf with some tissue bruising to the forehead. Otherwise, no rashes or lesions. Neurological: The patient just randomly bats his eyes but is unable to follow commands or focus and closes down after stimulation. ASSESSMENT AND PLAN: 1. Acute kidney injury. The patient has had no urine output. We will plan for sustained low- efficiency dialysis today. We will place him on a 4 K bath. We will dialyze him for 8 hours. We will attempt to pull 4 L of ultrafiltration. The patient does not have any pressor support on today. We will continue to monitor blood pressures in good control. 2. Electrolytes and acid-base balance. These remain stable. 3. Anemia. This remains low but stable. 4. Malnutrition. The patient continues to get IV parenteral nutrition while on dialysis. He is also receiving tube feedings per his NG tube. 5. Leukocytosis. The patient continues on renal dosed antibiotics. I would like to thank you for allowing us to follow with this patient. Seen, data reviewed, discussed with Tita Torres on 08/23/16. I agree with the above assessment and plan of care. rg Dictated by DANIELLA Watson for Iglesia Villalobos MD cc: DANIELLA Watson MD [facility]
[2016-08-23] MEDS: HYTRIN PO SCH (10:28)
[2016-08-23] MEDS: LOVENOX SUBQ SCH (10:44)
--- NOTE | 2016-08-23 12:00 | PROGRESS NOTE ---
DATE: 08/22/2016 SUBJECTIVE: The patient is intubated, but he will follow commands. No fever, no chills. No nausea, vomiting, or diarrhea. OBJECTIVE: Vital signs: Blood pressure is 122/61, pulse of 93, respirations 19, temperature 98.7 degrees, satting 100% on 40% FiO2. General appearance: White male intubated. HEENT: Anicteric sclerae. Clear conjunctivae. Neck: Supple. No JVD. No bruit. Cardiovascular: S1, S2. Normal rate and rhythm. No murmur, rubs, or gallops. Pulmonary: Coarse bilaterally. GI: Soft, nontender, nondistended. Normoactive bowel sounds. The tube feed is going to the lower extremity. No clubbing, cyanosis. Mild edema. LABS: The white count 13.16, hemoglobin 9.4, hematocrit 31.1, platelets of 84. Chemistry: Sodium 143, potassium 4.3, chloride 102, bicarbonate 26, BUN 66, creatinine 3.5, glucose 149. ASSESSMENT AND PLAN: This is a 71-year-old white male, admitted to the hospital for acute respiratory failure. 1. Acute respiratory failure. Pulmonology is following. The patient had a consultation for a tracheostomy. We will hold his Lovenox, part of it due to tracheostomy and part of it due to thrombocytopenia. 2. End-stage renal disease. The patient is receiving dialysis. He is still on broad-spectrum antibiotics with Merrem, Micafungin and vancomycin. Infectious disease is following. We will continue with supportive care. 3. Diabetes controlled with sliding scale insulin. 4. Code status: The patient is full code.
[2016-08-23] MEDS: ZYLOPRIM PO SCH (12:26)
--- NOTE | 2016-08-23 12:42 | PROGRESS NOTE ---
DATE: 08/23/2016 SUBJECTIVE: Patient awake on ventilator. Dialysis underway. OBJECTIVE: Vital Signs: Blood pressure 102/59, heart rate 100 and regular, with ECG monitor showing sinus tachycardia. Oxygen saturation 100% on FiO2 of 40% with 6 of PEEP. Chest: Clear to auscultation anteriorly. Cardiac Exam: A regular rate and rhythm without appreciable murmur or gallop. There is no evidence of edema. LAB DATA: Includes white blood cell count 13.16. BUN 66, creatinine 3.5, potassium 4.3. IMPRESSION: 1. Respiratory failure. 2. Bilateral pneumonitis. 3. Acute on chronic right-sided heart failure. 4. Acute renal failure on chronic kidney disease. RECOMMENDATIONS: 1. Continue current supportive care. 2. Plans for tracheostomy noted. cc: Braulio Dillard MD
[2016-08-23] MEDS: FENTANYL IV PRN ×4 (13:20→22:46)
[2016-08-23] MEDS: LEVOPHED 8 MG in D5 1/2 NS 250 ML IV SCH (13:53)
[2016-08-23] MEDS: PROTONIX IV SCH (14:10)
[2016-08-23] MEDS: SODIUM BICARBONATE 8.4% IV PUSH SCH (14:10)
[2016-08-23] MEDS ORDERED: NS 500 ML ONE (15:27)
[2016-08-23] MEDS: VANCOMYCIN 1 GM/NS 1 GM/250 ML IVPB IV SCH (16:30)
[2016-08-23] MEDS: MYCAMINE 100 MG in NS 100 ML IV SCH (16:56)
--- NOTE | 2016-08-23 17:21 | PROGRESS NOTE ---
DATE: 08/23/2016 PRESENT ILLNESS: The patient remains very ill. However, today, he seems to be more alert she and I felt he even tracked with his eyes. MEDICATION: This is the 10th day of treatment with a combination of micafungin , meropenem and vancomycin. PHYSICAL EXAMINATION: Vital Signs: Temperature is 98.5 degrees. Pulse 104. Respirations 31. Blood pressure 100/52. Generally: This is an ill-appearing elderly male. He is intubated and sedated. However as mentioned above, he seemed to open his eyes more and I felt he was even tracking with them. Lungs: Clear to auscultation. Cardiovascular: Regular heart rate. Abdomen: Soft and apparently not tender. Neurologic: As mentioned above. Catheters: R chest Basilio catheter site and R groin dialysis site are not red or swollen. Extremities: Bilateral leg pressure wounds are red and have brown eschars. LABORATORY AND X-RAY: The patient's chest x-ray shows stable bilateral opacities. The blood gases show a pH of 7.4, PO2 of 141, pCO2 of 45. Creatinine is 3.5. GFR is 17. The latest sputum grew normal juana and yeast. The 2 most recent cultures namely blood and urine are [place]. [place] [address]. Hemoglobin 9.4, and platelet count 84,000. ASSESSMENT AND PLAN: The patient still is very ill but I think he is making progress in getting better. I plan to continue with his current antimicrobial regimen consisting of micafungin, meropenem and vancomycin which is that 10th day of treatment with these medications. The outstanding studies are sputums for AFB culture and fungal culture and the QuantiFERON TB test also is pending. COMORBIDITIES: Include diabetes mellitus, congestive heart failure, multiple organ systems failure including end-stage renal disease with dialysis. cc: MD REINALDO Herrera
--- NOTE | 2016-08-23 18:16 | CONSULTATION ---
DATE OF CONSULTATION: 08/23/2016 REFERRING PHYSICIAN: Ghanshyam Wheatley MD. PROCUREMENT CONSULTANT: Xavier Dong MD. REASON FOR CONSULTATION: Tracheostomy. HISTORY OF PRESENT ILLNESS: This is a 71-year-old male, admitted on 07/31/2016 for fever and shortness of breath and suspected pneumonia, as well as bilateral elbow infection. He was previously known to me when I placed a Basilio catheter in early July for chronic antibiotic coverage of his infected elbows. Since that time. He remains in the hospital with respiratory failure, pulmonary hypertension, congestive heart failure, ARDS. He is unable to wean off the ventilator and I have been requested to place a tracheostomy. PAST MEDICAL HISTORY: Hypertension, diabetes, anemia, chronic kidney disease, colon cancer, and chronic elbow infections as noted above. PAST SURGICAL HISTORY: Right total knee replacement. Bilateral carotid endarterectomy. Vasectomy. Basilio catheter placement. ALLERGIES: No known drug allergies. SOCIAL HISTORY: Negative for tobacco. He does drink alcohol socially. No illicit drug use. FAMILY HISTORY: Reviewed and noncontributory. REVIEW OF SYSTEMS: Unobtainable as he is on the ventilator. CURRENT MEDICATIONS: Allopurinol, AA nebulizers. Famotidine. Solu-Cortef, meropenem, micafungin, Protonix, Hytrin, vancomycin. Lovenox is on hold secondary to thrombocytopenia. PHYSICAL EXAMINATION: Vital Signs: Temperature 98.5, pulse 103, O2 saturation 100%. Respiratory rate 29, blood pressure 134/66. General: He is awake and he follows simple commands. He shakes his head yes and no to questions. Respiratory: Coarse bilateral breath sounds. CV: Tachycardic and regular. Gastrointestinal: Soft, nontender. LABORATORY: White blood cell count 13,000, hemoglobin 9.4, hematocrit 31, platelet count 84. Sodium 143, potassium 4.3, chloride 102, CO2 of 26, BUN 66, creatinine 3.5. His pH is 7.4, pCO2 of 45, PaO2 141, bicarb 27. He is on 40% FiO2 with a tidal volume of 500 and PEEP of 8. Peak pressure on the vent is 15. ASSESSMENT AND PLAN: A 71-year-old male with respiratory failure and inability to wean from the ventilator. We are planning tracheostomy tomorrow. I have discussed this with him as well as his daughter. We discussed risks of bleeding, infection, injury to nearby organs, such as the esophagus, tracheal innominate fistula and other imponderables. They understand and agree to proceed. cc: Xavier Dong MD
[2016-08-23] MEDS: ASPIRIN EC PO SCH (20:00)
[2016-08-23] MEDS: ATIVAN IV PRN (20:00)
[2016-08-24] MEDS: FENTANYL IV PRN ×4 (00:17→07:13)
[2016-08-24] MEDS: ATIVAN IV PRN ×2 (00:17→04:26)
[2016-08-24] MEDS: DUONEB (A & A) INH SCH ×6 (02:59→22:59)
[2016-08-24] MEDS: PEPCID IV SCH ×2 (03:04→15:44)
[2016-08-24] MEDS: SODIUM BICARBONATE 8.4% IV PUSH SCH (03:04)
[2016-08-24] MEDS: MERREM 1 GM in NS 50 ML IV SCH ×2 (04:29→17:26)
[2016-08-24] MEDS: SOLU-CORTEF IV SCH ×2 (04:29→17:26)
[2016-08-24 04:33] LABS: ALLEN TEST YES; BE 0.3 mmoll (-3.0-3.0); BLOOD TYPE ARTERIAL; DRAW SITE R RADIAL; METHB 1.3 % (0.0-1.5); O2(CT) 15.9 mL/dL (15.0-23.0); PO2(98.6) 107 mmHg (60-100); SAMPLE BLOOD; SAO2 98.9 % (95.0-100.0); SRATE 24 BPM; THB 11.7 g/dL (11.5-17.4); TVOL 500 mL; pH(98.6) 7.33 (7.35-7.45)
[2016-08-24 04:34] LABS: MODALITY VENTILATOR; PCO2(98.6) 51 mmHg (35-45)
[2016-08-24 05:10] LABS: MAGNESIUM 2.3 mg/dL (1.5-2.7)
[2016-08-24 05:19] LABS: ALBUMIN 2.8 g/dL (3.5-5.0); CALCIUM 8.6 mg/dL (8.8-10.2); POTASSIUM 4.8 mmol/L (3.5-5.1); TOTAL BILIRUBIN 0.93 mg/dL (0.20-1.00); TOTAL PROTEIN 5.4 g/dL (6.3-8.3)
[2016-08-24] MEDS: HUMALOG SUBQ SCH ×4 (05:30→21:18)
[2016-08-24 05:52] LABS: HEMATOCRIT 32.5 % (42.0-52.0); HEMOGLOBIN 9.8 g/dL (14.0-18.0); MCH 29.5 PG (27-31); MCHC 30.2 g/dL (33-37); MCV 97.9 FL (81-99); MPV 12.9 FL (7.4-10.4); RBC 3.32 XMIL (4.7-6.1)
--- NOTE | 2016-08-24 07:08 | Diag Imaging Result Doc PS360 ---
EXAM: CHEST-PORTABLE HISTORY: respiratory failure TECHNIQUE: AP portable at 0500 COMMENT: There is an endotracheal tube with its tip at thoracic inlet and an NG tube which passes below the diaphragm. There is a right internal jugular central venous catheter with its tip in the right atrium. There is some mild interstitial pulmonary edema. The inspiration is suboptimal. Compared to the previous study of 08/23/2016 there has been no significant change. IMPRESSION: Mild pulmonary edema. Electronically signed by Mynor Freedman 08/24/2016 7:06 AM
[2016-08-24] MEDS: ADVAIR 250/50 DISKUS INH SCH ×2 (07:29→22:59)
[2016-08-24] MEDS ORDERED: MARCAINE 0.25% PF/EPI 1:200,000 ONE (07:57)
[2016-08-24] MEDS ORDERED: KETAMINE (DOSE) ONE (09:06)
[2016-08-24] MEDS ORDERED: VERSED ONE (09:07)
[2016-08-24] MEDS ORDERED: LUBRIFRESH PM OPH OINTMENT ONE (09:12)
[2016-08-24] MEDS ORDERED: NS 1,000 ML ONE (09:13)
[2016-08-24] MEDS ORDERED: DECADRON ONE (09:13)
[2016-08-24] MEDS ORDERED: ROBINUL ONE (09:13)
[2016-08-24] MEDS ORDERED: NEOSPORIN OINTMENT PACKET ONE (09:13)
[2016-08-24] MEDS ORDERED: ZEMURON ONE (09:13)
[2016-08-24] MEDS: HYTRIN PO SCH (09:15)
[2016-08-24] MEDS: ZYLOPRIM PO SCH (09:15)
--- NOTE | 2016-08-24 09:20 | Diag Imaging Result Doc PS360 ---
EXAM: CHEST-PORTABLE HISTORY: status post tracheostomy TECHNIQUE: AP portable supine at 0911 COMMENT: There is a tracheostomy. There is ill-defined opacity in both lower lobes particularly the left. The latter finding is slightly worse than on the previous study of 08/24/2016 at 0500. IMPRESSION: Slight worsening in atelectasis in the lung bases. Possibility of pulmonary edema cannot be excluded. Electronically signed by Mynor Freedman 08/24/2016 9:18 AM
--- NOTE | 2016-08-24 10:14 | PROGRESS NOTE ---
DATE: 08/24/2016 SUBJECTIVE: He has been to the operating room and had a tracheostomy performed today. Currently, he is sedated. OBJECTIVE: Vital Signs: Blood pressure 95/45, heart rate 88, respirations 24, afebrile. Intake 800 mL. Output 2.9 L. General: No acute distress. Skin: Warm and dry. Conjunctivae are pink. Neck: Neck veins are not appreciated. Heart: Regular. Lungs: Equal. No crackles. Abdomen: Soft, nontender. Bowel sounds present. Extremities: Have trace edema. No clubbing or cyanosis. LABORATORY DATA: Sodium 144, potassium 4.8, chloride 104, bicarbonate 27, BUN 57, creatinine 2.9, hemoglobin 9.8. IMPRESSION: 1. Acute kidney injury. No recovery. We will plan for sustained low-efficiency dialysis again tomorrow. 2. Electrolytes/acid base in target. 3. Anemia. Stable. Does not meet criteria for transfusion. cc: Iglesia Villalobos MD
--- NOTE | 2016-08-24 10:14 | OPERATIVE NOTE ---
PROCEDURE DATE: 08/24/2016 PREOPERATIVE DIAGNOSES: 1. Respiratory failure. 2. Failure to wean from mechanical ventilation. POSTOPERATIVE DIAGNOSES: 1. Respiratory failure. 2. Failure to wean from mechanical ventilation. PROCEDURE: Open tracheostomy. ANESTHESIA: General. SURGEON: Dr. Xavier Dong. ESTIMATED BLOOD LOSS: 3 mL. COMPLICATIONS: None apparent. SPECIMENS: None. TECHNIQUE: He was brought to the operating room and placed supine on the table. General anesthesia was induced. He was prepped and draped in usual sterile fashion. The sternal notch, tracheal notch, and cricoid cartilage were identified and marked with a marking pen. A 3 cm incision was made at the level of the cricoid cartilage inferiorly after anesthetizing the skin with 0.25% Marcaine and epinephrine. Dissection was carried down through the subcutaneous tissues with cautery, as well as through the platysma. The thyroid was elevated off of the trachea with a hemostat and divided with cautery. Meticulous hemostasis was maintained throughout the case. The cricoid cartilage was identified by direct vision and palpation, and the first, second, and third tracheal rings were palpated. The padding gluer then deflated the balloon. A 2-0 Surgipro was placed around either side off the midline of the second tracheal ring. These were used for retraction sutures. An 11 blade was used to make an incision in the space between the second and third rings. This was made into a T-shaped incision through the third tracheal cartilage. The padding gluer pulled the ET tube back proximal to our wound. The track was dilated and an 8-Greenlandic tracheostomy tube was then placed into the trachea. The padding gluer passed the tubing and we connected it, and we had good end-tidal CO2. The balloon on the cuff was inflated and there was no air leak. We then tacked the collar to the skin with 3-0 nylon, partially closed the incision up above the collar with another interrupted nylon suture. Our Prolene sutures were tied loosely. He was transferred back to the ICU in stable condition. There were no apparent complications. cc: Xavier Dong MD
--- NOTE | 2016-08-24 11:25 | PROGRESS NOTE ---
DATE: 08/24/2016 SUBJECTIVE: The patient just had a tracheotomy and just got back to his room. No acute event reported by the overnight staff. No nausea, vomiting and no diarrhea. OBJECTIVE: Vital Signs: Blood pressure is 94/45, pulse of 86, respirations 28 on assist control, on 40% FiO2 with 100% saturation, temperature 97.7 degrees. General Appearance: Obese, white male, intubated and sedated. HEENT: Anicteric. Clear conjunctivae. Neck: Supple with tracheotomy in place. Cardiovascular: S1, S2. Normal rate and rhythm. No murmur, rubs, or gallops. Pulmonary: Clear to auscultation bilaterally. GI: Soft, nontender, nondistended. Normoactive bowel sounds. Musculoskeletal: No clubbing, cyanosis, or edema. LABORATORY: White count 16.34, hemoglobin 9.8, hematocrit of 32.5, platelets of 77,000. Chemistry: Sodium 144, potassium 4.9, chloride 104, bicarb 27, BUN 57, creatinine 2.9. The patient had dialysis yesterday. Glucose 171. ASSESSMENT AND PLAN: This is a 71-year-old white male, admitted to the hospital for acute respiratory failure. 1. Acute respiratory failure secondary to chronic obstructive pulmonary disease and pneumonia. The patient is on the broad-spectrum antibiotics along with antifungal. Pulmonology and Infectious Disease is following. The patient had a tracheotomy on 08/14/2016. we may have to put out the nasogastric tube or do total parenteral nutrition. 2. End-stage renal disease. The patient on dialysis Saturday, and Saturday. Nephrology is following. 3. Diabetes on sliding scale insulin. 4. Hypertension. We will monitor the patient for now. We will keep her in the ICU. 5. Deep vein thrombosis prophylaxis. Sequential compression devices in a patient who is thrombocytopenic. CODE STATUS: The patient is a full code.
--- NOTE | 2016-08-24 12:37 | Diag Imaging Result Doc PS360 ---
EXAM: CHEST/ABD TUBE PLACEMENT INDICATION: ng tube placement TECHNIQUE: 2 views COMPARISON: Chest radiograph dated 08/24/2016 FINDINGS: There was reportedly placement of an NG tube. However, the tube cannot be identified on this study. There are unremarkable bowel gas and stool patterns. Very limited images of the lung bases are grossly stable. IMPRESSION: No visualized NG tube. Electronically signed by Randall Nelson 08/24/2016 12:35 PM
[2016-08-24] MEDS: PROTONIX IV SCH (15:08)
[2016-08-24] MEDS: SODIUM CHLORIDE 0.9% INJ SCH (15:08)
--- NOTE | 2016-08-24 15:55 | Diag Imaging Result Doc PS360 ---
EXAM: CHEST-PORTABLE INDICATION: chest x-ray with ng placement TECHNIQUE: One view COMPARISON: 08/24/2016 FINDINGS: The newly placed NG tube is now clearly visualized. The tip projects well below the diaphragm and is assumed to be in the lumen of the stomach in expected position. Very limited views of the lung bases are grossly stable. IMPRESSION: Newly placed NG tube now identified in the expected position as described. Electronically signed by Randall Nelson 08/24/2016 3:53 PM
--- NOTE | 2016-08-24 16:53 | PROGRESS NOTE ---
DATE: 08/24/2016 PRESENT ILLNESS: The patient is very ill, the exact etiology of this illness is uncertain to me. He may have some pneumonia although the majority the x-ray looks like atelectasis. He has not had a recent bacteremia or fungemia. MEDICATIONS: This is day 11 of treatment with a combination of vancomycin, meropenem, and micafungin. PHYSICAL EXAMINATION: Vital Signs: Temperature is 97.5 degrees, pulse 97, respiration is 24, blood pressure 128/57. General: This is an ill-appearing elderly male. He is in no acute distress. Neck: The patient had a tracheostomy placed today, the site is not bleeding. Lungs: Clear to auscultation. Cardiovascular: Regular heart rate. Abdomen: Soft and nontender. LABORATORY AND X-RAY: Chest x-ray shows worse bibasilar atelectasis. The blood gases show a pH of 7.33, a PO2 of 107, a pCO2 of 51. The patient's creatinine is 2.9. GFR is 22. Alkaline phosphatase is 144. CBC shows a white count of 16,340, hemoglobin 9.8, and platelet count 77,000. ASSESSMENT AND PLAN: I plan to continue with the patient's current antibiotics, this is day 11 of treatment with them, and at first week most likely stop them and observe the patient off of them. The patient did have a tracheostomy today. COMORBIDITIES: Include diabetes mellitus, congestive heart failure, multiple organ system failure including end-stage renal disease with dialysis. cc: Brennan Dotson MD
[2016-08-24] MEDS: MYCAMINE 100 MG in NS 100 ML IV SCH (17:26)
[2016-08-24] MEDS: ASPIRIN EC PO SCH (21:17)
[2016-08-25] MEDS: ATIVAN IV PRN (00:10)
[2016-08-25] MEDS: DUONEB (A & A) INH SCH ×6 (03:27→23:18)
[2016-08-25] MEDS: SOLU-CORTEF IV SCH ×2 (04:38→16:33)
[2016-08-25] MEDS: MERREM 1 GM in NS 50 ML IV SCH ×2 (04:38→17:52)
[2016-08-25] MEDS: PEPCID IV SCH ×2 (04:38→16:12)
[2016-08-25] MEDS: SODIUM CHLORIDE 0.9% INJ SCH ×3 (04:38→16:13)
[2016-08-25 05:18] LABS: ALLEN TEST YES; BE -2.7 mmoll (-3.0-3.0); BLOOD TYPE ARTERIAL; DRAW SITE R RADIAL; METHB 0.8 % (0.0-1.5); O2(CT) 14.2 mL/dL (15.0-23.0); PCO2(98.6) 47 mmHg (35-45); PO2(98.6) 84 mmHg (60-100); SAMPLE BLOOD; SRATE 24 BPM; THB 10.6 g/dL (11.5-17.4); TVOL 500 mL; pH(98.6) 7.31 (7.35-7.45)
[2016-08-25 05:19] LABS: MODALITY VENTILATOR
[2016-08-25 06:00] LABS: HEMATOCRIT 31.8 % (42.0-52.0); HEMOGLOBIN 9.7 g/dL (14.0-18.0); MCH 29.4 PG (27-31); MCHC 30.5 g/dL (33-37); MCV 96.4 FL (81-99); RBC 3.3 XMIL (4.7-6.1)
[2016-08-25 06:20] LABS: ALBUMIN 2.8 g/dL (3.5-5.0); CALCIUM 8.7 mg/dL (8.8-10.2); POTASSIUM 5.3 mmol/L (3.5-5.1); TOTAL BILIRUBIN 1.08 mg/dL (0.20-1.00); TOTAL PROTEIN 5.6 g/dL (6.3-8.3)
[2016-08-25] MEDS: HUMALOG SUBQ SCH ×4 (06:44→20:02)
[2016-08-25] MEDS: ADVAIR 250/50 DISKUS INH SCH ×2 (07:25→21:00)
--- NOTE | 2016-08-25 07:55 | Diag Imaging Result Doc PS360 ---
EXAM: CHEST-PORTABLE INDICATION: respiratory failure TECHNIQUE: One view COMPARISON: 08/24/2016 FINDINGS: The tracheostomy tube is in stable position. A right central line is stable. There is an NG tube projecting below the diaphragm and out of the [id number]. Ill-defined opacity at the lower lung zones is unchanged given differences in rotation. There is no new consolidation. Cardiac silhouette is stable. IMPRESSION: Essentially stable chest. Electronically signed by Randall Nelson 08/25/2016 7:53 AM
[2016-08-25] MEDS ORDERED: NS 2,000 ML ONE ×2 (08:46→14:51)
[2016-08-25] MEDS: HYTRIN PO SCH (08:58)
[2016-08-25] MEDS: ZYLOPRIM PO SCH (08:59)
--- NOTE | 2016-08-25 11:00 | PROGRESS NOTE ---
DATE: 08/25/2016 OBJECTIVE: Mr. Kian Santiago underwent a trach placement per Dr. Dong yesterday. There is no bleeding from the trach site. ASSESSMENT AND PLAN: The trach is in good position and seems to be healing well. He remains on the ventilator. cc: Radha Pinzon MD
[2016-08-25] MEDS: D50W 250 ML, AMINOSYN 10% 500 ML, LIPOSYN 20% 250 ML MISC SCH ×3 (11:46)
--- NOTE | 2016-08-25 13:18 | PROGRESS NOTE ---
DATE: 08/25/2016 SUBJECTIVE: The patient opens his eyes but does not follow any command. He is on a trach collar. OBJECTIVE: Vital Signs: Blood pressure, when I saw the patient, was 70s/40s with a of 55. Heart rates in the 110s. Breathing about 30-40 times a minute. HEENT: Anicteric sclerae. Clear conjunctiva. NG tube in place with a trach collar in place. Cardiovascular: S1, S2. Tachycardic. Pulmonary: Crackles bilaterally and coarse. Abdomen soft, nontender, nondistended. Normoactive bowel sounds. Musculoskeletal: No clubbing, cyanosis, or edema. LABORATORY: White count 18.79, hemoglobin 9.7, hematocrit of 31.8, platelets of 84,000. Chemistry: Sodium 143, potassium 5.3, chloride 103, bicarb 22. BUN 84, creatinine of 1.4, glucose of 157. ASSESSMENT AND PLAN: This 71-year-old white male, admitted to the hospital for acute respiratory failure and pneumonia. 1. Acute respiratory failure and pneumonia. The patient is on Mycogen, vancomycin, and meropenem. Infectious Disease is following. Pulmonology is following. 2. Hypertension. We will start the patient back on dopamine to keep his above 65. The patient is getting dialysis currently for his end-stage renal disease. 3. Nutrition. The patient is on tube feed. 4. Acute respiratory failure. We will put the patient back on assist control. We will continue to wean as tolerated. 5. CODE STATUS: The patient is still FULL CODE. 6. Prognosis is poor. The patient has a very high mortality and morbidity.
--- NOTE | 2016-08-25 13:20 | PROGRESS NOTE ---
DATE: 08/25/2016 SUBJECTIVE: Mr. Santiago is on SLED currently. He is somewhat hypotensive at this time. Blood pressure has been in target until he started dialysis and since then his systolic pressure has been between 77 and 90. OBJECTIVE: Blood pressure 87/50, heart rate 109, respirations 44. His respiratory rate has been elevated over the last 3 hours. Intake 640 mL, output 137 mL.General Exam: Increased respiratory rate. Not responsive. Skin: Warm and dry. HEENT: Conjunctivae are pink. Neck: Neck veins are not visible. Heart: Regular and tachycardic. Lungs: Equal, increased respiratory rate. Rhonchi are present. Abdomen: Soft, nontender. Minimal bowel sounds. Extremities: Have 1+ edema. No clubbing or cyanosis. LABORATORY DATA: Sodium 143, potassium 5.3, chloride 103, bicarbonate 22, BUN 84, creatinine 4.1. Hemoglobin 9.7. Albumin 2.8. PH 7.31, pCO2 47, PO2 84 on 40% FiO2. IMPRESSION: 1. Acute kidney injury without recovery. Continue SLED. Our target UF goal is 4 L but given his low blood pressure and his exam today we will decrease that target to 0-2 L. Electrolytes and acid-base are acceptable. 2. Anemia is acceptable. Continue IV PN on dialysis. cc: Iglesia Villalobos MD
[2016-08-25] MEDS: PROTONIX IV SCH (14:36)
[2016-08-25] MEDS ORDERED: HEPARIN ONE (14:51)
[2016-08-25] MEDS: MYCAMINE 100 MG in NS 100 ML IV SCH (17:52)
[2016-08-25] MEDS: VANCOMYCIN 1 GM/NS 1 GM/250 ML IVPB IV SCH (17:52)
[2016-08-25] MEDS ORDERED: NS 500 ML ONE (18:10)
[2016-08-25] MEDS: ASPIRIN EC PO SCH (20:02)
[2016-08-26] MEDS: ATIVAN IV PRN ×4 (00:37→21:54)
[2016-08-26] MEDS: DUONEB (A & A) INH SCH ×6 (03:21→23:06)
[2016-08-26] MEDS: SOLU-CORTEF IV SCH ×2 (04:16→16:27)
[2016-08-26] MEDS: PEPCID IV SCH ×2 (04:17→15:11)
[2016-08-26] MEDS: MERREM 1 GM in NS 50 ML IV SCH ×2 (04:17→16:27)
[2016-08-26] MEDS: SODIUM CHLORIDE 0.9% INJ SCH ×3 (04:17→15:11)
[2016-08-26 04:41] LABS: ALLEN TEST YES; BE -0.7 mmoll (-3.0-3.0); BLOOD TYPE ARTERIAL; DRAW SITE R RADIAL; O2(CT) 13.5 mL/dL (15.0-23.0); PCO2(98.6) 40 mmHg (35-45); PO2(98.6) 108 mmHg (60-100); SAMPLE BLOOD; SRATE 24 BPM; THB 9.8 g/dL (11.5-17.4); TVOL 500 mL; pH(98.6) 7.39 (7.35-7.45)
[2016-08-26 04:42] LABS: MODALITY VENTILATOR
[2016-08-26 05:09] LABS: HEMATOCRIT 31.8 % (42.0-52.0); HEMOGLOBIN 9.5 g/dL (14.0-18.0); MCH 29.7 PG (27-31); MCHC 29.9 g/dL (33-37); MCV 99.4 FL (81-99); MPV 12.7 FL (7.4-10.4); RBC 3.2 XMIL (4.7-6.1)
[2016-08-26 06:14] LABS: ALBUMIN 2.7 g/dL (3.5-5.0); CALCIUM 8.2 mg/dL (8.8-10.2); POTASSIUM 5.1 mmol/L (3.5-5.1); TOTAL BILIRUBIN 1.23 mg/dL (0.20-1.00); TOTAL PROTEIN 5.3 g/dL (6.3-8.3)
[2016-08-26] MEDS: HUMALOG SUBQ SCH ×4 (06:17→21:19)
[2016-08-26] MEDS: ADVAIR 250/50 DISKUS INH SCH ×2 (07:24→19:11)
--- NOTE | 2016-08-26 08:06 | Diag Imaging Result Doc PS360 ---
EXAM: CHEST-PORTABLE INDICATION: respiratory failure TECHNIQUE: One view COMPARISON: 08/25/2016 FINDINGS: Right central line and tracheostomy tube are in stable positions. There is an NG tube projects below the diaphragm and out of the [id number]. Vague opacity suggesting atelectasis and/or infiltrate at the lower lung zones bilaterally are again identified. There may have been marginal improvement on the left. However, this could be due to better positioning. No new consolidations are appreciated. Cardiac silhouette is stable. IMPRESSION: Possible marginal improvement of atelectasis and/or infiltrate at the left lung base. Stable chest, otherwise. Electronically signed by Randall Nelson 08/26/2016 8:04 AM
--- NOTE | 2016-08-26 08:18 | PROGRESS NOTE ---
DATE: 08/26/2016 SUBJECTIVE: The patient is doing about the same. He is still on assist control. He get trach on the August. The nursing staff reported that the patient has not been tolerating his tube feeds very well. OBJECTIVE: Vital Signs: Blood pressure 119/56, pulse of 92, respirations 26, temperature of 98 degrees, saturation 100% on 40% FiO2. General Appearance: A white male, intubated. HEENT: Anicteric sclerae. Clear conjunctivae. Neck: Supple. No JVD. No bruit. Cardiovascular: S1 and S2. Normal rate and rhythm. No murmur, rubs, or gallops. Pulmonary: Coarse crackles bilaterally. GI: Soft, nontender, nondistended. Normoactive bowel sounds. Musculoskeletal: No clubbing, cyanosis, or edema. He has ecchymosis on both sides of his calf due to pressure. Laboratory: His white count was 15.23, hemoglobin 9.5, hematocrit of 31.8, platelets of 59,000. Chemistry: Sodium 140, potassium 5.1, chloride 106, bicarb 19, BUN 44, creatinine 2.3, glucose of 169. ASSESSMENT AND PLAN: This 71-year-old, white male is admitted to the hospital for acute respiratory failure. 1. Acute respiratory failure secondary to pneumonia. The patient is still on broad-spectrum antibiotics and antifungal. Status post tracheotomy on the August. Failed weaning so far. The patient still is very weak and feeble. We will continue supportive care. Pulmonology is following. Infectious disease is also following. 2. End-stage renal disease. The patient is on renal dialysis. 3. Hypertensions. We will monitor him in the intensive care unit. 4. Malnutrition. The patient is on tube feeds. If he will not tolerate tube feed for the next day or 2, we may need to put him back on his total parenteral nutrition. 5. Thrombocytopenia. We will hold his Lovenox. 6. Gastrointestinal prophylaxis. The patient is on Protonix. 7. Code status. The patient is a full code. Overall prognosis is poor as the patient is a very high risk for mortality.
[2016-08-26] MEDS: HYTRIN PO SCH (09:02)
[2016-08-26] MEDS: ZYLOPRIM PO SCH (09:02)
[2016-08-26] MEDS: PROTONIX IV SCH (15:11)
[2016-08-26] MEDS: MYCAMINE 100 MG in NS 100 ML IV SCH (16:28)
[2016-08-26] MEDS: ASPIRIN EC PO SCH (21:19)
[2016-08-27] MEDS: ATIVAN IV PRN ×3 (02:47→20:03)
[2016-08-27] MEDS: PEPCID IV SCH ×2 (03:10→17:38)
[2016-08-27] MEDS: DUONEB (A & A) INH SCH ×6 (03:28→23:08)
[2016-08-27 04:43] LABS: ALLEN TEST YES; BE -3.9 mmoll (-3.0-3.0); BLOOD TYPE ARTERIAL; DRAW SITE R RADIAL; METHB 1.4 % (0.0-1.5); O2(CT) 11.9 mL/dL (15.0-23.0); PCO2(98.6) 50 mmHg (35-45); PO2(98.6) 131 mmHg (60-100); SAMPLE BLOOD; SAO2 100.6 % (95.0-100.0); SRATE 14 BPM; THB 8.6 g/dL (11.5-17.4); TVOL 500 mL; pH(98.6) 7.27 (7.35-7.45)
[2016-08-27 04:44] LABS: MODALITY VENTILATOR
[2016-08-27] MEDS: MERREM 1 GM in NS 50 ML IV SCH ×2 (04:45→17:00)
[2016-08-27] MEDS: SOLU-CORTEF IV SCH ×2 (04:45→17:37)
[2016-08-27] MEDS: HUMALOG SUBQ SCH ×5 (06:06→20:03)
[2016-08-27 06:39] LABS: HEMOGLOBIN 9.2 g/dL (14.0-18.0); MCH 29.9 PG (27-31); MCHC 30.7 g/dL (33-37); MCV 97.4 FL (81-99); MPV 12.8 FL (7.4-10.4); RBC 3.08 XMIL (4.7-6.1)
--- NOTE | 2016-08-27 07:13 | Diag Imaging Result Doc PS360 ---
CHEST-PORTABLE - 08/27/2016 INDICATION: respiratory failure TECHNIQUE: COMPARISON: 08/26/2016 FINDINGS: Support lines and tubes are stable. There is continued, slight improvement in the hazy bibasilar infiltrates. Stable borderline cardiomegaly. No new infiltrates. IMPRESSION: Slight improvement in the hazy bibasilar infiltrates. Electronically signed by Luis Eduardo Villalta 08/27/2016 7:11 AM
[2016-08-27] MEDS ORDERED: NS 2,000 ML ONE (07:32)
[2016-08-27] MEDS ORDERED: HEPARIN ONE (07:32)
[2016-08-27 08:04] LABS: ALBUMIN 2.7 g/dL (3.5-5.0); CALCIUM 8.3 mg/dL (8.8-10.2); TOTAL BILIRUBIN 0.66 mg/dL (0.20-1.00); TOTAL PROTEIN 5.3 g/dL (6.3-8.3)
[2016-08-27] MEDS ORDERED: CALMOSEPTINE OINTMENT TOP PRN (08:27)
[2016-08-27] MEDS: ZYLOPRIM PO SCH (08:29)
[2016-08-27] MEDS: HYTRIN PO SCH (08:29)
[2016-08-27 08:52] LABS: POTASSIUM 6.3 mmol/L (3.5-5.1)
--- NOTE | 2016-08-27 09:45 | PROGRESS NOTE ---
DATE: 08/27/2016 SUBJECTIVE: Patient currently undergoing a ventilator weaning trial. He is awake and alert. He mouthed good morning to me. OBJECTIVE: Vital Signs: Temperature 98.6 degrees, pulse 84, respiratory rate 18, blood pressure 135/46. Intake 600 mL, output 45 mL. Physical Examination: General: This is an elderly gentleman resting in bed. He is awake and alert. He is currently undergoing ventilator trials. HEENT: Normocephalic and atraumatic. His oral mucosa is moist. Conjunctivae are pink. Neck: Supple. Trachea is midline. Trach collar in place. Cardiovascular: Regular rate and rhythm. No murmur appreciated. Pulmonary: He has equal excursion. He has no increased work of breathing. He does have some scattered rhonchi bilaterally but no overt wheeze. Abdomen: Soft, with positive bowel sounds. : He has trace to 1+ pretibial edema. He is moving his upper extremities. Integumentary: Skin is pale, warm, and dry. Lab Data: WBC of 14.6, hemoglobin 9.2, hematocrit 30, and platelet count of 70, 000. Sodium 140, potassium 5.1, chloride 106, CO2 19, BUN 44, creatinine 2.3. ASSESSMENT AND PLAN: 1. Acute kidney injury without recovery. We will continue him on SLED today. 3K bath. Our target is 2-3 L of UF removal. His blood pressure has been somewhat labile, currently is in target and we will remove fluid as tolerated, dependent on his pressures. 2. Electrolytes, acid-base balance. We will continue with above SLED orders. 3. Anemia, acceptable. 4. Nutrition. We will continue IDPN on dialysis. Seen, data reviewed, discussed with Nelda Horton on 08/27/16. I agree with the above assessment and plan of care. rg Dictated by DANIELLA Gautam for Iglesia Villalobos MD cc: Iglesia Villalobos MD [facility]
--- NOTE | 2016-08-27 10:27 | PROGRESS NOTE ---
DATE: 08/27/2016 SUBJECTIVE: The patient does not follow commands. He is very sleepy. No acute issues as per nursing staff. OBJECTIVE: Vital Signs: Temperature 97.1 degrees, heart rate 89, respiratory rate 18, blood pressure 135/46. O2 saturation 100% on mechanical ventilator. General : This is a chronically ill-looking and frail, 71-year-old male lying in bed in no acute distress, intubated. HEENT: Head is normocephalic, atraumatic. Anicteric sclerae and pale conjunctivae. Mucous membranes dry. Neck: Supple. No JVD noted. No carotid bruits. No lymphadenopathy. No thyromegaly. Cardiovascular: S1, S2 heard. No murmurs, gallops, or rubs. Regular rate and rhythm. Respiratory: Clear bilaterally to auscultation. No work of breathing or using accessory muscles. Abdomen: Soft, nontender to palpation. Bowel sounds present. No organomegaly. Extremities: No clubbing, or cyanosis. Edema in both lower extremities. Peripheral pulses present. Neurological: Patient with ventilator through tracheostomy tube. Does not follow commands. LABORATORY DATA: White cell count 14.6, hemoglobin 9.2, hematocrit 30.0, platelets 70,000. ABG shows a pH of 7.27 with pCO2 50, PO2 131, potassium 6.3. ASSESSMENT AND PLAN: 1. Acute respiratory failure secondary to pneumonia. Patient on broad spectrum antibiotics and antifungals in this case, Micafungin. Pulmonary and infectious disease is following. Status post tracheostomy on August 24. They are trying to wean off from the ventilator but still not able to. Patient is still very weak. We will continue with supportive care , the patient has been in the intensive care unit for the last 20 days. 2. End-stage renal disease on dialysis. Dr. Villalobos following this patient. 3. Hypertension. Blood pressure is very well controlled. We will continue with the same management. 4. Hyperkalemia. Potassium 6.3. The patient on dialysis so that will take care of that. 5. Malnutrition. Patient is on tube feedings. Apparently patient is getting high residuals so we are going to consider if pulmonary okay probably to put him back on parental nutrition. We will see how this patient does. 6. Thrombocytopenia. Apparently he is seeming to be secondary to Lovenox. That medication has been stopped. The platelets are a bit better in comparing with yesterday. We will continue monitoring CBC. 7. Gastrointestinal prophylaxis. Patient on Protonix. 8. Code status. The patient is a full code although the overall prognosis is extremely poor. cc: Joao Marcum MD [facility]TD[facility]
[2016-08-27] MEDS: NEO-SYNEPHRINE 100 MG in NS 500 ML IV SCH ×2 (13:40→21:53)
[2016-08-27] MEDS: ADVAIR 250/50 DISKUS INH SCH ×2 (15:29→19:27)
[2016-08-27] MEDS: PROTONIX IV SCH (16:00)
[2016-08-27] MEDS: MYCAMINE 100 MG in NS 100 ML IV SCH (17:36)
[2016-08-27] MEDS: SODIUM CHLORIDE 0.9% INJ SCH (17:37)
[2016-08-27] MEDS: D50W 250 ML, AMINOSYN 10% 500 ML, LIPOSYN 20% 250 ML MISC SCH ×3 (19:12)
[2016-08-27] MEDS: BICITRA PO SCH ×2 (19:32→23:49)
[2016-08-27] MEDS: ASPIRIN EC PO SCH (20:03)
[2016-08-27] MEDS ORDERED: NS 500 ML ONE (20:13)
[2016-08-27] MEDS: FENTANYL IV PRN ×2 (21:40→23:50)
[2016-08-28] MEDS: ATIVAN IV PRN ×4 (01:26→21:30)
[2016-08-28] MEDS: FENTANYL IV PRN ×3 (02:33→21:30)
[2016-08-28] MEDS: PEPCID IV SCH ×2 (03:31→15:23)
[2016-08-28] MEDS: DUONEB (A & A) INH SCH ×6 (03:35→23:04)
--- NOTE | 2016-08-28 04:25 | PROGRESS NOTE ---
DATE: 08/27/2016 PRESENT ILLNESS: The patient remains ill. The exact cause of it is uncertain to me. He has been on prolonged antibiotics without much change in his condition. MEDICATIONS: This is day 14 of treatment with vancomycin, meropenem, and micafungin. PHYSICAL EXAMINATION: Vital Signs: Temperature is 97.2 degrees, pulse 103, respirations 18, blood pressure 122/62. Generally: This is an ill-appearing, elderly male. He is obtunded. Lungs: Scattered rhonchi bilaterally. Cardiovascular: Regular heart rate. At times, it sounded irregular to me. Abdomen: Soft and nontender. Catheters: The patient has a right subclavian catheter and a right groin catheter. Both sites are not swollen or erythematous. The patient has a tracheostomy in place. There is no erythema around the tracheostomy. Skin: Both of his elbow incisions have healed. There is an ulcerated lesion in the right elbow but not at the site of the incision. LAB AND X-RAY: Chest x-ray shows a slight decrease in the bilateral infiltrates that the patient has which may be due to pulmonary venous congestion. Patient's blood gases show a pH of 7.23, a PO2 of 131, a pCO2 of 50. The creatinine is 3.4. GFR is 18. Alkaline phosphatase is 138. ASSESSMENT AND PLAN: The patient is not having fever. His CBC for today shows a white count of 14,630, hemoglobin 9.2, and platelet count 70,000 so he still has a leukocytosis of which I am not sure what it is causing it. My plan is to stop his antibiotics and follow the patient closely, clinically. COMORBIDITIES: Include the fact that he is elderly. He has diabetes mellitus, congestive heart failure, multiple organ system failure, end-stage renal disease, and hemodialysis. cc: Brennan Dotson MD
[2016-08-28] MEDS: SOLU-CORTEF IV SCH (04:37)
[2016-08-28 04:50] LABS: HEMATOCRIT 30.8 % (42.0-52.0); HEMOGLOBIN 9.4 g/dL (14.0-18.0); MCH 29.7 PG (27-31); MCHC 30.5 g/dL (33-37); MCV 97.5 FL (81-99); MPV 12.9 FL (7.4-10.4); RBC 3.16 XMIL (4.7-6.1)
[2016-08-28 04:51] LABS: ALLEN TEST YES; BLOOD TYPE ARTERIAL; DRAW SITE R RADIAL; PCO2(98.6) 42 mmHg (35-45); PO2(98.6) 109 mmHg (60-100); SAMPLE BLOOD; SRATE 14 BPM; THB < 3.0 g/dL (11.5-17.4); TVOL 500 mL
[2016-08-28 04:52] LABS: MODALITY VENTILATOR
[2016-08-28 05:15] LABS: CALCIUM 8.2 mg/dL (8.8-10.2); POTASSIUM 5.7 mmol/L (3.5-5.1); TOTAL BILIRUBIN 0.82 mg/dL (0.20-1.00); TOTAL PROTEIN 5.6 g/dL (6.3-8.3)
[2016-08-28] MEDS: BICITRA PO SCH ×4 (05:48→22:06)
[2016-08-28] MEDS: HUMALOG SUBQ SCH ×4 (06:07→21:55)
--- NOTE | 2016-08-28 07:19 | Diag Imaging Result Doc PS360 ---
EXAM: CHEST-PORTABLE INDICATION: respiratory failure TECHNIQUE: One view COMPARISON: 08/27/2016 FINDINGS: Support tubes and lines are in stable position. The patient is rotated toward the right. Mild hazy bibasilar opacities are proximally stable. No new consolidations are appreciated. Cardiac silhouette is stable. IMPRESSION: Essentially stable chest. Electronically signed by Randall Nelson 08/28/2016 7:17 AM
[2016-08-28] MEDS: ADVAIR 250/50 DISKUS INH SCH ×2 (07:50→19:21)
[2016-08-28] MEDS: HYTRIN PO SCH (08:20)
[2016-08-28] MEDS: ZYLOPRIM PO SCH (08:20)
--- NOTE | 2016-08-28 13:19 | PROGRESS NOTE ---
DATE: 08/28/2016 SUBJECTIVE: Patient resting in bed. He remains mechanically ventilated. OBJECTIVE: Vital Signs: Temperature 97 degrees, pulse 103, respiratory rate 24 , blood pressure 103/45. Intake 713 mL. Output 2.5 L. PHYSICAL EXAMINATION: General: This is an elderly gentleman, resting in bed. He is awake and alert. He does nod his head yes and no. HEENT: Normocephalic, atraumatic. He has a trach noted. ANGELA, conjunctivae pink. Neck: Supple. Trach, as noted above. Pulmonary: Equal excursion. He has no increased work of breathing. He has some scattered rhonchi bilaterally. Cardiovascular: Regular rate and rhythm. Abdomen: Soft. Positive bowel sounds. Genitourinary: Minimal urine noted. Extremities: He has trace pretibial edema. His edema is a significantly improved from the last several days. Skin: Pale,warm, and dry. LABORATORY DATA: WBC of 15.6, hemoglobin 9.4. Sodium 138, potassium 5.7, CO2 18, creatinine 2.3. ASSESSMENT AND PLAN: 1. Acute kidney injury without recovery, requiring dialysis. He was run on SLED yesterday. We were able to achieve a euvolemic state. We will plan to run him tomorrow regarding his fluid volumes and appropriate bath for his electrolytes, etc. 2. Electrolytes, acid-base balance. They are in target. See above for plan. 3. Anemia. Stable. 4. Nutrition. Will continue IDPN during dialysis. His tube feedings are on hold for a pending vent trial. 5. Sepsis, followed by primary. Seen, data reviewed, discussed with Nelda Horton on 08/28/16. I agree with the above assessment and plan of care. rg Dictated by DANIELLA Gautam for Iglesia Villalobos MD cc: Iglesia Villalobos MD [facility]
[2016-08-28] MEDS: SODIUM CHLORIDE 0.9% INJ SCH (15:22)
[2016-08-28] MEDS: PROTONIX IV SCH (15:22)
--- NOTE | 2016-08-28 18:29 | PROGRESS NOTE ---
DATE: 08/28/2016 PRESENT ILLNESS: Leukocytosis. MEDICATIONS: The patient is not on any antibiotics. PHYSICAL EXAMINATION: Vital Signs: Temperature is 98.1 degrees, pulse 100, respirations 25, blood pressure 113/55. Generally: This is an ill-appearing, elderly male. He is at a depressed level of consciousness. Lungs: There were bilateral rhonchi. Cardiovascular: Heart rate is regular. Abdomen: Soft and nontender. The patient has a right subclavian catheter and right groin catheter, both of which do not appear to be infected at the skin entrance site. LABORATORY AND X-RAY: There is new x-ray today. The patient's CBC showed a slight rise in the white count 15,640, hemoglobin is 9.4, and platelet count is 82,000. Blood gases show a pH of 7.4, PO2 of 109, a pCO2 of 42. Patient's creatinine is 2.3, the GFR is 28. ASSESSMENT AND PLAN: 1. I am going to continue to keep the patient off antibiotics and I am not going to be taking any new cultures today. 2. Comorbidities include being elderly, having diabetes mellitus, congestive heart failure, end- stage renal disease and hemodialysis. cc: Brennan Dotson MD [facility]
[2016-08-28] MEDS ORDERED: ASPIRIN ONE (19:34)
[2016-08-28] MEDS: ASPIRIN EC PO SCH (21:54)
[2016-08-28] MEDS: NS 500 ML ONE (21:55)
[2016-08-29] MEDS: DUONEB (A & A) INH SCH ×6 (03:33→22:43)
--- NOTE | 2016-08-29 03:48 | PROGRESS NOTE ---
DATE: 08/28/2016 SUBJECTIVE: The patient does not follow commands, just moves his head A little bit more awake today. No acute issues overnight as per nursing staff. OBJECTIVE: Vital Signs: Temperature 97.0 degrees, heart rate 98, respiratory rate 23, blood pressure 103/45. O2 saturation 98% on tracheostomy collar. General: This is a chronically ill- looking and frail 71-year-old male, lying in bed in no acute distress. HEENT: Head is normocephalic, atraumatic. Anicteric sclerae and pale conjunctivae. Mucous membranes very dry. Neck supple. Tracheostomy tube in place, connected to ventilator. No JVD noted. No carotid bruits. No lymphadenopathy. Cardiovascular: S1, S2 heard. No murmurs, gallops, or rubs. Regular rate and rhythm. Respiratory: Clear bilaterally to auscultation with some coarse breath sounds in both bases. Patient is not having work of breathing or using accessory muscles. Abdomen is soft, nontender to palpation. Bowel sounds present. No organomegaly. Extremities: No clubbing, cyanosis, but peripheral edema in both lower extremities. Peripheral pulses present as well. Neurologic: The patient on tracheostomy tube on ventilator and does not follow commands. LABORATORY DATA: White cell count 15.64, hemoglobin 9.4, hematocrit 30.8, platelets 82, ABG showed pH 7.4, pCO2 of 42, and sodium 138. Potassium 5.7. Chloride 101, bicarbonate 23. BUN 47, creatinine 2.3. ASSESSMENT AND PLAN: 1. Acute respiratory failure. Patient was on broad-spectrum antibiotics for a long period of time. The patient was on micafungin and also on vancomycin and Zosyn. The Infectious disease doctor has decided to stop medications and continue watching. Pulmonary is also following. 2. We will try to wean off this ventilator/tracheostomy tube. We will see how this patient does. 3. End-stage renal disease on dialysis. Dr. Villalobos is following this patient. He is not going to get dialysis today because his numbers are looking much better. 4. Hypokalemia, improved. 5. Malnutrition. The patient is on tube feedings. We have reviewed the rate of tube feedings to 20 per hour. We will see how he does. 6. Thrombocytopenia is slowly getting better. 7. Gastrointestinal prophylaxis with Protonix. 8. CODE STATUS. FULL CODE, although the prognosis is extremely poor. cc: Joao Marcum MD
[2016-08-29] MEDS: HUMALOG SUBQ SCH ×4 (04:10→20:53)
[2016-08-29 04:37] LABS: ALLEN TEST YES; BE -0.1 mmoll (-3.0-3.0); BLOOD TYPE ARTERIAL; DRAW SITE R RADIAL; METHB 0.9 % (0.0-1.5); O2(CT) 12.4 mL/dL (15.0-23.0); PCO2(98.6) 48 mmHg (35-45); PO2(98.6) 135 mmHg (60-100); SAMPLE BLOOD; SAO2 99.8 % (95.0-100.0); SRATE 40 BPM; THB 8.9 g/dL (11.5-17.4); TVOL 500 mL; pH(98.6) 7.34 (7.35-7.45)
[2016-08-29] MEDS: PEPCID IV SCH ×2 (04:38→16:09)
[2016-08-29] MEDS: BICITRA PO SCH ×4 (04:38→22:11)
[2016-08-29 04:42] LABS: HEMATOCRIT 27.7 % (42.0-52.0); HEMOGLOBIN 8.5 g/dL (14.0-18.0); MCH 29.8 PG (27-31); MCHC 30.7 g/dL (33-37); MCV 97.2 FL (81-99); MPV 12.6 FL (7.4-10.4); RBC 2.85 XMIL (4.7-6.1)
[2016-08-29 04:44] LABS: MODALITY VENTILATOR
[2016-08-29 05:01] LABS: ALBUMIN 2.5 g/dL (3.5-5.0); CALCIUM 8.5 mg/dL (8.8-10.2); POTASSIUM 5.8 mmol/L (3.5-5.1); TOTAL BILIRUBIN 0.72 mg/dL (0.20-1.00)
--- NOTE | 2016-08-29 07:26 | Diag Imaging Result Doc PS360 ---
EXAM: CHEST-PORTABLE INDICATION: respiratory failure TECHNIQUE: One view COMPARISON: 08/28/2016 FINDINGS: Support tubes and lines are in stable position. The patient remains rotated toward the right. Hazy bibasilar opacities are grossly unchanged. There is no new consolidation. Cardiac silhouette is stable. IMPRESSION: Stable chest. Electronically signed by Randall Nelson 08/29/2016 7:24 AM
[2016-08-29] MEDS: SOLU-CORTEF IV SCH (08:56)
[2016-08-29] MEDS: ZYLOPRIM PO SCH (08:56)
[2016-08-29] MEDS: HYTRIN PO SCH (09:13)
[2016-08-29] MEDS: ZOFRAN IV PRN ×2 (10:14→16:16)
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
--- NOTE | 2016-08-29 10:23 | PROGRESS NOTE ---
DATE: 08/29/2016 SUBJECTIVE: He is awake, alert and nods. He follow simple commands. OBJECTIVE: Vital Signs: Blood pressure 107/49, heart rate 89, respirations 15. Afebrile. He is currently on the ventilator. Skin: Warm and dry. Ulcers are not examined. HEENT: Conjunctivae are pink and moist. Pupils are equal. Neck: Neck veins are not appreciated. Heart: Irregular. Lungs: Equal breath sounds. No crackles or wheezes. Abdomen: Soft, nontender. Bowel sounds are present. Extremities: 1 to 2+ edema. No clubbing or cyanosis. LABORATORY DATA: Sodium 141, potassium 5.8, chloride 102, bicarbonate 23, BUN 68, creatinine 3.5 and hemoglobin 8.5. IMPRESSION: 1. Acute kidney injury. No improvement. He will have standard intermittent hemodialysis today with 2 potassium bath and a goal of 2-4 L ultrafiltration as his blood pressure allows. 2. Electrolytes: Moderate hyperkalemia that will be addressed with treatment. 3. Acid base in target. 4. Anemia. Hemoglobin is lower today. Observe. He does not meet criteria for transfusion. cc: Iglesia Villalobos MD
[2016-08-29] MEDS: ADVAIR 250/50 DISKUS INH SCH ×2 (11:27→19:25)
[2016-08-29] MEDS ORDERED: NS 2,000 ML ONE (13:45)
[2016-08-29] MEDS ORDERED: TIGHT: 0.2 ML/HR MISC PRN (14:24)
[2016-08-29] MEDS ORDERED: HEPARIN IV PRN (14:24)
[2016-08-29] MEDS ORDERED: NS 2,000 ML MISC PRN (14:24)
[2016-08-29] MEDS: PROTONIX IV SCH (16:08)
[2016-08-29] MEDS: SODIUM CHLORIDE 0.9% INJ SCH (16:08)
--- NOTE | 2016-08-29 17:37 | PROGRESS NOTE ---
DATE: 08/29/2016 PRESENT ILLNESS: The patient has leukocytosis and altered mental status. MEDICATIONS: Patient has been off antibiotics now for 2 days. PHYSICAL EXAMINATION: Vital Signs: Temperature is 97.6 degrees, pulse 102, respiration is 33, blood pressure 129/55. General: This is a chronically ill-appearing, elderly male. He is in no acute distress. In fact, he is more alert and he tried to follow request to move his extremities. Lungs: Clear to auscultation. Cardiovascular: Heart rate is regular. Abdomen: Soft and nontender. Chest: The patient has a subclavian catheter on the right side. The catheter site is not swollen or red. Groin: In patient's right groin area there is a Vas-Cath. That site also is not swollen or erythematous. LAB AND X-RAY: Chest x-ray shows bibasilar opacities. CBC shows a white count of 9190, hemoglobin 8.5, and platelet count 73,000. Blood gases show a pH of 7.34, a PO2 of 135, a pCO2 of 48. Patient's creatinine is 3.5, the GFR is 17. ASSESSMENT AND PLAN: I think the patient now has gotten over all of his infections. I think the pulmonary infiltrates could be due to pulmonary venous congestion and not pneumonia. I do not plan on obtaining any more cultures or adding antibiotics as long as the patient does not deteriorate. COMORBIDITIES: Include being elderly, he has diabetes mellitus, congestive heart failure, end- stage renal disease, and has been on hemodialysis. I am signing off now. I am available to see the patient on a p.r.n. basis. cc: Brennan Dotson MD
[2016-08-29] MEDS ORDERED: NS 500 ML ONE (18:08)
[2016-08-29] MEDS: ATIVAN IV PRN (20:11)
[2016-08-29] MEDS: ASPIRIN EC PO SCH (20:11)
[2016-08-29] MEDS: NS 500 ML ONE (20:11)
[2016-08-29] MEDS: FENTANYL IV PRN (20:12)
[2016-08-30] MEDS: DUONEB (A & A) INH SCH ×6 (03:08→22:35)
[2016-08-30 04:20] LABS: ALLEN TEST YES; BE 3.5 mmoll (-3.0-3.0); BLOOD TYPE ARTERIAL; DRAW SITE R RADIAL; METHB 1.1 % (0.0-1.5); O2(CT) 18.1 mL/dL (15.0-23.0); PCO2(98.6) 50 mmHg (35-45); PO2(98.6) 91 mmHg (60-100); SAMPLE BLOOD; SRATE 14 BPM; THB 13.5 g/dL (11.5-17.4); TVOL 500 mL; pH(98.6) 7.38 (7.35-7.45)
[2016-08-30 04:21] LABS: MODALITY VENTILATOR
[2016-08-30] MEDS: PEPCID IV SCH ×2 (04:41→17:07)
[2016-08-30] MEDS: BICITRA PO SCH ×4 (04:41→21:28)
[2016-08-30 05:30] LABS: HEMATOCRIT 30.4 % (42.0-52.0); HEMOGLOBIN 9.3 g/dL (14.0-18.0); MCH 29.2 PG (27-31); MCHC 30.6 g/dL (33-37); MCV 95.3 FL (81-99); MPV 12.5 FL (7.4-10.4); RBC 3.19 XMIL (4.7-6.1)
--- NOTE | 2016-08-30 06:04 | Diag Imaging Result Doc PS360 ---
EXAM: CHEST-PORTABLE HISTORY: respiratory failure TECHNIQUE: Portable COMPARISON: 08/29/2016 FINDINGS: No change in the right jugular line, nasogastric tube, or tracheostomy tube. Heart is mildly prominent. Mild increased interstitial markings. No pleural effusions identified. IMPRESSION: Stable chest. Electronically signed by Skyler Anderson 08/30/2016 6:02 AM
[2016-08-30 06:41] LABS: ALBUMIN 2.8 g/dL (3.5-5.0); CALCIUM 8.1 mg/dL (8.8-10.2); POTASSIUM 5.2 mmol/L (3.5-5.1); TOTAL BILIRUBIN 0.68 mg/dL (0.20-1.00); TOTAL PROTEIN 5.3 g/dL (6.3-8.3)
[2016-08-30] MEDS: HUMALOG SUBQ SCH ×4 (06:47→20:48)
[2016-08-30] MEDS: ADVAIR 250/50 DISKUS INH SCH ×2 (07:50→19:13)
[2016-08-30] MEDS: SOLU-CORTEF IV SCH (08:39)
[2016-08-30] MEDS: ZYLOPRIM PO SCH (08:39)
[2016-08-30] MEDS: HYTRIN PO SCH (08:39)
[2016-08-30] MEDS: ZOFRAN IV PRN ×2 (11:30→22:28)
--- NOTE | 2016-08-30 11:58 | PROGRESS NOTE ---
DATE: 08/30/2016 SUBJECTIVE: The patient has no focal complaints. OBJECTIVE: Vital Signs: Blood pressure 102/45, heart rate 96, respiratory 23, temperature 97.8 degrees, 97% on 40%. Cardiovascular: Regular rate and rhythm. Pulmonary: Bilateral breath sounds. Clear to auscultation. Gastrointestinal: Soft, nontender, nondistended. Bowel sounds are positive. LABORATORY DATA: White count 11. Hemoglobin and hematocrit 9 and 30. Platelets 98,000. Potassium 5.2, creatinine 3.5. Chest x-ray, I think was really unremarkable, stable. PROBLEM LIST: 1. Acute on chronic respiratory failure, status post tracheostomy. He is in the process of getting vent weaning trials. We will continue to follow. Pulmonary is managing primarily. 2. Pneumonia. He is off antibiotics. Dr. Dotson has been following. 3. End-stage renal. He is on dialysis. We will continue to monitor. 4. Chronic protein calorie malnutrition, moderate. We will continue tube feedings. He is tolerating that without difficulty. DISPOSITION: He still mentally is not much improved. Is still agitated. Probably will do a head CT on him actually just to make sure there is nothing else going on. Additionally, we will continue to follow and pursuing LTAC once stabilized, although I think he is getting to be stabilized at this point. cc: Kobe Gonzales MD
--- NOTE | 2016-08-30 13:51 | Diag Imaging Result Doc PS360 ---
EXAM: HEAD W/O CONTRAST HISTORY: encephalopathy TECHNIQUE: Dose reduction protocol COMPARISON: 07/22/2014 FINDINGS: No parenchymal hemorrhage. No epidural or subdural hematoma. No subarachnoid hemorrhage. No mass identified on this noncontrasted exam. No hydrocephalus. Mild atrophy. There are chronic microvascular ischemic changes and an old left lacune. 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 No sinus opacification. IMPRESSION: No hemorrhage. Atrophy with chronic ischemic changes and small old infarcts. Electronically signed by Skyler Anderson 08/30/2016 1:49 PM
--- NOTE | 2016-08-30 15:23 | PROGRESS NOTE ---
DATE: 08/30/2016 SUBJECTIVE: The patient is awake and alert. He is mouthing words today. OBJECTIVE: Vital Signs: Temperature 97.4 degrees, pulse 98, respiratory rate 24, blood pressure 127/60. Intake 735 mL; output 3 L. General: On exam, this is an elderly gentleman resting on the bed. He is currently on trach trials. Awake and alert. HEENT: Normocephalic, atraumatic. Conjunctivae are pink. Neck: Supple. Trachea midline. Trach noted with trach collar. Cardiovascular: Regular rate and rhythm. Pulmonary: He has equal excursions. He was clear bilaterally. Abdomen: Soft, with positive bowel sounds. : Not inspected. He has a Fermin catheter with dark urine noted. Extremities: With 1+ to 2+ pretibial edema. No clubbing or cyanosis. Integumentary: Skin is warm and dry. LAB DATA: WBC of 11.6, hemoglobin 9.3, sodium 138, potassium 5.2, CO2 25, creatinine 3.5. ASSESSMENT AND PLAN: 1. Acute kidney injury without improvement requiring dialysis. We will continue with dialysis on a Saturday, Saturday, Saturday schedule with a goal to maintain fluid balance. Plan to dialyze in the morning. 2. Electrolytes, acid-base balance. Continue to address during dialysis. 3. Anemia. Hemoglobin improved. Continue to monitor. 4. Pneumonia followed by Dr. Dotson. No longer on antibiotics. 5. Protein calorie malnutrition. He is on tube feedings and receives intravenous parenteral nutrition during dialysis. 6. Altered mental status. Not much improved. He remains agitated, but today does try to mouth words and verbalize. DISPOSITION: We understand that preparation is being made for him to be discharged to LTAC in [place] once he is stable. If that happens, he will resume his dialysis at the LTAC facility under oversight of nephrology there. Seen, data reviewed, discussed with Nelda Horton on 08/30/16. I agree with the above assessment and plan of care. rg Dictated by DANIELLA Gautam for Iglesia Villalobos MD cc: Iglesia Villalobos MD [facility]
[2016-08-30] MEDS: PROTONIX IV SCH (17:08)
[2016-08-30] MEDS: FENTANYL IV PRN ×2 (17:57→19:29)
[2016-08-30] MEDS: ATIVAN IV PRN (19:30)
[2016-08-30 20:14] LABS: ALLEN TEST YES; BE 4.3 mmoll (-3.0-3.0); BLOOD TYPE ARTERIAL; DRAW SITE R RADIAL; METHB 1.1 % (0.0-1.5); O2(CT) 13.9 mL/dL (15.0-23.0); PO2(98.6) 143 mmHg (60-100); SAMPLE BLOOD; SAO2 99.7 % (95.0-100.0); pH(98.6) 7.38 (7.35-7.45)
[2016-08-30 20:16] LABS: MODALITY COOL AEROSOL; PCO2(98.6) 51 mmHg (35-45)
[2016-08-30] MEDS: ASPIRIN EC PO SCH (20:48)
[2016-08-31] MEDS: FENTANYL IV PRN ×2 (00:32→17:16)
[2016-08-31] MEDS: ATIVAN IV PRN ×2 (00:33→09:06)
[2016-08-31] MEDS: DUONEB (A & A) INH SCH ×6 (03:13→23:05)
[2016-08-31] MEDS: HUMALOG SUBQ SCH ×4 (04:00→21:31)
[2016-08-31 04:25] LABS: ALLEN TEST YES; BE 3.6 mmoll (-3.0-3.0); BLOOD TYPE ARTERIAL; DRAW SITE R RADIAL; METHB 1.1 % (0.0-1.5); O2(CT) 19.9 mL/dL (15.0-23.0); PO2(98.6) 116 mmHg (60-100); SAMPLE BLOOD; SAO2 99.1 % (95.0-100.0); SRATE 14 BPM; THB 14.7 g/dL (11.5-17.4); TVOL 500 mL; pH(98.6) 7.36 (7.35-7.45)
[2016-08-31 04:26] LABS: MODALITY VENTILATOR; PCO2(98.6) 54 mmHg (35-45)
[2016-08-31] MEDS: BICITRA PO SCH ×4 (04:28→21:38)
[2016-08-31] MEDS: PEPCID IV SCH ×2 (04:28→15:48)
[2016-08-31 05:13] LABS: HEMATOCRIT 29.2 % (42.0-52.0); HEMOGLOBIN 8.9 g/dL (14.0-18.0); MCH 29.6 PG (27-31); MCHC 30.5 g/dL (33-37); RBC 3.01 XMIL (4.7-6.1)
[2016-08-31 05:36] LABS: ALBUMIN 2.8 g/dL (3.5-5.0); CALCIUM 8.5 mg/dL (8.8-10.2); POTASSIUM 5.3 mmol/L (3.5-5.1); TOTAL BILIRUBIN 0.64 mg/dL (0.20-1.00); TOTAL PROTEIN 5.5 g/dL (6.3-8.3)
--- NOTE | 2016-08-31 06:15 | Diag Imaging Result Doc PS360 ---
EXAM: CHEST-PORTABLE HISTORY: respiratory failure TECHNIQUE: Portable AP COMPARISON: 08/30/2016 FINDINGS: No change in the right jugular line, tracheostomy tube, or in the nasogastric tube. The heart remains mildly prominent. Mild increased interstitial markings in the lungs. No consolidation. The overall appearance is similar to that of the prior exam. IMPRESSION: Stable chest. Electronically signed by Skyler Anderson 08/31/2016 6:13 AM
[2016-08-31] MEDS ORDERED: NS 2,000 ML MISC PRN (06:58)
[2016-08-31] MEDS ORDERED: TIGHT: 0.2 ML/HR MISC PRN (06:58)
[2016-08-31] MEDS ORDERED: HEPARIN IV PRN (06:58)
[2016-08-31] MEDS: ADVAIR 250/50 DISKUS INH SCH ×2 (07:35→19:20)
[2016-08-31] MEDS ORDERED: NS 2,000 ML ONE (07:55)
--- NOTE | 2016-08-31 08:05 | PROGRESS NOTE ---
DATE: 08/31/2016 SUBJECTIVE: He is awake and looks at me, but it is not clear that he understands or attends. OBJECTIVE: Blood pressure 127/69, heart rate 94, respirations 20, afebrile. Intake 720 mL. Output 35 mL. PHYSICAL EXAMINATION: Elderly man in no acute distress. Skin is warm and dry with multiple decubitus ulcers. Eyes: Conjunctivae are pink. Neck veins are not appreciated. Heart is regular without gallops. Lungs have equal breath sounds with diffuse rhonchi. Abdomen is soft and nontender. Bowel sounds are present. Extremities: Have 2+ edema. No clubbing or cyanosis. LABORATORY DATA: Sodium 141, potassium 5.3, chloride 96, bicarbonate 25. BUN 89, creatinine 4.3, hemoglobin 8.9. pH 7.36, pCO2 of 54, PO2 116. IMPRESSION: 1. Acute kidney injury. No recovery thus far. Urine output remains minimal. He will have hemodialysis today with a goal of 2 L ultrafiltration using a 2 potassium bath. 2. Electrolytes are acceptable. 3. Acid base in target. 4. Anemia, below target but does not meet criteria for treatment. cc: Iglesia Villalobos MD
[2016-08-31] MEDS: D50W 250 ML, AMINOSYN 10% 500 ML, LIPOSYN 20% 250 ML MISC SCH ×3 (09:01)
[2016-08-31] MEDS ORDERED: NS 250 ML ONE (10:28)
--- NOTE | 2016-08-31 10:55 | PROGRESS NOTE ---
DATE: 08/31/2016 SUBJECTIVE: The patient has no focal complaints. Apparently he is more awake. OBJECTIVE: Vital Signs: Blood pressure 97/49, heart rate of 100, respiratory rate 25, temperature degrees 97.2 and 97% on 40%. Cardiovascular: Regular rate and rhythm Pulmonary: Bilateral breath sounds. Clear to auscultation. GI: Soft, nontender, nondistended. Bowel sounds are positive. LABORATORY DATED: White count is 10, hemoglobin 8 and hematocrit 29, platelets of 101,000. PH 7.36, pCO2 54, PaO2 116, potassium 5.3, BUN 89 and creatinine 4.3. Chest x-ray, looks stable. PROBLEM LIST: 1. [id number] respiratory failure status post on weaning trials. Pulmonary is following. Seems to be doing okay. 2. Pneumonia has resolved. He is off antibiotics. 3. End-stage renal. Dialysis per renal service. 4. Chronic protein calorie malnutrition. We will continue tube feeds. I am going to go ahead and evaluate him by speech and decide if we are going to need PEG placement prior to LTAC. Again, I think this could be accomplished at the LTAC. We are going to go ahead and hold his aspirin and follow clinically. DISPOSITION: Planning for LTAC once that is approved hopefully in the next several days. cc: Kobe Gonzales MD
[2016-08-31] MEDS: HYTRIN PO SCH (11:08)
[2016-08-31] MEDS: ZYLOPRIM PO SCH (12:29)
[2016-08-31] MEDS: SOLU-CORTEF IV SCH (12:30)
[2016-09-01] MEDS: FENTANYL IV PRN ×2 (02:23→12:51)
[2016-09-01] MEDS: DUONEB (A & A) INH SCH ×6 (03:20→23:00)
[2016-09-01 04:25] LABS: ALLEN TEST YES; BE 6.9 mmoll (-3.0-3.0); BLOOD TYPE ARTERIAL; DRAW SITE R RADIAL; METHB 1.2 % (0.0-1.5); O2(CT) 13.3 mL/dL (15.0-23.0); PCO2(98.6) 50 mmHg (35-45); PO2(98.6) 75 mmHg (60-100); SAMPLE BLOOD; SAO2 97.6 % (95.0-100.0); pH(98.6) 7.42 (7.35-7.45)
[2016-09-01 04:27] LABS: MODALITY COOL AEROSOL
[2016-09-01 04:32] LABS: HEMOGLOBIN 9.6 g/dL (14.0-18.0); MCH 29.4 PG (27-31); MCV 95.1 FL (81-99); MPV 11.4 FL (7.4-10.4); RBC 3.26 XMIL (4.7-6.1)
[2016-09-01 05:05] LABS: ALBUMIN 2.9 g/dL (3.5-5.0); CALCIUM 8.5 mg/dL (8.8-10.2); POTASSIUM 4.5 mmol/L (3.5-5.1); TOTAL BILIRUBIN 0.71 mg/dL (0.20-1.00); TOTAL PROTEIN 5.5 g/dL (6.3-8.3)
[2016-09-01] MEDS: BICITRA PO SCH ×3 (06:09→17:24)
[2016-09-01] MEDS: HUMALOG SUBQ SCH ×3 (06:15→16:09)
[2016-09-01] MEDS: PEPCID IV SCH ×2 (06:19→16:49)
[2016-09-01] MEDS: ADVAIR 250/50 DISKUS INH SCH ×2 (07:52→19:30)
--- NOTE | 2016-09-01 08:28 | Diag Imaging Result Doc PS360 ---
CHEST-PORTABLE - 09/01/2016 INDICATION: respiratory failure TECHNIQUE: COMPARISON: 08/31/2016 FINDINGS: Support lines and tubes are stable. Lung volumes are lower. There is slight worsening in the left lower lobe infiltrate. Otherwise no significant change in the bilateral ill-defined infiltrates with basilar predominance, left greater than right. Stable mild cardiomegaly. IMPRESSION: Worsening in left lower lobe infiltrate. Electronically signed by Luis Eduardo Villalta 09/01/2016 8:25 AM
[2016-09-01] MEDS: SOLU-CORTEF IV SCH (08:43)
[2016-09-01] MEDS: ZYLOPRIM PO SCH (08:44)
[2016-09-01] MEDS: HYTRIN PO SCH (08:44)
[2016-09-01] MEDS: ATIVAN IV PRN (10:28)
[2016-09-01] MEDS: MUCOMYST 20% INH SCH ×2 (11:37→19:30)
--- NOTE | 2016-09-01 12:28 | PROGRESS NOTE ---
DATE: 09/01/2016 SUBJECTIVE: Patient has no focal complaints. He seems a little bit more disoriented today, awake but drowsy. OBJECTIVE: Blood pressure 110/74, heart rate 108, respiratory 34, temperature 98.1 degrees, 94% on 35% but he is back on the vent.Cardiovascular: Regular rate and rhythm. Pulmonary: Bilateral breath sounds. Clear to auscultation. GI: Soft, nontender, nondistended. Bowel sounds are positive. LABORATORY DATA: White count 11, hemoglobin and hematocrit 9 and 31, platelets 109,000. PH 7.42, pCO2 55, PaO2 75. BUN and creatinine 77 and 4. chest x-ray shows worsening left lower lobe infiltrate. PROBLEM: 1. Acute on chronic respiratory failure status post tracheostomy. He is currently still on weaning trials. Pulmonary is primarily managing. 2. Pneumonia. He is off antibiotics but he does have this worsening infiltrate on the left side. Would consider doing some antibiotics for that. Empirically start Zosyn and we will follow further recommendations per Pulmonary. I am going to add Mucomyst. I think he is already on nebulized treatments. We will follow clinically. 3. Severe protein-calorie malnutrition. He is on tube feeds and seems to be tolerating those okay. We will continue to follow closely. 4. Hypertension appears to be stable. 5. Encephalopathy. Head CT was negative. We will continue to monitor. Possibly related to ICU related psychosis. We will continue to monitor. I am a little reluctant to give anything too sedating. 6. Acute kidney injury. He is getting dialyzed per renal service. DISPOSITION: Plan for LTAC when stable. We will go ahead and get a sputum sample too. cc: Kobe Gonzales MD
[2016-09-01] MEDS ORDERED: NS 500 ML ONE (13:02)
[2016-09-01] MEDS: ZOSYN 2.25 GM/NS 2.25 GM/50 ML IVPB IV SCH ×2 (13:07→16:49)
--- NOTE | 2016-09-01 13:22 | PROGRESS NOTE ---
DATE: 09/01/2016 SUBJECTIVE: He has no complaints today. He remains sedated on the ventilator. His eyes are open and he looks around, but he does not really follow commands. OBJECTIVE: Vital Signs: Blood pressure 110/52, heart rate 106, respirations 24, afebrile. Intake 800 mL; output 2.1 L. General: On physical exam, no acute distress. Skin: Warm and dry with multiple eschars. HEENT: Oropharynx is dry. Neck: Neck is supple. Neck veins are not appreciated. Heart: Regular. Lungs: Have equal breath sounds. Poor air movement and diffuse rhonchi. Abdomen: Soft and nontender. Bowel sounds are present. Extremities: Have 2+ edema. No clubbing or cyanosis. IMPRESSION: 1. Acute kidney injury. No recovery. No indications for dialysis today. We will observe. 2. Electrolytes/acid base/anemia, all stable. cc: Iglesia Villalobos MD
--- NOTE | 2016-09-01 18:05 | PROGRESS NOTE ---
DATE: 09/01/2016 GASTROENTEROLOGY FOLLOWUP: Subjective: Patient currently resting in bed. He has been trached. He was awake and was able to answer some of my questions by nodding. The patient is scheduled for a PEG tube placement on Saturday. He is currently on NG tube feeding. No fever reported in the last 24 hours. No nausea, vomiting noted, and patient has been tolerating tube feeds well so far. He is having liquid brown stools. OBJECTIVE: Vital signs: Temperature 98.2 degrees, pulse rate of 103, respiratory rate 18, blood pressure 109/52, saturating 93% on 40% FiO2. General appearance: Moderately nourished, lying in bed, in no acute distress. HEENT: Pale conjunctivae. No icterus. Neck: Positive ET tube. Positive tracheostomy noted. Abdomen: Soft, nontender, nondistended. Bowel sounds are heard. EXTREMITIES: No cyanosis or clubbing. Neurologic: He was awake and answering simple questions by nodding. LABS: Hemoglobin and hematocrit is 9.6, 31, white count of 11.2, platelet count of 109,000, MCV of 97.1, lactate of 1.1 on ABG. Sodium 140, potassium 4.5, chloride 98, bicarb 29, anion gap of 17, BUN of 77, creatinine of 4, glucose of 157, calcium is 8.5, total bilirubin is 0.71, AST 56, ALT 22, alkaline phosphatase is 127, total protein 5.5, albumin of 2.9. IMPRESSION/PLAN: 1. Respiratory failure status post tracheostomy placement and ventilation being by the primary team. 2. Pneumonia. Restarted on Zosyn per the primary team. 3. Protein calorie malnutrition. He is currently on tube feeds and is tolerating them well. He will need a PEG tube placement for long-term nutritional needs. We will try to obtain the consent over the weekend so we can plan to do it on Saturday. 4. We will check his PT, PT-INR in the morning. 5. Hypertension, encephalopathy, acute kidney injury, being managed by the primary team. 6. The above plan was discussed with the patient and nurse at bedside. cc: MD Kobe Young MD Reginald D. Gladish, MD Leroy F. Harris, MD James E. Boyle, MD MTDD
[2016-09-02] MEDS: ZOSYN 2.25 GM/NS 2.25 GM/50 ML IVPB IV SCH ×4 (01:07→17:26)
[2016-09-02] MEDS: HUMALOG SUBQ SCH ×5 (01:09→21:15)
[2016-09-02] MEDS: BICITRA PO SCH ×3 (01:18→17:30)
[2016-09-02] MEDS: DUONEB (A & A) INH SCH ×6 (03:05→23:05)
[2016-09-02 04:28] LABS: ALLEN TEST YES; BE 7.9 mmoll (-3.0-3.0); BLOOD TYPE ARTERIAL; DRAW SITE R RADIAL; METHB 1.4 % (0.0-1.5); O2(CT) 16.1 mL/dL (15.0-23.0); PCO2(98.6) 49 mmHg (35-45); PO2(98.6) 114 mmHg (60-100); SAMPLE BLOOD; SAO2 99.1 % (95.0-100.0); SRATE 14 BPM; THB 11.8 g/dL (11.5-17.4); TVOL 500 mL; pH(98.6) 7.44 (7.35-7.45)
[2016-09-02 04:30] LABS: MODALITY VENTILATOR
[2016-09-02] MEDS: PEPCID IV SCH ×2 (05:00→17:00)
[2016-09-02 05:28] LABS: HEMATOCRIT 30.9 % (42.0-52.0); HEMOGLOBIN 9.5 g/dL (14.0-18.0); MCH 29.4 PG (27-31); MCHC 30.7 g/dL (33-37); MCV 95.7 FL (81-99); MPV 12.3 FL (7.4-10.4); RBC 3.23 XMIL (4.7-6.1)
[2016-09-02 06:09] LABS: ALBUMIN 2.9 g/dL (3.5-5.0); CALCIUM 8.8 mg/dL (8.8-10.2); POTASSIUM 4.8 mmol/L (3.5-5.1); TOTAL BILIRUBIN 0.78 mg/dL (0.20-1.00); TOTAL PROTEIN 5.1 g/dL (6.3-8.3)
[2016-09-02] MEDS: MUCOMYST 20% INH SCH ×2 (08:07→19:30)
[2016-09-02] MEDS: ADVAIR 250/50 DISKUS INH SCH ×2 (08:08→19:30)
[2016-09-02] MEDS: ZYLOPRIM PO SCH (08:28)
[2016-09-02] MEDS: HYTRIN PO SCH (08:28)
[2016-09-02] MEDS: SOLU-CORTEF IV SCH (08:28)
--- NOTE | 2016-09-02 08:52 | Diag Imaging Result Doc PS360 ---
CHEST-PORTABLE - 09/02/2016 INDICATION: respiratory failure TECHNIQUE: COMPARISON: 09/01/2016 FINDINGS: Stable support lines and tubes. Stable borderline cardiomegaly. Lung volumes are improved. There is improvement in the left lower lobe infiltrate. Stable hazy, diffuse bilateral infiltrates suggesting pulmonary edema. No new or focal infiltrates. IMPRESSION: Cardiomegaly and pulmonary edema. Improved lung volumes. Improvement of the left lower lobe infiltrate. Electronically signed by Luis Eduardo Villalta 09/02/2016 8:50 AM
[2016-09-02 12:43] LABS: INR 1.12; PROTIME 11.8 Seconds (9.2-11.7); PTT 27.3 Seconds (22.0-36.0)
[2016-09-02] MEDS ORDERED: NS 500 ML ONE (14:50)
--- NOTE | 2016-09-02 14:50 | PROGRESS NOTE ---
DATE: 09/02/2016 SUBJECTIVE: The patient tracks with eyes but he is not really following commands. OBJECTIVE: Vital signs: Blood pressure 116/56, heart rate of 99, respiratory rate 12, temperature 98.1 degrees, 95% on 40%. In's and out's of 770 in 2059. Cardiovascular: Regular rate and rhythm. Pulmonary: Bilateral breath sounds. Clear to auscultation. GI: Soft, nontender, nondistended. Bowel sounds are positive. LABORATORY DATA: White count 12, hemoglobin and hematocrit 9 and 30, platelets 133,000. PH 7.44, pCO2 49, PaO2 114 on 40%. BUN and creatinine 99 and 5.1. Glucose 223. PROBLEM LIST: 1. Acute on chronic respiratory failure. He has done a 24 hour trach trial and has done very well. We are doing to trach trials during the day. This obviously managed by pulmonary but he seems to be doing pretty well. 2. Pneumonia. He does have a little bit of rising white count. He has a little bit of an infiltrate on left side. I have started Zosyn. He is on breathing treatments, Mucomyst, and we will follow. 3. Severe protein-calorie malnutrition. He is on tube feeds. Planning for a PEG tube because I do not think his mental status is going to improve enough for him to tolerate p.o. at this point, safely. 4. Encephalopathy. Unclear if this ICU related psychosis. Head CT was unremarkable. We are monitoring. 5. End-stage renal. He is on dialysis. 6. Disposition will be LTAC. Plan is for probably a PEG tomorrow and then LTAC subsequently when and if that is approved. I am going to wean his hydrocortisone a little bit with his white count jumping up and we will follow. cc: Kobe Gonzales MD
[2016-09-02] MEDS: NS 500 ML IV SCH (17:26)
[2016-09-02] MEDS: FENTANYL IV PRN (17:43)
[2016-09-03] MEDS: ZOSYN 2.25 GM/NS 2.25 GM/50 ML IVPB IV SCH ×4 (00:06→20:41)
--- NOTE | 2016-09-03 01:25 | CONSULTATION ---
DATE OF CONSULTATION: 08/31/2016 REASON FOR CONSULTATION: Placement of PEG tube. This is a pleasant gentleman who was in respiratory failure, status post tracheostomy placement and ventilation. He has been on NG tube feeding. We were asked to evaluate for a possible G-tube placement. HISTORY OF PRESENT ILLNESS: He has been in the hospital for more than a month now. He came in with respiratory failure, pneumoniae, and status post trach, currently on vent. PAST MEDICAL HISTORY: Hypertension, DM, type 2, anemia chronic kidney disease, history of colon cancer. PAST SURGICAL HISTORY: Right total knee replacement. Left thumb surgery, bilateral carotid endarterectomy. Vasectomy. Total right knee replacement. ALLERGIES: None. MEDICATIONS: Reviewed, but most of the home medicines were discontinued. SOCIAL HISTORY: Denies tobacco. He drinks socially. No drugs. FAMILY HISTORY: Positive for coronary artery disease. REVIEW OF SYSTEMS: He is answering some questions. He seems to be doing okay. He is nodding when he says he is feeling better, but he has a trach in place. PHYSICAL EXAMINATION: General: Revealed this surprisingly pleasant gentleman, for all his problems. Vital Signs: Temperature 98 degrees, pulse 100, respiration 18, blood pressure 109/50, saturation 93 at 40% FiO2. General: Moderately-nourished, lying in bed, in no acute distress. HEENT: Pale conjunctivae, and no icterus. Neck: He has a trach inserted. Abdomen: Soft, tender. Heart: Normal. Lungs: Normal. Extremities: No cyanosis or clubbing. Neurological: He is alert, and nodding appropriately. LABORATORY STUDIES: H and H 9.6 and 31, white count 11,000. Electrolytes are within normal range. LFTs are normal. Albumin 2.9. IMPRESSION AND PLAN: 1. Respiratory failure, status post tracheostomy placement, on ventilation. 2. Currently getting NG tube feeding. We will change to G-tube. 3. Pneumonia, on Zosyn. 4. PEG planned for Saturday. 5. Hypertension. FOLLOWUP: Discussed, and talked to Dr. Landaverde, who will do the PEG tube Saturday. cc: Mk Chew MD
--- NOTE | 2016-09-03 03:13 | PROGRESS NOTE ---
DATE: 09/02/2016 SUBJECTIVE: Patient currently resting in bed. He is status post trach. He is continuing on NG tube feeds. His daughter is present at bedside. We discussed the risks, benefits, indications, alternatives of PEG tube placement which is scheduled for tomorrow. The patient and the family acknowledged understanding and agreed to proceed with the PEG tube placement tomorrow. No fever is reported today. No nausea or vomiting reported. No major change in condition reported. PHYSICAL EXAMINATION: Vital Signs: Temperature 97.9, pulse rate of 90, respiratory rate 15, blood pressure of 97/39 saturating 98% on trach collar, FiO2 of 35%. General Appearance: Moderately nourished, lying in bed, currently awake and answers simple questions by nodding. HEENT: Pale conjunctivae. No icterus. Positive trach and a positive NG tube. Neck: Showing positive trach. Abdomen: Soft, nontender, mildly obese. Bowel sounds present. Extremities: No cyanosis and clubbing. Neurologic: He is awake and answers questions by nodding. LABS: Hemoglobin and hematocrit are 9.5 and 13.9, white count of 12.1, platelet count of 133,000. INR 1.12, PT of 11.8, PTT 27.3. Sodium 140, potassium 4.8, chloride 96, bicarb 28, anion gap of 21, BUN of 99, creatinine of 5.1, glucose of 180, calcium is 8.8. Total bilirubin is 0.7, AST 65, ALT 24, alkaline phosphatase 134, total protein 5.1, albumin of 2.9. IMPRESSION AND PLAN: 1. Oropharyngeal dysphagia secondary to respiratory failure and status post trach. He will be scheduled for a EGD with PEG tube placement tomorrow under anesthesia. The risks, benefits, indications, alternatives were discussed with the patient's family members. All questions were answered. 2. Pneumonia and chronic obstructive pulmonary disease. We will continue on nebulizer treatment, antibiotics per the primary care team. 3. Malnutrition. He will continue on NG tube feeds for now. We will hold on NG tube feeds after midnight. 4. End-stage renal disease, on hemodialysis per Dr. Villalobos. 5. Continue on gastrointestinal prophylaxis with proton pump inhibitors and bowel regimen. 6. Further recommendations pending the hospital course. cc: Dylan Landaverde, MD Kobe R. Penot, MD James Escudero MD MTDD
[2016-09-03] MEDS: DUONEB (A & A) INH SCH ×6 (03:25→23:00)
[2016-09-03] MEDS: BICITRA PO SCH ×3 (05:02→18:19)
[2016-09-03] MEDS: PEPCID IV SCH ×2 (05:02→16:25)
[2016-09-03 06:25] LABS: HEMATOCRIT 29.5 % (42.0-52.0); HEMOGLOBIN 8.9 g/dL (14.0-18.0); MCHC 30.2 g/dL (33-37); MCV 96.1 FL (81-99); MPV 11.9 FL (7.4-10.4); RBC 3.07 XMIL (4.7-6.1)
[2016-09-03] MEDS ORDERED: HEPARIN IV PRN (06:48)
[2016-09-03] MEDS ORDERED: NS 2,000 ML MISC PRN (06:48)
[2016-09-03] MEDS ORDERED: TIGHT: 0.2 ML/HR MISC PRN (06:48)
[2016-09-03 06:51] LABS: ALBUMIN 2.7 g/dL (3.5-5.0); TOTAL BILIRUBIN 0.84 mg/dL (0.20-1.00); TOTAL PROTEIN 5.3 g/dL (6.3-8.3)
[2016-09-03 07:11] LABS: POTASSIUM 5.5 mmol/L (3.5-5.1)
--- NOTE | 2016-09-03 07:14 | Diag Imaging Result Doc PS360 ---
EXAM: CHEST-PORTABLE HISTORY: respiratory failure TECHNIQUE: Erect AP portable at 0510 COMMENT: There is an NG tube with its tip in the stomach. The inspiration is suboptimal. There is atelectasis versus bronchopneumonia in both lower lung gaston. Overall, there is very little change since the previous study of 09/02/2016 considering differences in inspiration. IMPRESSION: Questionable bibasilar pneumonia. Electronically signed by Mynor Freedman 09/03/2016 7:12 AM
[2016-09-03] MEDS: ADVAIR 250/50 DISKUS INH SCH ×2 (07:55→21:16)
[2016-09-03] MEDS: MUCOMYST 20% INH SCH ×2 (07:55→19:10)
[2016-09-03] MEDS: HUMALOG SUBQ SCH ×5 (07:56→20:28)
[2016-09-03] MEDS ORDERED: SOLU-CORTEF IV SCH (08:30)
--- NOTE | 2016-09-03 09:00 | PROGRESS NOTE ---
DATE: 09/03/2016 SUBJECTIVE: The patient has no focal complaints. He is somewhat sedated. He is about to get a PEG tube placed. OBJECTIVE: Vital Signs: Have been stable. Blood pressure 100/65, heart rate 94, respiratory rate 18, temperature 97.9 degrees, 100% on tracheostomy collar. Cardiovascular: Regular rate and rhythm. Pulmonary: Bilateral breath sounds. Clear to auscultation. Gastrointestinal: Abdomen soft, nontender, nondistended. Bowel sounds are positive. LABORATORY DATA: White count of 10. Hemoglobin and hematocrit 8 and 29. Platelets 152,000. Sodium 147, potassium 5.5. BUN and creatinine of 119 and 6.2. PROBLEM LIST: 1. Acute on chronic respiratory failure. 24 hour trach trial. 2. Pneumonia. She has left lower lobe pneumonia. She is on Zosyn and seems to be doing okay. 3. Severe protein calorie malnutrition. Continue tube feeds. Planning for PEG tube. 4. Encephalopathy. Patient is stable. 5. End-stage renal. He is on dialysis disposition. DISPOSITION: Getting a PEG tube and were waiting on final approval for LTAC. Hopefully get transferred in next 24 hours. cc: Kobe Gonzales MD
--- NOTE | 2016-09-03 09:22 | PROGRESS NOTE ---
DATE: 09/03/2016 SUBJECTIVE: He is awake and alert, but does not really respond. OBJECTIVE: Vital Signs: Blood pressure 126/57, heart rate 94, respiration 18, afebrile. Intake 1 L, output 60 mL. General: On physical exam, no acute distress. Skin: Warm and dry. Eyes: Conjunctivae are pink. Neck: Neck veins are not distended. Trachea is midline. Heart: Regular with no gallops or murmurs. Lungs: Have equal breath sounds with few crackles. Abdomen: Soft and nontender. Bowel sounds are diminished. Extremities: Have 2 to 3+ edema. No clubbing or cyanosis. LABORATORY DATA: Sodium 147, potassium 5.5, chloride 96, bicarbonate 31, BUN 119, creatinine 6.2, hemoglobin 8.9. IMPRESSION: 1. Acute kidney injury. No recovery. He will have standard hemodialysis today with 2 potassium bath and a goal of 4 L ultrafiltration. 2. Electrolytes in target. Two potassium bath as above. 3. Acid-base in target. 4. Anemia. Stable. 5. Nutrition: He will be going for PEG placement today. cc: Iglesia Villalobos MD
[2016-09-03] MEDS ORDERED: NS 2,000 ML ONE (09:31)
[2016-09-03] MEDS: ATIVAN IV PRN (10:58)
[2016-09-03] MEDS ORDERED: DIPRIVAN 1% ONE (11:01)
[2016-09-03] MEDS: D50W 250 ML, AMINOSYN 10% 500 ML, LIPOSYN 20% 250 ML MISC SCH ×3 (11:14)
--- NOTE | 2016-09-03 12:02 | OPERATIVE NOTE ---
PROCEDURE DATE: 09/03/2016 ATTENDING PHYSICIAN: Kobe Gonzales MD PROCEDURE: Esophagogastroduodenoscopy with percutaneous endoscopic gastrostomy tube placement, [id number]. PREOPERATIVE DIAGNOSES: 1. Dysphagia. 2. Respiratory failure, chronic, status post trach needing percutaneous endoscopic gastrostomy tube placement for long-term nutritional needs. 3. Anemia. POSTOPERATIVE DIAGNOSES: 1. Mild esophagitis gastroesophageal junction 2. Evidence of small quantity of food in the stomach. 3. Bile in the stomach. 4. Mild gastritis. 5. Normal duodenal bulb and second portion duodenum. 6. Successful placement of percutaneous endoscopic gastrostomy tube placement, twenty-four- Setswana, external bumper marked at 3 cm. The internal bumper visualized with repeat esophagogastroduodenoscopy. ESTIMATED BLOOD LOSS: Minimal. COMPLICATIONS: None. ANESTHESIA: Monitored anesthesia care per the anesthesiologist. SPECIMEN: None. DESCRIPTION OF PROCEDURE: After informed consent from the patient's daughter, explained the risks, benefits, indications, alternatives, the patient was prepared for EGD with PEG tube. The patient was prepared in ICU bed 3. He was kept supine. He was given monitored anesthesia care per the anesthesiologist. A bite block was placed. The upper scope was introduced through the oral orifice and traversed all the way to the second portion duodenum. The esophagus showed evidence of erythema and erosions at the GE junction suggesting mild esophagitis. There was evidence of NG tube in the esophagus and extending into the body of the stomach , which was removed. Evidence of bile in the stomach, which was suctioned out. There was evidence of small amount of food in the remnant in the stomach, which was suctioned out. The stomach showed evidence of mild erythema. There was no evidence of pyloric stenosis. Retroflexion revealed normal fundus, cardia, incisura. The 1st portion of the duodenum, duodenal bulb , and second portion appeared normal. The scope was withdrawn into the stomach. The air was insufflated in the stomach and a site was selected in the left upper quadrant using transillumination and ballottement of the external finger pressure. The external abdominal surface was cleaned and draped under sterile conditions. Local lidocaine was injected and finder needle was used to confirm the site position. The 1 cm cut was made in the selected site, trocar with cannula was inserted and silk was threaded successfully and snared out successfully. The PEG tube was then placed using pull technique. The external bumper marked at 3 cm. Internal bumper marked in the body of the stomach and it was visualized by repeat EGD. The air was aspirated as the scope withdrawn. The patient tolerated the procedure and currently monitored in the ICU in stable condition. I discussed the finding with the patient and nurse and all questions were answered. RECOMMENDATIONS: 1. The patient will be on aspirin precaution. 2. The patient will have abdominal binder all the time. 3. We will use bacitracin ointment to apply once or twice daily for 7 days at the PEG tube site to prevent infection. 4. We will call Nutrition consultation for PEG tube feeds. 5. We will continue to keep the site dry and clean. 6. The patient will benefit from Reglan 5 mg per PEG every 8 hours and we will hold for side effects like tardive dyskinesia. 7. The patient will continue on Prilosec once daily for 12 weeks and then wean down to Zantac twice daily as he has gastritis esophagitis. 8. Patient will benefit from MiraLAX 17 g per PEG once daily. 9. Please call us with any questions. cc: MD Kobe Young MD [facility]
[2016-09-03] MEDS: BACITRACIN OINTMENT TOP SCH ×2 (12:25→21:34)
[2016-09-03] MEDS: HYTRIN PO SCH (14:12)
[2016-09-03] MEDS: SODIUM CHLORIDE 0.9% INJ SCH ×2 (14:35→16:25)
[2016-09-03] MEDS: REGLAN LIQUID PEG SCH ×2 (14:37→20:41)
[2016-09-03] MEDS: ZYLOPRIM PO SCH (14:38)
[2016-09-03] MEDS: ICAR-C PEG SCH ×2 (14:39→21:34)
[2016-09-03] MEDS: CENTRUM SILVER PO SCH (14:40)
[2016-09-03] MEDS: NS 500 ML IV SCH (16:26)
[2016-09-03] MEDS: MIRALAX PEG SCH (20:42)
[2016-09-04] MEDS: BICITRA PO SCH ×3 (02:15→17:15)
[2016-09-04] MEDS: ZOSYN 2.25 GM/NS 2.25 GM/50 ML IVPB IV SCH ×4 (02:20→20:33)
[2016-09-04] MEDS: DUONEB (A & A) INH SCH ×6 (03:20→22:59)
[2016-09-04] MEDS: PEPCID IV SCH ×2 (04:17→15:59)
[2016-09-04] MEDS: REGLAN LIQUID PEG SCH ×3 (04:17→20:33)
[2016-09-04] MEDS: SODIUM CHLORIDE 0.9% INJ SCH ×2 (04:17→16:00)
[2016-09-04 05:58] LABS: HEMATOCRIT 30.9 % (42.0-52.0); HEMOGLOBIN 9.3 g/dL (14.0-18.0); MCH 28.9 PG (27-31); MCHC 30.1 g/dL (33-37); MPV 12.7 FL (7.4-10.4); RBC 3.22 XMIL (4.7-6.1)
[2016-09-04 06:16] LABS: MAGNESIUM 2.3 mg/dL (1.5-2.7)
[2016-09-04 06:20] LABS: ALBUMIN 2.9 g/dL (3.5-5.0); CALCIUM 8.6 mg/dL (8.8-10.2); POTASSIUM 4.7 mmol/L (3.5-5.1); TOTAL BILIRUBIN 1.45 mg/dL (0.20-1.00); TOTAL PROTEIN 5.5 g/dL (6.3-8.3)
[2016-09-04] MEDS: HUMALOG SUBQ SCH ×4 (06:22→20:25)
--- NOTE | 2016-09-04 07:19 | Diag Imaging Result Doc PS360 ---
CHEST-PORTABLE - 09/04/2016 INDICATION: respiratory failure TECHNIQUE: COMPARISON: 09/03/2016 FINDINGS: The nasogastric tube has been removed. Stable tracheostomy tube and right central line. Stable hazy infiltrates/fibrosis at the lung bases. Heart size remains borderline enlarged. No new infiltrates. IMPRESSION: No change from prior. Electronically signed by Luis Eduardo Villalta 09/04/2016 7:17 AM
[2016-09-04] MEDS: ADVAIR 250/50 DISKUS INH SCH ×2 (07:22→19:23)
[2016-09-04] MEDS: MUCOMYST 20% INH SCH ×2 (07:22→19:23)
[2016-09-04] MEDS: CENTRUM SILVER PO SCH (08:14)
[2016-09-04] MEDS: ICAR-C PEG SCH ×2 (08:14→20:37)
[2016-09-04] MEDS: ZYLOPRIM PO SCH (08:14)
[2016-09-04] MEDS: BACITRACIN OINTMENT TOP SCH ×2 (08:16→20:37)
[2016-09-04] MEDS: HYTRIN PO SCH (08:17)
--- NOTE | 2016-09-04 10:19 | PROGRESS NOTE ---
DATE: 09/04/2016 TIME SEEN: 0730. SUBJECTIVE: Mr. Santiago is resting quietly in bed. He is awake. He does look at you when you call his name. Otherwise, there is no response to verbal commands. OBJECTIVE: Vital signs: His most recent vital signs, temperature 98.2 degrees , blood pressure 118/70, heart rate 103, respirations are 18. He is on 35% trach collar. His last recorded saturation is 95%. His CVP is 6. He has had 620 in. He has had 2.7 L out on dialysis yesterday. Labs: Sodium 141, potassium 4.7, chloride 92, CO2 27, BUN 86, creatinine 4.9, glucose 161, anion gap 22, calcium 8.6, phosphorus 4.1, albumin 2.9, magnesium 2.3. White count 13.3, hemoglobin 9.3, hematocrit 30.9, with a platelet count of 127,000. His total bilirubin 1.45, AST 123, ALT 51. His sputum has grown yeast. PHYSICAL EXAMINATION: General: This is a 71-year-old white male. He is currently resting in bed. He is in no acute distress. He appears chronically ill. Skin: Warm and dry. HEENT: Normocephalic, atraumatic. Conjunctivae pink. He has ANGELA. Mucous membranes are dry. Neck: Supple. Trachea midline. No JVD. Trachea collar remains in place. Cardiovascular: Regular rate and rhythm without murmur or gallop. Lungs: Clear to auscultation anteriorly. Equal excursion. He remains on vent through trachea. Abdomen: Soft, nontender. Positive bowel sounds. He continues with PEG tube to mid abdominal left lower quadrant with tube feedings intact. Genitourinary: No urine out, with dialysis assist. Extremities: There is 2+ to 3+ edema. No clubbing or cyanosis. Neurological: As mentioned above. ASSESSMENT AND PLAN: 1. Acute kidney injury. There has been no recovery. He is now on standard hemodialysis. We will hold dialysis today and plan for the a.m. with appropriate bath. 2. Electrolytes and acid-base balance. These remain stable. 3. Anemia. This remains stable. 4. Nutrition. Patient continues with ongoing PEG tube and he continues on IV PN. I would like to thank you for allowing us to follow with this patient. Seen, data reviewed, discussed with Tita Torres on 09/04/16. I agree with the above assessment and plan of care. rg Dictated by DANIELLA Watson for Iglesia Villalobos MD cc: DANIELLA Watson MD [facility]
--- NOTE | 2016-09-04 11:12 | PROGRESS NOTE ---
DATE: 09/04/2016 SUBJECTIVE: Mr. Santiago has the tracheostomy. He is awake and alert, and answers questions. PHYSICAL EXAMINATION: Vital Signs: Temperature 99.7, pulse 106, respirations 22, blood pressure 105/46. CVP less than 6 cm. Lungs: Clear in all lung gaston. Cardiovascular Examination: Regular rhythm and rate without murmur or S3. Abdomen: Soft. Skin: Is warm and dry. He is on the trach collar, FiO2 is 35%, O2 saturation is 96%. Is and Os: Urine output was almost 800 mL. LAB: White count 13,320, hematocrit 30, platelet count 127,000. Chemistry: Sodium 141, potassium 4.7, chloride 92, BUN 86, creatinine 4.9, blood sugar is 347, 169, and 161. AST 123, ALT 51, alkaline phosphatase 149. Chest x-ray from this morning, no change. Nasogastric tube has been removed. Stable tracheostomy tube and right central line. Stable hazy infiltrate at the lung bases. Dr. Landaverde performed EGD I believe, placed a gastrostomy tube. He noted mild esophagitis at the gastroesophageal junction, evidence of a small quantity of food in the stomach, bile in the stomach, mild gastritis, normal duodenum and bulb, and successful placement of a PEG tube. ASSESSMENT AND PLAN: 1. Acute kidney injury. No recovery. Will continue hemodialysis per Dr. Villalobos. 2. Electrolytes and acid base appear to be stable and on target. 3. Anemia, stable. 4. PEG placement accomplished. Start tube feeding, enhance nutrition. 5. Encephalopathy, which is I think improving. 6. Acute on chronic respiratory failure. Has a tracheostomy. 7. Pneumonia of left lower lobe, has been treated. That appears to be better clinically. Gas exchange is improved. 8. Diabetes mellitus. Sugars under fairly good control. 9. Liver enzymes seem to be coming down. 10. I think the plan is to try and get him to long-term acute care. Note, looking back at the liver enzymes, AST and ALT actually came up just a little bit. He has several places on his skin which appear to be subcutaneous hemorrhagic areas on his legs. The 1 on his forehead is healing. REVIEW OF MEDICATIONS: He is on Zosyn 2.25 mg IV q.6, Hytrin 5 mg q.a.m., MiraLAX 17 g per PEG at bedtime. He has normal saline going at 20 mL an hour. Multivitamin 1 a day, Reglan 5 mg per PEG tube q.8 hours, Ativan 1 mg IV q.4 hours p.r.n. They are applying Calmoseptine ointment. Icar C 1 b.i.d., fentanyl 50 mcg IV q.1 hour p.r.n. I think that was used early on, early intubation. Pepcid 20 mg IV q.12, allopurinol 100 mg p.o. daily. cc: Lonnie Encarnacion MD
[2016-09-04] MEDS: NS 500 ML IV SCH (16:00)
[2016-09-04] MEDS: MIRALAX PEG SCH (20:34)
[2016-09-05] MEDS: BICITRA PO SCH ×3 (01:53→17:17)
[2016-09-05] MEDS: ZOSYN 2.25 GM/NS 2.25 GM/50 ML IVPB IV SCH ×4 (01:53→20:25)
[2016-09-05] MEDS: PEPCID IV SCH ×2 (03:35→16:01)
[2016-09-05] MEDS: SODIUM CHLORIDE 0.9% INJ SCH (03:35)
[2016-09-05] MEDS: DUONEB (A & A) INH SCH ×6 (03:52→22:56)
[2016-09-05] MEDS: REGLAN LIQUID PEG SCH ×2 (05:00→12:54)
[2016-09-05 06:00] LABS: HEMATOCRIT 29.1 % (42.0-52.0); HEMOGLOBIN 8.9 g/dL (14.0-18.0); MCH 29.8 PG (27-31); MCHC 30.6 g/dL (33-37); MCV 97.3 FL (81-99); MPV 12.9 FL (7.4-10.4); RBC 2.99 XMIL (4.7-6.1)
--- NOTE | 2016-09-05 06:09 | Diag Imaging Result Doc PS360 ---
EXAM: CHEST-PORTABLE HISTORY: respiratory failure TECHNIQUE: Portable AP COMPARISON: 09/04/2016 FINDINGS: No change in the right jugular line or in the tracheostomy tube. The lungs are well expanded. The heart remains mildly prominent. Mild increased interstitial markings in the mid left lung and in both lung bases. Questionable tiny pleural effusions. IMPRESSION: No interval improvement. Electronically signed by Skyler Anderson 09/05/2016 6:06 AM
[2016-09-05] MEDS: HUMALOG SUBQ SCH ×4 (06:25→20:27)
[2016-09-05] MEDS ORDERED: TIGHT: 0.2 ML/HR MISC PRN (07:02)
[2016-09-05] MEDS ORDERED: HEPARIN IV PRN (07:02)
[2016-09-05] MEDS ORDERED: NS 2,000 ML MISC PRN (07:02)
[2016-09-05 07:07] LABS: ALBUMIN 2.7 g/dL (3.5-5.0); CALCIUM 8.7 mg/dL (8.8-10.2); POTASSIUM 4.8 mmol/L (3.5-5.1); TOTAL BILIRUBIN 1.23 mg/dL (0.20-1.00); TOTAL PROTEIN 5.6 g/dL (6.3-8.3)
[2016-09-05] MEDS: ADVAIR 250/50 DISKUS INH SCH ×2 (07:56→19:22)
[2016-09-05] MEDS: MUCOMYST 20% INH SCH ×2 (07:56→19:22)
[2016-09-05] MEDS: ZYLOPRIM PO SCH (08:31)
[2016-09-05] MEDS: ICAR-C PEG SCH ×2 (08:32→20:25)
[2016-09-05] MEDS: CENTRUM SILVER PO SCH (08:32)
[2016-09-05] MEDS: HYTRIN PO SCH (08:32)
[2016-09-05] MEDS: BACITRACIN OINTMENT TOP SCH ×3 (08:35→22:21)
[2016-09-05] MEDS ORDERED: ALBUMIN 25% ONE (08:55)
[2016-09-05] MEDS ORDERED: NS 1,000 ML ONE (08:55)
--- NOTE | 2016-09-05 11:25 | PROGRESS NOTE ---
DATE: 09/05/2016 SUBJECTIVE: He is awake, alert, nods, follows simple commands. OBJECTIVE: Vital Signs: Blood pressure 78/38, heart rate 98, respirations 21, afebrile. Intake 1.4 L. Output 0. General: Mental status as above. Awake, alert, no distress. Skin: Warm and dry. HEENT: Conjunctivae are pink. Neck: Neck veins are not visible. Trachea is midline. Heart: Regular. No gallops. Lungs: Have equal breath sounds. No crackles. Abdomen: Soft, nontender. Bowel sounds present. Extremities: Have 2+ edema. No clubbing or cyanosis. LABORATORY DATA: Sodium 143, potassium 4.8, chloride 91, bicarbonate 29, BUN 105, creatinine 6.1. Hemoglobin 8.9. IMPRESSION AND PLAN: Acute kidney injury. No recovery. Hemodialysis today. His treatment has been started since my exam but before this dictation. He had trouble with hypotension rather immediately. He was given a small dose of IV fluids and albumin and his treatment was resumed. Two potassium bath and standard 37 bicarbonate. Hemoglobin is stable. cc: Iglesia Villalobos MD
--- NOTE | 2016-09-05 14:29 | PROGRESS NOTE ---
DATE: 09/05/2016 SUBJECTIVE: The patient is currently on dialysis. He is resting comfortably. The patient did have severe hypotension when dialysis was initiated this morning. OBJECTIVE: Vital Signs: Temperature 97 degrees, blood pressure 100/67, heart rate 110, respirations 33, O2 saturations 99% on trach collar. General: This is a chronically ill- appearing, elderly male, lying in bed, in no acute distress. Head: Normocephalic, atraumatic. Heart: S1, S2. Normal. Tachycardic. Lungs: Equal air entry bilaterally. No crackles, no rales. Abdomen: Positive bowel sounds. Soft, nontender, nondistended. Extremities: Trace pedal edema. No cyanosis. No calf tenderness. Neurologic: The patient is awake and does nod his head to questions. LABORATORY: White blood cell count 14, hemoglobin 8.9, hematocrit 29, platelets 137,000. Sodium 143, potassium 4.8, chloride 91, CO2 29, BUN 105, creatinine 6.1, glucose 241, total bilirubin 1.2, AST 81, ALT 51, alkaline phosphatase 149, albumin 2.7. ASSESSMENT AND PLAN: 1. Acute on chronic hypercapnic respiratory failure status post tracheostomy. Continue with pulmonary toiletry and bronchodilator therapy. 2. Acute kidney injury. The patient's renal function has not recovered. Continue with dialysis as scheduled by the machine stoppage frequency checker. 3. Pneumonia. The patient has completed the antibiotic regimen. 4. Severe protein calorie malnutrition. The patient currently has a PEG tube in place. We will continue with tube feeds. 5. Diabetes mellitus type 2. Continue on sliding scale insulin. 6. Chronic right-sided heart failure. Aware. 7. Leukocytosis. The patient's white blood cell count has slowly been increasing since yesterday. We will continue to monitor this closely. The sputum did show yeast. We will start IV Diflucan. 8. Anemia of chronic disease. We will monitor the hemoglobin and hematocrit closely and transfuse p.r.n. 9. Gastrointestinal prophylaxis. The patient is currently on Pepcid. 10. Deep vein thrombosis prophylaxis. Continue with SCDs. 11. Disposition: We are currently awaiting LTAC placement. cc: MD REINALDO Kuhn
[2016-09-05] MEDS: DIFLUCAN 100 MG/NS 100 MG/50 ML IVPB IV SCH (15:13)
[2016-09-05] MEDS ORDERED: REGLAN IV SCH (15:45)
--- NOTE | 2016-09-05 17:05 | PROGRESS NOTE ---
DATE: 09/05/2016 SUBJECTIVE: Patient currently resting in bed. He is status post trach and PEG. He is having a difficult time with the PEG tube feeding. He is having high residuals. During EGD we did find some retained food in the stomach so he most likely has gastroparesis. We will start him on Reglan and evaluate the response. No fevers reported. No blood in the stools. No vomiting blood noted.Vital signs: Temperature 97.7 degrees, pulse 110, respiratory 33, blood pressure 100/67, saturating 99% on 30% on the trach collar. General Appearance: Moderately nourished, lying in bed, in no acute distress. HEENT: Pale conjunctivae. No icterus. Neck: Had trach. Abdomen: Obese, soft. PEG tube in place. Abdominal binder noted. No erythema or drainage of the PEG tube site. External bumper was noted. Bowel sounds are present. Extremities: No cyanosis, clubbing. Neurologic: He was awake and alert but did not answer any questions. LABS: Hemoglobin and hematocrit 8.9 and 29.1, white count of 14.9, platelet count of 137,000. Sodium 142, potassium 4.8, chloride 91, bicarbonate of 29, anion gap of 23, and BUN of 105. Creatinine of 6.1, glucose of 241, calcium 8.7, total bilirubin is 1.23, AST 81 , ALT 51, alkaline phosphatase 149, total protein 5.6, albumin of 2.7. The patient has off and on elevated liver enzymes. IMPRESSION/PLAN: 1. High PEG tube residuals likely secondary to gastroparesis likely secondary to Diabetes and use of Narcotics. Will start on Reglan 10 mg IV q.6 hours and hold for any side effects like tardive dyskinesia. We will try a trickle feed again and evaluate response. To keep him on aspiration precautions and keep the abdominal binder all the time and dressing at the PEG tube site to be changed every day and apply bacitracin ointment for 1 week. Reduce the dose of narcotics to lowest possible. 2. Elevated liver enzymes. We will obtain hepatitis panel and also check ultrasound to evaluate for any kind liver/biliary pathology. 3. Malnutrition. Will continue to work on the PEG tube feedings. 4. Renal failure on hemodialysis per senior sharepoint architect. 5. Diabetes type 2. Continue to keep a good control of diabetes. This most likely the cause of patient's gastroparesis. 6. Gastrointestinal prophylaxis with Pepcid. 7. Further recommendations to follow pending hospital course. cc: MD Jhoana Young MD Reginald D. Gladish, MD MTDD
[2016-09-05] MEDS: REGLAN IV SCH ×2 (17:17→22:18)
--- NOTE | 2016-09-05 19:06 | Diag Imaging Result Doc PS360 ---
US ABDOMEN-COMPLETE - 09/05/2016 INDICATION: elevated liver enzymes COMPARISON: CT chest 08/05/2016 FINDINGS: There is severe fatty change of the liver. The pancreas is obscured. The gallbladder is grossly normal. Common bile duct measures 5 mm. There is mild splenic megaly. The spleen measures 13.1 x 13.1 x 5.5 cm. Both kidneys are normal. Aorta, IVC, and main portal vein are patent. No free fluid. IMPRESSION: 1. Severe fatty change of the liver. 2. Mild splenic megaly. Electronically signed by Luis Eduardo Villalta 09/05/2016 7:04 PM
[2016-09-05] MEDS: MIRALAX PEG SCH (20:25)
[2016-09-06] MEDS: ZOSYN 2.25 GM/NS 2.25 GM/50 ML IVPB IV SCH ×2 (02:53→08:02)
[2016-09-06] MEDS: BICITRA PO SCH ×3 (02:53→17:57)
[2016-09-06] MEDS: DUONEB (A & A) INH SCH ×6 (03:12→22:50)
[2016-09-06] MEDS: SODIUM CHLORIDE 0.9% INJ SCH (03:32)
[2016-09-06] MEDS: REGLAN IV SCH ×4 (03:32→23:01)
[2016-09-06] MEDS: PEPCID IV SCH ×2 (03:32→15:37)
--- NOTE | 2016-09-06 03:34 | PROGRESS NOTE ---
DATE: 09/04/2016 SUBJECTIVE: The patient is sitting up and tolerating his clear liquids. He is awake at the time. When I talk to him he looked to be oriented as well but I talked to the nurse and he said he is still going in and out of his confusion. OBJECTIVE: Vital Signs: Temp 98 degrees, blood pressure was 118/70, heart rate 92, respiration 18. He is on 35% trach collar. He appears chronically ill. HEENT: No scleral icterus. Conjunctivae is normal. Trachea in the midline. Trachea collar remains in place. Lungs: Clear. Heart: Normal. Abdomen: Soft. Nontender. Bowel sounds present. PEG in place and tube feedings are going. IMPRESSION AND PLAN: 1. Acute kidney injury. He is on hemodialysis. 2. Electrolyte imbalance. 3. Anemia. 4. Nutrition per G tube. He is not eating anything by mouth. cc: Mk Chew MD
[2016-09-06] MEDS: ATIVAN IV PRN ×2 (03:39→13:16)
[2016-09-06 05:51] LABS: ALBUMIN 2.9 g/dL (3.5-5.0); CALCIUM 8.8 mg/dL (8.8-10.2); POTASSIUM 4.4 mmol/L (3.5-5.1); TOTAL BILIRUBIN 1.22 mg/dL (0.20-1.00)
[2016-09-06] MEDS: HUMALOG SUBQ SCH ×4 (06:01→21:01)
--- NOTE | 2016-09-06 07:27 | Diag Imaging Result Doc PS360 ---
CHEST-PORTABLE - 09/06/2016 INDICATION: respiratory failure TECHNIQUE: COMPARISON: 09/05/2016 FINDINGS: Support lines and tubes are stable. Stable cardiomegaly. Stable hazy interstitial markings peripherally consistent with small infiltrates or pulmonary fibrosis. No new infiltrates. IMPRESSION: No change from prior. Electronically signed by Luis Eduardo Villalta 09/06/2016 7:24 AM
[2016-09-06 07:36] LABS: HEMATOCRIT 29.3 % (42.0-52.0); MCH 29.5 PG (27-31); MCHC 30.7 g/dL (33-37); MCV 96.1 FL (81-99); MPV 12.7 FL (7.4-10.4); RBC 3.05 XMIL (4.7-6.1)
[2016-09-06] MEDS: ADVAIR 250/50 DISKUS INH SCH ×2 (07:38→19:06)
[2016-09-06] MEDS: MUCOMYST 20% INH SCH ×2 (07:39→19:03)
[2016-09-06] MEDS: HYTRIN PO SCH (08:02)
[2016-09-06] MEDS: ICAR-C PEG SCH ×2 (08:02→21:01)
[2016-09-06] MEDS: ZYLOPRIM PO SCH (08:02)
[2016-09-06] MEDS: CENTRUM SILVER PO SCH (08:02)
[2016-09-06] MEDS: BACITRACIN OINTMENT TOP SCH ×2 (08:03→21:01)
--- NOTE | 2016-09-06 09:42 | PROGRESS NOTE ---
DATE: 09/06/2016 SUBJECTIVE: He is asleep today. Did not arouse with verbal and tactile stimuli. OBJECTIVE: Vital Signs: Blood pressure 109/51, heart rate 102, respirations 21, afebrile. Intake 800 mL. Output 1.6 L. General Appearance: No acute distress. Skin: Warm and dry. HEENT: Conjunctivae are pink. Neck: Neck veins are not appreciated. Heart: Regular. Lungs: Have equal breath sounds. No crackles. Abdomen: Soft, nontender. Bowel sounds present. Extremities: Have 2+ edema. No clubbing or cyanosis. LABORATORY DATA: Sodium 141, potassium 4.4, chloride 95. Bicarbonate 26, BUN 85, creatinine 4.6. Hemoglobin 9.0. IMPRESSION: 1. Acute kidney injury. No recovery. No plan for dialysis today. 2. Electrolytes, in target. 3. Acid base, in target. 4. Anemia, stable. 5. Respiratory failure. On trach trials. 6. Decubitus ulcers. 7. Nutrition. cc: Iglesia Villalobos MD
[2016-09-06] MEDS: FLAGYL 500 MG/NS 500 MG/100 ML IVPB IV SCH ×2 (13:12→21:00)
[2016-09-06] MEDS ORDERED: MERREM 1 GM in NS 50 ML IV SCH (14:15)
[2016-09-06] MEDS: DIFLUCAN 100 MG/NS 100 MG/50 ML IVPB IV SCH (14:17)
--- NOTE | 2016-09-06 14:25 | PROGRESS NOTE ---
DATE: 09/06/2016 SUBJECTIVE: The patient is awake and does respond to his name when it is called. The patient appears to be doing well with weaning trials. He was on trach collar for about 12 hours yesterday. OBJECTIVE: Vital Signs: Temperature 97.9 degrees, blood pressure 80/47, heart rate 109, respirations 37, O2 saturations 95% on trach collar. General: This is a chronically ill- appearing, elderly male, lying in bed, in no acute distress. Head: Normocephalic, atraumatic. Heart: S1, S2. Normal. Tachycardic. Lungs: Equal air entry bilaterally with coarse breath sounds. Abdomen: Positive bowel sounds. Soft, nontender, nondistended. Extremities: 2+ edema. No cyanosis. No calf tenderness. Neurologic: The patient is awake. He is able to move all 4 extremities. LABORATORY DATA: White blood cell count 14, hemoglobin 9, hematocrit 29, platelets 132,000. Sodium 141, potassium 4.4, chloride 95, CO2 of 26. BUN 85, creatinine 4.6, glucose 201. ASSESSMENT AND PLAN: 1. [id number]-bzyvzog hypercapnic respiratory failure status post tracheostomy. The patient is doing well on the weaning trials. He was on trach collar for over 12 hours yesterday and continues on trach collar today. Continue with pulmonary toiletry and bronchodilator therapy. 2. Acute kidney injury. Continue with dialysis as directed by the certified executive chef. 3. Pneumonia, resolved. 4. Yeast in the sputum. Continue on Diflucan. 5. Severe protein calorie malnutrition. Continue with PEG tube feedings. 6. Diabetes mellitus, type 2. Continue on sliding scale insulin. 7. Chronic right-sided heart failure, aware. 8. Leukocytosis, unchanged. 9. Anemia of chronic disease, stable. 10. Gastrointestinal prophylaxis. Continue on Pepcid. 11. Deep vein thrombosis prophylaxis. Continue with sequential compression devices. DISPOSITION: The patient's insurance has refused to cover LTAC placement. I have placed a call to [facility] to do a [id number] review. Will await the decision of this discussion. cc: Jhoana Harding MD
[2016-09-06] MEDS: MERREM 500 MG in NS 50 ML IV SCH (15:33)
[2016-09-06] MEDS: MIRALAX PEG SCH (21:00)
[2016-09-07] MEDS: BICITRA PO SCH ×3 (01:32→17:26)
[2016-09-07] MEDS: DUONEB (A & A) INH SCH ×6 (03:21→23:18)
[2016-09-07] MEDS: SODIUM CHLORIDE 0.9% INJ SCH ×2 (04:30→15:21)
[2016-09-07] MEDS: PEPCID IV SCH ×2 (04:30→15:15)
[2016-09-07] MEDS: REGLAN IV SCH ×4 (04:30→21:33)
[2016-09-07 04:55] LABS: ALLEN TEST YES; BLOOD TYPE ARTERIAL; DRAW SITE R RADIAL; O2(CT) 11.3 mL/dL (15.0-23.0); PCO2(98.6) 45 mmHg (35-45); PO2(98.6) 134 mmHg (60-100); SAMPLE BLOOD; SAO2 99.6 % (95.0-100.0); THB 8.1 g/dL (11.5-17.4); pH(98.6) 7.43 (7.35-7.45)
[2016-09-07 04:57] LABS: MODALITY COOL AEROSOL
[2016-09-07] MEDS: FLAGYL 500 MG/NS 500 MG/100 ML IVPB IV SCH ×3 (05:25→21:16)
[2016-09-07 06:01] LABS: HEMATOCRIT 25.8 % (42.0-52.0); HEMOGLOBIN 7.8 g/dL (14.0-18.0); MCH 29.3 PG (27-31); MCHC 30.2 g/dL (33-37); MPV 12.6 FL (7.4-10.4); RBC 2.66 XMIL (4.7-6.1)
[2016-09-07] MEDS: HUMALOG SUBQ SCH ×4 (06:27→21:16)
--- NOTE | 2016-09-07 06:32 | Diag Imaging Result Doc PS360 ---
EXAM: CHEST-PORTABLE HISTORY: respiratory failure TECHNIQUE: Portable COMPARISON: 09/06/2016 FINDINGS: No change in the right jugular line or the tracheostomy tube. No pneumothorax. The heart remains mildly prominent. Small infiltrates or atelectasis in the left base. Questionable tiny pleural effusions. The overall appearance of the chest is similar to that of the prior exam. IMPRESSION: No interval improvement. Electronically signed by Skyler Anderson 09/07/2016 6:30 AM
[2016-09-07] MEDS ORDERED: HEPARIN IV PRN (07:06)
[2016-09-07] MEDS ORDERED: TIGHT: 0.2 ML/HR MISC PRN (07:06)
[2016-09-07] MEDS ORDERED: NS 2,000 ML MISC PRN (07:06)
[2016-09-07 07:39] LABS: ALBUMIN 2.6 g/dL (3.5-5.0); CALCIUM 8.9 mg/dL (8.8-10.2); POTASSIUM 4.6 mmol/L (3.5-5.1); TOTAL BILIRUBIN 0.8 mg/dL (0.20-1.00); TOTAL PROTEIN 5.6 g/dL (6.3-8.3)
[2016-09-07] MEDS: MUCOMYST 20% INH SCH ×2 (07:51→19:15)
[2016-09-07] MEDS: ADVAIR 250/50 DISKUS INH SCH ×2 (08:42→19:15)
--- NOTE | 2016-09-07 08:56 | PROGRESS NOTE ---
DATE: 09/06/2016 SUBJECTIVE: Patient is resting in bed. He has tube feeds. Tolerance has improved after starting Reglan. He continues on the trach collar. No fevers reported and no nausea, vomiting reported. He has some diarrhea with the starting of Reglan which is expected. OBJECTIVE: Vital Signs: Temperature 97.9 degrees, pulse of 109, respiratory 37 , blood pressure of 72/40, saturating 95% on trach collar, 35% FiO2. His NG tube has residual 50 mL. He had 3 liquid bowel movements. General Appearance: Moderately nourished, lying in bed, currently sleeping. HEENT: Pale, but there is no icterus. Neck: Positive trach collar. Abdomen: PEG tube in place. PEG tube site appears normal. There is no drainage or redness around the PEG tube site. Abdomen is soft, otherwise, bowel sounds heard. Extremities: No cyanosis or clubbing. Neurologic: He was currently sleeping. LABORATORY DATA: Hemoglobin and hematocrit is 9 and 29.3, white count of 14.91 , platelet count of 132,000. Sodium 141, potassium 4.4, chloride 95, bicarb 20, anion gap 20. BUN of 85, creatinine 4.6, glucose of 201. Calcium is 8.8, total bilirubin is 1.22. AST 47, ALT 41, alkaline phosphatase. Total protein 6. Albumin of 2.9. IMPRESSION AND PLAN: 1. We will check stool studies once since the patient had diarrhea. 2. The patient will continue on Reglan and we will hold for side effects like tardive dyskinesia. 3. Will slowly advance the PEG tube feeds and try to reach the goal per nutrition recommendations. Continue PEG tube care as before. 4. The patient has gastroparesis, so he is at a high risk of aspiration. So, he needs to be on aspiration precautions. 5. He will continue on Iron C b.i.d. for anemia and multivitamin once daily. 6. He will continue on GI prophylaxis. 7. He is slightly hypertensive. We will defer that to the primary care team. Further recommendations depending on his hospital course. cc: MD Xavier Kuhn MD James E. Boyle, MD Manish Arora, MD MTDD
[2016-09-07] MEDS: BACITRACIN OINTMENT TOP SCH ×2 (10:09→21:18)
--- NOTE | 2016-09-07 11:07 | PROGRESS NOTE ---
DATE: 09/07/2016 SUBJECTIVE: He is more awake and alert today. He does acknowledge me. OBJECTIVE: Vital Signs: Blood pressure 108/54, heart rate 104, respirations 28, temperature 99.2 degrees. Intake 1.3 L. Output 300 mL. General: In no acute distress. Skin: Warm and dry. HEENT: Conjunctivae are pink. Neck: Veins are not distended. Lungs: Coarse breath sounds with no crackles. Heart: Regular, without gallops. Abdomen: Soft and nontender. Decreased bowel sounds. Extremities: Have 1+ edema. No clubbing or cyanosis. LABORATORY DATA: Sodium 143, potassium 4.6, chloride 94, bicarbonate 24, BUN 103, creatinine 5.9. Hemoglobin 7.8. IMPRESSIONS: 1. Acute kidney injury: Still no urine output. He will have routine dialysis today. His BUN is over 100, so he may need dialysis a couple of days in a row to achieve good uremia management. Otherwise, electrolytes and acid-base are in target. 2. Anemia: His hemoglobin fell modestly today. He has no over gastrointestinal bleeding. We will follow. Transfuse if needed. cc: Iglesia Villalobos MD
[2016-09-07] MEDS: ICAR-C PEG SCH ×2 (11:47→21:15)
[2016-09-07] MEDS: CENTRUM SILVER PO SCH (11:47)
[2016-09-07] MEDS: ZYLOPRIM PO SCH (11:48)
[2016-09-07] MEDS: HYTRIN PO SCH (11:50)
[2016-09-07] MEDS: D50W 250 ML, AMINOSYN 10% 500 ML, LIPOSYN 20% 250 ML MISC SCH ×3 (13:16)
[2016-09-07] MEDS: MERREM 500 MG in NS 50 ML IV SCH (15:15)
[2016-09-07] MEDS: DIFLUCAN 100 MG/NS 100 MG/50 ML IVPB IV SCH (15:15)
--- NOTE | 2016-09-07 15:51 | PROGRESS NOTE ---
DATE: 09/07/2016 SUBJECTIVE: The patient is currently on a trach collar. He has not been tolerating his tube feeds. He had 300 mL of residual this morning. His tube feeds are on hold right now. OBJECTIVE: Vital Signs: Temperature 99 degrees, blood pressure 118/59, heart rate 111, respirations 31, O2 saturations 97% on 35% trach collar. General: This is an elderly male, lying in bed, in no acute distress. Head: Normocephalic, atraumatic. Heart: S1, S2 normal tachycardic. Lungs: Coarse breath sounds bilaterally. Abdomen: Positive bowel sounds. Soft, nontender, nondistended. Extremities: +1 edema. No cyanosis. No calf tenderness. Neurologic: The patient is awake. LABS: White blood cell count 10.4, hemoglobin 7.8, hematocrit 25, platelets 120 ,000. Sodium 143, potassium 4.6, chloride 94, CO2 24, BUN 103, creatinine 5.9, glucose 196. ASSESSMENT AND PLAN: 1. Acute on chronic hypercapnic respiratory failure status post tracheostomy. The patient remains on a trach collar. Continue with pulmonary toiletry and bronchodilator therapy. 2. Acute kidney injury. Management as per the lead assembler. 3. Pneumonia. Resolved. 4. Yeast in the sputum. Continue on Diflucan. 5. Severe protein calorie malnutrition. The patient is not tolerating his tube feeds. He had 300 of residual this morning. We will continue on Reglan. The patient also continues to have liquid stools. 6. Diabetes mellitus type 2. Continue on sliding scale insulin. 7. Leukocytosis. Improved. We will continue to monitor this closely. 8. Thrombocytopenia. We will monitor the platelet count. Will check a HIT antibody. 9. Anemia of chronic disease. The patient's hemoglobin and hematocrit has dropped. The patient may require transfusion tomorrow. 10. Gastrointestinal prophylaxis. Continue on Pepcid. 11. Disposition. [employer] has refused to cover LTAC placement. They stated to try and refer the patient for rehab. Will discuss this with Machine Operator Hop Worker. cc: Jhoana Harding MD [facility] CENTERJoselin
[2016-09-07] MEDS: MIRALAX PEG SCH (21:15)
[2016-09-08] MEDS: BICITRA PO SCH ×3 (02:34→17:02)
[2016-09-08] MEDS ORDERED: DUONEB (A & A) ONE ×2 (03:10→03:14)
[2016-09-08] MEDS: DUONEB (A & A) INH SCH ×4 (03:22→15:36)
[2016-09-08] MEDS: REGLAN IV SCH ×6 (04:49→22:27)
[2016-09-08] MEDS: PEPCID IV SCH ×2 (04:49→16:17)
[2016-09-08] MEDS: FLAGYL 500 MG/NS 500 MG/100 ML IVPB IV SCH ×3 (04:49→20:36)
[2016-09-08] MEDS: HUMALOG SUBQ SCH ×4 (06:19→20:33)
[2016-09-08 06:33] LABS: HEMATOCRIT 30.1 % (42.0-52.0); HEMOGLOBIN 9.1 g/dL (14.0-18.0); MCH 29.5 PG (27-31); MCHC 30.2 g/dL (33-37); MCV 97.7 FL (81-99); MPV 12.6 FL (7.4-10.4); RBC 3.08 XMIL (4.7-6.1)
[2016-09-08 07:13] LABS: ALBUMIN 2.9 g/dL (3.5-5.0); CALCIUM 8.9 mg/dL (8.8-10.2); POTASSIUM 4.7 mmol/L (3.5-5.1); TOTAL BILIRUBIN 0.99 mg/dL (0.20-1.00); TOTAL PROTEIN 6.1 g/dL (6.3-8.3)
--- NOTE | 2016-09-08 07:15 | Diag Imaging Result Doc PS360 ---
EXAM: CHEST-PORTABLE HISTORY: respiratory failure TECHNIQUE: AP portable at 0500 COMMENT: The inspiration is suboptimal. There is ill-defined opacity in the left base and atelectasis is present in the right lower lobe. Overall the appearance of the chest has not changed significantly since 09/07/2016. IMPRESSION: Bibasilar atelectasis plus minus pneumonia in the left lower lobe and lingula. Electronically signed by Mynor Freedman 09/08/2016 7:13 AM
[2016-09-08] MEDS: MUCOMYST 20% INH SCH ×2 (07:51→19:55)
[2016-09-08] MEDS: ADVAIR 250/50 DISKUS INH SCH (07:52)
[2016-09-08] MEDS: ICAR-C PEG SCH ×2 (08:53→20:35)
[2016-09-08] MEDS: BACITRACIN OINTMENT TOP SCH ×2 (08:54→20:32)
[2016-09-08] MEDS: CENTRUM SILVER PO SCH (08:54)
[2016-09-08] MEDS: HYTRIN PO SCH (08:54)
[2016-09-08] MEDS: ZYLOPRIM PO SCH (08:55)
[2016-09-08] MEDS ORDERED: NS 2,000 ML ONE (10:46)
[2016-09-08] MEDS ORDERED: HEPARIN ONE (10:46)
[2016-09-08] MEDS: DIFLUCAN 100 MG/NS 100 MG/50 ML IVPB IV SCH ×2 (13:51→16:16)
[2016-09-08] MEDS: MERREM 500 MG in NS 50 ML IV SCH ×2 (13:51→16:18)
--- NOTE | 2016-09-08 14:12 | PROGRESS NOTE ---
DATE: 09/08/2016 SUBJECTIVE: He has eyes open and looks at me but did not really respond this morning. VITAL SIGNS: Blood pressure 100/57, heart rate 115, respiration 28 on trach collar today. Afebrile. Intake 600 mL. Output 2.3 L. PHYSICAL EXAMINATION: No acute distress. Skin is warm and dry. Conjunctivae are pink. Neck veins are not appreciated. Heart is regular. Lungs are equal and coarse. No crackles. Abdomen is soft, nontender. Bowel sounds present. Extremities: Have 1+ edema. No clubbing or cyanosis. LABORATORY DATA: Sodium 145, potassium 4.7, chloride 97, bicarbonate 23. BUN 88, creatinine 5.1. IMPRESSION: 1. Acute kidney injury. No recovery. We will dialyze him again today mainly for uremia management. Electrolytes are in target and volume status is acceptable. 2. Anemia is acceptable today as well. His last unit of transfused blood was on 09/01/2016. cc: Iglesia Villalobos MD
--- NOTE | 2016-09-08 14:20 | PROGRESS NOTE ---
DATE: 09/08/2016 SUBJECTIVE: The patient remains on trach collar. No acute events noted overnight. The patient is still having residual from the tube feeds. OBJECTIVE: Vital Signs: Temperature 98 degrees, blood pressure 100/57, heart rate 115, respirations 30, O2 saturation 97% on the trach collar. General: This is a chronically ill- appearing, elderly male, lying in bed, in no acute distress. Head: Normocephalic, atraumatic. Heart: S1, S2 normal, tachycardic. Lungs: Coarse breath sounds with crackles. Abdomen: Positive bowel sounds. Soft, nontender, nondistended. Extremities: No edema. No cyanosis. No calf tenderness. Neurologic: The patient is awake and will nod when asked questions. LABS: White blood cell count 11, hemoglobin 9.1, hematocrit 30, platelets 150,000. Sodium 145, potassium 4.7, chloride 97, CO2 23, BUN 88, creatinine 5.1, glucose 185. AST 65, ALT 45, alkaline phosphatase 196. ASSESSMENT AND PLAN: 1. Acute on chronic hypercapnic respiratory failure status post tracheostomy. Continue with pulmonary toiletry and bronchodilator therapy. 2. Acute kidney injury. Continue with dialysis as scheduled by the coordinator of genetic services. 3. Pneumonia. Resolved. 4. Yeast in the sputum. Continue on Diflucan. 5. Severe protein calorie malnutrition. Will continue on Reglan and resume the patient's tube feeds. 6. Diabetes mellitus type 2. Continue on sliding scale insulin. 7. Anemia of chronic disease. The patient's hemoglobin and hematocrit is improved after receiving blood. 8. Gastrointestinal prophylaxis. Continue on Pepcid. 9. Disposition. disability services coordinator is working on placement for the patient. The patient was denied by his insurance for LTAC placement. cc: Jhoana Harding MD
[2016-09-08] MEDS: MIRALAX PEG SCH (20:36)
[2016-09-09] MEDS: BICITRA PO SCH ×5 (03:19→18:09)
[2016-09-09] MEDS: FLAGYL 500 MG/NS 500 MG/100 ML IVPB IV SCH (04:52)
[2016-09-09] MEDS: PEPCID IV SCH ×2 (04:53→18:08)
[2016-09-09] MEDS: REGLAN IV SCH ×4 (04:53→21:25)
[2016-09-09] MEDS: ADVAIR 250/50 DISKUS INH SCH ×3 (05:55→23:27)
[2016-09-09 06:36] LABS: HEMATOCRIT 27.8 % (42.0-52.0); HEMOGLOBIN 8.4 g/dL (14.0-18.0); MCHC 30.2 g/dL (33-37); MCV 99.3 FL (81-99); MPV 13.1 FL (7.4-10.4); RBC 2.8 XMIL (4.7-6.1)
[2016-09-09 07:04] LABS: ALBUMIN 2.6 g/dL (3.5-5.0); CALCIUM 8.6 mg/dL (8.8-10.2); POTASSIUM 4.8 mmol/L (3.5-5.1); TOTAL BILIRUBIN 1.4 mg/dL (0.20-1.00); TOTAL PROTEIN 5.6 g/dL (6.3-8.3)
--- NOTE | 2016-09-09 07:10 | Diag Imaging Result Doc PS360 ---
EXAM: CHEST-PORTABLE HISTORY: respiratory failure TECHNIQUE: AP portable at 0500 COMMENT: There is ill-defined opacity in the lingula and left lower lobe silhouetting the heart border and hemidiaphragm. This was also the case on 09/08/2016. There may be slight improvement in atelectasis over the right base since the previous study. Otherwise has been no significant change. IMPRESSION: Bibasal or atelectasis particularly on the left. Essentially stable since 09/08/2016. Electronically signed by Mynor Freedman 09/09/2016 7:08 AM
[2016-09-09] MEDS: DUONEB (A & A) INH SCH ×5 (07:37→23:27)
[2016-09-09] MEDS: MUCOMYST 20% INH SCH ×2 (07:37→19:28)
[2016-09-09] MEDS: CENTRUM SILVER PO SCH (08:58)
[2016-09-09] MEDS: ZYLOPRIM PO SCH (08:58)
[2016-09-09] MEDS: HYTRIN PO SCH (08:58)
[2016-09-09] MEDS: ICAR-C PEG SCH ×2 (08:58→21:25)
[2016-09-09] MEDS: BACITRACIN OINTMENT TOP SCH ×2 (09:06→21:31)
--- NOTE | 2016-09-09 14:18 | PROGRESS NOTE ---
DATE: 09/09/2016 SUBJECTIVE: The patient is resting comfortably in bed. No acute events noted overnight. The patient does look at you when his name is called but does not try to answer questions. OBJECTIVE: Vital Signs: Temperature 96 degrees, blood pressure 90/48, heart rate 101, respirations 27, O2 saturation is 94% on the trach collar. General: This is a chronically ill- appearing, elderly male, lying in bed, in no acute distress. Head: Normocephalic, atraumatic. Heart: S1, S2, normal. Tachycardic. Lungs: Coarse breath sounds with crackles bilaterally. Abdomen: Positive bowel sounds. Soft, nontender, nondistended. Extremities: There is 2+ edema. LABS: White blood cell count 12, hemoglobin 8.4, hematocrit 27, platelets 163,000. Sodium 144, potassium 4.8, chloride 97, CO2 22, BUN 91, creatinine 4.4, glucose 198, AST 63, ALT 48, alkaline phosphatase 208. ASSESSMENT AND PLAN: 1. Acute on chronic hypercapnic respiratory failure status post tracheostomy. Continue with pulmonary toiletry and bronchodilator therapy. 2. Acute kidney injury. No recovery yet. Management as per the transmitter supervisor. 3. Pneumonia. Resolved. 4. Yeast in sputum. Continue on Diflucan. 5. Leukocytosis. The patient's white blood cell count is slowly increasing. Will consult Dr. Dotson for further recommendations regarding antibiotic therapy. 6. Severe protein calorie malnutrition. Continue on tube feeds. 7. Diabetes mellitus type 2. Continue on sliding scale insulin. 8. Anemia of chronic disease. The patient's hemoglobin and hematocrit is low but stable. 9. Gastrointestinal prophylaxis. Continue on Pepcid. 10. Disposition. Case management is working on placement for the patient. cc: Jhoana Harding MD
[2016-09-09] MEDS: DIFLUCAN 100 MG/NS 100 MG/50 ML IVPB IV SCH (15:26)
[2016-09-09] MEDS: MERREM 500 MG in NS 50 ML IV SCH (15:26)
[2016-09-09] MEDS: HUMULIN R SUBQ SCH ×2 (15:38→21:29)
--- NOTE | 2016-09-09 18:18 | PROGRESS NOTE ---
DATE: 09/09/2016 PRESENT ILLNESS: I have been asked to see Mr. Santiago again. He is having increasing white blood cell count. MEDICATIONS: The patient is on IV fluconazole because of the finding of yeast in the patient's sputum. PHYSICAL EXAMINATION: Vital Signs: Temperature is 96.2 degrees, pulse 105, respirations 28, blood pressure 104/59. Generally: This is a chronically ill-appearing, elderly male. He is in no acute distress. Lungs: Clear to auscultation. Cardiovascular: Regular heart rate. Abdomen: Soft and nontender. A G-tube is in place. The patient has in the right groin a triple-lumen catheter. That site is not erythematous or swollen. The patient in the neck has a tracheostomy in place. Both elbow incisions and the right knee incision are clean and intact. There is no drainage coming from them. LAB AND X-RAY: The patient's stool is negative for Clostridium difficile antigen and for Clostridium difficile toxin. ASSESSMENT AND PLAN: I have discontinued fluconazole and have started the patient on IV vancomycin a gram to be taken after each dialysis. I agree with treating with meropenem. I have increased the dose to 500 mg every 12 hours and as mentioned above, I discontinued fluconazole. The patient could be having a basilar pneumonia as the cause of his leukocytosis. As mentioned above I plan to continue meropenem but increase the dose to 500 mg every 12 hours. I have discontinued fluconazole and started the patient on vancomycin to be taken after each dialysis. COMORBIDITIES: Include he is elderly, he has diabetes mellitus, congestive heart failure, end- stage renal disease and he is on hemodialysis. cc: Brennan Dotson MD
[2016-09-09] MEDS: MIRALAX PEG SCH (21:30)
[2016-09-10] MEDS: DUONEB (A & A) INH SCH ×6 (03:36→23:08)
[2016-09-10] MEDS: BICITRA PO SCH ×4 (03:48→17:24)
[2016-09-10] MEDS: MERREM 500 MG in NS 50 ML IV SCH ×2 (03:48→15:18)
[2016-09-10] MEDS: PEPCID IV SCH ×2 (03:48→16:38)
[2016-09-10] MEDS: REGLAN IV SCH ×4 (03:48→22:32)
[2016-09-10 04:44] LABS: ALLEN TEST YES; BE -1.2 mmoll (-3.0-3.0); BLOOD TYPE ARTERIAL; DRAW SITE R RADIAL; METHB 0.7 % (0.0-1.5); O2(CT) 10.5 mL/dL (15.0-23.0); PCO2(98.6) 39 mmHg (35-45); PO2(98.6) 64 mmHg (60-100); SAMPLE BLOOD; SAO2 93.9 % (95.0-100.0); THB 8.1 g/dL (11.5-17.4); pH(98.6) 7.39 (7.35-7.45)
[2016-09-10 04:45] LABS: MODALITY COOL AEROSOL
[2016-09-10] MEDS: HUMULIN R SUBQ SCH ×4 (06:20→21:40)
--- NOTE | 2016-09-10 06:31 | Diag Imaging Result Doc PS360 ---
CHEST-PORTABLE - 09/10/2016 INDICATION: respiratory failure TECHNIQUE: COMPARISON: 09/09/2016 FINDINGS: Support lines and tubes are stable. Stable increased markings in the lung bases. No new infiltrates. Heart size remains normal. IMPRESSION: No change from prior. Electronically signed by Luis Eduardo Villalta 09/10/2016 6:29 AM
[2016-09-10 06:56] LABS: HEMATOCRIT 28.2 % (42.0-52.0); HEMOGLOBIN 8.6 g/dL (14.0-18.0); MCH 29.9 PG (27-31); MCHC 30.5 g/dL (33-37); MCV 97.9 FL (81-99); MPV 13.2 FL (7.4-10.4); RBC 2.88 XMIL (4.7-6.1)
[2016-09-10] MEDS ORDERED: HEPARIN IV PRN (07:08)
[2016-09-10] MEDS ORDERED: NS 2,000 ML MISC PRN (07:08)
[2016-09-10] MEDS ORDERED: TIGHT: 0.2 ML/HR MISC PRN (07:08)
[2016-09-10 07:20] LABS: ALBUMIN 2.5 g/dL (3.5-5.0); CALCIUM 8.6 mg/dL (8.8-10.2); POTASSIUM 5.3 mmol/L (3.5-5.1); TOTAL BILIRUBIN 1.07 mg/dL (0.20-1.00); TOTAL PROTEIN 5.5 g/dL (6.3-8.3)
[2016-09-10] MEDS: MUCOMYST 20% INH SCH ×2 (07:44→19:47)
[2016-09-10] MEDS: ADVAIR 250/50 DISKUS INH SCH (07:45)
[2016-09-10] MEDS ORDERED: HEPARIN ONE (08:09)
[2016-09-10] MEDS ORDERED: NS 2,000 ML ONE (08:10)
[2016-09-10] MEDS: NEO-SYNEPHRINE 50 MG in NS 250 ML IV SCH ×5 (08:14→22:35)
[2016-09-10] MEDS: ZYLOPRIM PO SCH (08:31)
[2016-09-10] MEDS: ICAR-C PEG SCH ×2 (08:31→21:02)
[2016-09-10] MEDS: HYTRIN PO SCH (08:31)
[2016-09-10] MEDS: CENTRUM SILVER PO SCH (08:31)
[2016-09-10] MEDS: BACITRACIN OINTMENT TOP SCH ×2 (08:32→21:02)
--- NOTE | 2016-09-10 11:05 | PROGRESS NOTE ---
DATE: 09/10/2016 SUBJECTIVE: Mr. Snatiago is resting quietly in bed. He only makes eye contact. He does not follow any commands. He appears chronically ill though in no acute distress. OBJECTIVE: His most recent vital signs, temperature 97 degrees, blood pressure 81/46, heart rate 108, respirations are 26. He is on 35% cool aerosol. He has had 150 in. He has had 405 out per fecal tube. LABORATORY DATA: Sodium 145, potassium 5.3, chloride 95, CO2 22, BUN 121, creatinine 5.7, glucose 205, anion gap 28, calcium 8.6, albumin 2.5, white count 11.8, hemoglobin 8.6, hematocrit 28.2, with a platelet count of 175,000. ABG with pH 7.39, CO2 39, PO2 64, bicarbonate 23.9 on 35% cool aerosol trach collar. PHYSICAL EXAMINATION: General: This is a 71-year-old white male. He appears in no acute distress. Skin: Warm and dry. HEENT: Normocephalic, atraumatic. Conjunctiva is pale. He has ANGELA though sluggish. Mucous membranes are dry. Neck: Supple. Trachea midline. No JVD. Cardiovascular: He has regular rate and rhythm. He does have a soft murmur. Lungs: Clear to auscultation. Lungs have equal breath sounds coarse with expiratory wheezes bilateral to the anterior, diminished posterior bases. Remains on O2 per trach collar. Abdomen : Soft, nontender. Positive bowel sounds, with dressing intact. Extremities: 1+ edema. No clubbing or cyanosis. Integumentary: The patient continues to have nonhealing wounds to his forehead , left lower leg and buttock area including abdominal wall cavity. ASSESSMENT AND PLAN: 1. Acute kidney injury. Patient has had no recovery. We will plan for dialysis today to assist with his uremia management and assist with target volume. Patient's blood pressure is low. Unfortunately, we will have to add a Zhang-Synephrine drip to maintain an MAP of greater than 60. We will notify the primary care team. 2. Electrolytes and acid-base balance. These are acceptable with correction on dialysis. 3. Anemia. This remains stable. 4. Respiratory failure. This continues to be followed by the primary care team. I would to thank you for allowing us to follow with this patient. Seen, data reviewed, discussed with Tita Torres on 09/10/16. I agree with the above assessment and plan of care. rg Dictated by DANIELLA Watson for Iglesia Villalobos MD cc: DANIELLA Watson MD [facility]
[2016-09-10] MEDS: D50W 250 ML, AMINOSYN 10% 500 ML, LIPOSYN 20% 250 ML MISC SCH ×3 (14:09)
--- NOTE | 2016-09-10 14:37 | Diag Imaging Result Doc PS360 ---
EXAM: ABDOMEN FLAT/UPRIGHT HISTORY: not tolerating tube feedings TECHNIQUE: Portable upright supine, two views COMPARISON: 08/24/2016 FINDINGS: No organomegaly. No bowel obstruction. There are catheters overlying the right side of the pelvis. There is also a PEG tube. IMPRESSION: No acute abnormality. Electronically signed by Skyler Anderson 09/10/2016 2:34 PM
--- NOTE | 2016-09-10 16:11 | PROGRESS NOTE ---
DATE: 09/10/2016 SUBJECTIVE: The patient is resting comfortably in bed. No acute events noted overnight. The patient is tolerating the trach collar. The patient was noted to be hypotensive this morning and started on Zhang-Synephrine. OBJECTIVE: Vital Signs: Temperature 97 degrees, blood pressure 86/44, heart rate 107, respirations 27, O2 saturations 93% on trach collar. General: This is a chronically ill- appearing, elderly male, lying in bed, in no acute distress. Head: Normocephalic, atraumatic. Heart: S1, S2 normal, tachycardic. Lungs: Coarse breath sounds with crackles. Abdomen: Hypoactive bowel sounds. Soft, nontender, nondistended. Extremities: No edema. No cyanosis. Neurologic: The patient is awake. LABS: White blood cell count 11, hemoglobin 8.6, hematocrit 28, platelets 175,000. Sodium 145, potassium 5.3, chloride 95, CO2 22, BUN 121, creatinine 5.7, glucose 205, calcium 8.6, total bilirubin 1.0, AST 51, ALT 40. ASSESSMENT AND PLAN: 1. Acute on chronic hypercapnic respiratory failure status post tracheostomy. Continue on the tracheostomy collar. Continue with pulmonary toiletry and bronchodilator therapy. 2. Pneumonia. Continue on the current IV antibiotic regimen as directed by Dr. Dotson. 3. Leukocytosis improved. 4. Acute kidney injury. Continue with dialysis as scheduled by the vice president of nursing. 5. Severe protein calorie malnutrition. The patient is not tolerating the tube feeds. They are currently on hold. We will await further recommendations from the international coordinator. 6. Diabetes mellitus type 2. Continue on sliding scale insulin. 7. Gastrointestinal prophylaxis. Continue on Pepcid. 8. Hypotension. The patient has been started on Zahng-Synephrine. 9. Disposition. Director Security Risk Management is currently working on placement for the patient. cc: Jhoana Harding MD
--- NOTE | 2016-09-10 17:02 | PROGRESS NOTE ---
DATE: 09/10/2016 LAB AND X-RAYS: The patient's blood gases have a pH of 7.39, PO2 of 64, pCO2 of 39. Creatinine 5.7. GFR is 10. Chest x-ray shows bibasilar lung markings. X-ray of the abdomen shows a PEG tube in place. The patient's CBC shows a white count of 11,800, hemoglobin 8.6 and platelet count 175,000. ASSESSMENT AND PLAN: I am treating the patient's leukocytosis. The exact cause is uncertain to me but the white count is coming down. The patient could have basilar pneumonia causing his leukocytosis. COMORBIDITIES: Diabetes mellitus, being elderly, congestive heart failure, end- stage renal disease and hemodialysis. cc: Brennan Dotson MD MTDD
--- NOTE | 2016-09-10 17:04 | PROGRESS NOTE ---
DATE: 09/10/2016 PRESENT ILLNESS: I was requested to see the patient because of his increasing leukocytosis. The patient now has been on day 1 combination of meropenem and vancomycin. The patient has had an increasing white blood cell count. MEDICATIONS: Patient is on a combination of vancomycin and meropenem. PHYSICAL EXAMINATION: Vital Signs: Temperature is not 97.8, pulse 101, respirations 27, blood pressure 111/55. LABORATORY DATA: [place] [id number], hemoglobin 8.6 and platelet count 175,000. Blood gases show a pH of 7.39, a PO2 of 64, pCO2 of 39. Creatinine is 5.7. GFR is 10. Chest x-ray shows bibasilar lung markings and a PEG tube in a KUB. ASSESSMENT/PLAN: The patient is being treated with vancomycin to be given after each dialysis and treating with meropenem. The patient could be having a bibasilar pneumonia as the cause of his leukocytosis. COMORBIDITIES: Include being elderly, being a diabetic, having congestive heart failure, end- stage renal disease and hemodialysis. cc: Brennan Dotson MD
[2016-09-10] MEDS: VANCOMYCIN 1 GM/NS 1 GM/250 ML IVPB IV SCH (17:19)
[2016-09-10] MEDS: TYLENOL PO PRN (17:24)
[2016-09-10] MEDS: MIRALAX PEG SCH (21:02)
[2016-09-11] MEDS: NEO-SYNEPHRINE 50 MG in NS 250 ML IV SCH ×7 (01:59→21:38)
[2016-09-11] MEDS: MERREM 500 MG in NS 50 ML IV SCH ×2 (02:34→15:54)
[2016-09-11] MEDS: BICITRA PO SCH ×3 (02:34→17:42)
[2016-09-11] MEDS: DUONEB (A & A) INH SCH ×6 (03:08→22:50)
[2016-09-11] MEDS: ADVAIR 250/50 DISKUS INH SCH ×3 (03:09→19:04)
[2016-09-11] MEDS: PEPCID IV SCH ×2 (04:27→15:55)
[2016-09-11] MEDS: REGLAN IV SCH ×4 (04:27→21:38)
[2016-09-11 04:57] LABS: ALLEN TEST YES; BE -1.5 mmoll (-3.0-3.0); BLOOD TYPE ARTERIAL; DRAW SITE R RADIAL; PCO2(98.6) 47 mmHg (35-45); PO2(98.6) 75 mmHg (60-100); SAMPLE BLOOD; THB < 3.0 g/dL (11.5-17.4); pH(98.6) 7.33 (7.35-7.45)
[2016-09-11 04:58] LABS: MODALITY COOL AEROSOL
[2016-09-11 05:43] LABS: HEMATOCRIT 30.7 % (42.0-52.0); HEMOGLOBIN 9.5 g/dL (14.0-18.0); MCH 30.3 PG (27-31); MCHC 30.9 g/dL (33-37); MCV 97.8 FL (81-99); MPV 12.9 FL (7.4-10.4); RBC 3.14 XMIL (4.7-6.1)
[2016-09-11 05:51] LABS: ALBUMIN 2.2 g/dL (3.5-5.0); CALCIUM 7.8 mg/dL (8.8-10.2); POTASSIUM 4.4 mmol/L (3.5-5.1); TOTAL BILIRUBIN 1.08 mg/dL (0.20-1.00); TOTAL PROTEIN 5.6 g/dL (6.3-8.3)
[2016-09-11] MEDS: HUMULIN R SUBQ SCH ×4 (06:04→20:17)
--- NOTE | 2016-09-11 06:16 | Diag Imaging Result Doc PS360 ---
EXAM: CHEST-PORTABLE HISTORY: respiratory failure TECHNIQUE: Portable COMPARISON: 09/10/2016 FINDINGS: No change in the tracheostomy tube or in the right jugular line. No pneumothorax. Mild increased markings in the lung bases. No pleural effusions identified. The overall appearance of the chest is quite similar to that of the prior exam. IMPRESSION: Stable chest. Electronically signed by Skyler Anderson 09/11/2016 6:13 AM
[2016-09-11] MEDS: MUCOMYST 20% INH SCH ×2 (08:06→19:04)
[2016-09-11 09:30] LABS: HEPATITIS PROFILE ACUTE SEE COMMENTS
[2016-09-11] MEDS: CENTRUM SILVER PO SCH (09:35)
[2016-09-11] MEDS: HYTRIN PO SCH (09:35)
[2016-09-11] MEDS: ICAR-C PEG SCH ×2 (09:35→20:15)
[2016-09-11] MEDS: ZYLOPRIM PO SCH (09:36)
[2016-09-11] MEDS ORDERED: NEO SYNEPHRINE IV SCH (11:00)
[2016-09-11] MEDS ORDERED: NS IV SCH (11:00)
--- NOTE | 2016-09-11 13:30 | PROGRESS NOTE ---
DATE: 09/11/2016 SUBJECTIVE: The patient is resting comfortably on the trach collar. He remains on a Zhang- Synephrine drip. OBJECTIVE: Vital Signs: Temperature 96.4, blood pressure 95/44, heart rate 92, respirations 30, O2 saturations 95% on a trach collar. General: This is a chronically, ill-appearing, elderly male, lying in bed, in no acute distress. Head: Normocephalic, atraumatic. Heart: S1, S2 normal, tachycardic. Lungs: Coarse breath sounds bilaterally with crackles. Abdomen: Positive bowel sounds. Soft, nontender, nondistended. Extremities: No edema. No cyanosis. Neurologic: The patient is alert and will nod his head when asked a question. LABS: White blood cell count 16, hemoglobin 9.5, hematocrit 30, platelets 230. Sodium 144, potassium 4.4, chloride 99, CO2 of 21, BUN 102, creatinine 4.8, glucose 206. Calcium 7.8. Total bilirubin 1.0. AST 78, ALT 41. Alkaline phosphatase 225, albumin 2.2. ASSESSMENT AND PLAN: 1. Acute on chronic hypercapnic respiratory failure. The patient is currently tolerating the trach collar. Continue with pulmonary toiletry and bronchodilator therapy. 2. Pneumonia. Continue on the current IV antibiotic regimen as directed by Dr. Dotson. 3. Acute kidney injury. Management as per the emt/paramedic. 4. Leukocytosis. Patient's white blood cell count is elevated today in comparison to yesterday. We will defer to Dr. Dotson regarding antibiotics. 5. Anemia of chronic disease. The patient's hemoglobin and hematocrit is stable. 6. Severe protein calorie malnutrition. The patient is not tolerating the tube feeds. At times, he has anywhere from 200-300 mL of residual. Will defer to the senior sourcing manager regarding this issue. 7. Diabetes mellitus type 2. Continue on sliding scale insulin. 8. Hypotension. The patient is currently on Zhang-Synephrine. Will wean off when able. 9. Gastrointestinal prophylaxis. Continue on Pepcid. 10. Deep vein thrombosis prophylaxis. Will start the patient on heparin. cc: Jhoana Harding MD
--- NOTE | 2016-09-11 17:24 | PROGRESS NOTE ---
DATE: 09/11/2016 PRESENT ILLNESS: The patient continues to have an increasing leukocytosis, the etiology of which is uncertain to me. MEDICATIONS: This is day 2 of treatment with vancomycin and meropenem. PHYSICAL EXAMINATION: Vital Signs: Temperature is 96.4, pulse 94, respirations 27, blood pressure 95/44. Generally: This is a somewhat ill-appearing, elderly male who is in no acute distress. Lungs: Clear to auscultation. Cardiovascular: Regular heart rate. Abdomen: Soft and nontender. A PEG tube is in place. The site is oozing sanguinous fluid. Extremities: In the right groin, there is a triple-lumen catheter in place. That site also is not erythematous and it was not tender. Neck: The patient has in his neck, a right internal jugular catheter and that site also is not erythematous and there was no purulence noted. LAB AND X-RAY: Chest x-ray shows stable increased basilar markings. Patient's CBC shows a white count of 16,380. Hemoglobin 9.5, and platelet count 230,000. Blood gases show a pH of 7.33, a pO2 of 75, pCO2 of 47. The patient's creatinine is 4.8 with a GFR of 12. ASSESSMENT AND PLAN: The patient is having a leukocytosis, the exact etiology of which is uncertain to me. My plan is to continue with his current antibiotic therapy and obtain blood cultures from each catheter as well as culturing the G-tube drainage. COMORBIDITIES: Include diabetes mellitus, being elderly, congestive heart failure, end-stage renal disease and hemodialysis. cc: Brennan Dotson MD MTDD
[2016-09-11] MEDS: HEPARIN SUBQ SCH (20:16)
[2016-09-11] MEDS: MIRALAX PEG SCH (20:18)
[2016-09-12] MEDS: NEO-SYNEPHRINE 50 MG in NS 250 ML IV SCH ×2 (01:46→05:00)
[2016-09-12] MEDS: MERREM 500 MG in NS 50 ML IV SCH ×2 (02:08→15:54)
[2016-09-12] MEDS: BICITRA PO SCH ×3 (02:08→19:30)
[2016-09-12] MEDS: DUONEB (A & A) INH SCH ×6 (02:48→23:10)
[2016-09-12] MEDS: PEPCID IV SCH ×2 (03:53→15:58)
[2016-09-12] MEDS: REGLAN IV SCH ×4 (03:54→21:49)
[2016-09-12] MEDS: SODIUM CHLORIDE 0.9% INJ SCH ×2 (03:55→15:58)
[2016-09-12 04:10] LABS: ALLEN TEST YES; BE -5.7 mmoll (-3.0-3.0); BLOOD TYPE ARTERIAL; DRAW SITE R RADIAL; O2(CT) 21.1 mL/dL (15.0-23.0); PCO2(98.6) 45 mmHg (35-45); PO2(98.6) 89 mmHg (60-100); SAMPLE BLOOD; SAO2 96.7 % (95.0-100.0); THB 15.9 g/dL (11.5-17.4); pH(98.6) 7.28 (7.35-7.45)
[2016-09-12 04:11] LABS: MODALITY COOL AEROSOL
[2016-09-12 05:22] LABS: HEMATOCRIT 28.6 % (42.0-52.0); HEMOGLOBIN 8.8 g/dL (14.0-18.0); MCH 29.7 PG (27-31); MCHC 30.8 g/dL (33-37); MCV 96.6 FL (81-99); MPV 13.2 FL (7.4-10.4); RBC 2.96 XMIL (4.7-6.1)
[2016-09-12] MEDS: HUMULIN R SUBQ SCH ×5 (06:08→20:26)
[2016-09-12 06:37] LABS: ALBUMIN 2.1 g/dL (3.5-5.0); CALCIUM 6.9 mg/dL (8.8-10.2); POTASSIUM 4.7 mmol/L (3.5-5.1); TOTAL BILIRUBIN 0.91 mg/dL (0.20-1.00); TOTAL PROTEIN 5.2 g/dL (6.3-8.3)
[2016-09-12] MEDS ORDERED: TIGHT: 0.2 ML/HR MISC PRN (07:01)
[2016-09-12] MEDS ORDERED: NS 2,000 ML MISC PRN (07:01)
[2016-09-12] MEDS ORDERED: HEPARIN IV PRN (07:01)
--- NOTE | 2016-09-12 07:22 | Diag Imaging Result Doc PS360 ---
EXAM: CHEST-PORTABLE INDICATION: respiratory failure TECHNIQUE: One view COMPARISON: 09/11/2016 FINDINGS: Tracheostomy tube and right central line are in stable positions. Inspiration is suboptimal similar to the previous study. Increased markings at the lung bases are unchanged. There are no new consolidations. Cardiac silhouette is stable. IMPRESSION: Stable chest. Electronically signed by Randall Nelson 09/12/2016 7:20 AM
[2016-09-12] MEDS: MUCOMYST 20% INH SCH ×2 (07:57→19:24)
[2016-09-12] MEDS: ADVAIR 250/50 DISKUS INH SCH ×2 (07:58→19:24)
[2016-09-12] MEDS ORDERED: NS 2,000 ML ONE ×2 (08:49→11:36)
--- NOTE | 2016-09-12 09:03 | PROGRESS NOTE ---
DATE: 09/12/2016 SUBJECTIVE: He is awake and alert. He nods in response to questions. He denies pain or shortness of breath. OBJECTIVE: Vital Signs: Blood pressure 104/46, heart rate 98, respirations 30, afebrile. Intake 1.9 L. Output 1.1 L with only 5 mL of urine output. General: On physical exam, chronically ill, no distress. Skin: Warm and dry. Eyes: Conjunctivae are pink. Neck: Neck vein distention is not appreciated. Trachea is midline. Heart: Regular. Mildly tachycardic. Lungs: Have equal breath sounds. Shallow. Mildly tachypneic. Opening pops and snaps. No wheezes or crackles. Abdomen: Soft, nontender. Bowel sounds are present, but minimal. Extremities: Have 1+ edema. No clubbing or cyanosis. LABORATORY DATA: Sodium 148, potassium 4.7, chloride 103, bicarbonate 20, BUN 115, creatinine 5.4, hemoglobin 8.8. IMPRESSION: 1. Acute kidney injury. No recovery. Hemodialysis today. Two potassium bath and a goal of 3 L ultrafiltration. 2. Electrolytes acceptable. Two potassium bath. His low calcium corrects with adjusting for his albumin. 3. Acid-base, acceptable. 4. Anemia, stable. cc: Iglesia Villalobos MD
[2016-09-12] MEDS: D50W 250 ML, AMINOSYN 10% 500 ML, LIPOSYN 20% 250 ML MISC SCH ×3 (09:46)
[2016-09-12] MEDS: CENTRUM SILVER PO SCH (10:26)
[2016-09-12] MEDS: HYTRIN PO SCH (10:27)
[2016-09-12] MEDS: HEPARIN SUBQ SCH ×2 (10:28→20:26)
[2016-09-12] MEDS: ZYLOPRIM PO SCH (10:29)
[2016-09-12] MEDS: ICAR-C PEG SCH ×2 (10:29→20:27)
[2016-09-12] MEDS: CULTURELLE PEG SCH ×2 (10:30→20:27)
[2016-09-12] MEDS ORDERED: HEPARIN ONE (11:36)
--- NOTE | 2016-09-12 12:30 | PROGRESS NOTE ---
DATE: 09/12/2016 SUBJECTIVE: Patient is currently resting in bed. He is having difficulty with tolerating PEG tube feeding. He has gastroparesis and we have given him Reglan 10 IV q.6 hours but it has not helped. Yesterday he had leakage around the PEG tube site. We will check the PEG tube position. We will obtain a Gastrografin study. We will hold PEG tube feeds for now. No fevers reported. He has been moving his bowels. They are liquid brown. OBJECTIVE: Vital Signs: Temperature 98.4, pulse rate of 98, respiratory rate of 30, blood pressure 104/46, saturating 94% on trach collar. Body weight of 187 pounds. General Appearance: Moderately nourished, lying in bed, awake. HEENT: Pale conjunctivae. No icterus. Positive trach collar. Neck: Has a tracheostomy, trach collar. Abdomen: Abdominal binder in place which is removed and the PEG tube is in position. There is no drainage visible at the moment or on the new dressing was noted. The abdomen feels soft. Bowel sounds. Extremities: No cyanosis, no clubbing. Neurologic: He is awake, answers questions by nodding. He is undergoing dialysis at the moment. LABS: His hemoglobin and hematocrit is 8.8, 28.6, white count 11.9, platelet count of 216,000. His pH was 7.28, PO2 of 89, pCO2 45, lactate of 1.6. Sodium 140, potassium 4.7 , chloride 103, bicarb 29, anion gap of 25. BUN of 15, creatinine 5.4, glucose of 132, calcium is 6.9, total bilirubin is 0.91. AST 86, ALT 37, alkaline phosphatase 235. Total protein 5.2 , albumin of 2.1. Hepatitis panel is nonreactive. Chest x-ray was done on 09/12/2016 which showed stable chest. His blood cultures have been done which have been pending. IMPRESSION/PLAN: 1. High PEG tube residuals likely secondary to gastroparesis but we will also need to confirm the PEG tube position. In this regard we will obtain Gastrografin studies and will hold the PEG tube for now. May need to try Erythromycin IV for short term improvement in GI motility. 2. Anemia. Continue to watch. We will start him on Iron C b.i.d. and multivitamin once daily. 3. Respiratory failure status trach per the primary care team. 4. End-stage renal disease on hemodialysis. 5. GERD. Continue Pepcid twice daily. 6. Gastric residual. Continue on Reglan. Hold for side effects of tardive dyskinesia. 7. Further recommendations. cc: MD James Kuhn MD Jason R. Seale, MD [facility] HOSPITALJoselin
--- NOTE | 2016-09-12 12:31 | Diag Imaging Result Doc PS360 ---
KUB ABDOMEN - 09/12/2016 INDICATION: Eval PEG Tube position TECHNIQUE: COMPARISON: 09/10/2016 FINDINGS: There is a gastrostomy tube in good position with the bulb in the stomach. Contrast was infused through the gastrostomy tube, and this outlines a normal-appearing gastric fundus. No evidence of leak. IMPRESSION: No acute disease. Electronically signed by Luis Eduardo Villalta 09/12/2016 12:29 PM
[2016-09-12] MEDS: VANCOMYCIN 1 GM/NS 1 GM/250 ML IVPB IV SCH (12:42)
[2016-09-12 13:52] LABS: HEMATOCRIT 28.6 % (42.0-52.0); HEMOGLOBIN 9.3 g/dL (14.0-18.0)
[2016-09-12 13:58] LABS: INR 1.25; PROTIME 13.3 Seconds (9.2-11.7); PTT 37.6 Seconds (22.0-36.0)
--- NOTE | 2016-09-12 15:01 | PROGRESS NOTE ---
DATE: 09/12/2016 SUBJECTIVE: The patient has been having drainage around his PEG tube. His PEG tube feeds are on hold. OBJECTIVE: Vital Signs: Temperature 97.6 degrees, blood pressure 93/51, heart rate 108, respirations 30, O2 saturations 95% on the trach collar. General: This is an elderly male, lying in bed, in no acute distress. Head: Normocephalic, atraumatic. Heart: S1, S2. Normal. Tachycardic. Lungs: Coarse breath sounds bilaterally. No crackles. Abdomen: Positive bowel sounds. The patient does have drainage around the PEG tube site. Extremities: With 2+ edema. Neurologic: The patient is awake and does open his eyes when his name is called. LABORATORY DATA: White blood cell count 11, hemoglobin 9.3, hematocrit 28, platelets 216,000. Sodium 148, potassium 4.7, chloride 103, CO2 20, BUN 115, creatinine 5.4, glucose 132, calcium 6.9, AST 86, ALT 35. ASSESSMENT AND PLAN: 1. Acute hypercapnic respiratory failure status post tracheostomy. The patient remains on the trach collar. Continue with pulmonary toiletry and bronchodilator therapy. 2. Pneumonia. Continue on IV antibiotic therapy. 3. Acute kidney injury. Management as per the social services assistant. 4. The patient is scheduled for dialysis today. 5. Leukocytosis. Improved. 6. Anemia of chronic disease. We will continue to monitor the patient's hemoglobin and hematocrit closely and transfuse p.r.n. 7. Severe protein calorie malnutrition. The patient's PEG tube feeds are on hold due to high residual. The patient has been seen by the lehr cutter and a Gastrografin study has been ordered to check placement. 8. Diabetes mellitus type 2. Continue on sliding scale insulin. 9. Hypotension. We will continue to try and wean the patient off of Zhang-Synephrine. 10. Gastrointestinal prophylaxis. Continue on Pepcid. 11. Deep vein thrombosis prophylaxis. Continue on heparin. cc: Jhoana Harding MD
--- NOTE | 2016-09-12 18:53 | PROGRESS NOTE ---
DATE: 09/12/2016 PRESENT ILLNESS: The patient had an increasing leukocytosis. Today it has diminished. MEDICATIONS: The patient is on a combination of vancomycin and meropenem. This is the 3rd day of treatment with both agents. PHYSICAL EXAMINATION: Vital Signs: Temperature is 98.8, pulse 98, respirations 36, blood pressure 117/50. Generally: This is a chronically ill-appearing, elderly male. He is in no acute distress. Neck: The patient has a tracheostomy in place. Chest: Patient has a right Basilio catheter in place. The site is not erythematous or swollen. Lungs: Clear to auscultation. Cardiovascular: Heart rate was regular and rapid. Abdomen: Soft and nontender. The patient has a G-tube in place. There is brown drainage coming from around the G-tube. Pelvis: In the right groin the patient's triple-lumen catheter has been removed. Extremities: The patient's elbow incisions and knee incision are intact. LAB AND X-RAY: Chest x-ray shows no new consolidations. The patient's CBC today shows a white count of 11,910, hemoglobin 9.3, and platelet count 216,000. Blood gases show a pH of 7.28, a pO2 of 89, pCO2 of 45. Creatinine is 5.4 and the GFR is 11. Alkaline phosphatase is 235. ASSESSMENT AND PLAN: The patient's leukocytosis is decreasing. PLAN: To continue with the current antibiotics. COMORBIDITIES: Include diabetes mellitus, congestive heart failure, end-stage renal disease, hemodialysis, and being elderly. cc: Brennan Dotson MD
[2016-09-12] MEDS ORDERED: NEO-SYNEPHRINE 100 MG in NS 500 ML IV SCH (19:00)
[2016-09-12] MEDS: MIRALAX PEG SCH (20:28)
[2016-09-12] MEDS: LEVOPHED 8 MG in D5 1/2 NS 250 ML IV SCH (23:33)
[2016-09-13] MEDS: MERREM 500 MG in NS 50 ML IV SCH ×2 (02:02→16:00)
[2016-09-13] MEDS: BICITRA PO SCH ×3 (02:02→17:06)
[2016-09-13] MEDS: DUONEB (A & A) INH SCH ×6 (02:52→23:09)
[2016-09-13] MEDS: PEPCID IV SCH ×2 (03:16→17:05)
[2016-09-13] MEDS: REGLAN IV SCH ×4 (03:16→21:46)
[2016-09-13 04:05] LABS: ALLEN TEST YES; BE -9.4 mmoll (-3.0-3.0); BLOOD TYPE ARTERIAL; DRAW SITE R RADIAL; METHB 1.2 % (0.0-1.5); PCO2(98.6) 39 mmHg (35-45); PO2(98.6) 88 mmHg (60-100); SAMPLE BLOOD; SAO2 97.7 % (95.0-100.0); THB 8.9 g/dL (11.5-17.4); pH(98.6) 7.25 (7.35-7.45)
[2016-09-13 04:06] LABS: MODALITY COOL AEROSOL
[2016-09-13 04:14] LABS: HEMATOCRIT 28.3 % (42.0-52.0); HEMOGLOBIN 8.6 g/dL (14.0-18.0); MCH 29.1 PG (27-31); MCHC 30.4 g/dL (33-37); MCV 95.6 FL (81-99); MPV 13.1 FL (7.4-10.4); RBC 2.96 XMIL (4.7-6.1)
[2016-09-13 04:41] LABS: ALBUMIN 2.1 g/dL (3.5-5.0); POTASSIUM 5.2 mmol/L (3.5-5.1); TOTAL BILIRUBIN 1.03 mg/dL (0.20-1.00); TOTAL PROTEIN 4.8 g/dL (6.3-8.3)
[2016-09-13 04:43] LABS: CALCIUM 6.5 mg/dL (8.8-10.2)
[2016-09-13] MEDS: LEVOPHED 8 MG in D5 1/2 NS 250 ML IV SCH ×4 (05:49→21:51)
[2016-09-13] MEDS: HUMULIN R SUBQ SCH ×4 (06:06→20:12)
--- NOTE | 2016-09-13 06:56 | PROGRESS NOTE ---
DATE: 09/13/2016 SUBJECTIVE: He is on trach collar. Resting in bed. No new complaints. OBJECTIVE: Vital Signs: Blood pressure 95/47, heart rate 116, respirations 36, afebrile. Intake is 2.6 L, output 1.9 L. No acute distress. Skin: Warm and dry. Eschars are unchanged. Conjunctivae are pink. Neck: Neck veins are not appreciated. Trachea is midline. Heart: Regular. Lungs: Shallow rapid respirations, but no crackles. Abdomen: Soft, nontender. Bowel sounds present. Extremities: Have 1+ edema. No clubbing or cyanosis. LABORATORY DATA: Sodium 143, potassium 5.2, chloride 101, bicarbonate 17, BUN 109, creatinine 4.9, hemoglobin 8.6. IMPRESSION: 1. Acute kidney injury. No recovery. His Vas-Cath was nonfunctional and was removed yesterday. He will have a new tunneled catheter placed tomorrow, and we will restart dialysis. 2. Electrolytes. Moderate hyperkalemia. We will recheck this afternoon and manage medically if necessary. 3. Acid base. He has a persistent metabolic acidosis related to his renal failure. cc: Iglesia Villalobos MD
[2016-09-13] MEDS: ADVAIR 250/50 DISKUS INH SCH ×2 (07:28→19:32)
[2016-09-13] MEDS: MUCOMYST 20% INH SCH ×2 (07:28→19:32)
--- NOTE | 2016-09-13 07:33 | Diag Imaging Result Doc PS360 ---
CHEST-PORTABLE - 09/13/2016 INDICATION: respiratory failure TECHNIQUE: COMPARISON: 09/12/2016 FINDINGS: Support lines and tubes are stable. Lung volumes are low. Stable coarse peripheral interstitial infiltrates in the lung bases suggesting pulmonary fibrosis. No new infiltrates. IMPRESSION: No change from prior. Electronically signed by Luis Eduardo Villalta 09/13/2016 7:31 AM
--- NOTE | 2016-09-13 07:34 | Diag Imaging Result Doc PS360 ---
CHEST-PORTABLE - 09/12/2016 at 2240 INDICATION: Tachypnea,crackles bilateral bases TECHNIQUE: COMPARISON: 0500 FINDINGS: Support lines and tubes are stable. Lung volumes are critically low similar to prior. Stable increased interstitial markings in the lung bases. No new infiltrates. IMPRESSION: No change from prior. Electronically signed by Luis Eduardo Villalta 09/13/2016 7:32 AM
[2016-09-13] MEDS: HYTRIN PO SCH (08:00)
[2016-09-13] MEDS: ICAR-C PEG SCH ×2 (08:00→20:12)
[2016-09-13] MEDS: CULTURELLE PEG SCH ×2 (08:00→20:12)
[2016-09-13] MEDS: CENTRUM SILVER PO SCH (08:00)
[2016-09-13] MEDS: HEPARIN SUBQ SCH ×2 (08:00→20:25)
[2016-09-13] MEDS: ZYLOPRIM PO SCH (08:01)
[2016-09-13] MEDS ORDERED: CALCIUM GLUCONATE 2 GM in NS 100 ML IV ONE (09:30)
--- NOTE | 2016-09-13 09:40 | PROGRESS NOTE ---
DATE: 09/13/2016 SUBJECTIVE: This 71-year-old male, known to me, who I placed a temporary dialysis catheter in his groin previously, had been critically ill in the ICU for quite some time. He has progressed to end-stage renal disease and is remaining on scheduled dialysis. He is status post tracheostomy, but is on trach collar. Does have a PEG. Dr. Villalobos has asked me to place a tunnel catheter to facilitate his ongoing dialysis. The daughter is here at the bedside and I have spoken with her. PHYSICAL EXAM: Temperature 98.4, pulse 116, blood pressure 100/51, oxygen saturation 95% on 40% trach collar. He has got a tracheostomy. He has got a right subclavian Basilio catheter. He is alert, not really responsive, but no increased work of breathing. LABS: White count is 11, hematocrit 28. ABGs 7.25, 39, 88, 17.6. Creatinine is 4.9, potassium 5.2, glucose 296. He has had blood cultures from the 4th that have no growth at 48 hours and really multiple negative blood cultures over his course here. ASSESSMENT AND PLAN: A 71-year-old male with multiple medical issues in the intensive care unit, status post tracheostomy. He is now on scheduled dialysis. We are making plans for disposition. He needs a tunneled dialysis catheter per Dr. Villalobos. I talked to the daughter about the risk of bleeding, infection, damage to surrounding vascular structures, including the artery, pneumothorax. She understands this and consents to the procedure. Plan to go the operating room tomorrow. He does have a tracheostomy and a right-sided subclavian Basilio catheter. She says he has had previous left-sided neck IVs in the past, but not a central line and otherwise has poor peripheral access. Will evaluate whether we can place this on the right side in the jugular vein or if we need to place this on the left. Most likely this will be on the left side, but will see. N.p.o. at midnight and plan for surgery tomorrow. cc: Ann Duckworth MD
--- NOTE | 2016-09-13 09:48 | PROGRESS NOTE ---
DATE: 09/13/2016 SUBJECTIVE: As per nursing staff, he was feeling fine. PEG tube is still having high residuals; that is why those feeds have been put on hold. No fever reported. OBJECTIVE: Vital Signs: Temperature 97.6 degrees, heart rate 116, respiratory rate 28, blood pressure 95/47, O2 saturation 98% given by tracheostomy collar. General Examination: This is a chronically ill-looking, frail, undernourished, 71-year-old male, looking older than his age, lying in bed, in no acute distress. HEENT: Head is normocephalic and atraumatic. Anicteric sclerae and pale conjunctivae. Mucous membranes are moist. Neck: Supple. JVD noted. No carotid bruits. No lymphadenopathy. No thyromegaly. Cardiovascular: S1, S2 heard. Tachycardic. No murmurs, gallops, or rubs. Regular rate and rhythm. Respiratory: Coarse breath sounds in both pulmonary gaston. There are no crackles. Patient is not using any accessory muscles or having work of breathing. Tracheostomy in place. Abdomen: No drainage around the PEG tube site. And bowel sounds present. No organomegaly noted. Extremities: Two to 3+ pedal edema. No cyanosis or clubbing. Neurological: Patient is awake but does not follow commands. LABORATORY DATA: White cell count 7.33, hemoglobin 8.6, hematocrit 28.3, platelets 183,000. ABG shows pH 7.25, pCO2 39, PO2 48. BMP shows creatinine 4.9, BUN 109 and calcium 6.5. ASSESSMENT AND PLAN: 1. Acute hypercapnic respiratory failure status post tracheostomy tube. Patient remains on tracheostomy collar and needing oxygen supplementation trial access. We will continue with bronchodilator therapy and pulmonary toiletry. Pulmonary is following this patient. 2. Healthcare-associated pneumonia. The patient has been restarted on antibiotics. Today is day #4 of vancomycin and meropenem. It is important to remark that this patient has received 14 days of antibiotics at the beginning of his hospitalization here. Dr. Dotson is following this patient. We will follow recommendations. 3. Acute kidney injury. Patient is on hemodialysis because of the acute kidney injury, the patient is not recovering. They removed the Vas-Cath yesterday and they are going to put a tunneled catheter today. 4. Anemia of chronic disease. We will continue to check CBC daily and transfuse p.r.n. 5. Severe protein calorie malnutrition. Unfortunately, this patient's percutaneous endoscopic gastrostomy tube feedings have been put on hold because of high residual and even though he is not receiving any feedings, the residual is till high. Gastroenterology has been following this patient and Gastrografin study has been ordered. We will see what they have to say. 6. Diabetes mellitus type 2. The patient is currently on sliding scale insulin. 7. Hypotension. Still on Zhang-Synephrine. We will continue with the same management and try to wean off this medication slowly. 8. Gastrointestinal prophylaxis. On Pepcid. 9. Deep vein thrombosis prophylaxis. On heparin. 10. Physical deconditioning is secondary to all his current comorbidities. Overall, the patient is not doing good in any way. He has been here in the hospital for 44 days and at least 60% to 70% of his stay has been in the intensive care unit. At this point, I think this patient is a good candidate for long-term acute care hospital considering that this patient had a tracheostomy and also a PEG tube. Unfortunately his insurance company keeps denying coverage for LTAC even after a peer to peer appeal. I think people who work for them dont have any clinical experience to evaluate patients. He is still requiring vasopressors and I can anticipate he will stay in the hospital for a while. He has been restarted antibiotics for HCAP that he may get it here because of his long stay in the hospital. Will continue monitoring this patient closely in the ICU. cc: MD REINALDO Atkinson
[2016-09-13] MEDS ORDERED: NS 1,000 ML IV ONE (12:17)
[2016-09-13] MEDS: SOLU-CORTEF IV SCH ×2 (13:30→23:35)
[2016-09-13] MEDS: SODIUM CHLORIDE 0.9% INJ SCH (17:05)
--- NOTE | 2016-09-13 17:56 | PROGRESS NOTE ---
DATE: 09/13/2016 SUBJECTIVE: Patient is resting in bed. His daughter is at bedside. He continues to have trouble with tolerating the PEG tube feeds. He continues to have high residuals, has a known history of gastroparesis and he had failed IV Reglan therapy. He continues to have high stomach residuals despite IV Reglan and despite withholding tube feeds. OBJECTIVE: Vital signs: Temperature 97.9, pulse rate of 101, respiratory rate of 34, blood pressure of 76/37. Saturating 98% on 50% FiO2, trach collar. General Appearance: Moderately built, moderately nourished, lying in bed in no acute distress. HEENT: Pale conjunctivae. No icterus. Neck: Positive trach noted, abdominal binder in place. I opened the area and evaluated the PEG tube site which appeared normal. There was no drainage noted of the PEG tube site. At the moment there was no erythema or redness or pus around the PEG tube site. Abdomen is soft. Bowel sounds are present. Extremities: No cyanosis or clubbing. Neurologic: He was awake, but did not answer any questions. LABORATORY: Hemoglobin and hematocrit is 8.6, 28.3, white count 11.53, platelet count of 183,000. Sodium 142, potassium 5, chloride 101, bicarb 79, anion gap 25, BUN of 109, creatinine of 4.9, glucose of 247, calcium 6.5, total bilirubin is 1.03, AST 151, ALT 42, alkaline phosphatase is 303, total protein 4.8, albumin of 2.1. Hepatitis panel is nonreactive. IMPRESSION/PLAN: 1. High PEG tube residuals in the setting of gastroparesis in this regard. I will keep him on aspiration precautions. We will hold the PEG tube for now. We will plan to do EGD with PEG/J conversion tomorrow with Dr. Chew. In the meanwhile, will continue on GI prophylaxis with Pepcid. 2. Anemia. We will continue to watch. 3. Elevated liver enzymes. It could be fatty liver, although his hepatitis panel is nonreactive. Some of the elevated liver enzymes could be secondary to medication side effects. Continue to watch for now. 4. Further recommendations to follow pending the hospital course. I discussed the above plan with the patient's daughter at bedside. I also discussed the risks, benefits, indications, alternatives of EGD with PEG/J conversion with the patient's daughter and all questions were answered. cc: MD Joao Young MD Jason R. Seale, MD James E. Boyle, MD Reginald D. Gladish, MD Babu Kantamneni, MD Leroy F. Harris, MD
--- NOTE | 2016-09-13 19:24 | PROGRESS NOTE ---
DATE: 09/13/2016 PRESENT ILLNESS: The patient has leukocytosis and he is hypotensive. He is requiring maximal pressor support. MEDICATIONS: The patient is on the 4th day of treatment with vancomycin and meropenem. PHYSICAL EXAMINATION: Vital Signs: Temperature is 97.9, pulse 101, respirations 34, blood pressure 76/37. General: This is a chronically appearing elderly male. He is in no acute distress. Neurologic: He is obtunded. Neck: Has a tracheostomy in place. Chest: The patient has a right-sided Basilio catheter in place. The site is not swollen or erythematous. Lungs: Had bilateral rhonchi. Cardiovascular: Heart rate is regular. Abdomen: Soft. There is a brown colored drainage coming from around the G-tube. Extremities: The patient's incisions on each elbow and the knee are intact. LAB AND X-RAY: The blood gases show a pH of 7.25, a pO2 of 88, a pCO2 of 39. CBC shows a white count of 11,530, hemoglobin 8.6 and platelet count 183,000. Patient's creatinine is 4.9. GFR is 12. Culture from around the G-tube grew Jess albicans. Chest x-ray showed findings of pulmonary fibrosis and no new infiltrate. ASSESSMENT AND PLAN: The patient has leukocytosis. He appears to be septic. I have added fluconazole for the Jess infection of his G-tube and I plan to continue his current antibiotics. COMORBIDITIES: Include diabetes mellitus, congestive heart failure, end-stage renal disease. Hemodialysis and he is elderly. cc: Brennan Dotson MD
[2016-09-13] MEDS: DIFLUCAN 200 MG/NS 200 MG/100 ML IVPB IV SCH (19:34)
[2016-09-13] MEDS: MIRALAX PEG SCH (20:12)
[2016-09-13] MEDS: NEO-SYNEPHRINE 50 MG in NS 250 ML IV SCH (20:13)
[2016-09-14] MEDS: ZOFRAN IV PRN (00:01)
[2016-09-14] MEDS: BICITRA PO SCH ×3 (02:03→17:46)
[2016-09-14] MEDS: LEVOPHED 8 MG in D5 1/2 NS 250 ML IV SCH ×5 (02:03→22:29)
[2016-09-14] MEDS: MERREM 500 MG in NS 50 ML IV SCH ×2 (02:03→15:32)
[2016-09-14] MEDS: DUONEB (A & A) INH SCH ×6 (02:34→23:09)
[2016-09-14] MEDS: PEPCID IV SCH (03:19)
[2016-09-14] MEDS: REGLAN IV SCH ×4 (03:22→21:19)
[2016-09-14 04:31] LABS: ALLEN TEST YES; BE -8.4 mmoll (-3.0-3.0); BLOOD TYPE ARTERIAL; DRAW SITE R RADIAL; METHB 1.3 % (0.0-1.5); O2(CT) 14.2 mL/dL (15.0-23.0); PCO2(98.6) 35 mmHg (35-45); PO2(98.6) 151 mmHg (60-100); SAMPLE BLOOD; SAO2 99.6 % (95.0-100.0); THB 10.2 g/dL (11.5-17.4)
[2016-09-14 04:33] LABS: MODALITY VENTILATOR
[2016-09-14 05:29] LABS: HEMATOCRIT 24.2 % (42.0-52.0); HEMOGLOBIN 7.5 g/dL (14.0-18.0); MCV 96.8 FL (81-99); MPV 12.8 FL (7.4-10.4); RBC 2.5 XMIL (4.7-6.1)
[2016-09-14] MEDS: HUMULIN R SUBQ SCH ×5 (06:07→21:18)
[2016-09-14 06:18] LABS: ALBUMIN 2.2 g/dL (3.5-5.0); CALCIUM 6.4 mg/dL (8.8-10.2); POTASSIUM 5.1 mmol/L (3.5-5.1); TOTAL BILIRUBIN 1.04 mg/dL (0.20-1.00); TOTAL PROTEIN 4.3 g/dL (6.3-8.3)
[2016-09-14] MEDS ORDERED: HEPARIN IV PRN (06:40)
[2016-09-14] MEDS ORDERED: TIGHT: 0.2 ML/HR MISC PRN (06:40)
[2016-09-14] MEDS ORDERED: NS 2,000 ML MISC PRN (06:40)
--- NOTE | 2016-09-14 07:24 | Diag Imaging Result Doc PS360 ---
EXAM: CHEST-PORTABLE HISTORY: respiratory failure TECHNIQUE: Erect AP portable at 0602 COMMENT: The inspiration is suboptimal. The appearance of the chest has not changed appreciably since 09/13/2016. IMPRESSION: Stable chest. Electronically signed by Mynor Freedman 09/14/2016 7:22 AM
[2016-09-14] MEDS: MUCOMYST 20% INH SCH ×2 (07:34→20:13)
[2016-09-14] MEDS: ADVAIR 250/50 DISKUS INH SCH ×2 (07:34→20:13)
[2016-09-14] MEDS: CENTRUM SILVER PO SCH (09:15)
[2016-09-14] MEDS: CULTURELLE PEG SCH ×2 (09:15→19:59)
[2016-09-14] MEDS: ICAR-C PEG SCH ×2 (09:16→20:00)
[2016-09-14] MEDS: HEPARIN SUBQ SCH ×2 (09:16→20:13)
[2016-09-14] MEDS: ZYLOPRIM PO SCH (09:17)
[2016-09-14] MEDS ORDERED: HEPARIN ONE ×2 (09:17→11:38)
[2016-09-14] MEDS ORDERED: NS 2,000 ML ONE (09:17)
[2016-09-14] MEDS: HYTRIN PO SCH (09:22)
--- NOTE | 2016-09-14 11:01 | PROGRESS NOTE ---
DATE: 09/14/2016 SUBJECTIVE: The patient has a tracheostomy tube. Does not talk. Family is at bedside and report that this patient sometimes gets restless. No fever reported. OBJECTIVE: Vital Signs: Temperature 98.5 degrees, heart rate 116, respiratory rate 32, blood pressure 129/59, and O2 saturation 99% on tracheostomy collar and mechanical ventilator at FiO2 of 50%. General: This is a chronically ill-looking, frail, and malnourished 71- year-old male, looking older than his age, lying in bed in no acute distress. HEENT: Head is normocephalic, atraumatic. Anicteric sclerae and pale conjunctivae. Mucous membranes moist. Neck: Supple. No JVD noted. No carotid bruits. No lymphadenopathy. No thyromegaly. Tracheostomy tube in place. Cardiovascular: S1 and S2 heard. Tachycardic. No murmurs, gallops, or rubs. Regular rate and rhythm. Respiratory: Coarse breath sounds are still present in both pulmonary gaston. The patient is not using any accessory muscles or having work of breathing. Abdomen: There is no drainage from the PEG tube site. Bowel sounds present. No organomegaly. Abdomen a little bit distended. Extremities:: There is 2 to 3+ pitting edema. No cyanosis or clubbing. Neurologic: Patient is awake, but does not follow commands. LABORATORY DATA: White cell count 11.51, hemoglobin 7.5, hematocrit 24.2, platelets 153,000. ABG shows pH 7.30, pCO2 of 35, PO2 of 151 on ventilator. BMP shows creatinine 5.2 with BUN 120 and glucose 300. ASSESSMENT AND PLAN: 1. Acute hypercapnic respiratory failure, status post tracheostomy tube. Patient remains on tracheostomy collar and needing oxygen supplementation. Today, my understanding is that during the last few days he is still requiring between 50% and 60% FiO2 by ventilator and he is breathing faster. So, of course, clinically we can not try to wean off ventilator. It is important to remark it because this is one of the points that patient's insurance company said why they denied coverage. That is not true and, of course, the fact this was mentioned in its note definitely makes clear his definite lack of knowledge of medicine. This patient is still requiring oxygen and on that high amount of oxygen, we cannot even try to wean off. When we see 40% or 30%, we can try to do weaning trials. Pulmonary is also following this patient. At this point, we will continue doing what we are doing. 2. Healthcare-associated pneumonia. As we mentioned yesterday, antibiotics have been restarted again. Today is day #5 of vancomycin and meropenem. He has received repeatedly a couple of weeks of antibiotics and at this time he is getting vancomycin and meropenem because we suspect that this is healthcare-associated pneumonia because he got it here in the hospital. Dr. Dotson from Infectious Disease is following this patient. We will follow recommendations. 3. Acute kidney injury, on hemodialysis. Patient's renal function is not recovering. They removed the Vas-Cath yesterday and they are going to place another IV access today, a tunneled catheter today. 4. Anemia of chronic disease. Again, the hemoglobin is trending down and getting near 7.0. Today, it is 7.5. We will transfuse if the hemoglobin is 7 or below. 5. Severe protein calorie malnutrition. PEG tube feedings have been put on hold because of the high residual. Dr. Landaverde from Gastroenterology is planning to do an endoscopy and check what is going on with his PEG tube. His help is appreciated. 6. Diabetes mellitus, type 2, on sliding scale insulin. Although sometimes the glucose can go higher than 300, we will continue with the same management right now. 7. Hypotension. Patient is still requiring Zhang-Synephrine. We are trying to wean off this medication for the last few days, apparently 7 or 10 days, but is still requiring that medication. We will continue keeping this patient in the ICU. 8. Gastrointestinal prophylaxis. Patient is on Pepcid IV. 9. Deep vein thrombosis prophylaxis. Patient is on heparin. 10. Physical deconditioning. The patient has become very weak, of course, secondary to his long hospital stay. We are not trying to send this patient to LTAC for rehabilitation because he is too sick and cannot get any physical therapy now. First he needs to improve all his multiple medical conditions before even thinking about start physical therapy. cc: Joao Marcum MD [facility]PITALJoselin
--- NOTE | 2016-09-14 11:33 | PROGRESS NOTE ---
DATE: 09/14/2016 TIME SEEN: 0645. SUBJECTIVE: Mr. Santiago is resting quietly in bed. He opens his eyes to verbal stimuli. Otherwise, there is no recognition, unable to follow commands. He is currently on the ventilator. He is not sedated. OBJECTIVE: Most recent vital signs: Temperature 98.5, blood pressure 126/55, heart rate 113, respirations 16. He is on 50% FiO2. His last recorded saturation is 99%. He has had 2740 in. He has had 735 out with most 720 out of fecal bag. LABS: Sodium 145, potassium 5.1, chloride 103, CO2 of 16, BUN 120, creatinine 5.2, glucose 300. His anion gap is 26. Calcium 6.4, albumin 2.2. He has a white count of 11.5, hemoglobin 7.5, hematocrit 24.2 with a platelet count of 153,000. He has a pro time of 13.3 with an INR of 1.25, PTT of 37.6. He has a correct calcium level of 7.84. PHYSICAL EXAMINATION: General: This is a 71-year-old white male who is currently resting in bed. He is in no acute distress. He appears chronically ill. Skin: Warm and dry. HEENT: Normocephalic, atraumatic with some eschar across the top forehead, unchanged. Conjunctiva is pink. He has ANGELA sluggish. Neck: Supple, trachea midline. Unable to determine JVD due to trach collar. Cardiovascular: He is regular rate and rhythm, no murmur or gallop appreciated. Lungs: Shallow respirations on the vent. No crackles or wheezes. Equal excursion. Abdomen: Soft, nontender, positive bowel sounds. G-tube remains in place with tube feeding held. Extremities: 1+ edema, no clubbing or cyanosis. Eschar to the left back. Lower extremity is unchanged. Genitourinary: No urine out. Neurological: As above. ASSESSMENT AND PLAN: 1. Acute kidney injury with no recovery. Vas-Cath has been nonfunctional, remains intact. He is scheduled for removal and replacement for tunneled catheter today. We will plan for dialysis after this. He is to be on a 2K bath. He is to dialyze for 3-1/2 hours. We will attempt to pull 3 L of ultrafiltration as tolerated. 2. Electrolytes. The patient has mild hypocalcemia secondary to poor albumin intake with an albumin of 2.2, corrected as mentioned. We will again plan for correction on dialysis. 3. Anemia. This remains low but stable. No indications for intervention at this time. 4. Acid-base balance. He has persistent metabolic acidosis again secondary to renal failure with correction on dialysis. 5. Respiratory failure. The patient is now back off of cool aerosol trach collar on the vent at 50% FiO2. This is followed by primary care team. 6. Shock. Patient is back on Levophed for BP support. Followed by primary care team. We will plan dialysis in ICU today. Dictated by DANIELLA Watson for Iglesia Villalobos MD Seen, data reviewed, discussed with Tita Torres on 09/14/16. I agree with the above assessment and plan of care. cc: DANIELLA Watson MD [facility]
[2016-09-14] MEDS ORDERED: NS 250 ML ONE (11:38)
[2016-09-14] MEDS ORDERED: XYLOCAINE 1%/EPI 1:100,000 ONE (11:38)
[2016-09-14] MEDS ORDERED: ZEMURON ONE (13:19)
[2016-09-14] MEDS ORDERED: KETALAR ONE (13:20)
[2016-09-14] MEDS: SOLU-CORTEF IV SCH ×3 (13:26→23:59)
[2016-09-14] MEDS ORDERED: STERILE WATER INJ. ONE (15:24)
--- NOTE | 2016-09-14 15:46 | OPERATIVE NOTE ---
PROCEDURE DATE: 09/14/2016 PREOPERATIVE DIAGNOSIS: End-stage renal disease. POSTOPERATIVE DIAGNOSIS: End-stage renal disease. PROCEDURES PERFORMED: 1. Ultrasound-guided left internal jugular vein PermCath placement. 2. Fluoroscopy less than 1 hour. COMPLICATIONS: None. ESTIMATED BLOOD LOSS: 2 mL. SPECIMENS: None. ANESTHESIA: General. INDICATIONS: This is a 71-year-old male who has been critically ill in the ICU for some time. He has been on dialysis with plans to transition to more intermittent dialysis per Dr. Villalobos. He has requested a tunneled catheter to facilitate this. OPERATIVE FINDINGS: Ultrasound examination of the left neck shows a compressible internal jugular vein with no evidence of intraluminal thrombus and otherwise normal vascular anatomy. He had a Baislio catheter on the right side. As such, we went on the left. Final fluoroscopic images showed good position of the catheter at the superior vena cava junction with no kinking of the catheter, no evidence of postoperative pneumothorax. OPERATIVE NOTE: The risks, benefits, and alternatives were discussed with the patient's family and they consented to the procedure. He was taken to the operating room and placed in supine position. General anesthesia was induced without complication. Left neck was prepped with Betadine solution and draped in the usual fashion. After a time-out was performed, we performed focused ultrasound of the left neck. After satisfactory ultrasound, pink introducer needle was used under direct ultrasound guidance to access the left internal jugular vein. Dark, nonpulsatile venous bleeding was noted. The wire threaded easily. We then selected a 22 cm double-lumen catheter from the tip to the curve and tunneled this from the incision in the chest approximately 1 fingerbreadth below the clavicle up to the incision in the neck. Then, using a peel-away dilator introducer sheath, we advanced this under direct fluoroscopic guidance. It had a very sharp acute turn between the internal jugular vein and the innominate vein on the left side. As such, we had to stop the sheath within the distal internal jugular vein and then passed our catheter through this. We were able to get the catheter and make the turn, and peeled away the sheath. We positioned the cuff below the level of the skin. Both ports withdrew blood and flushed easily without resistance. We closed the incision in the neck with 4-0 Monocryl. Placed a pursestring suture around the chest incision and the exit site of the catheter, and secured the catheter with a 2-0 nylon suture. Dermabond was applied to the neck and a dressing at the left chest. He tolerated the procedure well. Counts correct x2. No identified complications during the procedure. He was transferred back to the ICU in good condition. No family was available. cc: Ann Duckworth MD
[2016-09-14] MEDS: NEO-SYNEPHRINE 50 MG in NS 250 ML IV SCH (17:18)
[2016-09-14] MEDS ORDERED: ALBUMIN 25% IV ONE (17:26)
[2016-09-14] MEDS: D50W 250 ML, AMINOSYN 10% 500 ML, LIPOSYN 20% 250 ML MISC SCH ×3 (17:32)
--- NOTE | 2016-09-14 19:02 | PROGRESS NOTE ---
DATE: 09/14/2016 PRESENT ILLNESS: The patient has leukocytosis and is requiring pressor support to keep up his blood pressure. He has some oozing from around the G-tube site as well. MEDICATIONS: The patient is on vancomycin and meropenem for the past 5 days. PHYSICAL EXAMINATION: Vital Signs: Temperature is 97 degrees, pulse 105, respirations 31, blood pressure 132/66. Generally: This is a chronically ill-appearing, elderly male. He is in no acute distress. Lungs: Clear to auscultation. Cardiovascular: Heart rate was regular. Abdomen: Patient has a G-tube in place. Thorax: Patient has a dialysis catheter on the left side and a Basilio catheter on the right side. Cardiovascular: Heart rate is regular. LAB AND X-RAY: [place] [address], hemoglobin 7.5, platelet count 153,000. Creatinine is 5.2. GFR is 11. Patient's blood gases show a pH of 7.3, a PO2 of 151 and a pCO2 of 35. Hepatitis panel is nonreactive. Blood cultures are negative. Culture from the abdominal drainage from around the G-tube is growing Jess albicans. ASSESSMENT AND PLAN: Patient has a stable leukocytosis and the exact cause of his leukocytosis and sepsis is uncertain to me at this time. He also has some leaking around the G-tube. My plan is to continue with his current antimicrobial agents. They are fluconazole, vancomycin and meropenem. COMORBIDITIES: Include diabetes mellitus, congestive heart failure, end-stage renal disease and hemodialysis. The patient also is elderly. cc: Brennan Dotson MD
[2016-09-14] MEDS: MIRALAX PEG SCH (20:01)
[2016-09-14] MEDS: DIFLUCAN 200 MG/NS 200 MG/100 ML IVPB IV SCH (21:18)
[2016-09-14] MEDS: VANCOMYCIN 1 GM/NS 1 GM/250 ML IVPB IV SCH (21:20)
[2016-09-14] MEDS: DILAUDID IV PRN (23:58)
[2016-09-15] MEDS: BICITRA PO SCH ×3 (01:00→18:24)
[2016-09-15] MEDS: LEVOPHED 16 MG in D5 1/2 NS 500 ML IV SCH ×2 (02:16→11:36)
[2016-09-15] MEDS: MERREM 500 MG in NS 50 ML IV SCH ×2 (02:17→15:14)
[2016-09-15] MEDS: DUONEB (A & A) INH SCH ×4 (03:34→19:45)
[2016-09-15] MEDS ORDERED: LANOXIN IV ONE (04:24)
[2016-09-15] MEDS ORDERED: CORDARONE 360 MG/D5W 360 MG/200 ML IV.SOLN IV ONE (04:25)
[2016-09-15] MEDS ORDERED: CORDARONE 150 MG/D5W 150 MG/100 ML IV.SOLN IV ONE (04:25)
[2016-09-15 04:30] LABS: ALLEN TEST YES; BE -4.9 mmoll (-3.0-3.0); BLOOD TYPE ARTERIAL; DRAW SITE R RADIAL; METHB 1.4 % (0.0-1.5); O2(CT) 10.9 mL/dL (15.0-23.0); PCO2(98.6) 43 mmHg (35-45); PO2(98.6) 103 mmHg (60-100); SAMPLE BLOOD; SAO2 99.2 % (95.0-100.0); THB 7.9 g/dL (11.5-17.4)
[2016-09-15 04:31] LABS: HEMATOCRIT 23.2 % (42.0-52.0); HEMOGLOBIN 7.5 g/dL (14.0-18.0); MCH 30.4 PG (27-31); MCHC 32.3 g/dL (33-37); MCV 93.9 FL (81-99); MPV 12.3 FL (7.4-10.4); RBC 2.47 XMIL (4.7-6.1)
[2016-09-15] MEDS: NEO-SYNEPHRINE 50 MG in NS 250 ML IV SCH ×2 (04:46→18:57)
[2016-09-15] MEDS: REGLAN IV SCH ×3 (04:48→15:14)
[2016-09-15 05:00] LABS: ALBUMIN 2.7 g/dL (3.5-5.0); POTASSIUM 4.3 mmol/L (3.5-5.1); TOTAL BILIRUBIN 1.24 mg/dL (0.20-1.00); TOTAL PROTEIN 4.7 g/dL (6.3-8.3)
[2016-09-15] MEDS: HUMULIN R SUBQ SCH ×3 (06:27→15:15)
[2016-09-15] MEDS ORDERED: NS 2,000 ML ONE (08:01)
[2016-09-15] MEDS ORDERED: HEPARIN ONE (08:03)
[2016-09-15] MEDS: D50W 250 ML, AMINOSYN 10% 500 ML, LIPOSYN 20% 250 ML MISC SCH ×3 (09:24)
[2016-09-15] MEDS ORDERED: ALBUMIN 25% IV PRN (09:25)
[2016-09-15] MEDS: ICAR-C PEG SCH (09:27)
[2016-09-15] MEDS: CENTRUM SILVER PO SCH (09:27)
[2016-09-15] MEDS: CULTURELLE PEG SCH (09:27)
[2016-09-15] MEDS: ZYLOPRIM PO SCH (09:28)
[2016-09-15] MEDS ORDERED: SODIUM CHLORIDE 0.9% INJ SCH (09:30)
[2016-09-15] MEDS ORDERED: PEPCID IV SCH (09:30)
[2016-09-15] MEDS: HEPARIN SUBQ SCH (09:42)
[2016-09-15] MEDS ORDERED: CORDARONE 540 MG in D5W 289.2 ML IV ONE (11:00)
[2016-09-15] MEDS: ADVAIR 250/50 DISKUS INH SCH ×2 (11:13→19:45)
[2016-09-15] MEDS: MUCOMYST 20% INH SCH ×2 (11:13→19:46)
--- NOTE | 2016-09-15 11:31 | PROGRESS NOTE ---
DATE: 09/15/2016 SUBJECTIVE: As per nursing staff last night he had developed an episode of atrial fibrillation with rapid ventricular response that has reached 160 and 190. Also, mental status has changed last night and he was a little bit more sleepy. OBJECTIVE: Vital Signs: Temperature 99.0 degrees, heart rate 118, respiratory rate 30, blood pressure 159/68, O2 saturation percent on 4 L on 40% oxygen. General examination: This is a chronically ill-looking, frail and malnourished 71-year-old male, lying in bed, in no acute distress. Looking older than his age. HEENT: Head is normocephalic, atraumatic. Anicteric sclerae. Very pale conjunctivae. Mucous membranes moist. Tracheostomy tube in place. Cardiovascular Exam: S1, S2 heard. Irregularly irregular and tachycardic. No murmurs, gallops, or rubs. Respiratory: Coarse breath sounds still present in both pulmonary gaston but patient is not using any accessory muscles or having work of breathing. Abdomen: There is a new PEG tube placed which is a PEG tube and also J-tube. Bowel sounds present. No organomegaly. Abdomen is a little bit distended. Extremities: 2 to 3+ pitting edema. No cyanosis or clubbing. Neurological: Patient awake, makes eye contacts but does not follow commands. LABORATORY DATA: Reviewed. ASSESSMENT AND PLAN: 1. Acute hypercapnic respiratory failure status post tracheostomy tube. Patient remains on tracheostomy collar needing oxygen supplementation. Today he is requiring 40 % of oxygen by ventilator. By now we can try to wean off ventilator but because of his multiple medical conditions currently going on, it is precluding us to try to wean off from ventilator now. 2. Atrial fibrillation with rapid ventricular response. That condition has developed overnight so he was started on amiodarone drip and also heparin drip. Heart rate has been in the range of 160s and 190s but it has been consulted. We will continue also with heparin drip as anticoagulation. 3. Health Care associated pneumonia. Today's number is 6. On vancomycin and meropenem. Dr. Dotson is following this patient. We will follow recommendations. 4. Acute kidney injury on hemodialysis. Because of low blood pressure the patient is going to continue receiving SLED. Dr. Villalobos following this patient. 5. Hypotension. Patient is requiring vasopressors. Yesterday when he came from the procedure where they placed tunneled catheter, he was off the medication, pressure drops to 50 systolic blood pressure. We will continue with the same management. 6. Anemia of chronic disease. Stable by now but we are going to transfuse if it is 7 or less. 7. Severe protein calorie malnutrition. PEG feeding has been changed to a PEG tube and also to J- tube. I will leave Dr. Landaverde or his partners to manage nutrition of this patient here in the hospital. 8. Diabetes mellitus type 2. We will continue with the sliding scale insulin. 9. GI prophylaxis with Pepcid. 10. Deep vein thrombosis prophylaxis. Patient is on heparin. 11. Physical deconditioning. Patient is too weak and sick to start any physical therapy at this time. Addendum: Family and patient who is awake and competent has talked and patient has decided to stop active treatment. Daughter at bedside agreed with her father. They are going to call his family and after the meeting will stop all active medications and will provide comfort care measures only. cc: Joao Marcum MD [facility]
[2016-09-15] MEDS: SOLU-CORTEF IV SCH (12:44)
--- NOTE | 2016-09-15 12:53 | PROGRESS NOTE ---
DATE: 09/15/2016 SUBJECTIVE: Mr. Santiago is resting in bed. He remains ventilator dependent per trach. He is now on pressor support with 2 pressor medications of Zhang-Synephrine and Levophed. He opens eyes to verbal stimuli. Otherwise, no indications of following and recognition of commands. OBJECTIVE: His most recent vital signs are temperature 99 degrees, blood pressure 131/77, heart rate 118, respirations are 32. He is on a 40% FiO2. Last recorded saturation is 93%. He has had 2626 in. He has had 2567 out, 1.7 L on dialysis. He remains fluid volume positive. LABS: Sodium 137, potassium 4.3, chloride 96, CO2 19, BUN 78, creatinine 4, glucose 299. Anion gap 22. Calcium 7, albumin 2.7. His corrected calcium is 8.4. White count 12.92, hemoglobin 7.5, hematocrit 23.2 with a platelet count of 153,000. ABG: PH 7.3, CO2 43, PO2 103, bicarb 21.1 on 40% FiO2. PHYSICAL EXAMINATION: General: This is a 71-year-old white male. He appears chronically ill. He is in no acute distress. Skin: Warm and dry. HEENT: Normocephalic, atraumatic with some eschar healing to his top forehead. This remains unchanged. Conjunctiva is pale. He has ANGELA. These remains sluggish. Neck: Supple. Trachea midline. Unable to determine JVD due to trach collar and a tunnel catheter to the left IJ. Cardiovascular: He is an irregular rate and rhythm today. He is now on an amiodarone drip. It is rate controlled in the 110-120 range. No murmur or gallop appreciated. Lungs: He has coarse breath sounds noted. No crackles or wheezes noted. He remains on ventilatory support. Equal excursion. Abdomen: Soft, nontender. Positive bowel sounds. G-tube remains in place. Tube feedings remain held. He is using around his G-tube in the abdominal area. J tube is intact and clamped. Genitourinary: Patient continues with some edema to his scrotal area. Extremities: Remain unchanged with 1+ edema. No clubbing or cyanosis. Neurological: As above. ASSESSMENT AND PLAN: 1. Acute kidney injury. Patient has had no recovery. He did not tolerate dialysis yesterday. Unfortunately we had to give some fluid back. We were only able to pull 1.7 L. He is currently on Zhang-Synephrine and Levophed for pressure support. We will plan for SLED today to attempt with fluid volume control. We will give him albumin to start his initial treatment for blood pressure support. We will pull 500 mL an hour or less as tolerated. 2. Septic shock. Patient is now on [address] Dotson is following. He remains on medications renally dosed per Dr. Dotson. No indications for intervention. 3. Electrolytes. Patient has hypocalcemia with correction of 8.4, with correction also on hemodialysis. 4. Anemia. This does remain low. It has been indicated that Dr. Dotson would like to wait for transfusion when patient is at 7 or below 7. He has been typed and crossmatch. No indications for transfusion today. He remains stable at 7.5. 5. Acid-base balance. He remains in metabolic acidosis. Again, with correction on dialysis. 6. Respiratory failure. Patient remains on ventilatory support. He is at 45% FiO2 and remains tachypnic. 7. Condition remains critical, his condition has worsened over the past 48 hours. I would like to thank you for allowing us to follow with this patient. Dictated by DANIELLA Watson for Iglesia Villalobos MD cc: DANIELLA Watson MD [facility]
[2016-09-15] MEDS: DILAUDID IV PRN (13:49)
[2016-09-15] MEDS ORDERED: TRANSDERM-SCOP TD SCH (21:00)
[2016-09-15] MEDS ORDERED: NARCAN IV PRN (21:04)
[2016-09-15] MEDS ORDERED: NARCAN IV ONE (21:15)
[2016-09-15] MEDS: ATIVAN IV PRN (21:33)
[2016-09-15] MEDS: MORPHINE IV PRN (21:34)
[2016-09-15] MEDS: DIFLUCAN 200 MG/NS 200 MG/100 ML IVPB IV SCH (22:30)
[2016-09-16] MEDS: MORPHINE IV PRN ×2 (01:04→04:22)
[2016-09-16] MEDS: ATIVAN IV PRN ×2 (01:04→04:22)
[2016-09-16 04:40] VITALS: BP 48/27
--- NOTE | 2016-09-16 22:35 | DISCHARGE SUMMARY ---
ADMISSION DATE: 07/31/2016 DISCHARGE DATE: 09/16/2016 ADMISSION DIAGNOSES: 1. Fever, increased dyspnea. 2. Bilateral elbow infection. 3. Diabetes type 2. 4. Hypertension. 5. Gouty arthritis. ACQUIRED DIAGNOSES DURING THIS HOSPITAL STAY: 1. Acute hypercapnic respiratory failure post trach tube placement. 2. Atrial fibrillation with rapid ventricular response. 3. Health care associated pneumonia. 4. Hypotension. 5. Anemia. 6. Severe protein malnutrition. 7. End-stage renal disease. 8. Diabetes type 2. 9. Physical deconditioning. PROCEDURES AND FINDINGS: 1. On 07/31/2016, Mr. Santiago had an ultrasound done on his bilateral lower extremities due to leg swelling and elevated D-dimer with shortness of breath. It was found that he had acute DVT of his left peroneal vein. 2. On 08/04/2016, it appears he had a right central line placement due to multiple antibiotic therapy. 3. Also on 08/04/2016, he had an echocardiogram performed that revealed minimal aortic stenosis, [id number] mitral annular calcification with mild mitral regurgitation, mild tricuspid regurgitation with [id number]-nz-[id number] pulmonary hypertension, also mild concentric left ventricular hypertrophy with left ventricular ejection fraction of 65%, and mild right ventricular enlargement with borderline decreased right ventricular systolic function. 4. On 08/08/2016, he had another echocardiogram performed to evaluate his right atrial function and this revealed his right atrium was moderately enlarged at 5.6 cm with decreased in right ventricular systolic function, also increase in right ventricular systolic pressure measured at 64. 5. On 08/09/2016, he had an ultrasound-guided right femoral vein Vas-Cath placed by Dr. Duckworth in order to initiate hemodialysis for Dr. Dunn's recommendations. 6. On 08/24/2016, he had an open trach placed by Dr. Xavier Dong due to his respiratory failure and failure to wean off the mechanical ventilation. 7. On 09/03/2016, he had an EGD with percutaneous endoscopic gastrostomy tube placement performed by Dr. Landaverde to initiate his tube feedings per GI's recommendation. 8. On 09/14/2016, he had an ultrasound-guided left internal jugular vein PermCath placement performed by Dr. Duckworth for permanent dialysis due to his end-stage renal disease. CONSULTS: 1. Dr. Brennan Dotson. 2. Dr. Iglesia Villalobos. 3. Dr. Braulio Dillard. 4. Dr. Mk Chew. 5. Dr. Rubens Duckworth. 6. Dr. Dylan Landaverde. HOSPITAL COURSE: Mr. Santiago is a 71-year-old male who was admitted on 07/31/2016 due to shortness of breath and fever. Chest x-ray revealed that day that his heart was enlarged and he had bilateral infiltrates with pulmonary edema. Due to his elevated D-dimer, his bilateral lower leg swelling, and his shortness of breath, he had a venous ultrasound performed on his bilateral lower extremities which revealed acute DVT at the left peroneal vein. He was started on Lovenox. On 08/01/2016, it appears he received 2 units of packed red blood cells due to a low hemoglobin and hematocrit. It appears throughout his course several doctors were consulted, and there were many trials of antibiotic therapy, diuresing, and trying to improve his pneumonia. It appears his breathing started to get worse on 08/05/2016. He was put on BiPAP. Another echocardiogram was done as mentioned above. Dr. Dotson had been consulted for the pneumonia and for his bilateral septic elbow arthritis for which he was put on several trials of different antibiotics. Daily chest x-rays showed minimal improvement in his pneumonia. On 08/08/2016, he had a repeat echo done to evaluate his right atrial function. There appeared to be a ricardo with managing his fluid overload with diuresis and his heart function. By that time he was transferred to the unit due to his progressive decline. Also on 08/08/2016, it appears he was intubated at that time and had an NG tube placed as well for continued antibiotics with mechanical ventilation. On 08/09/2016, he developed hyperkalemia and progressed into septic shock. A renal ultrasound was done that revealed no acute disease. His creatinine had elevated tremendously. At that point, Renal was consulted and evaluated the patient. They ordered urine studies and suggested a Vas-Cath placement to start dialysis. It appears he was trialed on SLED for 3 days. His developed hypotension and was started on Levophed. At one point, on 08/14/2016, he was maxed out on his Levophed with his pressures in the 90s to 100s. However, he did seem to improve a little bit with hemodialysis. His creatinine on 08/15/2016 was 2.7 and they were able to decrease somewhat his Levophed drip. It appears that he continued hemodialysis to pull 5-6 L of fluid off. On 08/18/2016, he was initiated on some tube feedings in order to help with his protein malnutrition. On 08/14/2016, he developed an elevated troponin at 0.610. It was noted that he was not able to tolerate any more tube feedings. This also appears to be a balancing act with multiple fluids and volume overload. Tube feedings were initiated, stopped, reinitiated several times. On 08/23/2016, Dr. Dong was consulted in order to place a trach due to his inability to wean off the ventilator. On 08/27/2016, it was noted that he had been in the ICU for 20 days and had not had much improvement. They were still not able to wean him off the ventilator. His potassium went back up to 6.3 and he developed some thrombocytopenia for which they hold his anticoagulants. On 08/30/2016, they started some weaning trials, completed the antibiotics for his pneumonia, and tried to start the process of transferring him to an LTAC. On 08/31/2016, he developed some encephalopathy for which a CT of his head was ordered and that was negative. At this point, Dr. Chew was consulted to place a PEG tube. On 09/02/2016, he was still on the trach trials per weaning. His white blood cell count started to creep back up. The Zosyn was restarted. On 09/03/2016, Dr. Landaverde performed the EEG with PEG tube placement. On 09/05/2016, his sputum culture revealed some yeast and he was started on Diflucan. Also on the same day, he had an abdominal ultrasound performed due to different elevated liver enzymes. This revealed mild splenomegaly. For the next 4 days, it seemed like they were managing his condition in order to transfer him out. However, he was just not bel to improved. On 09/10/2016, they did an abdominal x-ray because he was still not able to tolerate the tube feedings. Abdominal x-ray revealed on 09/12/2016. On 09/13/2016 his pneumonia came back completely. His antibiotics were restarted and metformin. He will be on long-term dialysis until catheter to be placed. On 09/14/2016, Dr. Duckworth performed his PermCath placement which was successful. It appeared in the last week or two of his stay here, he was hypotensive and required to be on vasopressors. It was noted that when he was off the medication, his blood pressure would drop to the 50s systolically. On 09/15/2016, the family and patient were spoken with concerning the patient's critical condition and hardly any improvement throughout his stay. It was decided then that they would stop all active treatment and only provide comfort care measures. It was noted that he on 09/16/2016 at 7 o'clock. IMAGING: Chest x-ray on 07/31/2016 revealed his heart was enlarged. He had bilateral infiltrates with pulmonary edema. Multiple chest x-rays were done daily in order to evaluate his pneumonia status. On 07/31/2016, he had an extremity venous study done of his bilateral lower extremities which revealed an acute deep vein thrombosis of the left peroneal vein. He had a chest CT done on 08/05/2016 which revealed multifocal dense bilateral infiltrates, mild cardiomegaly, and small calcified pleural plaque. On 08/05/2016, he had an echo performed which revealed minimal aortic stenosis, [id number] mitral annular calcification, mild mitral regurgitation, mild paroxysmal atrial fibrillation with [id number] pulmonary hypertension by the Doppler. Mild concentric left ventricular hypertrophy with left ventricular ejection fraction of 65, mild right ventricular enlargement with borderline reduced right ventricular systolic function. On 08/09/2016, he had a renal ultrasound done which revealed no acute disease. On 08/18/2016, they did an x-ray of his chest and abdomen to verify NG tube placement which was encouraged. On 07/24/2016, there was no visualized NG tube on the x-ray. On 08/30/2016, he had no hemorrhage, with the findings of no bowel obstruction. The catheter is overlying on the right side of the pelvis and there was a PEG tube, but there was no acute abnormality. On 09/12/2016, he had an abdominal x-ray which revealed no acute disease, state findings that there is a gastro ostomy tube in good position with the bulb in the stomach. Contrast was then used through the gastrostomy tube with a normal appearing gastric fundus with no appearance of the leak. The last chest x-ray done on 09/14/2016 that is charted states that the appearance of the chest has not changed although stable. Dictated by DANIELLA Hemphill for Joao Marcum MD cc: DANIELLA Hemphill MD Leroy F. Harris, MD Reginald D. Gladish, MD William D. Denney, MD Babu Kantamneni, MD R. Tyler Harney, MD Manish Arora, MD
--- NOTE | 2016-09-17 06:55 | EKG Report ---
Test Performed on : 09/15/2016 04:14:53 AM Test Reason : ELEVATED HR Blood Pressure : / mmHG Vent. Rate : 176 BPM Atrial Rate : 182 BPM P-R Int : 000 ms QRS Dur : 082 ms QT Int : 278 ms P-R-T Axes : 000 -32 209 degrees QTc Int : 475 ms Atrial fibrillation. with rapid ventricular response. Left axis deviation ST \T\ T wave abnormality, consider lateral ischemia Abnormal ECG When compared with ECG of 19-AUG-2016 05:38, Atrial fibrillation. has replaced Sinus rhythm. Vent. rate has increased BY 71 BPM QRS duration has decreased ST now depressed in Anterior leads T wave inversion now evident in Lateral leads Confirmed by Danish Cat MD ([id number]) on 09/17/2016 10:17:04 AM
== END 2016-09-16 07:00 | disposition expired ==
LOC: ED 13:10 → SUATTDRO 16:58 → 3S 16:58 → ICU 08-08 10:30
PROVIDERS: ATTEND Internal Medicine